=== PATIENT | male | born 1955 | race Caucasian/White ===

== ENCOUNTER 2018-11-01 11:42 | Outpatient (REF) | payer MEDICARE, MEDICAID, SELFPAY ==
[2018-11-01 12:42] LABS: ALT 14 U/L (12-78); AST 15 U/L (15-37); Albumin 2.8 g/dL (3.4-5.0); Alkaline Phosphatase 141 U/L (46-116); Anion Gap 7.4 mmol/L (3-11); BUN 4 mg/dL (7-18); Bilirubin, Total 0.3 mg/dL (0.2-1.0); CO2 29.6 mmol/L (21.0-32.0); CREATININE 1.35 mg/dL (0.70-1.30); Calcium 8.8 mg/dL (8.5-10.1); Chloride 87 mmol/L (98-107); Estimated GFR 53.04 (mL/min/1.73m2); Glucose 110 mg/dL (70-100); Magnesium 1.8 mg/dL (1.8-2.4); Potassium 4.4 mmol/L (3.5-5.1); Total Protein 6.3 g/dL (6.4-8.2)
[2018-11-01 12:54] LABS: Sodium 124 mmol/L (136-145)
== END 2018-11-01 12:02 ==
LOC: NCHCN 11:42
PROVIDERS: PCP Nurse Practitioner; Visit Provider Nurse Practitioner
DX: E87.6 Hypokalemia (principal); I10 Essential (primary) hypertension; E83.42 Hypomagnesemia
CPT/HCPCS: 80053; 83735

== ENCOUNTER 2018-11-03 09:35 | Outpatient (REF) | payer MEDICARE, MEDICAID, SELFPAY ==
[2018-11-03 14:49] LABS: Anion Gap 11.7 mmol/L (3-11); BUN 6 mg/dL (7-18); CO2 25.3 mmol/L (21.0-32.0); CREATININE 1.37 mg/dL (0.70-1.30); Calcium 9.1 mg/dL (8.5-10.1); Chloride 88 mmol/L (98-107); Estimated GFR 52.15 (mL/min/1.73m2); GGT 47 U/L (15-85); Glucose 93 mg/dL (70-100); Potassium 4.5 mmol/L (3.5-5.1); Sodium 125 mmol/L (136-145)
== END 2018-11-03 09:55 ==
LOC: NCHCN 09:35
PROVIDERS: PCP Nurse Practitioner; Visit Provider Nurse Practitioner
DX: E87.1 Hypo-osmolality and hyponatremia (principal); R74.8 Abnormal levels of other serum enzymes
CPT/HCPCS: 80048; 82977

== ENCOUNTER 2019-02-11 15:40 | Inpatient (IN) | payer MEDICARE, MEDICAID, SELFPAY ==
[2019-02-11] VITALS (8 sets, daily range): BP systolic 120–135; BP diastolic 87–92; PULSE 69–86; RESP 16–25; TEMP 36.3–36.4; O2SAT 98–100
--- NOTE | 2019-02-11 15:50 | W.ED.GENAD ---
Discharge Plan Disposition Patient Disposition: [facility] INPATIENT Condition: Stable Discharge Details Chief Complaint: Abd Prob Clinical Impression: Hyponatremia, UTI (urinary tract infection), Constipation, History of alcohol abuse Primary Care Provider: Josephine Velazquez ED Provider: Daisha Cabrales Home Meds and New Rx's Prescriptions: No Action carvedilol [Coreg] 6.25 MG tablet 12.5 mg PO BID Qty: 60 RF: 0 torsemide [Demadex] 20 MG tablet 20 mg PO DAILY Qty: 30 RF: 0 polyethylene glycol 3350 17 GM powder in packet 17 gm PO DAILY PRN PRN (Reason: Constipation) Qty: 30 RF: 0 amlodipine 5 MG tablet 5 mg PO DAILY Qty: 30 RF: 0 cyanocobalamin (vitamin B-12) [Vitamin B-12] 500 MCG tablet 1,000 mcg PO DAILY Qty: 30 RF: 0 ascorbic acid (vitamin C) [Vitamin C] 500 MG tablet 500 mg PO BID Qty: 60 RF: 0 bisacodyl 10 MG suppository 10 mg [place] DAILY PRN PRNQty: 30 RF: 0 benztropine 1 MG tablet 0.5 mg PO DAILY Qty: 30 RF: 0 docusate sodium [Colace] 100 MG capsule 100 mg PO TID PRN PRNQty: 90 RF: 0 omeprazole 20 MG capsule,delayed release(DR/EC) 20 mg PO DAILY@0730 Qty: 30 RF: 0 bisacodyl 5 MG tablet,delayed release (DR/EC) 5 mg PO DAILY PRN PRNQty: 30 RF: 0 risperidone [Risperdal] 1 MG tablet 1 mg PO HS Qty: 30 RF: 0 spironolactone 50 MG tablet 50 mg PO DAILY Qty: 30 RF: 0 multivit, iron, min no.8, FA [Therapeutic-M] 1 TAB tablet 1 tab PO BID Qty: 60 RF: 0 magnesium gluconate 500 MG tablet 500 mg PO BID Qty: 60 RF: 0 thiamine mononitrate (vit B1) [Vitamin B-1 (mononitrate)] 100 MG tablet 100 mg PO DAILY Qty: 30 RF: 0 Medical Decision Making 63-year-old male with history of GERD, COPD, schizophrenia, alcohol abuse, hypertension anxiety who presents with abdominal bloating, dysuria and decreased urine output since last night. Also admits to constipation with last bowel movement 2-3 weeks ago. Patient is a frequent alcoholic drinker, last drink last night. He denies any significant abdominal pain or vomiting. Patient appears disheveled. Vitals within normal limits. Minimal tenderness palpation left lower quadrant, no abdominal distention, rigidity or guarding. Normal exam. Differential diagnosis includes UTI, pyelonephritis, kidney stone, diverticulitis, electrolyte abnormality, small bowel obstruction. Will place an IV, bolus of fluids, labs, urinalysis as well as CT abdomen and pelvis. Patient had complained to nurse upon arrival that he could not breathe. He denied any shortness of breath for me and has no signs of acute respiratory distress. We will also obtain a chest x-ray. 1739 --labs reviewed and note a white blood cell count of 11, sodium 122. Sodium in October was 124 and 125. Creatinine 1.8, GFR 38. Lipase 109. Urinalysis notes UTI. Will change CT to only p.o. contrast. Will continue normal saline infusion for chronic hyponatremia. 1939 --CXR notes pulmonary mass lesion, fusiform aneurysm, no acute findings. CT abd notes minimal stool burden but no acute findings. Pt agreeable with admission. 1949 --d/w hospitalist - accepts pt for admission. Medical Records Medical records reviewed: Yes I reviewed the patient's medical records. Imaging Data Radiologic Study: Radiologist's impression: CT Abdomen and Pelvis Without Contrast EXAM DATE/TIME: 02/11/2019 7:01 PM FINDINGS: Lower thorax: Pulmonary hyperinflation. Small areas of centrilobular emphysema. ABDOMEN: Liver: Benign-appearing hepatic cyst. No hepatic masses. Gallbladder and bile ducts: No calcified stones. No ductal dilation. Pancreas: No ductal dilation. No masses. Spleen: No splenomegaly or focal lesions. Adrenals: Stable appearance of adrenal hypertrophy versus low-density probable adenomas. Kidneys and ureters: No hydronephrosis. Stomach and bowel: Very minimal distal diverticula are seen. Minimal stool burden. Submucosal fat deposition in the right colon. No evidence of colitis or diverticulitis. No focal pathology in the small bowel. Appendix: No evidence of appendicitis. PELVIS: Bladder: Unremarkable as visualized. Reproductive: Mild prominence of the prostate gland. ABDOMEN and PELVIS: Intraperitoneal space: No free air. No significant fluid collection. Bones/joints: Degenerative changes in the spine. No acute fracture or subluxation. Soft tissues: Subcutaneous 15 mm structure midline suprapubic pelvis, similar to prior, probably benign. Vasculature: Similar appearance of multilevel mild dilation of the infrarenal aorta with no evidence of rupture. Mild aortoiliac atherosclerosis. Mild asymmetric dilation of the distal thoracic aorta above the level of the aortic hiatus. Lymph nodes: No significantly enlarged lymph nodes. IMPRESSION: 1. No acute findings. Minimal stool burden. No evidence of colitis. 2. Incidental findings as described. XR Chest, 2 Views EXAM DATE/TIME: 02/11/2019 7:10 PM FINDINGS: Lungs: Hyperinflation similar to the previous study. Significant improvement in aeration of the lungs since the previous study with no definite new pneumonia. Pleural space: No pleural effusion. No pneumothorax. Heart/Mediastinum: No cardiomegaly. Vasculature: A tubular density measuring up to 5 cm in diameter projects over the posterior chest on the lateral view, appears contiguous with the descending aorta. Bones/joints: Degenerative changes in the shoulders. IMPRESSION: 1. Hyperinflation similar to the previous study. 2. Significant improvement in aeration of the lungs since the previous study with no definite new pneumonia. 3. A tubular density measuring up to 5 cm in diameter projects over the posterior chest on the lateral view, appears contiguous with the descending aorta. This could reflect a fusiform aortic aneurysm. A pulmonary mass lesion is considered less likely however difficult to exclude on this study. Morphology would be unusual for pneumonia. Followup is recommended. Lab Data Lab results reviewed: Yes I reviewed the patient's lab results. 02/11/19 17:15 Urine - Reflex from Ua Urine Culture - Pending Laboratory Tests Range/Units 02/11/19 02/11/19 02/11/19 17:05 17:05 17:15 WBC (4.4-10.8) k/cumm 11.62 H RBC (4.50-6.00) m/cumm 4.84 Hgb (13.5-17.5) g/dL 15.4 Hct (40.0-50.0) % 42.4 MCV (80-95) fL 87.6 MCH (27.0-33.0) pg 31.8 MCHC (32.0-36.0) g/dL 36.3 H RDW (11.8-14.1) % 16.2 H Plt Count (130-400) x1000/uL 201 MPV (8.0-11.0) fL 8.9 Immature Gran % 0.5 Neutrophils % 82.6 Lymphocytes % 11.0 Monocytes % 5.4 Eosinophils % 0.3 Basophils % 0.2 Absolute Neutrophils (1.2-6.7) k/cumm 9.60 H Absolute Lymphocytes (1.2-3.4) k/cumm 1.28 Absolute Monocytes (0.11-0.7) k/cumm 0.63 Absolute Eosinophils (0.0-0.7) k/cumm 0.03 Absolute Basophils (0.0-0.2) k/cumm 0.02 Sodium (136-145) mmol/L 122 L* Potassium (3.5-5.1) mmol/L 4.3 Chloride (98-107) mmol/L 85 L Carbon Dioxide (21.0-32.0) mmol/L 26.2 Anion Gap (3-11) mmol/L 10.8 BUN (7-18) mg/dL 17 Creatinine (0.70-1.30) mg/dL 1.80 H Estimated GFR/1.73 m2 (mL/min/1.73m2) 38.06 Glucose (70-100) mg/dL 107 H Calcium (8.5-10.1) mg/dL 8.9 Total Bilirubin (0.2-1.0) mg/dL 0.6 AST (15-37) U/L 21 ALT (12-78) U/L 26 Alkaline Phosphatase (46-116) U/L 143 H Total Protein (6.4-8.2) g/dL 7.3 Albumin (3.4-5.0) g/dL 2.8 L Lipase (73-393) U/L 109 Urine Color (Yellow) Yellow Urine Clarity Clear Urine pH (5-8) 5.5 Ur Specific [place] (1.005-1.025) 1.015 Urine Protein (Negative) mg/dL Trace H Urine Ketones (Negative) mg/dL Negative Urine Blood (Negative) Negative Urine Nitrite (Negative) Negative Urine Bilirubin (Negative) Small H Urine Urobilinogen (Up TO 0.2) EU/dL 1.0 H Ur Leukocyte Esterase (Negative) Trace H Urine RBC (0-2) Negative Urine WBC (0-5) HPF >50 Ur Epithelial Cells (Negative) HPF Few Urine Crystals (Negative) HPF Negative Urine Bacteria (Negative) HPF Many Urine Casts (Negative) LPF Negative Urine Mucus (Negative) Negative Urine Other (Negative) Negative Ur Culture Indicated? Yes Urine Glucose (Negative) mg/dL Negative HPI General Mode of arrival: ambulatory. Date/Time Provider Initiated Documentation: 02/11/19 15:50. Limitations to Documentation: no limitations. Information obtained by: patient. HPI Narrative: Patient is a 63-year-old male with a history of GERD, COPD, schizophrenia, alcohol abuse, hypertension and anxiety who presents with abdominal bloating and dysuria since yesterday. Patient denies any significant abdominal pain. He also admits to constipation and states he his last bowel movement was 2-3 weeks ago. States he normally has bowel movements daily. He states he drinks a sixpack of beer 2-3 times weekly. He states he last drank alcohol last night. He denies any hematuria, nausea, vomiting, diarrhea, chest pain, shortness of breath or abdominal pain. He states he has not urinated since last night. He states he has been eating and drinking normally. Related Data Home Medications Medication Instructions Recorded Confirmed amlodipine 5 mg PO DAILY #30 tab 12/08/17 ascorbic acid (vitamin C) [Vitamin 500 mg PO BID #60 tab 12/08/17 C] benztropine 0.5 mg PO DAILY #30 tab 12/08/17 bisacodyl 5 mg PO DAILY PRN PRN #30 tabec 12/08/17 bisacodyl 10 mg [place] DAILY PRN PRN #30 supp 12/08/17 carvedilol [Coreg] 12.5 mg PO BID #60 tab 12/08/17 cyanocobalamin (vitamin B-12) 1,000 mcg PO DAILY #30 tab 12/08/17 [Vitamin B-12] docusate sodium [Colace] 100 mg PO TID PRN PRN #90 cap 12/08/17 magnesium gluconate 500 mg PO BID #60 tab 12/08/17 multivit, iron, min no.8, FA 1 tab PO BID #60 tab 12/08/17 [Therapeutic-M] omeprazole 20 mg PO DAILY@0730 #30 capcr 12/08/17 polyethylene glycol 3350 17 gm PO DAILY PRN PRN #30 packet 12/08/17 risperidone [Risperdal] 1 mg PO HS #30 tab 12/08/17 spironolactone 50 mg PO DAILY #30 tab 12/08/17 thiamine mononitrate (vit B1) 100 mg PO DAILY #30 tab 12/08/17 [Vitamin B-1 (mononitrate)] torsemide [Demadex] 20 mg PO DAILY #30 tab 12/08/17 Previous Rx's Medication Instructions Recorded amlodipine 5 mg PO DAILY #30 tab 12/08/17 ascorbic acid (vitamin C) [Vitamin 500 mg PO BID #60 tab 12/08/17 C] benztropine 0.5 mg PO DAILY #30 tab 12/08/17 bisacodyl 5 mg PO DAILY PRN PRN #30 tabec 12/08/17 bisacodyl 10 mg [place] DAILY PRN PRN #30 supp 12/08/17 carvedilol [Coreg] 12.5 mg PO BID #60 tab 12/08/17 cyanocobalamin (vitamin B-12) 1,000 mcg PO DAILY #30 tab 12/08/17 [Vitamin B-12] docusate sodium [Colace] 100 mg PO TID PRN PRN #90 cap 12/08/17 magnesium gluconate 500 mg PO BID #60 tab 12/08/17 multivit, iron, min no.8, FA 1 tab PO BID #60 tab 12/08/17 [Therapeutic-M] omeprazole 20 mg PO DAILY@0730 #30 capcr 12/08/17 polyethylene glycol 3350 17 gm PO DAILY PRN PRN #30 packet 12/08/17 risperidone [Risperdal] 1 mg PO HS #30 tab 12/08/17 spironolactone 50 mg PO DAILY #30 tab 12/08/17 thiamine mononitrate (vit B1) 100 mg PO DAILY #30 tab 12/08/17 [Vitamin B-1 (mononitrate)] torsemide [Demadex] 20 mg PO DAILY #30 tab 12/08/17 Allergies Allergy/AdvReac Type Severity Reaction Status Date / Time No Known Allergies Allergy Unverified 02/11/19 15:38 General Stated Complaint: Abd Prob BELLO: 3 Review of Systems Review of Systems All systems reviewed & are unremarkable except as noted in HPI and below Constitutional Reports as per HPI, Denies chills and Denies fever(s) Eyes Denies blurry vision ENT Denies dizziness, Denies sore throat and Denies throat swelling Cardiovascular Denies chest pain and Denies dyspnea Respiratory Denies cough and Denies dyspnea Gastrointestinal Reports abdominal pain, Reports bloating, Denies diarrhea and Denies vomiting Genitourinary Denies hematuria, Reports oliguria and Reports dysuria Musculoskeletal Denies back pain and Denies numbness Integumentary/Breasts Denies lesions and Denies rash Neurologic Denies dizziness, Denies focal weakness and Denies numbness Allergic/Immunologic Denies throat swelling [facility] Medical History Anxiety (Chronic) Alcohol abuse COPD (chronic obstructive pulmonary disease) GERD (gastroesophageal reflux disease) Pneumonitis Schizophrenia Tremor Surgical History History of ankle surgery (Acute) Family History Mother Asthma Father [place] (myocardial infarction) Grandmother Diabetes Colon cancer Maternal Uncle Hyperlipidemia Other Lung cancer Social History Smoking/Tobacco Use Status: Current every day Alcohol Intake: current Alcohol Intake frequency: a few times a week Alcohol type: beer Drug use: Daily Substance use type: does not use Do you feel safe at home: Yes Do you feel safe in your relationship?: Yes Exam Const General: cooperative, no acute distress and No well groomed Nutritional Appearance: thin Orientation: alert and awake [facility] Head: normal to inspection Face and sinus: normal facial exam Mouth: mucous membranes dry Eyes General: appearance normal, both eyes and all related structures EOM: EOM intact bilaterally Neck Neck: normal visual inspection and No submandibular swelling Lymphatic: no lymphadenopathy noted Chest Chest: normal inspection of the chest and no tenderness Resp Effort & Inspection: normal respiratory effort and able to speak in complete sentences Auscultation: clear to auscultation bilaterally Cardio Rate: regular rate Rhythm: regular rhythm GI Inspection: normal to inspection and non-distended Palpation: soft, not firm, not rigid and tender in the LLQ (Minimal) Auscultation: hypoactive bowel sounds Male General Exam: Yes normal external exam Skin General skin exam: no rashes or lesions noted Neuro General: alert, awake and oriented x3 Cognition: normal cognition Speech: speech normal Motor: muscle tone normal throughout Sensory Exam: no sensory deficits noted Extrem General: normal to inspection, full ROM and no edema Psych Appearance: grossly normal Mental Status: mental status grossly normal Speech and Movement: speech and movement normal Affect: normal affect Course Vital Signs Temperature 97.3 F L 02/11/19 15:38 Pulse 83 02/11/19 15:38 Respiratory Rate 16 02/11/19 15:38 Blood Pressure 135/92 H 02/11/19 15:38 Pulse Oximetry 98 02/11/19 15:38 Temperature 97.3 F L 02/11/19 15:38 Temperature Source Temporal Artery Scan 02/11/19 15:38 Pulse 83 02/11/19 15:38 Respiratory Rate 16 02/11/19 15:38 Respiratory Effort 02/11/19 15:38 Blood Pressure 135/92 H 02/11/19 15:38 Pulse Oximetry 98 02/11/19 15:38 Oxygen Delivery Method Room Air 02/11/19 15:38 Oxygen Flow Rate 0 02/11/19 15:38
[2019-02-11] MEDS: Normal Saline 1,000 ML 1000 ML IV (17:00)
--- NOTE | 2019-02-11 17:12 | DI.RAD_ITS ---
SYMPTOM/DIAGNOSIS: SOB PA AND LATERAL CHEST: The heart is not enlarged. Thoracic aorta is tortuous and the possibility of a fusiform aneurysm of the descending thoracic aorta is raised, exact comparison with previous examination of 2018 is difficult but there may have been interval increase since 2016. Chest CT may be considered if clinically indicated. The possibility that this represents a mass is not entirely excluded. Lungs appear clear. No pleural effusion is seen. CONCLUSION: Question descending thoracic aneurysm. Mass not absolutely excluded. Chest CT suggested for further evaluation.
[2019-02-11 17:15] LABS: Abs Immature Grans 0.06 k/cumm (0.0-0.09); Absolute Basophil Count 0.02 k/cumm (0.0-0.2); Absolute Eosinophil Count 0.03 k/cumm (0.0-0.7); Absolute Lymphocyte Count 1.28 k/cumm (1.2-3.4); Absolute Monocyte Count 0.63 k/cumm (0.11-0.7); Basophils % 0.2; Eosinophils % 0.3; HCT 42.4 % (40.0-50.0); HGB 15.4 g/dL (13.5-17.5); Immature Grans % 0.5; Mean Corp. HGB Concentration 36.3 g/dL (32.0-36.0); Mean Corpuscular Hemoglobin 31.8 pg (27.0-33.0); Mean Corpuscular Volume 87.6 fL (80-95); Mean Platelet Volume 8.9 fL (8.0-11.0); Monocytes % 5.4; Neutrophils % 82.6; Platelet Count 201 x1000/uL (130-400); RBC 4.84 m/cumm (4.50-6.00); RBC Distribution Width 16.2 % (11.8-14.1); White Blood Cell Count 11.62 k/cumm (4.4-10.8)
[2019-02-11 17:22] LABS: Bilirubin Small (Negative); Blood Negative (Negative); Clarity Clear; Glucose Negative (Negative); Ketones Negative (Negative); Leukocyte Esterase Trace (Negative); Nitrite Negative (Negative); Specific Gravity 1.015 (1.005-1.025); pH 5.5 (5-8)
[2019-02-11 17:27] LABS: ALT 26 U/L (12-78); AST 21 U/L (15-37); Albumin 2.8 g/dL (3.4-5.0); Alkaline Phosphatase 143 U/L (46-116); Anion Gap 10.8 mmol/L (3-11); BUN 17 mg/dL (7-18); Bilirubin, Total 0.6 mg/dL (0.2-1.0); CO2 26.2 mmol/L (21.0-32.0); Calcium 8.9 mg/dL (8.5-10.1); Chloride 85 mmol/L (98-107); Estimated GFR 38.06 (mL/min/1.73m2); Glucose 107 mg/dL (70-100); Lipase 109 U/L (73-393); Potassium 4.3 mmol/L (3.5-5.1); Total Protein 7.3 g/dL (6.4-8.2)
[2019-02-11 17:29] LABS: Sodium 122 mmol/L (136-145)
[2019-02-11 17:34] LABS: Bacteria Many HPF (Negative); C & S Indicated? Yes; Casts Negative LPF (Negative); Crystals Negative HPF (Negative); Epithelial Cells Few HPF (Negative); Mucus Negative (Negative); Other Cells Negative (Negative); RBC Negative (0-2); WBC >50 HPF (0-5)
--- NOTE | 2019-02-11 17:37 | DI.CT_ITS ---
SYMPTOM/DIAGNOSIS: DIFFUSE ABD PAIN, ? OBSTRUCTION ABDOMEN AND PELVIC CT: CT examination of the abdomen and pelvis was performed with oral contrast only. Images obtained through the lung bases are unremarkable. Tiny low attenuation right hepatic lobe lesion is noted consistent with benign disease but too small to characterize. Spleen is unremarkable in appearance. No biliary dilatation is seen. Pancreas appears normal. Abdominal aorta is ectatic at about 31-32 mm. maximal diameter, grossly unchanged from 12/13/15. No abdominal or pelvic adenopathy. No significant abdominal wall hernia is seen. There is a question of wall edema of the ascending colon, clinical correlation is requested regarding the possibility of colitis. No free fluid or free air is seen. No evidence of a focal diverticulitis. Adrenals and kidneys grossly unremarkable in appearance and unchanged. CONCLUSION: Question of edema of the ascending colon, consider the diagnosis of colitis.
--- NOTE | 2019-02-11 19:29 | DI.VRAD_ITS ---
EXAM: XR Chest, 2 Views EXAM DATE/TIME: 02/11/2019 7:10 PM CLINICAL HISTORY: 63 years old, male; Signs and symptoms; Cough and shortness of breath; Additional info: R/O acute disease TECHNIQUE: Imaging protocol: XR of the chest, 2 views. COMPARISON: CR CHEST 2 VIEWS PA,LAT 12/05/2017 3:48 PM FINDINGS: Lungs: Hyperinflation similar to the previous study. Significant improvement in aeration of the lungs since the previous study with no definite new pneumonia. Pleural space: No pleural effusion. No pneumothorax. Heart/Mediastinum: No cardiomegaly. Vasculature: A tubular density measuring up to 5 cm in diameter projects over the posterior chest on the lateral view, appears contiguous with the descending aorta. Bones/joints: Degenerative changes in the shoulders. IMPRESSION: 1. Hyperinflation similar to the previous study. 2. Significant improvement in aeration of the lungs since the previous study with no definite new pneumonia. 3. A tubular density measuring up to 5 cm in diameter projects over the posterior chest on the lateral view, appears contiguous with the descending aorta. This could reflect a fusiform aortic aneurysm. A pulmonary mass lesion is considered less likely however difficult to exclude on this study. Morphology would be unusual for pneumonia. Followup is recommended. Dictated and Authenticated by: Mila Wheeler MD. Ordering:SHERMAN Ashton MD
--- NOTE | 2019-02-11 19:35 | DI.VRAD_ITS ---
EXAM: CT Abdomen and Pelvis Without Contrast EXAM DATE/TIME: 02/11/2019 7:01 PM CLINICAL HISTORY: 63 years old, male; Signs and symptoms; Constipation TECHNIQUE: Imaging protocol: Axial computed tomography images of the abdomen and pelvis without contrast. Coronal and sagittal reformatted images were created and reviewed. Radiation optimization: All CT scans at this facility use at least one of these dose optimization techniques: automated exposure control; mA and/or kV adjustment per patient size (includes targeted exams where dose is matched to clinical indication); or iterative reconstruction. COMPARISON: CT ABD PELVIS WO CONTRAST 12/13/2015 10:16 AM FINDINGS: Lower thorax: Pulmonary hyperinflation. Small areas of centrilobular emphysema. ABDOMEN: Liver: Benign-appearing hepatic cyst. No hepatic masses. Gallbladder and bile ducts: No calcified stones. No ductal dilation. Pancreas: No ductal dilation. No masses. Spleen: No splenomegaly or focal lesions. Adrenals: Stable appearance of adrenal hypertrophy versus low-density probable adenomas. Kidneys and ureters: No hydronephrosis. Stomach and bowel: Very minimal distal diverticula are seen. Minimal stool burden. Submucosal fat deposition in the right colon. No evidence of colitis or diverticulitis. No focal pathology in the small bowel. Appendix: No evidence of appendicitis. PELVIS: Bladder: Unremarkable as visualized. Reproductive: Mild prominence of the prostate gland. ABDOMEN and PELVIS: Intraperitoneal space: No free air. No significant fluid collection. Bones/joints: Degenerative changes in the spine. No acute fracture or subluxation. Soft tissues: Subcutaneous 15 mm structure midline suprapubic pelvis, similar to prior, probably benign. Vasculature: Similar appearance of multilevel mild dilation of the infrarenal aorta with no evidence of rupture. Mild aortoiliac atherosclerosis. Mild asymmetric dilation of the distal thoracic aorta above the level of the aortic hiatus. Lymph nodes: No significantly enlarged lymph nodes. IMPRESSION: 1. No acute findings. Minimal stool burden. No evidence of colitis. 2. Incidental findings as described. Dictated and Authenticated by: Mila Wheeler MD. Ordering:SHERMAN Ashton MD
[2019-02-11] MEDS: cefTRIAXone 1 GM/50 ML BAG IVPB (20:40)
[2019-02-11 22:28] LABS: ETHANOL BLOOD < 3.0 mg/dL (<3)
--- NOTE | 2019-02-11 22:51 | HPE_ITS ---
Date of service: 02/11/19 Time of Service: 22:51 Assessment and Plan (1) UTI (urinary tract infection): Current visit: Yes Status: Acute continue Ceftriaxone 1 gm IV daily pending cultures results then transit ion to oral antibiotics. check renal US to evaluate for pyelonephritis. Qualifiers: Urinary tract infection type: site unspecified Hematuria presence: without hematuria Qualified Code(s): N39.0 - Urinary tract infection, site not specified (2) Acute prerenal azotemia: Current visit: Yes Status: Acute gentle iv hydration overnight. dc fluids after this liter to avoid putting him into anasarca. However given his poor oral intake and his worsening azotemia, I think that he can tolerate short term iv fluids and putting his diuretics on hold for now (3) Constipation: Current visit: No Status: Chronic resolved w/ drinking the barium for the CT scan of his abdomen (4) Alcohol abuse: Current visit: No Status: Chronic chronic issue. No hx of acute alcohol withdrawal even during his admission in 2018. will monitor on CIWA scale while hospitalized and initiate benzodiazepines if his scores are high (5) Schizoaffective disorder: Current visit: No Status: Chronic continue home meds. Qualifiers: Schizoaffective disorder type: bipolar Qualified Code(s): F25.0 - Schizoaffective disorder, bipolar type (6) Hyponatremia: Current visit: No Status: Chronic chronic issue and related to his liver disease and use of longterm diuretics. No apparent ill effects and no acute changes in his sodium levels. History of Present Illness Chief Complaint: bloated, nausea, short of breath Narrative: 63 yr old male w/ PMH of COPD, schizophrenia, alcoholism, tobaccoism, anxiety disorder, GERD, HTN, ascites, CKD and H.U.S. presents w/ c/o of not having a bm x 2 wks and feeling nauseated and bloated and short of breath. Upon evaluation in the ER he was afebrile, hemodynamically stable, not hypoxemic but because of the c/o of abdominal bloating and lack of BM and decreased urinary output, a CT scan of his abdomen and pelvis was ordered however this was done w/ only oral contrast d/t his HUMBERTO. Labs were remarkable for elevated creatinine of 1.8 (last known creatinine was 1.37 on 11/03/2018) and BUN of 17. He was noted to have sodium of 122 but his baseline is 124 to 125. He has known ascites and takes spironolactone and demedex. CT of his abdomen did not reveal any hydronephrosis. No gall stones or ductal dilatation. No pancreatic masses or ductal dilatation. Minimal stool burden was seen. No evidence for appendicitis nor colitis.Urinary bladder was unremarkable. His vasculature however revealed tortuous atherosclerotic abdominal aorta that showed mild dilatation of the infrarenal aorta, however no diagnosis of aortic aneurysm was made. No dissection was seen. Also noted was asymmetric dilatation of the distal thoracic aorta above the aortic hiatus. CXR revealed hyperinflation and tubular density measuring up to 5 cm in diameter over the posterior chest seen on lateral view that appeared to be contiduous w/ the descending aorta. Follow up study was recommended. Patient in addition to noting low u.o. despite being on spironolactone and demedex, he also complained of dysuria, burning w/ urination. UA was remarkable for pyuria w/ >50 WBC, many bacteria and trace of leukocyte esterace but negative for nitrites. Treatment in the ER included 1 liter of NS iv fluids, blood cultures and urine cultures and initiation of Rocephin 1 gm for UTI. He is admitted overnight for treatment of dehydration, HUMBERTO, and UTI. He will need follow up of his TAA. Review of Systems Constitutional Reports system reviewed and no additional complaints, except as docu [facility] Medical History Anxiety (Chronic) Alcohol abuse COPD (chronic obstructive pulmonary disease) GERD (gastroesophageal reflux disease) Pneumonitis Schizophrenia Tremor Surgical History History of ankle surgery (Acute) Family History Mother Asthma Father [place] (myocardial infarction) Grandmother Diabetes Colon cancer Maternal Uncle Hyperlipidemia Other Lung cancer Social History Smoking/Tobacco Use Status: Current every day Tobacco Type: cigarettes Smoking packs per day: 1 Alcohol Intake: current Alcohol Intake frequency: 3 or more drinks per day Alcohol type: beer Details: drinks a 6 pack of beer per day Drug use: Never Substance use type: does not use Do you feel safe at home: Yes Do you feel safe in your relationship?: Yes Meds Home Medications Medication Instructions Recorded Confirmed Type Therapeutic-M 1 tab PO BID #60 tab 12/08/17 02/11/19 Rx amlodipine 5 mg PO DAILY #30 tab 12/08/17 02/11/19 Rx ascorbic acid (vitamin C) [Vitamin 500 mg PO BID #60 tab 12/08/17 02/11/19 Rx C] benztropine 0.5 mg PO DAILY #30 tab 12/08/17 02/11/19 Rx carvedilol [Coreg] 12.5 mg PO BID #60 tab 12/08/17 02/11/19 Rx cyanocobalamin (vitamin B-12) 1,000 mcg PO DAILY #30 tab 12/08/17 02/11/19 Rx [Vitamin B-12] docusate sodium [Colace] 100 mg PO TID PRN PRN #90 cap 12/08/17 02/11/19 Rx magnesium gluconate 500 mg PO BID #60 tab 12/08/17 02/11/19 Rx omeprazole 20 mg PO DAILY@0730 #30 capcr 12/08/17 02/11/19 Rx risperidone [Risperdal] 1 mg PO HS #30 tab 12/08/17 02/11/19 Rx spironolactone 50 mg PO DAILY #30 tab 12/08/17 02/11/19 Rx torsemide [Demadex] 20 mg PO DAILY #30 tab 12/08/17 02/11/19 Rx mirtazapine [Remeron] 15 mg PO HS 02/11/19 02/11/19 History omega 4-akq-ern-fish oil [[place]-3] 2,000 cap PO DAILY 02/11/19 02/11/19 History thiamine HCl (vitamin B1) [Vitamin 100 mg PO DAILY 02/11/19 02/11/19 History B-1] Allergies Allergy/AdvReac Type Severity Reaction Status Date / Time No Known Allergies Allergy Unverified 02/11/19 15:38 Exam Const General: cooperative, no acute distress and disheveled Nutritional Appearance: overweight Orientation: alert, awake and oriented x3 HENMT Head: normal to inspection, no palpable skull fracture, normocephalic and atraumatic Ears: hearing grossly normal bilaterally General nose exam: external nose normal Face and sinus: normal facial exam Neck Neck: normal visual inspection, full ROM, no lymphadenopathy and trachea midline Thyroid: thyroid normal Carotids: normal carotid upstroke Chest Chest: normal inspection of the chest and normal palpation of entire chest wall Resp Effort & Inspection: normal respiratory effort and able to speak in complete sentences Auscultation: clear to auscultation bilaterally Cardio Jugular venous pressure: no JVD Palpation: normal PMI Rate: regular rate Rhythm: regular rhythm Heart Sounds: S1 normal and S2 normal Bruits: no abdominal aortic bruits Pulses: normal peripheral pulses GI Inspection: obesity Palpation: soft and no hepatosplenomegaly Percussion: normal to percussion Auscultation: normal bowel sounds Back/Spine/Pelvis Back: no CVA tenderness Cervical Spine: normal cervical lordosis Thoracic/Lumbar Spine: thoracic and lumbar spine normal to inspection Skin General skin exam: no rashes or lesions noted, elasticity normal and turgor normal Neuro General: alert, awake, oriented x3, moves all extremities and no focal motor deficits Cognition: normal cognition Speech: speech normal Motor: muscle tone normal throughout and no movement abnormalities noted Extrem General: normal to inspection, full ROM, no joint enlargement and no clubbing, cyanosis or edema Psych Appearance: disheveled Mental Status: mental status grossly normal Speech and Movement: speech and movement normal Mood: congruent mood Affect: normal affect Attitude: cooperative Thought Process: normal Thought Content: normal Insight: fair Judgment: fair Results Imaging Chest x-ray: report reviewed (IMPRESSION: 1. Hyperinflation similar to the previous study. 2. Significant improvement in aeration of the lungs since the previous study with no definite new pneumonia. 3. A tubular density measuring up to 5 cm in diameter projects over the posterior chest on the lateral view, appears contiguo) and image reviewed Abdomen CT scan report/results: report reviewed (FINDINGS: Lower thorax: Pulmonary hyperinflation. Small areas of centrilobular emphysema. ABDOMEN: Liver: Benign-appearing hepatic cyst. No hepatic masses. Gallbladder and bile ducts: No calcified stones. No ductal dilation. Pancreas: No ductal dilation. No masses. Spleen: No splenom) Labs : 02/11/19 17:05 02/11/19 17:05 Laboratory Results - last 24 hr 02/11/19 02/11/19 02/11/19 17:05 17:05 17:15 WBC 11.62 H RBC 4.84 Hgb 15.4 Hct 42.4 MCV 87.6 MCH 31.8 MCHC 36.3 H RDW 16.2 H Plt Count 201 MPV 8.9 Immature Gran % 0.5 Neutrophils % 82.6 Lymphocytes % 11.0 Monocytes % 5.4 Eosinophils % 0.3 Basophils % 0.2 Absolute Neutrophils 9.60 H Absolute Lymphocytes 1.28 Absolute Monocytes 0.63 Absolute Eosinophils 0.03 Absolute Basophils 0.02 Sodium 122 L* Potassium 4.3 Chloride 85 L Carbon Dioxide 26.2 Anion Gap 10.8 BUN 17 Creatinine 1.80 H Estimated GFR/1.73 m2 38.06 Glucose 107 H Calcium 8.9 Total Bilirubin 0.6 AST 21 ALT 26 Alkaline Phosphatase 143 H Total Protein 7.3 Albumin 2.8 L Lipase 109 Urine Color Yellow Urine Clarity Clear Urine pH 5.5 Ur Specific [place] 1.015 Urine Protein Trace H Urine Ketones Negative Urine Blood Negative Urine Nitrite Negative Urine Bilirubin Small H Urine Urobilinogen 1.0 H Ur Leukocyte Esterase Trace H Urine RBC Negative Urine WBC >50 Ur Epithelial Cells Few Urine Crystals Negative Urine Bacteria Many Urine Casts Negative Urine Mucus Negative Urine Other Negative Ur Culture Indicated? Yes Urine Glucose Negative Ethyl Alcohol 02/11/19 21:45 WBC RBC Hgb Hct MCV MCH MCHC RDW Plt Count MPV Immature Gran % Neutrophils % Lymphocytes % Monocytes % Eosinophils % Basophils % Absolute Neutrophils Absolute Lymphocytes Absolute Monocytes Absolute Eosinophils Absolute Basophils Sodium Potassium Chloride Carbon Dioxide Anion Gap BUN Creatinine Estimated GFR/1.73 m2 Glucose Calcium Total Bilirubin AST ALT Alkaline Phosphatase Total Protein Albumin Lipase Urine Color Urine Clarity Urine pH Ur Specific [place] Urine Protein Urine Ketones Urine Blood Urine Nitrite Urine Bilirubin Urine Urobilinogen Ur Leukocyte Esterase Urine RBC Urine WBC Ur Epithelial Cells Urine Crystals Urine Bacteria Urine Casts Urine Mucus Urine Other Ur Culture Indicated? Urine Glucose Ethyl Alcohol < 3.0 Last Vital Signs Temp 36.4 C L 02/11/19 21:37 Pulse 86 02/11/19 21:37 Resp 16 02/11/19 21:37 BP 120/87 02/11/19 21:37 Pulse Ox 100 02/11/19 21:37
[2019-02-12] MEDS: Mirtazapine 15 MG TAB PO ×2 (00:22→21:55)
[2019-02-12] MEDS: risperiDONE 1 MG TAB PO ×2 (00:22→21:55)
[2019-02-12] MEDS: Normal Saline 1,000 ML 75 ML IV (01:28)
[2019-02-12 04:59] VITALS: BP 125/89; PULSE 84; RESP 20; TEMP 36.9; O2SAT 98
[2019-02-12 07:17] LABS: Abs Immature Grans 0.02 k/cumm (0.0-0.09); Absolute Basophil Count 0.01 k/cumm (0.0-0.2); Absolute Eosinophil Count 0.02 k/cumm (0.0-0.7); Absolute Lymphocyte Count 1.32 k/cumm (1.2-3.4); Absolute Monocyte Count 0.49 k/cumm (0.11-0.7); Absolute Neutrophil Count 5.74 k/cumm (1.2-6.7); Basophils % 0.1; Eosinophils % 0.3; HCT 37.3 % (40.0-50.0); HGB 13.6 g/dL (13.5-17.5); Immature Grans % 0.3; Lymphocytes % 17.4; Mean Corp. HGB Concentration 36.5 g/dL (32.0-36.0); Mean Corpuscular Hemoglobin 32.1 pg (27.0-33.0); Mean Platelet Volume 9.4 fL (8.0-11.0); Monocytes % 6.4; Neutrophils % 75.5; Platelet Count 206 x1000/uL (130-400); RBC 4.24 m/cumm (4.50-6.00); RBC Distribution Width 15.8 % (11.8-14.1)
[2019-02-12 07:21] LABS: Anion Gap 9.1 mmol/L (3-11); BUN 14 mg/dL (7-18); CO2 24.9 mmol/L (21.0-32.0); CREATININE 1.37 mg/dL (0.70-1.30); Calcium 8.6 mg/dL (8.5-10.1); Chloride 89 mmol/L (98-107); Estimated GFR 52.15 (mL/min/1.73m2); Glucose 95 mg/dL (70-100); Potassium 3.6 mmol/L (3.5-5.1); TSH (W/Ref FT4) 0.39 uIU/mL (0.358-3.74)
[2019-02-12 07:25] VITALS: BP 141/92; PULSE 96; RESP 18; TEMP 36.4; O2SAT 97
[2019-02-12 07:25] LABS: Sodium 123 mmol/L (136-145)
[2019-02-12] MEDS: Thiamine 100 MG TAB PO (07:43)
[2019-02-12] MEDS: Multivitamin w/Minerals TAB 1 TAB PO ×2 (07:43→20:38)
[2019-02-12] MEDS: Omeprazole 20 MG CAPCR PO (07:43)
[2019-02-12] MEDS: Ascorbic Acid 500 MG TAB PO ×2 (07:43→20:38)
[2019-02-12] MEDS: Magnesium Gluconate 500 MG TAB PO ×2 (07:43→20:38)
[2019-02-12] MEDS: amLODIPine 5 MG TAB PO (07:43)
[2019-02-12] MEDS: Carvedilol 6.25 MG TAB 12.5 MG PO ×2 (07:43→20:38)
[2019-02-12] MEDS: Cyanocobalamin 500 MCG TAB 1000 MCG PO (07:43)
[2019-02-12] MEDS: Heparin 5,000 UNITS/ML VIAL 5000 UNITS SC ×2 (07:44→23:46)
--- NOTE | 2019-02-12 07:55 | PDOC.CMIN ---
- If Service Date Differs Date of service: 02/12/19 Time of Service: 07:55 Care Management Initial Assess REASON FOR HOSPITALIZATION:: UTI PAST MEDICAL HISTORY/PAST SURGICAL HISTORY:: Anxiety (Chronic). Alcohol abuse. COPD (chronic obstructive pulmonary disease). GERD (gastroesophageal reflux disease). Pneumonitis. Schizophrenia. Tremor. History of ankle surgery (Acute) PREVIOUS FUNCTIONAL STATUS/SOCIAL/FAMILY SUPPORTS:: Devin resides alone in a 3rd floor apartment in [facility]. He reports that he has some family locally whom are supportive. Devin states that he does not drive at this time and depends on his ELECTRIFICATION ADVISER caseworker protective services Matthew or MARY for transportation. CURRENT FUNCTIONAL STATUS:: Currently Devin is sitting on the side of his bed. He is receptive to discussion. Devin states multiple times throughout visit that he would like to return home today. ADVANCE DIRECTIVES:: None on file Has patient been provided with information about the portal?: Yes Did the patient sign up for the portal?: No CODE STATUS:: Full Code INSURANCE COVERAGE / FINANCIAL ISSUES:: [facility] CURRENT HOME/COMMUNITY SERVICES/EQUIPMENT:: Currently Devin has ELECTRIFICATION ADVISER case management services through [facility] - Matthew Dickens is his skin care instructor. Devin also receives daily medication drops through [facility] which he reports is helpful. Devin also states that he sees Rosaura at [facility]. PRIMARY CARE PHYSICIAN:: Josephine Velazquez POTENTIAL DISCHARGE NEEDS:: F/U appt with PCP. Resume [facility] ELECTRIFICATION ADVISER supports PATIENT/FAMILY EDUCATION NEEDS:: Review DC instructions, any limitations, and ongoing DC planning discussion. Discuss 'Ask Me three' ANTICIPATED BARRIERS TO DISCHARGE:: None identified at this time. TRANSPORTATION:: Via private vehicle with caseworker protective services Matthew vs. RCT PLAN:: Devin will return home with continued ELECTRIFICATION ADVISER support services through [facility]. He will F/U with PCP and plan of care as prescribed. Matthew, ELECTRIFICATION ADVISER CM, to transport vs. RCT.
--- NOTE | 2019-02-12 07:58 | INITIAL_ITS ---
- If Service Date Differs Date of service: 02/12/19 Time of Service: 07:55 Care Management Initial Assess REASON FOR HOSPITALIZATION:: UTI PAST MEDICAL HISTORY/PAST SURGICAL HISTORY:: Anxiety (Chronic). Alcohol abuse. COPD (chronic obstructive pulmonary disease). GERD (gastroesophageal reflux disease). Pneumonitis. Schizophrenia. Tremor. History of ankle surgery (Acute) PREVIOUS FUNCTIONAL STATUS/SOCIAL/FAMILY SUPPORTS:: Devin resides alone in a 3rd floor apartment in [facility]. He reports that he has some family locally whom are supportive. Devin states that he does not drive at this time and depends on his FLAVOR TANK TENDER showcase maker Matthew or MARY for transportation. CURRENT FUNCTIONAL STATUS:: Currently Devin is sitting on the side of his bed. He is receptive to discussion. Devin states multiple times throughout visit that he would like to return home today. ADVANCE DIRECTIVES:: None on file Has patient been provided with information about the portal?: Yes Did the patient sign up for the portal?: No CODE STATUS:: Full Code INSURANCE COVERAGE / FINANCIAL ISSUES:: [facility] [place] CURRENT HOME/COMMUNITY SERVICES/EQUIPMENT:: Currently Devin has FLAVOR [employer] T[employer] case management services through [facility] - Matthew Dickens is his professional healthcare representative. Devin also receives daily medication drops through [facility] which he reports is helpful. Devin also states that he sees Rosaura at [facility]. PRIMARY CARE PHYSICIAN:: Josephine Velazquez POTENTIAL DISCHARGE NEEDS:: F/U appt with PCP. Resume [facility] FLAVOR TANK TENDER supports PATIENT/FAMILY EDUCATION NEEDS:: Review DC instructions, any limitations, and ongoing DC planning discussion. Discuss 'Ask Me three' ANTICIPATED BARRIERS TO DISCHARGE:: None identified at this time. TRANSPORTATION:: Via private vehicle with showcase maker Matthew vs. RCT PLAN:: Devin will return home with continued FLAVOR TANK TENDER support services through [facility]. He will F/U with PCP and plan of care as prescribed. Matthew, FLAVOR TANK TENDER CM, to transport vs. RCT.
[2019-02-12] MEDS: Benztropine 1 MG TAB 0.5 MG PO (09:27)
[2019-02-12] MEDS: Omega-3 Fatty Acids 1000 MG CAP 2000 MG PO (09:27)
[2019-02-12] MEDS: Potassium Chloride 20 MEQ TABCR 40 MEQ PO (09:29)
[2019-02-12] MEDS: Gabapentin 800 MG TAB PO (10:30)
[2019-02-12] MEDS: Tamsulosin 0.4 MG CAPCR PO (10:30)
--- NOTE | 2019-02-12 15:21 | PGE_ITS ---
Date of Service Date of service: 02/12/19 Time of Service: 15:16 Assessment and Plan (1) UTI (urinary tract infection): Current visit: Yes Status: Acute Continue Ceftriaxone 1 gm IV daily pending cultures results then transition to oral antibiotics. Urine culture with no growth at 24 hours. Renal US ordered to evaluate for pyelonephritis. Qualifiers: Urinary tract infection type: site unspecified Hematuria presence: without hematuria Indwelling urinary catheter type: Encounter type: Qualified Code(s): N39.0 - Urinary tract infection, site not specified (2) Acute prerenal azotemia: Current visit: Yes Status: Acute Received gentle IV hydration overnight with improvement in creatinine. Receiving 1 more liter today. Diuretics on hold in the setting of dehydration with HUMBERTO. Continue to monitor renal function. With history of cirrhosis and ascites, will need to restart diuretics when medically appropriate. (3) Constipation: Current visit: No Status: Chronic Resolved after taking barium for CT scan. CT revealed minimal stool burden. (4) Hyponatremia: Current visit: No Status: Chronic Chronic hyponatremia related to chronic liver disease and long-term diuretic use. Gentle IV hydration with NS. Continue to monitor. (5) Alcohol abuse: Current visit: No Status: Chronic Received one dose of Gabapentin and was profoundly sedated. It does not appear that he has had symptoms of withdrawal in the past while hospitalized. Discontinue scheduled Gabapentin and Serax. Monitor on CIWA protocol and treat symptoms with ativan as needed. (6) Schizoaffective disorder: Current visit: No Status: Chronic Continue home medicaitons. Qualifiers: Schizoaffective disorder type: bipolar Qualified Code(s): F25.0 - Schizoaffective disorder, bipolar type (7) Descending thoracic aortic aneurysm: Current visit: Yes Status: Acute CT scan shows a tubular density measuring up to 5 cm in diameter projects over the posterior chest on the lateral view, appears contiguous with the descending aorta. This was present on a study in 2017, has increased in size, nearing the threshold for repair. Will need outpatient follow up. (8) DVT prophylaxis: Current visit: Yes Status: Acute Subcutaneous heparin. (9) Discharge planning issues: Current visit: Yes Status: Acute He is a FULL code. This case was discussed with Dr. Vasques who is in agreement. Subjective Interval history since last seen: Mr. Rebolledo is quite sedated today. There was concern for possible alcohol withdrawal and he had one dose of Gabapentin and has been sleeping since. Review of his record reveals that he has not had alcohol withdrawal in the past when he has been hospitalized here. Given the profound sedation after taking Gabapentin, will discontinue and monitor on the CIWA protocol. He specifically denies dizziness, shortness of breath, coughing, wheezing, chest pain/pressure, nausea, vomiting. He does endorse dysuria, no hematuria. He denies lower extremity edema. He verbalizes no other concerns. Exam Narrative Exam Narrative: General: Lying in bed on his side, difficult to awaken for assessment. Answers questions appropriately when awake, falls back to sleep easily. Does not appear to be in any acute distress. HEENT: Normocephalic, atraumatic. Skin color has galarza hue. Mucous membranes moist. Neck: Supple, no JVD. Cardiovascular: Heart has regular rate and rhythm, no murmur appreciated. Respiratory: Respirations even and unlabored, lung sounds clear to auscultation throughout. Abdomen: Normoactive bowel sounds, soft, nontender on palpation. Extremities: no clubbing, cyanosis or edema. Moves around freely in bed. Pedal pulses palpable bilaterally. Objective Objective Clinical Data: Abnormal lab results 02/11/19 02/11/19 02/11/19 Range/Units 17:05 17:05 17:15 WBC 11.62 H (4.4-10.8) k/cumm RBC (4.50-6.00) m/cumm Hct (40.0-50.0) % MCHC 36.3 H (32.0-36.0) g/dL RDW 16.2 H (11.8-14.1) % Absolute Neutrophils 9.60 H (1.2-6.7) k/cumm Sodium 122 L* (136-145) mmol/L Chloride 85 L (98-107) mmol/L Creatinine 1.80 H (0.70-1.30) mg/dL Glucose 107 H (70-100) mg/dL Alkaline Phosphatase 143 H (46-116) U/L Albumin 2.8 L (3.4-5.0) g/dL Urine Protein Trace H (Negative) mg/dL Urine Bilirubin Small H (Negative) Urine Urobilinogen 1.0 H (Up TO 0.2) EU/dL Ur Leukocyte Esterase Trace H (Negative) 02/12/19 02/12/19 Range/Units 06:15 06:15 WBC (4.4-10.8) k/cumm RBC 4.24 L (4.50-6.00) m/cumm Hct 37.3 L (40.0-50.0) % MCHC 36.5 H (32.0-36.0) g/dL RDW 15.8 H (11.8-14.1) % Absolute Neutrophils (1.2-6.7) k/cumm Sodium 123 L* (136-145) mmol/L Chloride 89 L (98-107) mmol/L Creatinine 1.37 H (0.70-1.30) mg/dL Glucose (70-100) mg/dL Alkaline Phosphatase (46-116) U/L Albumin (3.4-5.0) g/dL Urine Protein (Negative) mg/dL Urine Bilirubin (Negative) Urine Urobilinogen (Up TO 0.2) EU/dL Ur Leukocyte Esterase (Negative) Vital Signs Temperature 36.4 C L 02/12/19 07:25 Temperature Source Tympanic 02/12/19 07:25 Pulse 96 H 02/12/19 07:25 Pulse Rhythm Regular 02/12/19 07:54 Pulse 74 02/11/19 18:40 Respiratory Rate 18 02/12/19 07:25 Respiratory Effort Non-Labored 02/12/19 07:54 Respiratory Depth Normal 02/12/19 07:54 Respiratory Pattern Normal 02/12/19 07:54 Blood Pressure 141/92 H 02/12/19 07:25 Pulse Oximetry 97 02/12/19 07:25 Oxygen Delivery Method Room Air 02/12/19 07:25 Oxygen Flow Rate 0 02/12/19 07:25 Pain Level 0 02/12/19 07:25 Intake & Output 02/11/19 02/12/19 02/12/19 23:59 11:59 23:59 Intake Total 1000 / 1000 480 / 600 120 / 600 Output Total 750 / 1425 675 / 1425 Balance 999 / 999 -270 / -825 -555 / -825 Weight 68.039 kg 68.89 kg Intake: IV 1000 / 1000 Oral 480 / 600 120 / 600 Output: Urine 750 / 1425 675 / 1425 Other: Urine Color Yellow Yellow Straw Urine Appearance Cloudy Clear Clear Laboratory Results WBC 7.60 k/cumm (4.4-10.8) D 02/12/19 06:15 RBC 4.24 m/cumm (4.50-6.00) L 02/12/19 06:15 Hgb 13.6 g/dL (13.5-17.5) 02/12/19 06:15 Hct 37.3 % (40.0-50.0) L 02/12/19 06:15 MCV 88.0 fL (80-95) 02/12/19 06:15 MCH 32.1 pg (27.0-33.0) 02/12/19 06:15 MCHC 36.5 g/dL (32.0-36.0) H 02/12/19 06:15 RDW 15.8 % (11.8-14.1) H 02/12/19 06:15 Plt Count 206 x1000/uL (130-400) 02/12/19 06:15 MPV 9.4 fL (8.0-11.0) 02/12/19 06:15 Immature Gran % 0.3 02/12/19 06:15 Neutrophils % 75.5 02/12/19 06:15 Lymphocytes % 17.4 02/12/19 06:15 Monocytes % 6.4 02/12/19 06:15 Eosinophils % 0.3 02/12/19 06:15 Basophils % 0.1 02/12/19 06:15 Absolute Neutrophils 5.74 k/cumm (1.2-6.7) 02/12/19 06:15 Absolute Lymphocytes 1.32 k/cumm (1.2-3.4) 02/12/19 06:15 Absolute Monocytes 0.49 k/cumm (0.11-0.7) 02/12/19 06:15 Absolute Eosinophils 0.02 k/cumm (0.0-0.7) 02/12/19 06:15 Absolute Basophils 0.01 k/cumm (0.0-0.2) 02/12/19 06:15 Sodium 123 mmol/L (136-145) L* 02/12/19 06:15 Potassium 3.6 mmol/L (3.5-5.1) 02/12/19 06:15 Chloride 89 mmol/L (98-107) L 02/12/19 06:15 Carbon Dioxide 24.9 mmol/L (21.0-32.0) 02/12/19 06:15 Anion Gap 9.1 mmol/L (3-11) 02/12/19 06:15 BUN 14 mg/dL (7-18) 02/12/19 06:15 Creatinine 1.37 mg/dL (0.70-1.30) H 02/12/19 06:15 Estimated GFR/1.73 m2 52.15 (mL/min/1.73m2) 02/12/19 06:15 Glucose 95 mg/dL (70-100) 02/12/19 06:15 Calcium 8.6 mg/dL (8.5-10.1) 02/12/19 06:15 Magnesium 2.0 mg/dL (1.8-2.4) 02/11/19 21:45 Total Bilirubin 0.6 mg/dL (0.2-1.0) 02/11/19 17:05 AST 21 U/L (15-37) 02/11/19 17:05 ALT 26 U/L (12-78) 02/11/19 17:05 Alkaline Phosphatase 143 U/L (46-116) H 02/11/19 17:05 Total Protein 7.3 g/dL (6.4-8.2) 02/11/19 17:05 Albumin 2.8 g/dL (3.4-5.0) L 02/11/19 17:05 Lipase 109 U/L (73-393) 02/11/19 17:05 TSH 0.39 uIU/mL (0.358-3.74) 02/12/19 06:15 Urine Color Yellow (Yellow) 02/11/19 17:15 Urine Clarity Clear 02/11/19 17:15 Urine pH 5.5 (5-8) 02/11/19 17:15 Ur Specific [place] 1.015 (1.005-1.025) 02/11/19 17:15 Urine Protein Trace mg/dL (Negative) H 02/11/19 17:15 Urine Ketones Negative mg/dL (Negative) 02/11/19 17:15 Urine Blood Negative (Negative) 02/11/19 17:15 Urine Nitrite Negative (Negative) 02/11/19 17:15 Urine Bilirubin Small (Negative) H 02/11/19 17:15 Urine Urobilinogen 1.0 EU/dL (Up TO 0.2) H 02/11/19 17:15 Ur Leukocyte Esterase Trace (Negative) H 02/11/19 17:15 Urine RBC Negative (0-2) 02/11/19 17:15 Urine WBC >50 HPF (0-5) 02/11/19 17:15 Ur Epithelial Cells Few HPF (Negative) 02/11/19 17:15 Urine Crystals Negative HPF (Negative) 02/11/19 17:15 Urine Bacteria Many HPF (Negative) 02/11/19 17:15 Urine Casts Negative LPF (Negative) 02/11/19 17:15 Urine Mucus Negative (Negative) 02/11/19 17:15 Urine Other Negative (Negative) 02/11/19 17:15 Ur Culture Indicated? Yes 02/11/19 17:15 Urine Glucose Negative mg/dL (Negative) 02/11/19 17:15 Ethyl Alcohol < 3.0 mg/dL (<3) 02/11/19 21:45
[2019-02-12 16:15] VITALS: BP 128/85; PULSE 77; RESP 18; TEMP 36.1; O2SAT 99
[2019-02-12 19:30] VITALS: BP 124/86; PULSE 76; RESP 18; TEMP 36.4; O2SAT 100
[2019-02-12] MEDS: Acetaminophen 325 MG TAB PO (19:53)
[2019-02-12] MEDS: Normal Saline Flush 10 ML SYR IVP (19:53)
[2019-02-12] MEDS: cefTRIAXone 1 GM/50 ML BAG IVPB (20:38)
[2019-02-12 23:40] VITALS: BP 110/68; PULSE 89; RESP 18; TEMP 37.2; O2SAT 100
[2019-02-13 07:03] LABS: Abs Immature Grans 0.03 k/cumm (0.0-0.09); Absolute Basophil Count 0.02 k/cumm (0.0-0.2); Absolute Eosinophil Count 0.06 k/cumm (0.0-0.7); Absolute Lymphocyte Count 2.59 k/cumm (1.2-3.4); Absolute Monocyte Count 0.57 k/cumm (0.11-0.7); Absolute Neutrophil Count 4.11 k/cumm (1.2-6.7); Basophils % 0.3; Eosinophils % 0.8; HGB 12.8 g/dL (13.5-17.5); Immature Grans % 0.4; Lymphocytes % 35.1; Mean Corp. HGB Concentration 35.6 g/dL (32.0-36.0); Mean Corpuscular Hemoglobin 32.2 pg (27.0-33.0); Mean Corpuscular Volume 90.7 fL (80-95); Mean Platelet Volume 9.1 fL (8.0-11.0); Monocytes % 7.7; Neutrophils % 55.7; Platelet Count 204 x1000/uL (130-400); RBC 3.97 m/cumm (4.50-6.00); RBC Distribution Width 16.2 % (11.8-14.1); White Blood Cell Count 7.38 k/cumm (4.4-10.8)
[2019-02-13 07:19] VITALS: BP 114/84; PULSE 71; RESP 19; TEMP 36.8; O2SAT 98
[2019-02-13 07:25] LABS: Anion Gap 8.7 mmol/L (3-11); BUN 18 mg/dL (7-18); CO2 23.3 mmol/L (21.0-32.0); CREATININE 1.63 mg/dL (0.70-1.30); Calcium 8.6 mg/dL (8.5-10.1); Chloride 95 mmol/L (98-107); Estimated GFR 42.67 (mL/min/1.73m2); Glucose 97 mg/dL (70-100); Magnesium 2.1 mg/dL (1.8-2.4); Potassium 4.5 mmol/L (3.5-5.1); Sodium 127 mmol/L (136-145)
--- NOTE | 2019-02-13 07:38 | MERGE_ITS ---
*[facility]* *[facility]* [address] [place] [address] Date of study: 02/13/2019 Transthoracic Echocardiography M-mode, complete 2D, complete spectral Doppler, and color Doppler *STUDY CONCLUSIONS* Summary: 1. Left ventricle: The cavity size was normal. Systolic function was normal. The estimated ejection fraction was 60-65%. Diastolic parameters were normal for age. There was no evidence of elevated ventricular filling pressure by Doppler parameters. 2. Mitral valve: There was mild regurgitation. 3. Right ventricle: The cavity size was normal. Wall thickness was normal. Systolic function was normal. 4. Atrial septum: No defect or patent foramen ovale was identified. 5. Pulmonary arteries: Pulmonary systolic pressure was in the range of 25mm Hg to 35mm Hg. 6. Inferior vena cava: The vessel was patent and normal in size. The respirophasic diameter changes were in the normal range (greater than or equal to 50%), consistent with normal central venous pressure. *PATIENT PRESENTATION* Height: 172.7cm ((68in) ) S/D Pressure: 110 / 68 Weight: 68.5kg ((150.7lb) ) BSA: 1.82m^2 Test start time: 07:40 AM. Test stop time: 08:30 AM. PERFORMING Unknown PERFORMING [facility] ORDERING Tonio Groves REFERRING Tonio Groves CONSULTING Josephine Velazquez DOG BEHAVIORIST RT Leonardo (R)(CT), JAMIL *PROCEDURE DATA* Procedure information: The patient was identified by two identifiers. This study was interpreted by [facility]. Pertinent images and digital data are archived for permanent storage and are available for subsequent review. Comparison was made to the study of 12/03/2017. Study status: Routine. Transthoracic echocardiography. M-mode, complete 2D, complete spectral Doppler, and color Doppler. A Transthoracic Echocardiogram was performed. Scanning was performed from the parasternal, apical, subcostal, and suprasternal notch acoustic windows. Images were obtained using an [id number] cardiac ultrasound machine. Image quality was adequate. Study completion: The patient tolerated the procedure well. History: PMH: TAA on CXR. *CARDIAC ANATOMY* Left ventricle: The cavity size was normal. Systolic function was normal. The estimated ejection fraction was 60-65%. The tissue Doppler parameters were abnormal. Diastolic parameters were normal for age. There was no evidence of elevated ventricular filling pressure by Doppler parameters. Aortic valve: Trileaflet; mildly thickened leaflets. Doppler: There was no stenosis. There was no regurgitation. VTI ratio of LVOT to aortic valve: 0.67. Valve area (VTI): 2.1cm^2. Indexed valve area (VTI): 1.2cm^2/m^2. Peak velocity ratio of LVOT to aortic valve: 0.75. Valve area (Vmax): 2.4cm^2. Indexed valve area (Vmax): 1.3cm^2/m^2. Mean velocity ratio of LVOT to aortic valve: 0.75. Valve area (Vmean): 2.4cm^2. Indexed valve area (Vmean): 1.3cm^2/m^2. Mean gradient (S): 3mm Hg. Peak gradient (S): 5.5mm Hg. Aorta: Aortic root: The aortic root was normal in size. Ascending aorta: The ascending aorta was normal in size. Mitral valve: Doppler: There was no evidence for stenosis. There was mild regurgitation. Valve area by pressure half-time: 3cm^2. Indexed valve area by pressure half-time: 1.6cm^2/m^2. Left atrium: The atrium was normal in size. Atrial septum: No defect or patent foramen ovale was identified. Right ventricle: The cavity size was normal. Wall thickness was normal. Systolic function was normal. Pulmonic valve: Doppler: There was no evidence for stenosis. There was no significant regurgitation. Peak gradient (S): 1.9mm Hg. Tricuspid valve: Doppler: There was mild regurgitation. Pulmonary artery: Poorly visualized. Pulmonary systolic pressure was in the range of 25mm Hg to 35mm Hg. Right atrium: The atrium was normal in size. Pericardium: There was no pericardial effusion. Systemic veins: Inferior vena cava: Well visualized. The vessel was patent and normal in size. The respirophasic diameter changes were in the normal range (greater than or equal to 50%), consistent with normal central venous pressure. Baseline ECG: Normal sinus rhythm. Measurements Left ventricle Value 12/03/2017 Reference LV ID, ED, PLAX 4.0 cm 3.5 - 6.0 LV ID, ES, PLAX 2.9 cm 2.1 - 4.0 LV PW thickness, ED, PLAX 1.2 cm LV end-diastolic volume, 40 ml 86 1-p A2C LV ejection fraction, 1-p 55 % 62 A2C LV end-diastolic volume, 57 ml 59 1-p A4C LV ejection fraction, 1-p 58 % 56 A4C LV e', lateral 0.079 m/sec LV E/e', lateral 7 LV e', medial 0.049 m/sec LV E/e', medial 11 LV e', average 0.064 m/sec LV E/e', average 9 Ventricular septum Value 12/03/2017 Reference IVS thickness, ED, PLAX 1.1 cm LVOT Value 12/03/2017 Reference LVOT ID, A-P 2.0 cm 1.9 LVOT area 3.1 cm^2 2.9 LVOT peak velocity, S 0.88 m/sec 1.28 LVOT mean velocity, S 0.61 m/sec LVOT VTI, S 16.0 cm 16.4 LVOT peak gradient, S 3.1 mm Hg 6.6 LVOT mean gradient, S 1.7 mm Hg 3 Stroke volume (SV), LVOT 50 ml DP Stroke index (SV/bsa), 28 ml/m^2 LVOT DP Aortic valve Value 12/03/2017 Reference Aortic valve peak 1.2 m/sec 1.7 velocity, S Aortic valve mean 0.82 m/sec 0.01 velocity, S Aortic valve VTI, S 24.0 cm Aortic mean gradient, S 3 mm Hg 6.8 Aortic peak gradient, S 5.5 mm Hg 12.1 VTI ratio, LVOT/AV 0.67 Aortic valve area, VTI 2.1 cm^2 2 Velocity ratio, peak, 0.75 0.74 LVOT/AV Aortic valve area, peak 2.4 cm^2 2.1 velocity Velocity ratio, mean, 0.75 LVOT/AV Aortic valve area, mean 2.4 cm^2 velocity Aortic valve area/bsa, 1.3 cm^2/m^2 mean velocity Aorta Value 12/03/2017 Reference Aortic root ID, ED 3.2 cm Ascending aorta ID, A-P, S 3.2 cm RVOT Value 12/03/2017 Reference RVOT VTI, S 11.9 cm Left atrium Value 12/03/2017 Reference LA ID, A-P, ES 3.1 cm LA ID/bsa, A-P 1.7 cm/m^2 <=2.2 LA area, ES, A4C 12.7 cm^2 13 8.8 - 23.4 LA area, ES, A2C 15 cm^2 LA volume/bsa, ES, 1-p A4C 25 ml/m^2 LA volume, ES, 2-p 30 ml LA volume/bsa, ES, 2-p 16 ml/m^2 LA/aortic root ratio 0.98 1.28 Mitral valve Value 12/03/2017 Reference Mitral E-wave peak 0.55 m/sec 0.71 velocity Mitral A-wave peak 0.79 m/sec 1.19 velocity Mitral deceleration time (H) 254 ms 93 150 - 230 Mitral pressure half-time 74 ms 27 Mitral E/A ratio, peak 0.69 0.6 Mitral valve area, PHT, DP 3 cm^2 8.1 Pulmonary veins Value 12/03/2017 Reference Pulmonary vein peak 0.82 m/sec velocity, S Pulmonary vein peak 0.52 m/sec velocity, D Pulmonary vein velocity 1.58 ratio, peak, S/D Tricuspid valve Value 12/03/2017 Reference Tricuspid regurg peak 2.6 m/sec 3.3 velocity Tricuspid peak RV-RA 27.1 mm Hg 43.8 gradient Right atrium Value 12/03/2017 Reference RA area, ES, A4C 12.3 cm^2 15 8.3 - 19.5 Pulmonic valve Value 12/03/2017 Reference Pulmonic peak gradient, S 1.9 mm Hg Legend: (L) and (H) marquez values outside specified reference range. I have personally reviewed the images and have reviewed and edited the reported findings. Electronically signed by Tavo Dao MD 02/13/2019 11:07
--- NOTE | 2019-02-13 08:00 | DI.US_ITS ---
SYMPTOM/DIAGNOSIS: UTI, HUMBERTO, ? HYDRONEPHROSIS OR PYELONEPHRITIS RENAL ULTRASOUND: The kidneys are normal in size and shape and there is no evidence of a renal mass, hydronephrosis or nephrolithiasis. Urinary bladder is essentially empty with a catherine catheter in place. CONCLUSION: No evidence of urinary tract obstruction.
[2019-02-13] MEDS: Heparin 5,000 UNITS/ML VIAL 5000 UNITS SC ×2 (10:04→15:53)
[2019-02-13] MEDS: Omeprazole 20 MG CAPCR PO (10:06)
[2019-02-13] MEDS: Magnesium Gluconate 500 MG TAB PO ×2 (10:06→19:58)
[2019-02-13] MEDS: Benztropine 1 MG TAB 0.5 MG PO (10:06)
[2019-02-13] MEDS: amLODIPine 5 MG TAB PO (10:07)
[2019-02-13] MEDS: Omega-3 Fatty Acids 1000 MG CAP 2000 MG PO (10:07)
[2019-02-13] MEDS: Cyanocobalamin 500 MCG TAB 1000 MCG PO (10:07)
[2019-02-13] MEDS: Ascorbic Acid 500 MG TAB PO ×2 (10:07→19:57)
[2019-02-13] MEDS: Tamsulosin 0.4 MG CAPCR PO (10:07)
[2019-02-13] MEDS: Carvedilol 6.25 MG TAB 12.5 MG PO ×2 (10:07→19:58)
[2019-02-13] MEDS: Thiamine 100 MG TAB PO (10:07)
[2019-02-13] MEDS: Multivitamin w/Minerals TAB 1 TAB PO ×2 (10:07→19:57)
--- NOTE | 2019-02-13 10:37 | PDOC.CMPRO ---
- If Service Date Differs Date of service: 02/13/19 Time of Service: 10:37 Care Management Progress Note S/O: Devin is lying in bed this morning, he is receptive to discussion. CM contacted Devin's BUFFING TURNER AND COUNTER CM Matthew this morning per Devin's request to notify that he continues to require hospitalization. Matthew reports that he will visit with Devin today. CM requested that provider change Devin's admission status to inpatient at this time. A: 63 y/o male admitted 02/11/19 for hyponatremia P: Devin will return home with continued BUFFING TURNER AND COUNTER supports through [facility] (Matthew Dickens is his BUFFING TURNER AND COUNTER CM). Matthew will transport Devin home when ready.
--- NOTE | 2019-02-13 10:51 | CMPROGNOTE_ITS ---
- If Service Date Differs Date of service: 02/13/19 Time of Service: 10:37 Care Management Progress Note S/O: Devin is lying in bed this morning, he is receptive to discussion. CM contacted Devin's DATA SUPPORT ANALYST CM Matthew this morning per Devin's request to notify that he continues to require hospitalization. Matthew reports that he will visit with Devin today. CM requested that provider change Devin's admission status to inpatient at this time. A: 63 y/o male admitted 02/11/19 for hyponatremia P: Devin will return home with continued DATA SUPPORT ANALYST supports through [facility] (Matthew Dickens is his DATA SUPPORT ANALYST CM). Matthew will transport Devin home when ready.
--- NOTE | 2019-02-13 10:58 | W.PM.PROGNOT ---
Date of Service Date of service: 02/13/19 Time of Service: 11:15 Assessment and Plan (1) UTI (urinary tract infection): Current visit: Yes Status: Acute Urine culture with no growth after 48 hours. Prostate exam reveals enlarged prostate that is boggy. PSA ordered, repeat u/a, rocephin dcd and started on po levaquin in the setting of possible prostatitis. Afebrile with no white count. Voiding trial tomorrow as renal u/s was negative for abnormalities. Qualifiers: Encounter type: Hematuria presence: without hematuria Indwelling urinary catheter type: Urinary tract infection type: site unspecified Qualified Code(s): N39.0 - Urinary tract infection, site not specified (2) Acute prerenal azotemia: Current visit: Yes Status: Acute Creatinine stable at baseline, fluids dcd, eating and drinking without nausea, appears to be chronic elevated creatinine, restart low dose spirolactone today and monitor hydration, creatinine (3) Constipation: Start date: 02/13/19 Start time: 11:13 Current visit: No Status: Chronic Resolved (4) Prostate asymmetry: Start date: 02/13/19 Start time: 11:13 Current visit: Yes Status: Acute Urine culture negative for growth, prostate exam reveals boggy enlarged prostate, PSA ordered and repeat U/A, switched to levaquin PO for coverage. (5) Hyponatremia: Start date: 02/13/19 Start time: 11:13 Current visit: No Status: Chronic Chronic hyponatremia related to chronic liver disease and long-term diuretic use. continue to monitor. (6) Alcohol abuse: Start date: 02/13/19 Start time: 11:13 Current visit: No Status: Chronic Awake and alert. CIWA 0-1 no medications needed at this time. Continue but unlikely going through withdrawal, more anxiety related. history of schizo (7) Schizoaffective disorder: Start date: 02/13/19 Start time: 11:13 Current visit: No Status: Chronic Continue home medicaitons. Qualifiers: Schizoaffective disorder type: bipolar Qualified Code(s): F25.0 - Schizoaffective disorder, bipolar type (8) Leg pain, left: Start date: 02/13/19 Start time: 11:10 Current visit: Yes Status: Acute c/o calf pain to left lower extremity. No redness or swelling. u/s to r/o dvt, highly unlikely on anticoagulation will adjust dose as needed (9) Descending thoracic aortic aneurysm: Start date: 02/13/19 Start time: 11:13 Current visit: Yes Status: Acute CT scan shows a tubular density measuring up to 5 cm in diameter projects over the posterior chest on the lateral view, appears contiguous with the descending aorta. This was present on a study in 2017, has increased in size, nearing the threshold for repair. Will need outpatient follow up. (10) DVT prophylaxis: Start date: 02/13/19 Start time: 11:13 Current visit: Yes Status: Acute Subcutaneous heparin. (11) Discharge planning issues: Start date: 02/13/19 Start time: 11:13 Current visit: Yes Status: Acute He is a FULL code. Subjective Interval history since last seen: Mr. Rebolledo is awake today and alert, sitting up in bed. His urine culture was negative for growth a repeat u/a ordered. He had a prostate exam based on questionable prostatitis in the setting of a negative urine culture, his prostate was enlarged and boggy, he was switched to Levaquin daily for prostatitis coverage. His renal u/s was negative for abnormalities, he has the catherine in place, we will try a voiding trial tomorrow. His creatinine is elevated but appears to be at baseline. Continue to monitor. Spirlactone low dose will be restarted. He did c/o leg pain today to his left lower calf. U/s ordered to R/O DVT. he is currently on heparin, his leg is not swollen, or erythemic, unlikely DVT, adjust heparin as needed based on results. Exam Narrative Exam Narrative: General:Awake and alert, sitting up in bed. Does not appear to be in any acute distress. HEENT: Normocephalic, atraumatic. Skin color has galarza hue. Mucous membranes moist. Neck: Supple, no JVD. Cardiovascular: Heart has regular rate and rhythm, no murmur appreciated. Respiratory: Respirations even and unlabored, lung sounds clear to auscultation throughout. Abdomen: Normoactive bowel sounds, soft, nontender on palpation. Rectum: prostate enlarged and boggy Extremities: no clubbing, cyanosis or edema. Moves around freely in bed. Pedal pulses palpable bilaterally.C/o pain to left calf with palpation Objective Objective Clinical Data: Abnormal lab results 02/13/19 02/13/19 Range/Units 06:45 06:45 RBC 3.97 L (4.50-6.00) m/cumm Hgb 12.8 L (13.5-17.5) g/dL Hct 36.0 L (40.0-50.0) % RDW 16.2 H (11.8-14.1) % Sodium 127 L (136-145) mmol/L Chloride 95 L (98-107) mmol/L Creatinine 1.63 H (0.70-1.30) mg/dL Vital Signs Temperature 36.8 C 02/13/19 07:19 Temperature Source Tympanic 02/13/19 07:19 Pulse 71 02/13/19 07:19 Pulse Rhythm Regular 02/13/19 07:35 Pulse 74 02/11/19 18:40 Respiratory Rate 19 02/13/19 07:19 Respiratory Effort Non-Labored 02/13/19 07:35 Respiratory Depth Normal 02/13/19 07:35 Respiratory Pattern Normal 02/13/19 07:35 Blood Pressure 114/84 02/13/19 07:19 Pulse Oximetry 98 02/13/19 07:19 Oxygen Delivery Method Room Air 02/13/19 07:19 Oxygen Flow Rate 0 02/13/19 07:19 Pain Level 3 02/12/19 19:30 Comment 02/12/19 19:30 Intake & Output 02/12/19 02/12/19 02/13/19 11:59 23:59 11:59 Intake Total 480 / 1890 1410 / 1890 1180 / 1180 Output Total 750 / 1925 1175 / 1925 250 / 250 Balance -270 / -35 235 / -35 930 / 930 Weight 68.89 kg 67.4 kg Intake: IV 1050 / 1050 Oral 480 / 840 360 / 840 1180 / 1180 Output: Urine 750 / 1925 1175 / 1925 250 / 250 Other: Urine Color Yellow Dark Zakia Dark Zakia Urine Appearance Clear Clear Clear Laboratory Results WBC 7.38 k/cumm (4.4-10.8) 02/13/19 06:45 RBC 3.97 m/cumm (4.50-6.00) L 02/13/19 06:45 Hgb 12.8 g/dL (13.5-17.5) L 02/13/19 06:45 Hct 36.0 % (40.0-50.0) L 02/13/19 06:45 MCV 90.7 fL (80-95) 02/13/19 06:45 MCH 32.2 pg (27.0-33.0) 02/13/19 06:45 MCHC 35.6 g/dL (32.0-36.0) 02/13/19 06:45 RDW 16.2 % (11.8-14.1) H 02/13/19 06:45 Plt Count 204 x1000/uL (130-400) 02/13/19 06:45 MPV 9.1 fL (8.0-11.0) 02/13/19 06:45 Immature Gran % 0.4 02/13/19 06:45 Neutrophils % 55.7 02/13/19 06:45 Lymphocytes % 35.1 02/13/19 06:45 Monocytes % 7.7 02/13/19 06:45 Eosinophils % 0.8 02/13/19 06:45 Basophils % 0.3 02/13/19 06:45 Absolute Neutrophils 4.11 k/cumm (1.2-6.7) 02/13/19 06:45 Absolute Lymphocytes 2.59 k/cumm (1.2-3.4) 02/13/19 06:45 Absolute Monocytes 0.57 k/cumm (0.11-0.7) 02/13/19 06:45 Absolute Eosinophils 0.06 k/cumm (0.0-0.7) 02/13/19 06:45 Absolute Basophils 0.02 k/cumm (0.0-0.2) 02/13/19 06:45 Sodium 127 mmol/L (136-145) L 02/13/19 06:45 Potassium 4.5 mmol/L (3.5-5.1) D 02/13/19 06:45 Chloride 95 mmol/L (98-107) L 02/13/19 06:45 Carbon Dioxide 23.3 mmol/L (21.0-32.0) 02/13/19 06:45 Anion Gap 8.7 mmol/L (3-11) 02/13/19 06:45 BUN 18 mg/dL (7-18) 02/13/19 06:45 Creatinine 1.63 mg/dL (0.70-1.30) H 02/13/19 06:45 Estimated GFR/1.73 m2 42.67 (mL/min/1.73m2) 02/13/19 06:45 Glucose 97 mg/dL (70-100) 02/13/19 06:45 Calcium 8.6 mg/dL (8.5-10.1) 02/13/19 06:45 Magnesium 2.1 mg/dL (1.8-2.4) 02/13/19 06:45 Total Bilirubin 0.6 mg/dL (0.2-1.0) 02/11/19 17:05 AST 21 U/L (15-37) 02/11/19 17:05 ALT 26 U/L (12-78) 02/11/19 17:05 Alkaline Phosphatase 143 U/L (46-116) H 02/11/19 17:05 Total Protein 7.3 g/dL (6.4-8.2) 02/11/19 17:05 Albumin 2.8 g/dL (3.4-5.0) L 02/11/19 17:05 Lipase 109 U/L (73-393) 02/11/19 17:05 TSH 0.39 uIU/mL (0.358-3.74) 02/12/19 06:15 Urine Color Yellow (Yellow) 02/11/19 17:15 Urine Clarity Clear 02/11/19 17:15 Urine pH 5.5 (5-8) 02/11/19 17:15 Ur Specific [place] 1.015 (1.005-1.025) 02/11/19 17:15 Urine Protein Trace mg/dL (Negative) H 02/11/19 17:15 Urine Ketones Negative mg/dL (Negative) 02/11/19 17:15 Urine Blood Negative (Negative) 02/11/19 17:15 Urine Nitrite Negative (Negative) 02/11/19 17:15 Urine Bilirubin Small (Negative) H 02/11/19 17:15 Urine Urobilinogen 1.0 EU/dL (Up TO 0.2) H 02/11/19 17:15 Ur Leukocyte Esterase Trace (Negative) H 02/11/19 17:15 Urine RBC Negative (0-2) 02/11/19 17:15 Urine WBC >50 HPF (0-5) 02/11/19 17:15 Ur Epithelial Cells Few HPF (Negative) 02/11/19 17:15 Urine Crystals Negative HPF (Negative) 02/11/19 17:15 Urine Bacteria Many HPF (Negative) 02/11/19 17:15 Urine Casts Negative LPF (Negative) 02/11/19 17:15 Urine Mucus Negative (Negative) 02/11/19 17:15 Urine Other Negative (Negative) 02/11/19 17:15 Ur Culture Indicated? Yes 02/11/19 17:15 Urine Glucose Negative mg/dL (Negative) 02/11/19 17:15 Ethyl Alcohol < 3.0 mg/dL (<3) 02/11/19 21:45
[2019-02-13] MEDS: Spironolactone 25 MG TAB PO (11:36)
[2019-02-13 13:03] LABS: Bilirubin Small (Negative); Blood Large (Negative); Clarity Cloudy; Glucose Negative (Negative); Ketones 15 mg/dL (Negative); Leukocyte Esterase Negative (Negative); Nitrite Negative (Negative); Specific Gravity >= 1.030 (1.005-1.025); Urobilinogen 0.2 EU/dL (Up TO 0.2); pH 5.5 (5-8)
[2019-02-13 13:18] LABS: Bacteria Moderate HPF (Negative); C & S Indicated? Yes; Crystals Negative HPF (Negative); Epithelial Cells Few HPF (Negative); Mucus Negative (Negative); RBC >50 (0-2)
--- NOTE | 2019-02-13 13:28 | DI.US_ITS ---
SYMPTOMS/DIAGNOSIS: LEFT CALF PAIN WITH WALKING DUPLEX VENOUS ULTRASOUND, LEFT LOWER EXTREMITY: Duplex evaluation of the deep venous system was performed according to the usual protocol. The deep veins are freely compressible throughout to the level of the popliteal veins. There is normal Doppler flow visible throughout and there is excellent flow augmentation with manual calf compression. CONCLUSION: No evidence of deep venous thrombosis. 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 Vascular lab referral suggested.
[2019-02-13 16:51] VITALS: BP 95/69; PULSE 60; RESP 18; TEMP 35.8; O2SAT 97
[2019-02-13] MEDS: Normal Saline 1,000 ML 125 ML IV (20:05)
[2019-02-13] MEDS: Normal Saline Flush 10 ML SYR IVP (20:27)
[2019-02-13] MEDS: Mirtazapine 15 MG TAB PO (21:48)
[2019-02-13] MEDS: risperiDONE 1 MG TAB PO (21:48)
[2019-02-13] MEDS: Normal Saline 500 ML IV (22:40)
[2019-02-13 23:49] VITALS: BP 129/60; PULSE 69; RESP 18; TEMP 36.5; O2SAT 96
[2019-02-14] MEDS: Heparin 5,000 UNITS/ML VIAL 5000 UNITS SC ×3 (00:11→15:57)
[2019-02-14] MEDS: Normal Saline 1,000 ML 125 ML IV ×2 (04:38→11:25)
[2019-02-14] MEDS: levoFLOXacin 500 MG, levoFLOXacin 250 MG 750 MG PO (05:50)
[2019-02-14 07:14] LABS: Abs Immature Grans 0.03 k/cumm (0.0-0.09); Absolute Basophil Count 0.04 k/cumm (0.0-0.2); Absolute Lymphocyte Count 3.13 k/cumm (1.2-3.4); Absolute Monocyte Count 0.42 k/cumm (0.11-0.7); Absolute Neutrophil Count 4.23 k/cumm (1.2-6.7); Basophils % 0.5; Eosinophils % 1.3; HCT 35.3 % (40.0-50.0); HGB 12.3 g/dL (13.5-17.5); Immature Grans % 0.4; Lymphocytes % 39.4; Mean Corp. HGB Concentration 34.8 g/dL (32.0-36.0); Mean Corpuscular Hemoglobin 31.9 pg (27.0-33.0); Mean Corpuscular Volume 91.5 fL (80-95); Mean Platelet Volume 9.3 fL (8.0-11.0); Monocytes % 5.3; Neutrophils % 53.1; Platelet Count 247 x1000/uL (130-400); RBC 3.86 m/cumm (4.50-6.00); RBC Distribution Width 16.4 % (11.8-14.1); White Blood Cell Count 7.95 k/cumm (4.4-10.8)
[2019-02-14 07:33] LABS: BUN 13 mg/dL (7-18); CREATININE 1.23 mg/dL (0.70-1.30); Calcium 7.7 mg/dL (8.5-10.1); Estimated GFR 59.06 (mL/min/1.73m2); Glucose 86 mg/dL (70-100)
[2019-02-14] MEDS: Multivitamin w/Minerals TAB 1 TAB PO ×2 (07:39→19:16)
[2019-02-14] MEDS: Carvedilol 6.25 MG TAB 12.5 MG PO (07:39)
[2019-02-14] MEDS: Omega-3 Fatty Acids 1000 MG CAP 2000 MG PO (07:39)
[2019-02-14] MEDS: Magnesium Gluconate 500 MG TAB PO ×2 (07:40→19:16)
[2019-02-14] MEDS: Tamsulosin 0.4 MG CAPCR PO (07:40)
[2019-02-14] MEDS: amLODIPine 5 MG TAB PO (07:40)
[2019-02-14] MEDS: Benztropine 1 MG TAB 0.5 MG PO (07:40)
[2019-02-14] MEDS: Omeprazole 20 MG CAPCR PO (07:40)
[2019-02-14] MEDS: Ascorbic Acid 500 MG TAB PO ×2 (07:40→19:16)
[2019-02-14] MEDS: Cyanocobalamin 500 MCG TAB 1000 MCG PO (07:40)
[2019-02-14] MEDS: Spironolactone 25 MG TAB PO (07:41)
[2019-02-14] MEDS: Thiamine 100 MG TAB PO (07:41)
[2019-02-14 08:01] LABS: Chloride 98 mmol/L (98-107); Potassium 4.4 mmol/L (3.5-5.1); Sodium 129 mmol/L (136-145)
[2019-02-14 08:56] VITALS: BP 120/87; PULSE 83; RESP 20; TEMP 36.3; O2SAT 98
--- NOTE | 2019-02-14 09:10 | PDOC.CMPRO ---
Care Management Progress Note S/O: Per MD, Devin will require follow up with [facility] and may have new orders for VNA RN; he will have a voiding trial tomorrow to determine discharge care needs including possible catherine catheter. CM notified Kristina: [facility] of possible referral yet to be determined. CM will continue to follow. A: 63 y/o male admitted 02/11/19 for hyponatremia P: Devin will return home with continued UTILITIES OPERATOR supports through [facility] (Matthew Dickens is his UTILITIES OPERATOR CM). Anticipate he will follow up with [facility] and possibly new orders for VNA RN. He will follow up with his PCP and plan of care as prescribed. Pal RAZA at [facility] will transport Devin home via private vehicle.
--- NOTE | 2019-02-14 09:11 | CMPROGNOTE_ITS ---
Care Management Progress Note S/O: Per MD, Devin will require follow up with [facility] and may have new orders for VNA RN; he will have a voiding trial tomorrow to determine discharge care needs including possible catherine catheter. CM notified Kristina: [facility] of possible referral yet to be determined. CM will continue to follow. A: 63 y/o male admitted 02/11/19 for hyponatremia P: Devin will return home with continued FANCY SEWER supports through [facility] (Matthew Dickens is his FANCY SEWER CM). Anticipate he will follow up with [facility] and possibly new orders for VNA RN. He will follow up with his PCP and plan of care as prescribed. Pal RAZA at [facility] will transport Devin home via private vehicle.
[2019-02-14] MEDS: Torsemide 20 MG TAB PO (11:25)
--- NOTE | 2019-02-14 15:04 | PGE_ITS ---
Date of Service Date of service: 02/14/19 Time of Service: 14:53 Assessment and Plan (1) UTI (urinary tract infection): Current visit: Yes Status: Acute Urine culture with no growth after 48 hours. Prostate exam reveals enlarged prostate that is boggy. PSA pending. U/A on 02/13/19 negative for leukocytes and nitrites. Continue with levaquin in the setting of probable prostatitis. Afebrile with no white count. Renal u/s was negative for abnormalities. Catherine was discontinued and voiding trial ordered for today. Qualifiers: Urinary tract infection type: site unspecified Hematuria presence: without hematuria Qualified Code(s): N39.0 - Urinary tract infection, site not specified (2) Acute prerenal azotemia: Current visit: Yes Status: Acute Renal U/S 02/13/19: The kidneys are normal in size and shape and there is no evidence of a renal mass, hydronephrosis or nephrolithiasis. Urinary bladder is essentially empty with a catherine catheter in place. CONCLUSION: No evidence of urinary tract obstruction. Creatinine improved and at baseline, IV fluids discontinued, eating and drinking without nausea, continue with low dose spirolactone today and monitor hydration. (3) Constipation: Current visit: No Status: Chronic Resolved (4) Prostate asymmetry: Current visit: Yes Status: Acute Urine culture negative for growth, prostate exam reveals boggy enlarged prostate, PSA pending, repeat U/A 02/13/19 negative UTI Continue with levaquin PO for prostatitis coverage. (5) Hyponatremia: Current visit: No Status: Chronic Chronic hyponatremia related to chronic liver disease and long-term diuretic use. continue to monitor. (6) Alcohol abuse: Current visit: No Status: Chronic Awake and alert. CIWA 0-1 no medications needed at this time. Continue but unlikely going through withdrawal, more anxiety related. history of schizo (7) Schizoaffective disorder: Current visit: No Status: Chronic Continue home medicatitons. Qualifiers: Schizoaffective disorder type: bipolar Qualified Code(s): F25.0 - Schizoaffective disorder, bipolar type (8) Leg pain, left: Current visit: Yes Status: Acute c/o calf pain to left lower extremity. No redness or swelling. 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 Vascular lab referral suggested. Will need outpatient follow up. (9) Descending thoracic aortic aneurysm: Current visit: Yes Status: Acute CT scan shows a tubular density measuring up to 5 cm in diameter projects over the posterior chest on the lateral view, appears contiguous with the descending aorta. This was present on a study in 2017, has increased in size, nearing the threshold for repair. Will need outpatient follow up. (10) DVT prophylaxis: Current visit: Yes Status: Acute Subcutaneous heparin. (11) Discharge planning issues: Current visit: Yes Status: Acute He is a FULL code. Subjective Interval history since last seen: Patient does not offer any new complaints. Denies chest pain, palpitations. Denies cough, SOB/HERNANDEZ. Denies abdominal pain, nausea, tolerating diet. Denies numbness/tingling. Exam Narrative Exam Narrative: General:Awake and alert, lying in bed. No acute distress HEENT: Normocephalic, atraumatic. Skin color has galarza hue. Mucous membranes moist. Neck: Supple, no JVD. Cardiovascular: Heart has regular rate and rhythm, no murmur/rubs Respiratory: Lungs diminished but clear to auscultation through out. Respiration rate regular no distress Abdomen: Soft, nontender with palpation, active bowel sounds x4 quadrants, no guarding Extremities: no clubbing, cyanosis or edema. Moves around freely in bed. Pedal pulses faintly palpable bilaterally. Objective Objective Clinical Data: Abnormal lab results 02/14/19 02/14/19 Range/Units 06:48 06:48 RBC 3.86 L (4.50-6.00) m/cumm Hgb 12.3 L (13.5-17.5) g/dL Hct 35.3 L (40.0-50.0) % RDW 16.4 H (11.8-14.1) % Sodium 129 L (136-145) mmol/L Calcium 7.7 L (8.5-10.1) mg/dL Vital Signs Temperature 36.3 C L 02/14/19 08:56 Temperature Source Tympanic 02/14/19 08:56 Pulse 83 02/14/19 08:56 Pulse Rhythm Regular 02/14/19 00:05 Pulse 74 02/11/19 18:40 Respiratory Rate 20 02/14/19 08:56 Respiratory Effort 02/14/19 00:05 Respiratory Depth Normal 02/14/19 00:05 Respiratory Pattern Normal 02/14/19 00:05 Blood Pressure 120/87 02/14/19 08:56 Pulse Oximetry 98 02/14/19 08:56 Oxygen Delivery Method Room Air 02/14/19 08:56 Oxygen Flow Rate 0 02/14/19 08:56 Pain Level 3 02/12/19 19:30 Comment 02/12/19 19:30 Intake & Output 02/13/19 02/14/19 02/14/19 23:59 11:59 23:59 Intake Total 750 / 2405 2147.917 / 2627.917 480 / 2627.917 Output Total 650 / 900 1050 / 1050 Balance 100 / 1505 1097.917 / 1577.917 480 / 1577.917 Weight 68.2 kg Intake: IV 500 / 500 1847.917 / 1847.917 Oral 250 / 1905 300 / 780 480 / 780 Output: Urine 650 / 900 1050 / 1050 Other: Urine Color Dark Zakia Yellow Urine Appearance Clear Clear Comment Medium Zakia. Enc PO fluids Laboratory Results WBC 7.95 k/cumm (4.4-10.8) 02/14/19 06:48 RBC 3.86 m/cumm (4.50-6.00) L 02/14/19 06:48 Hgb 12.3 g/dL (13.5-17.5) L 02/14/19 06:48 Hct 35.3 % (40.0-50.0) L 02/14/19 06:48 MCV 91.5 fL (80-95) 02/14/19 06:48 MCH 31.9 pg (27.0-33.0) 02/14/19 06:48 MCHC 34.8 g/dL (32.0-36.0) 02/14/19 06:48 RDW 16.4 % (11.8-14.1) H 02/14/19 06:48 Plt Count 247 x1000/uL (130-400) 02/14/19 06:48 MPV 9.3 fL (8.0-11.0) 02/14/19 06:48 Immature Gran % 0.4 02/14/19 06:48 Neutrophils % 53.1 02/14/19 06:48 Lymphocytes % 39.4 02/14/19 06:48 Monocytes % 5.3 02/14/19 06:48 Eosinophils % 1.3 02/14/19 06:48 Basophils % 0.5 02/14/19 06:48 Absolute Neutrophils 4.23 k/cumm (1.2-6.7) 02/14/19 06:48 Absolute Lymphocytes 3.13 k/cumm (1.2-3.4) 02/14/19 06:48 Absolute Monocytes 0.42 k/cumm (0.11-0.7) 02/14/19 06:48 Absolute Eosinophils 0.10 k/cumm (0.0-0.7) 02/14/19 06:48 Absolute Basophils 0.04 k/cumm (0.0-0.2) 02/14/19 06:48 Sodium 129 mmol/L (136-145) L 02/14/19 06:48 Potassium 4.4 mmol/L (3.5-5.1) 02/14/19 06:48 Chloride 98 mmol/L (98-107) 02/14/19 06:48 Carbon Dioxide 21.0 mmol/L (21.0-32.0) 02/14/19 06:48 Anion Gap 10.0 mmol/L (3-11) 02/14/19 06:48 BUN 13 mg/dL (7-18) 02/14/19 06:48 Creatinine 1.23 mg/dL (0.70-1.30) 02/14/19 06:48 Estimated GFR/1.73 m2 59.06 (mL/min/1.73m2) 02/14/19 06:48 Glucose 86 mg/dL (70-100) 02/14/19 06:48 Calcium 7.7 mg/dL (8.5-10.1) L 02/14/19 06:48 Magnesium 2.0 mg/dL (1.8-2.4) 02/14/19 06:48 Total Bilirubin 0.6 mg/dL (0.2-1.0) 02/11/19 17:05 AST 21 U/L (15-37) 02/11/19 17:05 ALT 26 U/L (12-78) 02/11/19 17:05 Alkaline Phosphatase 143 U/L (46-116) H 02/11/19 17:05 Total Protein 7.3 g/dL (6.4-8.2) 02/11/19 17:05 Albumin 2.8 g/dL (3.4-5.0) L 02/11/19 17:05 Lipase 109 U/L (73-393) 02/11/19 17:05 TSH 0.39 uIU/mL (0.358-3.74) 02/12/19 06:15 Urine Color Yellow (Yellow) 02/13/19 11:48 Urine Clarity Cloudy 02/13/19 11:48 Urine pH 5.5 (5-8) 02/13/19 11:48 Ur Specific [place] >= 1.030 (1.005-1.025) H 02/13/19 11:48 Urine Protein 100 mg/dL (Negative) H 02/13/19 11:48 Urine Ketones 15 mg/dL (Negative) H 02/13/19 11:48 Urine Blood Large (Negative) H 02/13/19 11:48 Urine Nitrite Negative (Negative) 02/13/19 11:48 Urine Bilirubin Small (Negative) H 02/13/19 11:48 Urine Urobilinogen 0.2 EU/dL (Up TO 0.2) 02/13/19 11:48 Ur Leukocyte Esterase Negative (Negative) 02/13/19 11:48 Urine RBC >50 (0-2) H 02/13/19 11:48 Urine WBC 5-10 HPF (0-5) 02/13/19 11:48 Ur Epithelial Cells Few HPF (Negative) 02/13/19 11:48 Urine Crystals Negative HPF (Negative) 02/13/19 11:48 Urine Bacteria Moderate HPF (Negative) 02/13/19 11:48 Urine Casts Negative LPF (Negative) 02/11/19 17:15 Urine Mucus Negative (Negative) 02/13/19 11:48 Urine Other Negative (Negative) 02/11/19 17:15 Ur Culture Indicated? Yes 02/13/19 11:48 Urine Glucose Negative mg/dL (Negative) 02/13/19 11:48 Ethyl Alcohol < 3.0 mg/dL (<3) 02/11/19 21:45
[2019-02-14 15:30] VITALS: BP 120/89; PULSE 80; RESP 16; TEMP 36.7; O2SAT 98
[2019-02-14] MEDS: Normal Saline Flush 10 ML SYR IVP (15:51)
[2019-02-14 19:15] VITALS: BP 112/66; PULSE 97; RESP 20; TEMP 37; O2SAT 99
[2019-02-14] MEDS: CARVEDILOL 12.5 MG TAB PO (19:16)
[2019-02-14] MEDS: Mirtazapine 15 MG TAB PO (21:40)
[2019-02-14] MEDS: risperiDONE 1 MG TAB PO (21:40)
[2019-02-14 23:09] VITALS: BP 108/78; PULSE 99; RESP 19; TEMP 37.8; O2SAT 97
[2019-02-15] MEDS: Heparin 5,000 UNITS/ML VIAL 5000 UNITS SC ×4 (00:25→23:23)
[2019-02-15] MEDS: levoFLOXacin 500 MG, levoFLOXacin 250 MG 750 MG PO (06:25)
[2019-02-15 07:08] LABS: Abs Immature Grans 0.06 k/cumm (0.0-0.09); Absolute Basophil Count 0.09 k/cumm (0.0-0.2); Absolute Lymphocyte Count 3.06 k/cumm (1.2-3.4); Absolute Monocyte Count 0.54 k/cumm (0.11-0.7); Absolute Neutrophil Count 4.83 k/cumm (1.2-6.7); Eosinophils % 1.2; HCT 33.6 % (40.0-50.0); HGB 11.7 g/dL (13.5-17.5); Immature Grans % 0.7; Lymphocytes % 35.3; Mean Corp. HGB Concentration 34.8 g/dL (32.0-36.0); Mean Corpuscular Volume 91.8 fL (80-95); Mean Platelet Volume 8.9 fL (8.0-11.0); Monocytes % 6.2; Neutrophils % 55.6; Platelet Count 267 x1000/uL (130-400); RBC 3.66 m/cumm (4.50-6.00); RBC Distribution Width 16.8 % (11.8-14.1); White Blood Cell Count 8.68 k/cumm (4.4-10.8)
[2019-02-15 07:16] LABS: Anion Gap 8.4 mmol/L (3-11); BUN 13 mg/dL (7-18); CO2 24.6 mmol/L (21.0-32.0); CREATININE 1.66 mg/dL (0.70-1.30); Calcium 8.7 mg/dL (8.5-10.1); Chloride 100 mmol/L (98-107); Estimated GFR 41.78 (mL/min/1.73m2); Glucose 96 mg/dL (70-100); Magnesium 1.8 mg/dL (1.8-2.4); Potassium 4.8 mmol/L (3.5-5.1); Sodium 133 mmol/L (136-145)
[2019-02-15 07:30] VITALS: BP 109/82; PULSE 107; RESP 16; TEMP 36.9; O2SAT 98
[2019-02-15] MEDS: Tamsulosin 0.4 MG CAPCR PO (08:48)
[2019-02-15] MEDS: Omega-3 Fatty Acids 1000 MG CAP 2000 MG PO (08:48)
[2019-02-15] MEDS: Multivitamin w/Minerals TAB 1 TAB PO ×2 (08:48→20:09)
[2019-02-15] MEDS: Cyanocobalamin 500 MCG TAB 1000 MCG PO (08:49)
[2019-02-15] MEDS: Benztropine 1 MG TAB 0.5 MG PO (08:49)
[2019-02-15] MEDS: Ascorbic Acid 500 MG TAB PO ×2 (08:50→20:09)
[2019-02-15] MEDS: CARVEDILOL 12.5 MG TAB PO ×2 (08:50→20:09)
[2019-02-15] MEDS: Omeprazole 20 MG CAPCR PO (08:50)
[2019-02-15] MEDS: Thiamine 100 MG TAB PO (08:50)
[2019-02-15] MEDS: amLODIPine 5 MG TAB PO (08:50)
[2019-02-15] MEDS: Spironolactone 25 MG TAB PO (08:50)
[2019-02-15] MEDS: Magnesium Gluconate 500 MG TAB PO ×2 (08:50→20:09)
--- NOTE | 2019-02-15 14:27 | PHARADMIT ---
Admission Pharmacy Clinical Review Hyponatremia, UTI, hx of alcohol abuse, hx of Ascities, constipation Code Status Full Code Current Weight 68.5 kg Renally Cleared and Narrow Therapeutic Index Meds CrCl~42ml/min (watch diuretics) QTc Value / Action Taken QTC 422 on 12/03/17 BP Control, Fever BP 109/82 Afebrile today (Tmax 37.8) Electrolytes reviewed Na++ 133 (up) K+ 4.8 Mag 1.8 DVT Prophylaxis Heparin SC Opiate Usage / Scheduled Bowel Regimen Ordered Plt/SCr for Heparin / Enoxaparin Plt 267 SCr 1.66 INR for Warfarin H/H stable, WBC/Bands H/H 11.7/33.6 WBC 8.68 Antibiotic appropriateness Levaquin 750mg oral started 02/14/19....watch SCr and clearance, if worsens, may need adjusting Ceftriaxone IV x 2 bags Cultures and Sensitivities Urine no growth.... pt has Prostatitis Surgical ABX d/c within 24 hr DM control / Insulin Dosing Heart Failure (Check EF%) (CHIDI's, B-Block, Diuretics) Amlodipine, Coreg, Spironolactone, (Torsemide was dc'd today) IV to PO Switch Home Meds Reviewed Home Meds Not Ordered ok Comments Being bladder scanned CIWA scale c/o left calf pain when ambulating only-ultrasound ruled out clot, but will need outpt Vascular consult for legs, also has aortic aneurysm MD mentioned adding Statin, Beta al, Aspirin to regimen but no orders yet
--- NOTE | 2019-02-15 15:08 | PDOC.CMPRO ---
- If Service Date Differs Date of service: 02/15/19 Time of Service: 15:08 Care Management Progress Note S/O: Devin is sitting up in his bed when this marketing writer visits this morning, he is receptive to discussion. Kathy, [facility] BIOINFORMATICS COMPUTER SCIENTIST, to check in on Devin this morning in regards to how he is doing during his hospitalization. CM met with RAFAEL Musa, whom states that Devin will require vascular F/U at time of DC. Devin will also potentially require VNA RN supports at time of DC. A: 63 y/o male admitted 02/11/19 for hyponatremia P: Devin will return home with continued BIOINFORMATICS COMPUTER SCIENTIST supports through [facility] (Matthew Dickens is his BIOINFORMATICS COMPUTER SCIENTIST CM). Anticipate he will follow up with [facility] and possibly new orders for VNA RN. He will follow up with his PCP and plan of care as prescribed. Pal RAZA at [facility] will transport Devin home via private vehicle.
--- NOTE | 2019-02-15 15:15 | CMPROGNOTE_ITS ---
- If Service Date Differs Date of service: 02/15/19 Time of Service: 15:08 Care Management Progress Note S/O: Devin is sitting up in his bed when this freelance writer visits this morning, he is receptive to discussion. Kathy, [facility] CURRICULUM AND ASSESSMENT COORDINATOR, to check in on Devin this morning in regards to how he is doing during his hospitalization. CM met with RAFAEL Musa, whom states that Devin will require vascular F/U at time of DC. Devin will also potentially require VNA RN supports at time of DC. A: 63 y/o male admitted 02/11/19 for hyponatremia P: Devin will return home with continued CURRICULUM AND ASSESSMENT COORDINATOR supports through [facility] (Matthew Dickens is his CURRICULUM AND ASSESSMENT COORDINATOR CM). Anticipate he will follow up with [facility] and possibly new orders for VNA RN. He will follow up with his PCP and plan of care as prescribed. Pal RAZA at [facility] will transport Devin home via private vehicle.
[2019-02-15 15:47] VITALS: BP 118/81; PULSE 80; RESP 18; TEMP 36.4; O2SAT 97
--- NOTE | 2019-02-15 15:48 | PGE_ITS ---
Date of Service Date of service: 02/15/19 Time of Service: 15:47 Assessment and Plan (1) Prostatitis: Current visit: Yes Status: Acute Previous provider notes prostate exam revealed enlarged, boggy prostate. Has urinary retention, urine culture with no growth at 48 hours. PSA normal. Antibiotic changed to Levaquin, day #2. Will need urology follow up. (2) UTI (urinary tract infection): Current visit: Yes Status: Acute Urine culture with no growth at 48 hours. Likely prostatitis as above. Qualifiers: Urinary tract infection type: site unspecified Hematuria presence: without hematuria Qualified Code(s): N39.0 - Urinary tract infection, site not specified (3) Urinary retention: Current visit: Yes Status: Acute Had catherine. PVRs continue to show urinary retention. No bowel movement do cumented since admission (had BM on day of admission- currently day 4 no BM). Address constipation. If continues to retain urine, place catherine catheter. (4) Constipation: Current visit: No Status: Chronic Continue bowel regimen. (5) Acute kidney injury: Current visit: Yes Status: Acute Catherine discontinued, torsemide restarted yesterday. Creatinine worsened today. Hold torsemide, bladder scan for PVR, replace catherine as needed. BMP in the morning. (6) Hyponatremia: Current visit: No Status: Chronic Improved. (7) Alcohol abuse: Current visit: No Status: Chronic Does not appear to be in acute withdrawal, low scores on CIWA, not requiring ativan. Continue to monitor. (8) Schizoaffective disorder: Current visit: No Status: Chronic Continue home medications. 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 Will need referral to vascular for outpatient follow up. (10) Descending thoracic aortic aneurysm: Current visit: Yes Status: Acute CT scan shows a tubular density measuring up to 5 cm in diameter projects over the posterior chest on the lateral view, appears contiguous with the descending aorta. This was present on a study in 2017, has increased in size, nearing the threshold for repair. Will need outpatient follow up. (11) DVT prophylaxis: Current visit: Yes Status: Acute Subcutaneous heparin. (12) Discharge planning issues: Current visit: Yes Status: Acute He is a FULL code. This case was discussed with Dr. Vasques who is in agreement. Subjective Interval history since last seen: Mr. Rebolledo offers no new complaints today. He reports feeling shaky but he shakes at baseline, it is not any worse. He denies dizziness, headache, shortness of breath, coughing, wheezing, chest pain/pressure, nausea or vomiting. There is no bowel movement documented. He denies any problems voiding, no dysuria or hematuria. He did not immediately recall that he was having leg pain with ambulation, but with questioning, he stated he may have. Exam Narrative Exam Narrative: General: Lying in bed on his side, awakens easily to voice. Answers questions appropriately, although he is a poor historian. Does not ap pear to be in any acute distress. HEENT: Normocephalic, atraumatic. Skin color has galarza hue. Mucous membranes moist. Neck: Supple, no JVD. Cardiovascular: Heart has regular rate and rhythm, no murmur appreciated. Respiratory: Respirations even and unlabored, lung sounds diminished with scattered wheezes. Abdomen: Normoactive bowel sounds, soft, nontender on palpation. Extremities: no clubbing, cyanosis or edema. Moves around freely in bed. PT pulse faint but palpable to LLE, uncertain if DP palpable on the left. RLE with faint DP. Feet are pink and cool, not cold. Objective Objective Clinical Data: Abnormal lab results 02/15/19 02/15/19 Range/Units 06:08 06:08 RBC 3.66 L (4.50-6.00) m/cumm Hgb 11.7 L (13.5-17.5) g/dL Hct 33.6 L (40.0-50.0) % RDW 16.8 H (11.8-14.1) % Sodium 133 L (136-145) mmol/L Creatinine 1.66 H (0.70-1.30) mg/dL Vital Signs Temperature 36.9 C 02/15/19 07:30 Temperature Source Tympanic 02/15/19 07:30 Pulse 107 H 02/15/19 07:30 Pulse Rhythm Regular 02/15/19 14:43 Pulse 74 02/11/19 18:40 Respiratory Rate 16 04/03/19 07:30 Respiratory Effort 02/15/19 14:43 Respiratory Depth Normal 02/15/19 14:43 Respiratory Pattern Normal 02/15/19 14:43 Blood Pressure 109/82 02/15/19 07:30 Pulse Oximetry 98 02/15/19 07:30 Oxygen Delivery Method Room Air 02/15/19 07:30 Oxygen Flow Rate 0 02/15/19 07:30 Pain Level 3 02/15/19 07:30 Comment 02/12/19 19:30 Intake & Output 02/14/19 02/15/19 02/15/19 23:59 11:59 23:59 Intake Total 1762.5 / 3910.417 610 / 850 240 / 850 Output Total 2100 / 3775 700 / 1183 483 / 1183 Balance -337.5 / 135.417 -90 / -333 -243 / -333 Weight 68.5 kg Intake: IV 562.5 / 2410.417 Oral 1200 / 1500 610 / 850 240 / 850 Output: Urine 2100 / 3775 700 / 1183 483 / 1183 Other: Urine Color Yellow Light Zakia Light Zakia Urine Appearance Clear Clear Clear Urine Odor Normal None Comment Bladder scanned for 140-229cc found at 0715 when went to check on pt and bladder scan at 0715. pt stated it was from about 5hrs ago which would be about 0215 will have patient attempt to void at 1530 Voiding Methods Toilet Urinal Laboratory Results WBC 8.68 k/cumm (4.4-10.8) 02/15/19 06:08 RBC 3.66 m/cumm (4.50-6.00) L 02/15/19 06:08 Hgb 11.7 g/dL (13.5-17.5) L 02/15/19 06:08 Hct 33.6 % (40.0-50.0) L 02/15/19 06:08 MCV 91.8 fL (80-95) 02/15/19 06:08 MCH 32.0 pg (27.0-33.0) 02/15/19 06:08 MCHC 34.8 g/dL (32.0-36.0) 02/15/19 06:08 RDW 16.8 % (11.8-14.1) H 02/15/19 06:08 Plt Count 267 x1000/uL (130-400) 02/15/19 06:08 MPV 8.9 fL (8.0-11.0) 02/15/19 06:08 Immature Gran % 0.7 02/15/19 06:08 Neutrophils % 55.6 02/15/19 06:08 Lymphocytes % 35.3 02/15/19 06:08 Monocytes % 6.2 02/15/19 06:08 Eosinophils % 1.2 02/15/19 06:08 Basophils % 1.0 02/15/19 06:08 Absolute Neutrophils 4.83 k/cumm (1.2-6.7) 02/15/19 06:08 Absolute Lymphocytes 3.06 k/cumm (1.2-3.4) 02/15/19 06:08 Absolute Monocytes 0.54 k/cumm (0.11-0.7) 02/15/19 06:08 Absolute Eosinophils 0.10 k/cumm (0.0-0.7) 02/15/19 06:08 Absolute Basophils 0.09 k/cumm (0.0-0.2) 02/15/19 06:08 Sodium 133 mmol/L (136-145) L 02/15/19 06:08 Potassium 4.8 mmol/L (3.5-5.1) 02/15/19 06:08 Chloride 100 mmol/L (98-107) 02/15/19 06:08 Carbon Dioxide 24.6 mmol/L (21.0-32.0) 02/15/19 06:08 Anion Gap 8.4 mmol/L (3-11) 02/15/19 06:08 BUN 13 mg/dL (7-18) 02/15/19 06:08 Creatinine 1.66 mg/dL (0.70-1.30) H 02/15/19 06:08 Estimated GFR/1.73 m2 41.78 (mL/min/1.73m2) 02/15/19 06:08 Glucose 96 mg/dL (70-100) 02/15/19 06:08 Calcium 8.7 mg/dL (8.5-10.1) 02/15/19 06:08 Magnesium 1.8 mg/dL (1.8-2.4) 02/15/19 06:08 Total Bilirubin 0.6 mg/dL (0.2-1.0) 02/11/19 17:05 AST 21 U/L (15-37) 02/11/19 17:05 ALT 26 U/L (12-78) 02/11/19 17:05 Alkaline Phosphatase 143 U/L (46-116) H 02/11/19 17:05 Total Protein 7.3 g/dL (6.4-8.2) 02/11/19 17:05 Albumin 2.8 g/dL (3.4-5.0) L 02/11/19 17:05 Lipase 109 U/L (73-393) 02/11/19 17:05 Free PSA 0.3 ng/mL 02/13/19 06:45 Total PSA 2.8 ng/mL (<=4.5) 02/13/19 06:45 PSA Free/Total Ratio See comment ratio 02/13/19 06:45 TSH 0.39 uIU/mL (0.358-3.74) 02/12/19 06:15 Urine Color Yellow (Yellow) 02/13/19 11:48 Urine Clarity Cloudy 02/13/19 11:48 Urine pH 5.5 (5-8) 02/13/19 11:48 Ur Specific [place] >= 1.030 (1.005-1.025) H 02/13/19 11:48 Urine Protein 100 mg/dL (Negative) H 02/13/19 11:48 Urine Ketones 15 mg/dL (Negative) H 02/13/19 11:48 Urine Blood Large (Negative) H 02/13/19 11:48 Urine Nitrite Negative (Negative) 02/13/19 11:48 Urine Bilirubin Small (Negative) H 02/13/19 11:48 Urine Urobilinogen 0.2 EU/dL (Up TO 0.2) 02/13/19 11:48 Ur Leukocyte Esterase Negative (Negative) 02/13/19 11:48 Urine RBC >50 (0-2) H 02/13/19 11:48 Urine WBC 5-10 HPF (0-5) 02/13/19 11:48 Ur Epithelial Cells Few HPF (Negative) 02/13/19 11:48 Urine Crystals Negative HPF (Negative) 02/13/19 11:48 Urine Bacteria Moderate HPF (Negative) 02/13/19 11:48 Urine Casts Negative LPF (Negative) 02/11/19 17:15 Urine Mucus Negative (Negative) 02/13/19 11:48 Urine Other Negative (Negative) 02/11/19 17:15 Ur Culture Indicated? Yes 02/13/19 11:48 Urine Glucose Negative mg/dL (Negative) 02/13/19 11:48 Ethyl Alcohol < 3.0 mg/dL (<3) 02/11/19 21:45
--- NOTE | 2019-02-15 17:14 | NUR.NOTE ---
Nursing Note: patient has been cooperative today ciwas score of 3 and 2, patient is not oriented to date, question if this is baseline for the patient, patient has voided at 1530 with a 263 pvr, patient is reminded constantly to ring if he needs to go, so we can measure and perform and accurate pvr. [email or web address] noted new orders for bowel meds, patient cannot remember when he last had a BM
[2019-02-15] MEDS: Bisacodyl 5 MG TABEC PO (18:39)
[2019-02-15] MEDS: Polyethylene Glycol 3350 17 GM PACKET PO (20:08)
[2019-02-15] MEDS: Docusate Sodium 100 MG CAP PO (20:09)
[2019-02-15 20:30] VITALS: BP 108/73; PULSE 84; RESP 18; TEMP 36.7; O2SAT 97
[2019-02-15] MEDS: risperiDONE 1 MG TAB PO (21:45)
[2019-02-15] MEDS: Mirtazapine 15 MG TAB PO (21:45)
[2019-02-16 00:40] VITALS: BP 118/85; PULSE 97; RESP 18; TEMP 36.7; O2SAT 97
[2019-02-16 04:00] VITALS: BP 113/79; PULSE 91; RESP 16; TEMP 36.6; O2SAT 97
[2019-02-16] MEDS: levoFLOXacin 500 MG, levoFLOXacin 250 MG 750 MG PO (05:27)
[2019-02-16 07:02] LABS: Abs Immature Grans 0.05 k/cumm (0.0-0.09); Absolute Basophil Count 0.07 k/cumm (0.0-0.2); Absolute Eosinophil Count 0.11 k/cumm (0.0-0.7); Absolute Lymphocyte Count 2.69 k/cumm (1.2-3.4); Absolute Monocyte Count 0.63 k/cumm (0.11-0.7); Basophils % 0.8; Eosinophils % 1.3; HCT 32.5 % (40.0-50.0); HGB 11.1 g/dL (13.5-17.5); Immature Grans % 0.6; Lymphocytes % 31.5; Mean Corp. HGB Concentration 34.2 g/dL (32.0-36.0); Mean Corpuscular Hemoglobin 31.4 pg (27.0-33.0); Mean Corpuscular Volume 92.1 fL (80-95); Mean Platelet Volume 8.8 fL (8.0-11.0); Monocytes % 7.4; Neutrophils % 58.4; Platelet Count 275 x1000/uL (130-400); RBC 3.53 m/cumm (4.50-6.00); White Blood Cell Count 8.55 k/cumm (4.4-10.8)
[2019-02-16 07:17] LABS: Anion Gap 8.9 mmol/L (3-11); BUN 11 mg/dL (7-18); CO2 24.1 mmol/L (21.0-32.0); CREATININE 1.38 mg/dL (0.70-1.30); Calcium 8.8 mg/dL (8.5-10.1); Chloride 98 mmol/L (98-107); Estimated GFR 51.71 (mL/min/1.73m2); Glucose 92 mg/dL (70-100); Magnesium 1.9 mg/dL (1.8-2.4); Potassium 4.3 mmol/L (3.5-5.1); Sodium 131 mmol/L (136-145)
[2019-02-16 07:35] VITALS: BP 109/65; PULSE 78; RESP 18; TEMP 36.4; O2SAT 96
[2019-02-16] MEDS: Tamsulosin 0.4 MG CAPCR PO (08:50)
[2019-02-16] MEDS: Omeprazole 20 MG CAPCR PO (08:50)
[2019-02-16] MEDS: Thiamine 100 MG TAB PO (08:50)
[2019-02-16] MEDS: Spironolactone 25 MG TAB PO (08:50)
[2019-02-16] MEDS: Polyethylene Glycol 3350 17 GM PACKET PO (08:50)
[2019-02-16] MEDS: Multivitamin w/Minerals TAB 1 TAB PO (08:50)
[2019-02-16] MEDS: Docusate Sodium 100 MG CAP PO (08:50)
[2019-02-16] MEDS: Heparin 5,000 UNITS/ML VIAL 5000 UNITS SC (08:50)
[2019-02-16] MEDS: Cyanocobalamin 500 MCG TAB 1000 MCG PO (08:50)
[2019-02-16] MEDS: Benztropine 1 MG TAB 0.5 MG PO (08:51)
[2019-02-16] MEDS: Magnesium Gluconate 500 MG TAB PO (08:51)
[2019-02-16] MEDS: Omega-3 Fatty Acids 1000 MG CAP 2000 MG PO (08:51)
[2019-02-16] MEDS: Ascorbic Acid 500 MG TAB PO (08:51)
[2019-02-16] MEDS: Aspirin 81 MG CHEW PO (09:03)
--- NOTE | 2019-02-16 11:10 | DSE_ITS ---
Documented by User: Dimple Mejia NP 02/16/19 12:15 Date of service: 02/16/19 Time of Service: 11:09 DS: Diagnosis Discharge Diagnosis (1) Prostatitis: Status: Acute (2) UTI (urinary tract infection): Status: Acute (3) Urinary retention: Status: Acute (4) Constipation: Status: Chronic (5) Acute kidney injury: Status: Acute (6) Hyponatremia: Status: Chronic (7) Alcohol abuse: Status: Chronic (8) Schizoaffective disorder: Status: Chronic (9) Leg pain, left: Status: Acute (10) Descending thoracic aortic aneurysm: Status: Acute Exam Narrative Exam Narrative: General: Lying in bed on his left side, awakens easily to voice. Answers questions appropriately, although he is a poor historian. Does not appear to be in any acute distress. HEENT: Normocephalic, atraumatic. Skin color has galarza hue. Mucous membranes moist. Neck: Supple, no JVD. Cardiovascular: Heart has regular rate and rhythm, no murmur appreciated. Respiratory: Respirations even and unlabored, lung sounds diminished throughout, no wheezing or rales. Abdomen: Normoactive bowel sounds, soft, nontender on palpation. Extremities: no clubbing, cyanosis or edema. Moves around freely in bed. PT pulse faint but palpable to LLE, uncertain if DP palpable on the left. RLE with faint DP. Feet are pink and cool, not cold. No LLE pain at rest. DS: Data Vitals/I&O Vitals and I&O: Vital Signs Temperature 36.4 C L 02/16/19 07:35 Temperature Source Tympanic 02/16/19 07:35 Pulse 78 02/16/19 07:35 Pulse Rhythm Regular 02/16/19 07:34 Pulse 74 02/11/19 18:40 Respiratory Rate 18 02/16/19 07:35 Respiratory Effort Non-Labored 02/16/19 07:34 Respiratory Depth Normal 02/16/19 07:34 Respiratory Pattern Normal 02/16/19 07:34 Blood Pressure 109/65 02/16/19 07:35 Pulse Oximetry 96 02/16/19 07:35 Oxygen Delivery Method Room Air 02/16/19 07:35 Oxygen Flow Rate 0 02/16/19 07:35 Pain Level 0 02/16/19 07:35 Comment 02/12/19 19:30 Intake & Output 02/15/19 02/15/19 02/16/19 11:59 23:59 11:59 Intake Total 610 / 850 240 / 850 1270 / 1270 Output Total 700 / 1783 1083 / 1783 700 / 700 Balance -90 / -933 -843 / -933 570 / 570 Weight 68.5 kg 68.3 kg Intake: Oral 610 / 850 240 / 850 1270 / 1270 Output: Urine 700 / 1783 1083 / 1783 700 / 700 Other: Urine Color Light Zakia Light Zakia Yellow Urine Appearance Clear Clear Clear Urine Odor Normal None Comment found at 0715 when went to check on pt and bladder scan at 0715. pt stated it was from about 5hrs ago which would be about 0215 will have patient attempt to void at 1530 Patient scanned for 246cc but couldn't void at this time. No post void residual. Stool Size Moderate Stool Characteristics Soft Formed Voiding Methods Toilet Toilet Bedside Commode Completed studies during hospitalization [Text1]: 02/11/19: PA AND LATERAL CHEST: The heart is not enlarged. Thoracic aorta is tortuous and the possibility of a fusiform aneurysm of the descending thoracic aorta is raised, exact comparison with previous examination of 2018 is difficult but there may have been interval increase since 2016. Chest CT may be considered if clinically indicated. The possibility that this represents a mass is not entirely excluded. Lungs appear clear. No pleural effusion is seen. CONCLUSION: Question descending thoracic aneurysm. Mass not absolutely excluded. Chest CT suggested for further evaluation. ABDOMEN AND PELVIC CT: CT examination of the abdomen and pelvis was performed with oral contrast only. Images obtained through the lung bases are unremarkable. Tiny low attenuation right hepatic lobe lesion is noted consistent with benign disease but too small to characterize. Spleen is unremarkable in appearance. No biliary dilatation is seen. Pancreas appears normal. Abdominal aorta is ectatic at about 31-32 mm. maximal diameter, grossly unchanged from 12/13/15. No abdominal or pelvic adenopathy. No significant abdominal wall hernia is seen. There is a question of wall edema of the ascending colon, clinical correlation is requested regarding the possibility of colitis. No free fluid or free air is seen. No evidence of a focal diverticulitis. Adrenals and kidneys grossly unremarkable in appearance and unchanged. CONCLUSION: Question of edema of the ascending colon, consider the diagnosis of colitis. VRAD: EXAM: CT Abdomen and Pelvis Without Contrast EXAM DATE/TIME: 02/11/2019 7:01 PM CLINICAL HISTORY: 63 years old, male; Signs and symptoms; Constipation TECHNIQUE: Imaging protocol: Axial computed tomography images of the abdomen and pelvis without contrast. Coronal and sagittal reformatted images were created and reviewed. Radiation optimization: All CT scans at this facility use at least one of these dose optimization techniques: automated exposure control; mA and/or kV adjustment per patient size (includes targeted exams where dose is matched to clinical indication); or iterative reconstruction. COMPARISON: CT ABD PELVIS WO CONTRAST 12/13/2015 10:16 AM FINDINGS: Lower thorax: Pulmonary hyperinflation. Small areas of centrilobular emphysema. ABDOMEN: Liver: Benign-appearing hepatic cyst. No hepatic masses. Gallbladder and bile ducts: No calcified stones. No ductal dilation. Pancreas: No ductal dilation. No masses. Spleen: No splenomegaly or focal lesions. Adrenals: Stable appearance of adrenal hypertrophy versus low-density probable adenomas. Kidneys and ureters: No hydronephrosis. Stomach and bowel: Very minimal distal diverticula are seen. Minimal stool burden. Submucosal fat deposition in the right colon. No evidence of colitis or diverticulitis. No focal pathology in the small bowel. Appendix: No evidence of appendicitis. PELVIS: Bladder: Unremarkable as visualized. Reproductive: Mild prominence of the prostate gland. ABDOMEN and PELVIS: Intraperitoneal space: No free air. No significant fluid collection. Bones/joints: Degenerative changes in the spine. No acute fracture or subluxation. Soft tissues: Subcutaneous 15 mm structure midline suprapubic pelvis, similar to prior, probably benign. Vasculature: Similar appearance of multilevel mild dilation of the infrarenal aorta with no evidence of rupture. Mild aortoiliac atherosclerosis. Mild asymmetric dilation of the distal thoracic aorta above the level of the aortic hiatus. Lymph nodes: No significantly enlarged lymph nodes. IMPRESSION: 1. No acute findings. Minimal stool burden. No evidence of colitis. 2. Incidental findings as described. EXAM: XR Chest, 2 Views EXAM DATE/TIME: 02/11/2019 7:10 PM CLINICAL HISTORY: 63 years old, male; Signs and symptoms; Cough and shortness of breath; Additional info: R/O acute disease TECHNIQUE: Imaging protocol: XR of the chest, 2 views. COMPARISON: CR CHEST 2 VIEWS PA,LAT 12/05/2017 3:48 PM FINDINGS: Lungs: Hyperinflation similar to the previous study. Significant improvement in aeration of the lungs since the previous study with no definite new pneumonia. Pleural space: No pleural effusion. No pneumothorax. Heart/Mediastinum: No cardiomegaly. Vasculature: A tubular density measuring up to 5 cm in diameter projects over the posterior chest on the lateral view, appears contiguous with the descending aorta. Bones/joints: Degenerative changes in the shoulders. IMPRESSION: 1. Hyperinflation similar to the previous study. 2. Significant improvement in aeration of the lungs since the previous study with no definite new pneumonia. 3. A tubular density measuring up to 5 cm in diameter projects over the posterior chest on the lateral view, appears contiguous with the descending aorta. This could reflect a fusiform aortic aneurysm. A pulmonary mass lesion is considered less likely however difficult to exclude on this study. Morphology would be unusual for pneumonia. Followup is recommended. Date of study: 02/13/2019 Transthoracic Echocardiography M-mode, complete 2D, complete spectral Doppler, and color Doppler *STUDY CONCLUSIONS* Summary: 1. Left ventricle: The cavity size was normal. Systolic function was normal. The estimated ejection fraction was 60-65%. Diastolic parameters were normal for age. There was no evidence of elevated ventricular filling pressure by Doppler parameters. 2. Mitral valve: There was mild regurgitation. 3. Right ventricle: The cavity size was normal. Wall thickness was normal. Systolic function was normal. 4. Atrial septum: No defect or patent foramen ovale was identified. 5. Pulmonary arteries: Pulmonary systolic pressure was in the range of 25mm Hg to 35mm Hg. 6. Inferior vena cava: The vessel was patent and normal in size. The respirophasic diameter changes were in the normal range (greater than or equal to 50%), consistent with normal central venous pressure. 02/13/19: RENAL ULTRASOUND: The kidneys are normal in size and shape and there is no evidence of a renal mass, hydronephrosis or nephrolithiasis. Urinary bladder is essentially empty with a catherine catheter in place. CONCLUSION: No evidence of urinary tract obstruction. DUPLEX VENOUS ULTRASOUND, LEFT LOWER EXTREMITY: Duplex evaluation of the deep venous system was performed according to the usual protocol. The deep veins are freely compressible throughout to the level of the popliteal veins. There is normal Doppler flow visible throughout and there is excellent flow augmentation with manual calf compression. CONCLUSION: No evidence of deep venous thrombosis. 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 Vascular lab referral suggested. Labs on day of discharge: Labs from last 24 hours 02/16/19 02/16/19 06:12 06:12 WBC 8.55 RBC 3.53 L Hgb 11.1 L Hct 32.5 L MCV 92.1 MCH 31.4 MCHC 34.2 RDW 17.0 H Plt Count 275 MPV 8.8 Immature Gran % 0.6 Neutrophils % 58.4 Lymphocytes % 31.5 Monocytes % 7.4 Eosinophils % 1.3 Basophils % 0.8 Absolute Neutrophils 5.00 Absolute Lymphocytes 2.69 Absolute Monocytes 0.63 Absolute Eosinophils 0.11 Absolute Basophils 0.07 Sodium 131 L Potassium 4.3 Chloride 98 Carbon Dioxide 24.1 Anion Gap 8.9 BUN 11 Creatinine 1.38 H Estimated GFR/1.73 m2 51.71 Glucose 92 Calcium 8.8 Magnesium 1.9 PFSH Medical History Anxiety (Chronic) Hemolytic uremic syndrome (Resolved) Alcohol abuse COPD (chronic obstructive pulmonary disease) GERD (gastroesophageal reflux disease) Pneumonitis Schizophrenia Tremor Surgical History History of ankle surgery (Acute) Family History Mother Asthma Father NE (myocardial infarction) Grandmother Diabetes Colon cancer Maternal Uncle Hyperlipidemia Other Lung cancer Social History Smoking/Tobacco Use Status: Current every day Tobacco Type: cigarettes Alcohol Intake: current Alcohol Intake frequency: 3 or more drinks per day Alcohol type: beer Details: drinks a 6 pack of beer per day Drug use: Never Substance use type: does not use Do you feel safe at home: Yes Do you feel safe in your relationship?: Yes Documented by User: Henrry Vasques MD 02/27/19 11:25 [facility] Medical History Anxiety (Chronic) Hemolytic uremic syndrome (Resolved) Alcohol abuse COPD (chronic obstructive pulmonary disease) GERD (gastroesophageal reflux disease) Pneumonitis Schizophrenia Tremor Surgical History History of ankle surgery (Acute) Family History Mother Asthma Father [place] (myocardial infarction) Grandmother Diabetes Colon cancer Maternal Uncle Hyperlipidemia Other Lung cancer Social History Smoking/Tobacco Use Status: Current every day Tobacco Type: cigarettes Alcohol Intake: current Alcohol Intake frequency: 3 or more drinks per day Alcohol type: beer Details: drinks a 6 pack of beer per day Drug use: Never Substance use type: does not use Do you feel safe at home: Yes Do you feel safe in your relationship?: Yes
--- NOTE | 2019-02-16 11:30 | PDOC.CMDIS ---
- If Service Date Differs Date of service: 02/16/19 Time of Service: 11:31 LACE Index Scoring Tool - Questions: Length of Stay (in days): 3 Acuity (Admit via E.D.?): Yes Comorbidities: Chronic Pulmonary Disease E.D. Visits: 1 - Answers: Total Score: 9 Risk of Readmission: Low Risk Care Management Discharge Reason for Hospitalization: UTI Discharge Plan: Devin will return home today with continued [facility] supports. He will have new home health RN services (CM has left a message with [facility]). Devin will also require vascular F/U with the M/S clinical unit coordinator is facilitating at this time. He will F/U with Dr. Curtis on 02/20 @ 3169 and will follow plan of care as prescribed. Patient/Family Education Needs: Review DC instructions, any limitations, and discuss 'Ask Me Three' Services Needed at Discharge: Home Health Care Services (RN)
--- NOTE | 2019-02-16 11:33 | CMDISCH_ITS ---
- If Service Date Differs Date of service: 02/16/19 Time of Service: 11:31 LACE Index Scoring Tool - Questions: Length of Stay (in days): 3 Acuity (Admit via E.D.?): Yes Comorbidities: Chronic Pulmonary Disease E.D. Visits: 1 - Answers: Total Score: 9 Risk of Readmission: Low Risk Care Management Discharge Reason for Hospitalization: UTI Discharge Plan: Devin will return home today with continued [facility] [employer] supports. He will have new home health RN services (CM has left a message with [facility]). Devin will also require vascular F/U with the M/S community development aide is facilitating at this time. He will F/U with Dr. Curtis on 02/20 @ [id number] and will follow plan of care as prescribed. Patient/Family Education Needs: Review DC instructions, any limitations, and discuss 'Ask Me Three' Services Needed at Discharge: Home Health Care Services (RN)
--- NOTE | 2019-02-16 13:37 | HHF2F_ITS ---
1. Encounter Date and Reason I certify that ERIN CONDE was seen by Dimple Mejia on 02/16/19 and that I had a [id number] encounter with this patient that meets the physician face to face encounter requirements. 2. Clinical Findings Supporting Skilled Need and Homebound Status I certify that home health services are medically necessary, include either intermittent halfway and/or physical/speech therapy, and that this patient is homebound in that absences from the home require considerable and taxing effort and are infrequent or of short duration, or are attributable to the need to receive medical care. [X] (a) Attached documentation from encounter provides clinical findings supporting skilled need and homebound status (including what assistance patient requires to leave the home). The encounter with the patient was in whole, or in part, for the following medical condition, which is the primary reason for home health care: HYPONATREMIA, urinary retention, prostatitis, H/O ALCOHOL ABUSE,CONSTIPATION Long Term: Needed for monitoring of medical conditions, monitor for increasing edema, shortness of breath- off diuretics, medication management- remain off torsemide and aldactone until directed to resume by PCP. Please draw CMP on 02/20/18 with results to PCP. Physical Therapy: Speech Therapy: Homebound: Unable to leave home without assistance. 3. Certification and Authentication I certify that I composed the above information based on my clinical judgement relating to this patient's medical condition and, if applicable, clinical findings communicated to me by the NPP or inpatient physician who performed the Home Health Referral. All further orders will be obtained through_PCP: Josephine Velazquez NP (in same office as Dr. Curtis)__(Community Based Physician - PCP)
[2019-02-16 15:50] VITALS: BP 107/72; PULSE 83; RESP 19; TEMP 36.7; O2SAT 96
== END 2019-02-16 16:20 | disposition home health service (06) | DRG 727 ==
LOC: ER 21:27 → MS 21:36
PROVIDERS: Nurse Practitioner Family; Admitting Provider Internal Medicine; Emergency Provider Physician Assistant; PCP Nurse Practitioner; Visit Provider Internal Medicine
DX: N41.0 Acute prostatitis (principal); D59.3 Hemolytic-uremic syndrome; N17.9 Acute kidney failure, unspecified; N39.0 Urinary tract infection, site not specified; E87.1 Hypo-osmolality and hyponatremia; R33.9 Retention of urine, unspecified; K59.00 Constipation, unspecified; J44.9 Chronic obstructive pulmonary disease, unspecified; K21.9 Gastro-esophageal reflux disease without esophagitis; M79.605 Pain in left leg; I71.2 Thoracic aortic aneurysm, without rupture; F17.210 Nicotine dependence, cigarettes, uncomplicated; F10.10 Alcohol abuse, uncomplicated; F25.9 Schizoaffective disorder, unspecified; Z23 Encounter for immunization
CPT/HCPCS: 36415; 76770; 80048; 80053; 83690; 93306; 96361; 96365; 99220; 99231; 99232; 99233; 99239; 99285; 71046; 74176; 80320; 81003; 81015; 83735; 84154; 84443; 85025; 87086; 93971; 99284; G0378; J0696; J1644

== ENCOUNTER 2019-02-25 09:17 | Inpatient (IN) | payer MEDICARE, MEDICAID, SELFPAY ==
[2019-02-25] VITALS (63 sets, daily range): BP systolic 83–135; BP diastolic 64–96; PULSE 85–100; RESP 13–24; TEMP 36.2–36.8; O2SAT 94–100
--- NOTE | 2019-02-25 10:07 | W.ED.GENAD ---
Discharge Plan Disposition Patient Disposition: [facility] INPATIENT Condition: Stable Discharge Details Chief Complaint: Orthopedic Clinical Impression: Closed fracture of right hip Primary Care Provider: Josephine Velazquez ED Provider: Maxx Spear Home Meds and New Rx's Prescriptions: No Action carvedilol [Coreg] 6.25 MG tablet 12.5 mg PO BID Qty: 60 RF: 0 torsemide [Demadex] 20 MG tablet 20 mg PO DAILY Qty: 30 RF: 0 amlodipine 5 MG tablet 5 mg PO DAILY Qty: 30 RF: 0 cyanocobalamin (vitamin B-12) [Vitamin B-12] 500 MCG tablet 1,000 mcg PO DAILY Qty: 30 RF: 0 ascorbic acid (vitamin C) [Vitamin C] 500 MG tablet 500 mg PO BID Qty: 60 RF: 0 benztropine 1 MG tablet 0.5 mg PO DAILY Qty: 30 RF: 0 docusate sodium [Colace] 100 MG capsule 100 mg PO TID PRN PRNQty: 90 RF: 0 omeprazole 20 MG capsule,delayed release(DR/EC) 20 mg PO DAILY@0730 Qty: 30 RF: 0 risperidone [Risperdal] 1 MG tablet 1 mg PO HS Qty: 30 RF: 0 spironolactone 50 MG tablet 50 mg PO DAILY Qty: 30 RF: 0 Therapeutic-M 1 TAB tablet 1 tab PO BID Qty: 60 RF: 0 magnesium gluconate 500 MG tablet 500 mg PO BID Qty: 60 RF: 0 thiamine HCl (vitamin B1) [Vitamin B-1] 100 mg Tablet 100 mg PO DAILY RF: 0 mirtazapine [Remeron] 15 mg Tablet 15 mg PO HS RF: 0 [place]-3 350 mg-235 mg- 90 mg-597 mg Capsule,Delayed Release(Dr/Ec) 2,000 cap PO DAILY RF: 0 atorvastatin [Lipitor] 20 mg Tablet 20 mg PO QPM Qty: 30 RF: 0 polyethylene glycol 3350 17 gram Powder In Packet 17 g PO DAILY Qty: 30 RF: 0 tamsulosin 0.4 mg Capsule 0.4 mg PO DAILY Qty: 30 RF: 0 docusate sodium [Colace] 100 mg Capsule 100 mg PO BID Qty: 60 RF: 0 aspirin 81 mg Tablet,Chewable 81 mg PO DAILY Qty: 30 RF: 0 levofloxacin [Levaquin] 750 mg Tablet 750 mg PO DAILY@0600 Qty: 28 RF: 0 Medical Decision Making This is a 63-year-old male with a past medical history of schizophrenia, GERD, COPD, alcohol abuse, hypertension, anxiety, known aortic aneurysm, and left popliteal aneurysm and vascular occlusion, who sees vascular surgery at the [facility], who presents today for evaluation of fall, unknown downtime, he is at baseline per his care provider and EMS staff. He was unsure of how long he had been down. There is a questionable amount of alcohol bottles around him per EMS. Patient complains of right-sided hip pain. No signs of trauma on exam. Reproducible pain on the right hip and pelvis. Capillary refill is intact, and equal bilaterally, pulses are diminished bilaterally and equivalent, however bedside limited ultrasound demonstrates notable collaterals throughout, with good continuous flow. Both feet are warm bilaterally and equal in temperature. No signs of acute severe vascular compromise. Concern for potential pelvic or hip fracture, secondary to the patient's difficult baseline with his schizophrenia and chronic mental baseline level, I will be getting a CT scan rather than just plain radiographic imaging. We will evaluate for acute fracture process including occult fracture. We will also get a CT of the head to rule out any acute bleed which I feel is notably unlikely as demonstrated by the otherwise benign traumatic exam. 11:28 AM Patient's imaging report has returned, CT head is negative for acute fracture or bleed. CT of the abdomen and pelvis demonstrates chronic unchanging aortic components, however there is an acute right sided comminuted hip fracture, there is some abnormalities noted at the pubic rami however upon review with the virtual radiologist there is no evidence of other acute fracture process. Laboratory workup does demonstrate evidence of hyponatremia, which the patient did have on his prior visit. We will continue normal saline at 120 an hour. He has no white count, bandemia, fever or chills, no signs of systemic infection. Still pending urinalysis at this time. Renal function is stable, creatinine kinase is only 393, suggestive of no severe downtime, alcohol is negative. I did contact Dr. Kapadia, discussed the case with him. He recommends pinning that he will do tomorrow morning. He recommends admission to the hospital secondary to the hyponatremia and the patient's other notable medical problems. N.p.o. after midnight. Secondary to the patient's chronic mental baseline, do not think he would be a good candidate for notably high opiates with his chronic confusion schizophrenia, anesthesia is very graciously placed a right fascial iliac block for pain control. We will contact the hospitalist for admission. 12:19 PM I did contact the hospitalist Dr. Vasques, he agrees with the assessment and plan. The patient will be admitted for further medical management and orthopedic management. I have extensively reviewed the treatment plan with the patient. I have addressed all patient concerns at this time. I have also discussed the plan with the admitting physician and they agree with the current assessment and plan and have agreed to assume responsibility for the patient. All parties demonstrate verbal understanding and agreement with our assessment and plan at this time. COMPARISON: CT HEAD WITHOUT CONTRAST 11/15/2017 10:20 AM FINDINGS: Brain: No intracranial hemorrhage. Periventricular and subcortical white matter hypoattenuation, nonspecific but consistent with chronic microvascular ischemic disease. No collections. No mass or midline shift. Normal galarza-white differentiation.The orbits are unremarkable as visualized. Ventricles: The ventricles are normal in position and mildly enlarged. There is commensurate cortical sulcal prominence. The findings are consistent with age appropriate cerebral atrophy. No hydrocephalus. Bones/joints: Severe bilateral degenerative change of the temporomandibular joints. No acute fracture. Sinuses: Mild mucoperiosteal thickening in the bilateral ethmoid, RIGHT maxillary, and LEFT frontal sinuses. No air-fluid levels are visualized. Mastoid air cells: The tympanomastoid air cells are normally aerated as visualized. Soft tissues: The soft tissues are unremarkable. Vasculature: Ossification or carotid arteries. IMPRESSION: No acute intracranial findings. New mild paranasal sinus inflammatory change. Additional incidental/nonemergent findings as discussed above. Thank you for allowing us to participate in the care of your patient. Dictated and Authenticated by: Penelope Glasgow MD COMPARISON: CT ABDOMEN PELVIS WO 02/11/2019 6:59 PM FINDINGS: Limitations: Motion artifact. Patient's LEFT arm is at his side resulting in artifact. The absence of intravenous and oral contrast material limits evaluation of the abdominal and pelvic viscera, vasculature and bowel. Lower thorax: Mild scarring in the lingula and RIGHT middle lobe. 1.2 cm RIGHT lower lobe bulla. ABDOMEN: Liver: The liver is normal in size and density. The hepatic contour is normal. There are no focal hepatic masses. Gallbladder and bile ducts: Sludge in the gallbladder. No calcified gallstones. No pericholecystic collection. No ductal dilatation. Pancreas: The pancreas is normal in size and density. There are no pancreatic calcifications or ductal dilatation. Spleen: The spleen is normal in size. No focal splenic lesions are noted. Adrenals: Cortical thickening bilaterally likely due to hyperplasia. Possible 2 cm low-attenuation LEFT adrenal adenoma. Kidneys and ureters: There are no gross focal renal masses. No radioopaque renal calculi are noted. There is no hydronephosis. Mild perinephric stranding. Stomach and bowel: Normal. No obstruction. No mucosal thickening. Appendix: The appendix is visualized and is normal in caliber. There is no periappendiceal fat stranding. PELVIS: Bladder: The bladder is normally distended. There is no bladder wall thickening. There are no radioopaque bladder calculi. Reproductive: Unremarkable as visualized. ABDOMEN and PELVIS: Intraperitoneal space: No free air. No significant fluid collection. Bones/joints: Acute comminuted intertrochanteric fracture of the RIGHT femur extending to the proximal femoral shaft. There is mild displacement of the greater trochanter. Soft tissues: Centimeter soft tissue nodule in the anterior abdominal wall to the RIGHT midline at the level of the pubic cyst. Soft tissues otherwise unremarkable. Vasculature: Incompletely visualized aneurysmal dilatation of the descending aorta measuring up to 5.3 cm in AP dimension. Mild calcification thoracic aorta. Calcification of the abdominal aorta. Multilevel mild dilatation infrarenal abdominal aorta measuring up to 3.5 cm in maximal dimension. Lymph nodes: Normal. No enlarged lymph nodes. IMPRESSION: 1. Acute comminuted intertrochanteric fracture of the RIGHT femur extending to the proximal femoral shaft. 2. Aneurysmal dilatation of the descending and infrarenal abdominal aorta. These findings are stable since the previous exam. 3. Additional incidental/nonemergent findings as discussed above. Thank you for allowing us to participate in the care of your patient. Dictated and Authenticated by: Penelope Glasgow MD [facility] General Date/Time Provider Initiated Documentation: 02/25/19 09:36. [facility] Narrative: Patient is a 63-year-old male with a history of GERD, COPD, schizophrenia, alcohol abuse, hypertension, aortic aneurysm,, chronic left popliteal aneurysm with occlusion being followed closely at the [facility] with vascular surgery, and anxiety who lives at home alone but does have a regular care provider come to his home. He is a very poor historian at his baseline. He presents today by EMS after his care provider came to his home and found him on the floor, there were alcohol bottles around him allegedly. He had been on the floor and was unable to get up. He is complaining of right hip pain. He is unsure of how long he had been on the ground. Per EMS, the care worker, and nursing staff was familiar with the patient patient is at his mental baseline. He was brought in for further evaluation. Currently the patient complains of right-sided hip pain. Worse with movement, improved by nothing. He denies any head, chest, abdominal, or leg pain. He denies hitting his head. However he does not know how long he had been on the ground for. He does suppose that it was since last night. He has not on any blood thinners but does take aspirin, statin. Other complaints or additional modifying factors at this time. Of note the patient was also recently here and admitted in the hospital and discharged over a week ago for urinary tract infection, leg pain on the left, as well as mild acute kidney injury. He was discharged on Levaquin, but his finished his prescription. Related Data Home Medications Medication Instructions Recorded Confirmed Therapeutic-M 1 tab PO BID #60 tab 12/08/17 02/25/19 amlodipine 5 mg PO DAILY #30 tab 12/08/17 02/25/19 ascorbic acid (vitamin C) [Vitamin 500 mg PO BID #60 tab 12/08/17 02/25/19 C] benztropine 0.5 mg PO DAILY #30 tab 12/08/17 02/25/19 carvedilol [Coreg] 12.5 mg PO BID #60 tab 12/08/17 02/25/19 cyanocobalamin (vitamin B-12) 1,000 mcg PO DAILY #30 tab 12/08/17 02/25/19 [Vitamin B-12] docusate sodium [Colace] 100 mg PO TID PRN PRN #90 cap 12/08/17 02/25/19 magnesium gluconate 500 mg PO BID #60 tab 12/08/17 02/25/19 omeprazole 20 mg PO DAILY@0730 #30 capcr 12/08/17 02/25/19 risperidone [Risperdal] 1 mg PO HS #30 tab 12/08/17 02/25/19 spironolactone 50 mg PO DAILY #30 tab 12/08/17 02/25/19 torsemide [Demadex] 20 mg PO DAILY #30 tab 12/08/17 02/25/19 [place]-3 2,000 cap PO DAILY 02/11/19 02/25/19 mirtazapine [Remeron] 15 mg PO HS 02/11/19 02/25/19 thiamine HCl (vitamin B1) [Vitamin 100 mg PO DAILY 02/11/19 02/25/19 B-1] aspirin 81 mg PO DAILY #30 tab 02/16/19 02/25/19 atorvastatin [Lipitor] 20 mg PO QPM #30 tab 02/16/19 02/25/19 docusate sodium [Colace] 100 mg PO BID #60 cap 02/16/19 02/25/19 levofloxacin [Levaquin] 750 mg PO DAILY@0600 #28 tab 02/16/19 02/25/19 polyethylene glycol 3350 17 g PO DAILY #30 each 02/16/19 02/25/19 tamsulosin 0.4 mg PO DAILY #30 cap 02/16/19 02/25/19 Previous Rx's Medication Instructions Recorded Therapeutic-M 1 tab PO BID #60 tab 12/08/17 amlodipine 5 mg PO DAILY #30 tab 12/08/17 ascorbic acid (vitamin C) [Vitamin 500 mg PO BID #60 tab 12/08/17 C] benztropine 0.5 mg PO DAILY #30 tab 12/08/17 carvedilol [Coreg] 12.5 mg PO BID #60 tab 12/08/17 cyanocobalamin (vitamin B-12) 1,000 mcg PO DAILY #30 tab 12/08/17 [Vitamin B-12] docusate sodium [Colace] 100 mg PO TID PRN PRN #90 cap 12/08/17 magnesium gluconate 500 mg PO BID #60 tab 12/08/17 omeprazole 20 mg PO DAILY@0730 #30 capcr 12/08/17 risperidone [Risperdal] 1 mg PO HS #30 tab 12/08/17 spironolactone 50 mg PO DAILY #30 tab 12/08/17 torsemide [Demadex] 20 mg PO DAILY #30 tab 12/08/17 aspirin 81 mg PO DAILY #30 tab 02/16/19 atorvastatin [Lipitor] 20 mg PO QPM #30 tab 02/16/19 docusate sodium [Colace] 100 mg PO BID #60 cap 02/16/19 levofloxacin [Levaquin] 750 mg PO DAILY@0600 #28 tab 02/16/19 polyethylene glycol 3350 17 g PO DAILY #30 each 02/16/19 tamsulosin 0.4 mg PO DAILY #30 cap 02/16/19 Allergies Allergy/AdvReac Type Severity Reaction Status Date / Time No Known Allergies Allergy Unverified 02/25/19 09:24 General Stated Complaint: Orthopedic BELLO: 3 Review of Systems Review of Systems All systems reviewed & are unremarkable except as noted in HPI and below PFSH Social History Smoking/Tobacco Use Status: Current every day Tobacco Type: cigarettes Alcohol Intake: current Alcohol Intake frequency: 3 or more drinks per day Alcohol type: beer Details: drinks a 6 pack of beer per day Drug use: Never Substance use type: does not use Do you feel safe at home: Yes Do you feel safe in your relationship?: Yes Exam Narrative Exam Narrative: 1.Const: Well-nourished, Well-developed, appearing stated age 2.Eyes: PERRL, no conjunctival injection, and symmetrical lids. 3.ENT: Atraumatic external nose and ears. Moist MM. Neck: Symmetric, trachea midline, No thyromegaly. There is no evidence of raccoon eyes, navas sign, CSF rhinorrhea, mastoid tenderness, cranial crepitus, hemotympanum, exophthalmos, or hyphema. Patient demonstrates intact dentition with no signs of tooth avulsion or fracture, no signs of jaw deformity, no evidence of a LeFort's fracture, with an intact palate, nose and orbital region. There is no evidence of a nasal septal hematoma. No proptosis. Jaw closes symmetrically. Airway is clear. 4.CVS: +S1/S2, No murmurs or gallops. Peripheral pulses 2+ and equal in all extremities. Brisk capillary refill in all extremities. 5.RESP: Unlabored respiratory effort. Clear to auscultation bilaterally. No wheezes rales or rhonchi 6.GI: Soft, Nontender/Nondistended, No hepatosplenomegaly. No guarding or rebound. 7.MSK: Normocephalic, Extremities w/o deformity. No appreciable shortening of the right or left lower extremity. Subjective pain in the right hip on palpation, made worse with movement and logroll of the right hip and lower extremity. Questionable pain in the left hip, this appears to be inconsistent on exam findings. Tenderness on palpation of the right pelvis. No evidence of deformity, or laxity. No laxity with medial compression or posterior compression. The patient is able to flex and extend both knees, no pain or tenderness over the knees, mid or distal femurs, or shins or feet bilaterally. Notably unkept nails. Bilateral extremities demonstrate capillary refill that is 2.5 seconds. Pulses are notably reduced bilaterally, however bedside ultrasound demonstrates consistently intact peripheral feeder vessels that demonstrate pulsatile action as well as consistent blood flow. Vascular exam is symmetric bilaterally. No evidence of cervical thoracic or lumbar midline tenderness. 8.Skin: Warm, Dry. No rashes or lesions. Very dirty, notably unkempt nails. 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 Sensation grossly intact, no focal neurologic deficits. All 6 cardinal planes of vision are fully intact. No evidence of rotatory or vertical nystagmus. The patient demonstrated a normal [id number], good dexterity. There was no evidence of dysdiadochokinesia. Patient was unable to ambulate secondary to pain in his right hip. Sensation was intact bilaterally for all extremities. Patient was able to verbalize butter cup with no slurring, or miss pronunciation. 10.Psych: (AAO) x3. Appropriate mood and affect Course Vital Signs Temperature 36.8 C 02/25/19 09:19 Pulse 97 H 02/25/19 09:19 Respiratory Rate 20 02/25/19 09:19 Blood Pressure 123/79 02/25/19 09:19 Pulse Oximetry 100 02/25/19 09:19 Temperature 36.8 C 02/25/19 09:19 Temperature Source Temporal Artery Scan 02/25/19 09:19 Pulse 97 H 02/25/19 09:19 Respiratory Rate 20 02/25/19 09:19 Respiratory Effort Non-Labored 02/25/19 09:19 Blood Pressure 123/79 02/25/19 09:19 Blood Pressure Position Sitting 02/25/19 09:19 Pulse Oximetry 100 02/25/19 09:19 Oxygen Delivery Method Room Air 02/25/19 09:19 Oxygen Flow Rate 0 02/25/19 09:19 Pain Level 5 02/25/19 09:19
--- NOTE | 2019-02-25 10:18 | DI.CT_ITS ---
SYMPTOM/DIAGNOSIS: FELL,SCHIZOPHRENIA, BILAT HIP PAIN NONCONTRAST CRANIAL CT: A noncontrast cranial CT was performed. There is marked generalized cerebral atrophy. There is no evidence of acute intracranial hemorrhage, mass effect or midline shift. There are periventricular areas of decreased attenuation consistent with microvascular ischemic changes. No evidence of acute calvarial fracture. Mastoid air cells appear intact as visualized as do the paranasal sinuses. The orbital contents appear intact. CONCLUSION: No evidence of acute intracranial injury. ABDOMEN AND PELVIC CT: CT examination of the abdomen and pelvis was performed without contrast administration. The lung bases are clear. Incompletely visualized aneurysm of descending aorta measuring about 5.3 cm. in diameter. Infrarenal abdominal aortic aneurysm measuring about 3.5 cm. in diameter. Liver and spleen appear intact. Pancreas is atrophic. Adrenals and kidneys are unremarkable in appearance. Appendix not specifically visualized but there is no evidence of appendicitis or diverticulitis. No abdominal or pelvic adenopathy is seen. There is an intertrochanteric comminuted fracture of the right femur as noted on plain films. No additional pelvic or spinal fracture identified. CONCLUSION: Intertrochanteric fracture of the femur. Note is made of 3.5 cm. in diameter infrarenal abdominal aortic aneurysm and 5.3 cm. in diameter incompletely imaged descending thoracic aorta aneurysm.
[2019-02-25 10:22] LABS: Abs Immature Grans 0.04 k/cumm (0.0-0.09); Absolute Basophil Count 0.01 k/cumm (0.0-0.2); Absolute Eosinophil Count 0.01 k/cumm (0.0-0.7); Absolute Lymphocyte Count 1.67 k/cumm (1.2-3.4); Absolute Monocyte Count 0.68 k/cumm (0.11-0.7); Absolute Neutrophil Count 6.96 k/cumm (1.2-6.7); Basophils % 0.1; Eosinophils % 0.1; HCT 32.2 % (40.0-50.0); HGB 11.2 g/dL (13.5-17.5); Immature Grans % 0.4; Lymphocytes % 17.8; Mean Corp. HGB Concentration 34.8 g/dL (32.0-36.0); Mean Corpuscular Hemoglobin 31.9 pg (27.0-33.0); Mean Corpuscular Volume 91.7 fL (80-95); Mean Platelet Volume 8.5 fL (8.0-11.0); Monocytes % 7.3; Neutrophils % 74.3; Platelet Count 388 x1000/uL (130-400); RBC 3.51 m/cumm (4.50-6.00); RBC Distribution Width 15.9 % (11.8-14.1); White Blood Cell Count 9.37 k/cumm (4.4-10.8)
[2019-02-25 10:36] LABS: ALT 26 U/L (12-78); AST 29 U/L (15-37); Albumin 2.3 g/dL (3.4-5.0); Alkaline Phosphatase 105 U/L (46-116); Anion Gap 8.6 mmol/L (3-11); BUN 11 mg/dL (7-18); Bilirubin, Total 0.5 mg/dL (0.2-1.0); CO2 26.4 mmol/L (21.0-32.0); CREATININE 1.24 mg/dL (0.70-1.30); Calcium 8.7 mg/dL (8.5-10.1); Chloride 91 mmol/L (98-107); Creatine Kinase 393 U/L (39-308); Estimated GFR 58.51 (mL/min/1.73m2); Glucose 118 mg/dL (70-100); Sodium 126 mmol/L (136-145); Total Protein 6.3 g/dL (6.4-8.2)
[2019-02-25 10:55] LABS: Diff Comment Agrees w/ Instrument
[2019-02-25 10:56] LABS: RBC Morphology Normal
[2019-02-25 10:58] LABS: ETHANOL BLOOD < 3.0 mg/dL (<3)
[2019-02-25] MEDS: Acetaminophen 500 MG TAB 1000 MG PO (11:00)
--- NOTE | 2019-02-25 11:05 | DI.VRAD_ITS ---
EXAM: CT Head Without Contrast EXAM DATE/TIME: 02/25/2019 10:07 AM CLINICAL HISTORY: 63 years old, male; Pain; Other: Fall, unknown area of pain. ; Patient HX: Patient poor historian, unable to give HX. Fell unknown time. TECHNIQUE: Imaging protocol: Axial computed tomography images of the head/brain without contrast. Coronal and sagittal reformatted images were created and reviewed. Radiation optimization: All CT scans at this facility use at least one of these dose optimization techniques: automated exposure control; mA and/or kV adjustment per patient size (includes targeted exams where dose is matched to clinical indication); or iterative reconstruction. COMPARISON: CT HEAD WITHOUT CONTRAST 11/15/2017 10:20 AM FINDINGS: Brain: No intracranial hemorrhage. Periventricular and subcortical white matter hypoattenuation, nonspecific but consistent with chronic microvascular ischemic disease. No collections. No mass or midline shift. Normal galarza-white differentiation.The orbits are unremarkable as visualized. Ventricles: The ventricles are normal in position and mildly enlarged. There is commensurate cortical sulcal prominence. The findings are consistent with age appropriate cerebral atrophy. No hydrocephalus. Bones/joints: Severe bilateral degenerative change of the temporomandibular joints. No acute fracture. Sinuses: Mild mucoperiosteal thickening in the bilateral ethmoid, RIGHT maxillary, and LEFT frontal sinuses. No air-fluid levels are visualized. Mastoid air cells: The tympanomastoid air cells are normally aerated as visualized. Soft tissues: The soft tissues are unremarkable. Vasculature: Ossification or carotid arteries. IMPRESSION: No acute intracranial findings. New mild paranasal sinus inflammatory change. Additional incidental/nonemergent findings as discussed above. Dictated and Authenticated by: Peenlope Glasgow MD. Ordering:VIVIAN Lilly MD
[2019-02-25] MEDS: Normal Saline 1,000 ML 1000 ML IV (11:06)
[2019-02-25] MEDS: Bupivacaine 0.25% Pres-Free 30 ML VIAL (11:32)
[2019-02-25] MEDS: Bupivacaine LIPOSOME/PF 133 MG/10 ML VIAL IJ (11:32)
--- NOTE | 2019-02-25 11:37 | DI.VRAD_ITS ---
EXAM: CT Abdomen and Pelvis Without Contrast EXAM DATE/TIME: 02/25/2019 10:07 AM CLINICAL HISTORY: 63 years old, male; Pain; Other: Fall, unknown pain. ; Patient HX: Patient unable to give HX. Fall unknown time. Patient unable to hold breath, or move arms. Best images obtained. Patient sts left hip pain, scanned femur per er doctor. TECHNIQUE: Imaging protocol: Axial computed tomography images of the abdomen and pelvis without contrast. Coronal and sagittal reformatted images were created and reviewed. Radiation optimization: All CT scans at this facility use at least one of these dose optimization techniques: automated exposure control; mA and/or kV adjustment per patient size (includes targeted exams where dose is matched to clinical indication); or iterative reconstruction. COMPARISON: CT ABDOMEN PELVIS WO 02/11/2019 6:59 PM FINDINGS: Limitations: Motion artifact. Patient's LEFT arm is at his side resulting in artifact. The absence of intravenous and oral contrast material limits evaluation of the abdominal and pelvic viscera, vasculature and bowel. Lower thorax: Mild scarring in the lingula and RIGHT middle lobe. 1.2 cm RIGHT lower lobe bulla. ABDOMEN: Liver: The liver is normal in size and density. The hepatic contour is normal. There are no focal hepatic masses. Gallbladder and bile ducts: Sludge in the gallbladder. No calcified gallstones. No pericholecystic collection. No ductal dilatation. Pancreas: The pancreas is normal in size and density. There are no pancreatic calcifications or ductal dilatation. Spleen: The spleen is normal in size. No focal splenic lesions are noted. Adrenals: Cortical thickening bilaterally likely due to hyperplasia. Possible 2 cm low-attenuation LEFT adrenal adenoma. Kidneys and ureters: There are no gross focal renal masses. No radioopaque renal calculi are noted. There is no hydronephosis. Mild perinephric stranding. Stomach and bowel: Normal. No obstruction. No mucosal thickening. Appendix: The appendix is visualized and is normal in caliber. There is no periappendiceal fat stranding. PELVIS: Bladder: The bladder is normally distended. There is no bladder wall thickening. There are no radioopaque bladder calculi. Reproductive: Unremarkable as visualized. ABDOMEN and PELVIS: Intraperitoneal space: No free air. No significant fluid collection. Bones/joints: Acute comminuted intertrochanteric fracture of the RIGHT femur extending to the proximal femoral shaft. There is mild displacement of the greater trochanter. Soft tissues: Centimeter soft tissue nodule in the anterior abdominal wall to the RIGHT midline at the level of the pubic cyst. Soft tissues otherwise unremarkable. Vasculature: Incompletely visualized aneurysmal dilatation of the descending aorta measuring up to 5.3 cm in AP dimension. Mild calcification thoracic aorta. Calcification of the abdominal aorta. Multilevel mild dilatation infrarenal abdominal aorta measuring up to 3.5 cm in maximal dimension. Lymph nodes: Normal. No enlarged lymph nodes. IMPRESSION: 1. Acute comminuted intertrochanteric fracture of the RIGHT femur extending to the proximal femoral shaft. 2. Aneurysmal dilatation of the descending and infrarenal abdominal aorta. These findings are stable since the previous exam. 3. Additional incidental/nonemergent findings as discussed above. Dictated and Authenticated by: Penelope Glasgow MD. Ordering:VIVIAN Lilly MD
[2019-02-25] MEDS: Tranexamic Acid 650 MG TAB 1300 MG PO (11:58)
[2019-02-25 12:09] LABS: Troponin I < 0.02 ng/mL (0.00-0.06)
--- NOTE | 2019-02-25 14:50 | DI.RAD_ITS ---
SYMPTOM/DIAGNOSIS: FELL, EVALUATE ENTIRE FEMUR FOR IMN, KNOWN RT IT FX RIGHT FEMUR: Four views were obtained. There is a comminuted, intertrochanteric fracture of the femur with marked varus angulation of the main fracture fragments. No additional fracture is seen.
[2019-02-25] MEDS: Normal Saline 1,000 ML 125 ML IV ×2 (15:02→22:43)
--- NOTE | 2019-02-25 15:10 | DI.VRAD_ITS ---
EXAM: XR Right Femur, 2 Views EXAM DATE/TIME: 02/25/2019 11:28 AM CLINICAL HISTORY: 63 years old, male; Injury or trauma; Fall; Initial encounter; Blunt trauma; Hip; Right; Injury date: Unknown; Injury details: Patient fell. ; Additional info: Best images obtained due to patient condition, unable to move leg. TECHNIQUE: Imaging protocol: XR Right femur, 2 views COMPARISON: SOFT TISSUE EXT US LIMITED ([id number]) 12/06/2015 1:38 PM FINDINGS: Bones/joints: Comminuted acute RIGHT intertrochanteric fracture extension into the proximal femoral shaft. There is varus angulation and mild displacement of the greater trochanter of approximately 12 mm. Femoral head is normally located. Soft tissues: Soft tissues are unremarkable. IMPRESSION: Comminuted acute RIGHT intertrochanteric fracture with extension into proximal femoral shaft. Dictated and Authenticated by: Penelope Glasgow MD. Ordering:MAIK Goyal MD
[2019-02-25] MEDS: Acetaminophen 325 MG TAB PO (16:53)
--- NOTE | 2019-02-25 19:39 | HPE_ITS ---
Date of service: 02/25/19 Time of Service: 19:27 Assessment and Plan (1) Hip fracture: Current visit: Yes Status: Acute Evidence of a comminuted right sided femoral fracture, scheduled for repair [facility]. Mr. Rebolledo has no known history of DM or CKD. He also has no evidence of CHF clinically, by history, or by recent ECHO. He also has no known history of CAD, but with potential for underlying coronary disease based on his evidence of aortic aneurysm and PAD, along with his significant tobacco history. Patient is scheduled for an intermediate risk surgery, and he is likely not a low risk candidate. However he is currently on beta-al therapy, and high potency statin therapy, with aspirin on hold. Troponin was checked the time of admission and negative. Will check an EKG to ensure that this is reassuring as well. Would not recommend any further cardiac testing or change in his regimen prior to planned procedure. (2) PAD (peripheral artery disease): Current visit: Yes Status: Chronic Continue statin and beta-al, with aspirin on hold as above. (3) Prostatitis: Current visit: Yes Status: Acute Continue antibiotic therapy with levofloxacin. Repeat urinalysis ordered as well. (4) History of alcoholism: Current visit: Yes Status: Chronic Strong history of EtOH, with unclear current use. Will initiate patient on CIWA protocol, with standing oxazepam, and monitor symptoms carefully. (5) Hypertension: Current visit: Yes Status: Chronic Continue beta-al and calcium channel al therapy with strict hold parameters. (6) Gastroesophageal reflux disease: Current visit: Yes Status: Chronic Continue PPI therapy. (7) DVT prophylaxis: Current visit: No Status: Acute SCDs and TEDs. History of Present Illness Chief Complaint: Hip Fracture Narrative: 63-year-old man with past medical history significant for schizophrenia and alcohol abuse, being admitted from [facility] Emergency Department on 02/25 with a diagnosis of right hip fracture. Amaury has a prior history of schizophrenia, with concurrent tobacco and EtOH abuse. He also has a history of GERD, COPD, HTN, known descending infrarenal abdominal aortic aneurysm, and somewhat of a chronic hyponatremia. 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 The patient was recently hospitalized at [facility] and treated for a likely diagnosis of prostatitis with concurrent urinary retention. He was discharged in vastly improved condition and back to his baseline. The patient presented to the ED via EMS after a fall with an unknown downtime. The entirety of today's history was obtained by discussion with the ED attending as well as review of records, as the patient himself cannot accurately describe the events leading to his presentation to the ED, and his caregiver is not present at time of admission. He was found by his caregiver on the ground, with a question amount of alcohol bottles around him per EMS, with complaints of right-sided hip pain. It is uncertain as to how long he was actually down. Workup in the ED included a CT of the head that was negative for any acute findings, CT the abdomen pelvis again without any acute changes, but imaging findings of a right sided comminuted hip fracture. He was also found to be mildly hyponatremic. He was referred for admission for further evaluation and treatment. Review of Systems Review of Systems All systems reviewed & are unremarkable except as noted in HPI and below PFSH Medical History PAD (peripheral artery disease) (Chronic) Prostatitis (Acute) Descending thoracic aortic aneurysm (Chronic) Hyponatremia (Chronic) Gastroesophageal reflux disease (Chronic) Tobacco dependence syndrome (Chronic) Constipation (Chronic) Hyponatremia (Chronic) Alcohol abuse (Chronic) Schizoaffective disorder (Chronic) Anemia (Chronic) Hypertension (Chronic) Hypomagnesemia (Chronic) B12 deficiency (Chronic) Folate deficiency (Chronic) History of alcoholism (Chronic) Anxiety (Chronic) Hemolytic uremic syndrome (Resolved) Alcohol abuse COPD (chronic obstructive pulmonary disease) GERD (gastroesophageal reflux disease) Pneumonitis Schizophrenia Tremor Surgical History History of ankle surgery (Acute) Family History Mother Asthma Father [place] (myocardial infarction) Grandmother Diabetes Colon cancer Maternal Uncle Hyperlipidemia Other Lung cancer Social History Smoking/Tobacco Use Status: Current every day Tobacco Type: cigarettes Alcohol Intake: current Alcohol Intake frequency: 3 or more drinks per day Alcohol type: beer Details: drinks a 6 pack of beer per day Drug use: Never Substance use type: does not use Do you feel safe at home: Yes Do you feel safe in your relationship?: Yes Meds Home Medications Medication Instructions Recorded Confirmed Type Therapeutic-M 1 tab PO BID #60 tab 12/08/17 02/25/19 Rx amlodipine 5 mg PO DAILY #30 tab 12/08/17 02/25/19 Rx ascorbic acid (vitamin C) [Vitamin 500 mg PO BID #60 tab 12/08/17 02/25/19 Rx C] benztropine 0.5 mg PO DAILY #30 tab 12/08/17 02/25/19 Rx carvedilol [Coreg] 12.5 mg PO BID #60 tab 12/08/17 02/25/19 Rx cyanocobalamin (vitamin B-12) 1,000 mcg PO DAILY #30 tab 12/08/17 02/25/19 Rx [Vitamin B-12] docusate sodium [Colace] 100 mg PO TID PRN PRN #90 cap 12/08/17 02/25/19 Rx magnesium gluconate 500 mg PO BID #60 tab 12/08/17 02/25/19 Rx omeprazole 20 mg PO DAILY@0730 #30 capcr 12/08/17 02/25/19 Rx risperidone [Risperdal] 1 mg PO HS #30 tab 12/08/17 02/25/19 Rx spironolactone 50 mg PO DAILY #30 tab 12/08/17 02/25/19 Rx torsemide [Demadex] 20 mg PO DAILY #30 tab 12/08/17 02/25/19 Rx Standish-3 2,000 cap PO DAILY 02/11/19 02/25/19 History mirtazapine [Remeron] 15 mg PO HS 02/11/19 02/25/19 History thiamine HCl (vitamin B1) [Vitamin 100 mg PO DAILY 02/11/19 02/25/19 History B-1] aspirin 81 mg PO DAILY #30 tab 02/16/19 02/25/19 Rx atorvastatin [Lipitor] 20 mg PO QPM #30 tab 02/16/19 02/25/19 Rx docusate sodium [Colace] 100 mg PO BID #60 cap 02/16/19 02/25/19 Rx levofloxacin [Levaquin] 750 mg PO DAILY@0600 #28 tab 02/16/19 02/25/19 Rx polyethylene glycol 3350 17 g PO DAILY #30 each 02/16/19 02/25/19 Rx tamsulosin 0.4 mg PO DAILY #30 cap 02/16/19 02/25/19 Rx Allergies Allergy/AdvReac Type Severity Reaction Status Date / Time No Known Allergies Allergy Unverified 02/25/19 09:24 Results Imaging Additional studies: EXAM: CT Head Without Contrast EXAM DATE/TIME: 02/25/2019 10:07 AM CLINICAL HISTORY: 63 years old, male; Pain; Other: Fall, unknown area of pain. ; Patient HX: Patient poor historian, unable to give HX. Fell unknown time. COMPARISON: CT HEAD WITHOUT CONTRAST 11/15/2017 10:20 AM FINDINGS: Brain: No intracranial hemorrhage. Periventricular and subcortical white matter hypoattenuation, nonspecific but consistent with chronic microvascular ischemic disease. No collections. No mass or midline shift. Normal galarza-white differentiation.The orbits are unremarkable as visualized. Ventricles: The ventricles are normal in position and mildly enlarged. There is commensurate cortical sulcal prominence. The findings are consistent with age appropriate cerebral atrophy. No hydrocephalus. Bones/joints: Severe bilateral degenerative change of the temporomandibular joints. No acute fracture. Sinuses: Mild mucoperiosteal thickening in the bilateral ethmoid, RIGHT maxillary, and LEFT frontal sinuses. No air-fluid levels are visualized. Mastoid air cells: The tympanomastoid air cells are normally aerated as visualized. Soft tissues: The soft tissues are unremarkable. Vasculature: Ossification or carotid arteries. IMPRESSION: No acute intracranial findings. New mild paranasal sinus inflammatory change. Additional incidental/nonemergent findings as discussed above. EXAM: CT Abdomen and Pelvis Without Contrast EXAM DATE/TIME: 02/25/2019 10:07 AM CLINICAL HISTORY: 63 years old, male; Pain; Other: Fall, unknown pain. ; Patient HX: Patient unable to give HX. Fall unknown time. Patient unable to hold breath, or move arms. Best images obtained. Patient sts left hip pain, scanned femur per er doctor. COMPARISON: CT ABDOMEN PELVIS WO 02/11/2019 6:59 PM FINDINGS: Limitations: Motion artifact. Patient's LEFT arm is at his side resulting in artifact. The absence of intravenous and oral contrast material limits evaluation of the abdominal and pelvic viscera, vasculature and bowel. Lower thorax: Mild scarring in the lingula and RIGHT middle lobe. 1.2 cm RIGHT lower lobe bulla. ABDOMEN: Liver: The liver is normal in size and density. The hepatic contour is normal. There are no focal hepatic masses. Gallbladder and bile ducts: Sludge in the gallbladder. No calcified gallstones. No pericholecystic collection. No ductal dilatation. Pancreas: The pancreas is normal in size and density. There are no pancreatic calcifications or ductal dilatation. Spleen: The spleen is normal in size. No focal splenic lesions are noted. Adrenals: Cortical thickening bilaterally likely due to hyperplasia. Possible 2 cm low-attenuation LEFT adrenal adenoma. Kidneys and ureters: There are no gross focal renal masses. No radioopaque renal calculi are noted. There is no hydronephosis. Mild perinephric stranding. Stomach and bowel: Normal. No obstruction. No mucosal thickening. Appendix: The appendix is visualized and is normal in caliber. There is no periappendiceal fat stranding. PELVIS: Bladder: The bladder is normally distended. There is no bladder wall thickening. There are no radioopaque bladder calculi. Reproductive: Unremarkable as visualized. ABDOMEN and PELVIS: Intraperitoneal space: No free air. No significant fluid collection. Bones/joints: Acute comminuted intertrochanteric fracture of the RIGHT femur extending to the proximal femoral shaft. There is mild displacement of the greater trochanter. Soft tissues: Centimeter soft tissue nodule in the anterior abdominal wall to the RIGHT midline at the level of the pubic cyst. Soft tissues otherwise unremarkable. Vasculature: Incompletely visualized aneurysmal dilatation of the descending aorta measuring up to 5.3 cm in AP dimension. Mild calcification thoracic aorta. Calcification of the abdominal aorta. Multilevel mild dilatation infrarenal abdominal aorta measuring up to 3.5 cm in maximal dimension. Lymph nodes: Normal. No enlarged lymph nodes. IMPRESSION: 1. Acute comminuted intertrochanteric fracture of the RIGHT femur extending to the proximal femoral shaft. 2. Aneurysmal dilatation of the descending and infrarenal abdominal aorta. These findings are stable since the previous exam. 3. Additional incidental/nonemergent findings as discussed above. EXAM: XR Right Femur, 2 Views EXAM DATE/TIME: 02/25/2019 11:28 AM CLINICAL HISTORY: 63 years old, male; Injury or trauma; Fall; Initial encounter; Blunt trauma; Hip; Right; Injury date: Unknown; Injury details: Patient fell. ; Additional info: Best images obtained due to patient condition, unable to move leg. TECHNIQUE: Imaging protocol: XR Right femur, 2 views COMPARISON: SOFT TISSUE EXT US LIMITED ([id number]) 12/06/2015 1:38 PM FINDINGS: Bones/joints: Comminuted acute RIGHT intertrochanteric fracture extension into the proximal femoral shaft. There is varus angulation and mild displacement of the greater trochanter of approximately 12 mm. Femoral head is normally located. Soft tissues: Soft tissues are unremarkable. IMPRESSION: Comminuted acute RIGHT intertrochanteric fracture with extension into proximal femoral shaft. Labs : 02/25/19 09:32 02/25/19 09:32 Laboratory Results - last 24 hr 02/25/19 02/25/19 02/25/19 09:32 09:32 09:32 WBC 9.37 RBC 3.51 L Hgb 11.2 L Hct 32.2 L MCV 91.7 MCH 31.9 MCHC 34.8 RDW 15.9 H Plt Count 388 D MPV 8.5 Immature Gran % 0.4 Neutrophils % 74.3 Lymphocytes % 17.8 Monocytes % 7.3 Eosinophils % 0.1 Basophils % 0.1 Absolute Neutrophils 6.96 H Absolute Lymphocytes 1.67 Absolute Monocytes 0.68 Absolute Eosinophils 0.01 Absolute Basophils 0.01 Differential Comment Agrees w/ instrument RBC Morphology Normal Sodium 126 L Potassium 4.0 Chloride 91 L Carbon Dioxide 26.4 Anion Gap 8.6 BUN 11 Creatinine 1.24 Estimated GFR/1.73 m2 58.51 Glucose 118 H Calcium 8.7 Total Bilirubin 0.5 AST 29 ALT 26 Alkaline Phosphatase 105 Creatine Kinase 393 H Troponin I Total Protein 6.3 L Albumin 2.3 L Ethyl Alcohol < 3.0 Patient ABO/Rh Antibody Screen 02/25/19 02/25/19 09:32 09:32 WBC RBC Hgb Hct MCV MCH MCHC RDW Plt Count MPV Immature Gran % Neutrophils % Lymphocytes % Monocytes % Eosinophils % Basophils % Absolute Neutrophils Absolute Lymphocytes Absolute Monocytes Absolute Eosinophils Absolute Basophils Differential Comment RBC Morphology Sodium Potassium Chloride Carbon Dioxide Anion Gap BUN Creatinine Estimated GFR/1.73 m2 Glucose Calcium Total Bilirubin AST ALT Alkaline Phosphatase Creatine Kinase Troponin I < 0.02 Total Protein Albumin Ethyl Alcohol Patient ABO/Rh A Positive Antibody Screen Negative Last Vital Signs Temp 36.2 C L 02/25/19 14:57 Pulse 94 H 02/25/19 14:57 Resp 16 02/25/19 14:57 BP 111/80 02/25/19 14:57 Pulse Ox 98 02/25/19 14:57
[2019-02-25] MEDS: Docusate Sodium 100 MG CAP PO (19:57)
[2019-02-25] MEDS: Ascorbic Acid 500 MG TAB PO (19:57)
[2019-02-25] MEDS: Atorvastatin 20 MG TAB PO (19:57)
[2019-02-25] MEDS: Carvedilol 6.25 MG TAB 12.5 MG PO (19:57)
[2019-02-25] MEDS: Magnesium Gluconate 500 MG TAB PO (19:58)
[2019-02-25] MEDS: Lidocaine 2% Jelly 11 ML SYR UR (20:00)
[2019-02-25] MEDS: Mirtazapine 15 MG TAB PO (21:46)
[2019-02-25] MEDS: risperiDONE 1 MG TAB PO (21:47)
[2019-02-26] VITALS (13 sets, daily range): BP systolic 84–129; BP diastolic 49–86; PULSE 67–91; RESP 15–20; TEMP 36.1–36.9; O2SAT 92–97
[2019-02-26 02:29] LABS: Bilirubin Negative (Negative); Blood Negative (Negative); Clarity Clear; Glucose Negative (Negative); Ketones Negative (Negative); Leukocyte Esterase Negative (Negative); Nitrite Negative (Negative); Urobilinogen 0.2 EU/dL (Up TO 0.2); pH 6.5 (5-8)
[2019-02-26] MEDS: Normal Saline Flush 10 ML SYR IVP (03:33)
[2019-02-26] MEDS: Normal Saline 1,000 ML 125 ML IV ×3 (06:13→21:42)
--- NOTE | 2019-02-26 06:21 | W.ORTHOCONSU ---
Date of service: 02/26/19 Time of Service: 06:05 History of Present Illness Chief Complaint: Right leg pain Narrative: Devin is a 63-year-old who was found down by his Application Administrator. It is unclear on the details of why he was down. However, he is unable to get up on his own. He is a known alcoholic and there were multiple bottles around him. He was also recently hospitalized for prostatitis. He was brought into the emergency department where his pain complaints are quite diffuse concentrate on the right hip but also involving the lower pelvis, lower back, abdomen, and left side. A CT scan was performed which did not show any significant abnormality except for the right hip fracture. He currently complains of right hip pain with any motion. He did have a block performed in the emergency department by anesthesia which has provided some pain relief. He was able to sleep most of the night he reports. He denies any new numbness or tingling. He does have a significant history of vascular disease with known vascular claudication. Consults Consult date: 02/25/19 Requesting physician: Henrry Vasques Consult Reason Right hip fracture Assessment and Plan (1) Closed intertrochanteric fracture of right hip: Start date: 02/25/19 Current visit: Yes Status: Acute Devin is a 63-year-old with multiple medical issues including tobacco abuse, schizophrenia, peripheral arterial disease, popliteal aneurysm, hypertension, GERD, and alcoholism. He was found down and has suffered a comminuted intertrochanteric hip fracture of the right hip. Given the comminution, displacement, and extension past the lesser trochanter, I recommend intramedullary nail fixation. I discussed the case with Devin. In order to allow him to move and weight-bear I would recommend fixation. I reviewed the technical details. I discussed the risk of the procedure to include bleeding, infection, pain, stiffness, damage to nerves and arteries, damage to muscles, blood clot. He also has a tenuous peripheral arterial status which makes checking for sufficient blood flow difficult. In the emergency department his distal arteries were able to be dopplered, but he does not have an easy peripheral vascular exam. There is some possible risk of worsening this with the surgery itself, although unlikely. After reviewing this he agrees to proceed. He is n.p.o. We will proceed with fixation later this morning. Qualifiers: Encounter type: initial encounter Fracture alignment: displaced Qualified Code(s): S72.141A - Displaced intertrochanteric fracture of right femur, initial encounter for closed fracture Review of Systems Review of Systems All systems reviewed & are unremarkable except as noted in HPI and below PFSH Medical History PAD (peripheral artery disease) (Chronic) Prostatitis (Acute) Descending thoracic aortic aneurysm (Chronic) Hyponatremia (Chronic) Gastroesophageal reflux disease (Chronic) Tobacco dependence syndrome (Chronic) Constipation (Chronic) Hyponatremia (Chronic) Alcohol abuse (Chronic) Schizoaffective disorder (Chronic) Anemia (Chronic) Hypertension (Chronic) Hypomagnesemia (Chronic) B12 deficiency (Chronic) Folate deficiency (Chronic) History of alcoholism (Chronic) Anxiety (Chronic) Hemolytic uremic syndrome (Resolved) Alcohol abuse COPD (chronic obstructive pulmonary disease) GERD (gastroesophageal reflux disease) Pneumonitis Schizophrenia Tremor Surgical History History of ankle surgery (Acute) Family History Mother Asthma Father [place] (myocardial infarction) Grandmother Diabetes Colon cancer Maternal Uncle Hyperlipidemia Other Lung cancer Social History Smoking/Tobacco Use Status: Current every day Tobacco Type: cigarettes Alcohol Intake: current Alcohol Intake frequency: 3 or more drinks per day Alcohol type: beer Details: drinks a 6 pack of beer per day Drug use: Never Substance use type: does not use Do you feel safe at home: Yes Do you feel safe in your relationship?: Yes Exam Narrative Exam Narrative: Laying supine in the hospital bed. He is in no acute distress. He is quite drowsy but awakens appropriately for the interview. He is alert and oriented x2. His head is normocephalic and atraumatic. Evaluation of the right hip shows some mild swelling to the area. No breaks in skin. No skin changes or pathologies. No abrasions or lacerations. There is no ecchymosis. The right leg appears slightly shorter and externally rotated on the left side. No pain to palpation around the knee or on the leg itself. He is able to extend and flex the great toe as well as extend and plantarflex the right ankle. He globally has some decreased sensation in the right foot which is similar exam to the left side without focal deficit. The foot is warm and well perfused but I do not palpate any DP or PT pulse. Gentle palpation of the right knee was without pain. Motion was deferred given pain with any motion of the hip. Results Last Vital Signs Temp 36.7 C 02/26/19 03:25 Pulse 80 02/26/19 03:25 Resp 18 02/26/19 03:25 BP 129/81 02/26/19 03:25 Pulse Ox 94 L 02/26/19 03:25 Labs : 02/25/19 09:32 02/25/19 09:32 Laboratory Results - last 24 hr 02/25/19 02/25/19 02/25/19 09:32 09:32 09:32 WBC 9.37 RBC 3.51 L Hgb 11.2 L Hct 32.2 L MCV 91.7 MCH 31.9 MCHC 34.8 RDW 15.9 H Plt Count 388 D MPV 8.5 Immature Gran % 0.4 Neutrophils % 74.3 Lymphocytes % 17.8 Monocytes % 7.3 Eosinophils % 0.1 Basophils % 0.1 Absolute Neutrophils 6.96 H Absolute Lymphocytes 1.67 Absolute Monocytes 0.68 Absolute Eosinophils 0.01 Absolute Basophils 0.01 Differential Comment Agrees w/ instrument RBC Morphology Normal Sodium 126 L Potassium 4.0 Chloride 91 L Carbon Dioxide 26.4 Anion Gap 8.6 BUN 11 Creatinine 1.24 Estimated GFR/1.73 m2 58.51 Glucose 118 H Calcium 8.7 Total Bilirubin 0.5 AST 29 ALT 26 Alkaline Phosphatase 105 Creatine Kinase 393 H Troponin I Total Protein 6.3 L Albumin 2.3 L Urine Color Urine Clarity Urine pH Ur Specific [place] Urine Protein Urine Ketones Urine Blood Urine Nitrite Urine Bilirubin Urine Urobilinogen Ur Leukocyte Esterase Urine Glucose Ethyl Alcohol < 3.0 Patient ABO/Rh Antibody Screen 02/25/19 02/25/19 02/26/19 09:32 09:32 02:20 WBC RBC Hgb Hct MCV MCH MCHC RDW Plt Count MPV Immature Gran % Neutrophils % Lymphocytes % Monocytes % Eosinophils % Basophils % Absolute Neutrophils Absolute Lymphocytes Absolute Monocytes Absolute Eosinophils Absolute Basophils Differential Comment RBC Morphology Sodium Potassium Chloride Carbon Dioxide Anion Gap BUN Creatinine Estimated GFR/1.73 m2 Glucose Calcium Total Bilirubin AST ALT Alkaline Phosphatase Creatine Kinase Troponin I < 0.02 Total Protein Albumin Urine Color Yellow Urine Clarity Clear Urine pH 6.5 Ur Specific [place] 1.010 Urine Protein Negative Urine Ketones Negative Urine Blood Negative Urine Nitrite Negative Urine Bilirubin Negative Urine Urobilinogen 0.2 Ur Leukocyte Esterase Negative Urine Glucose Negative Ethyl Alcohol Patient ABO/Rh A Positive Antibody Screen Negative
--- NOTE | 2019-02-26 06:54 | DI.RAD_ITS ---
SYMPTOM/DIAGNOSIS: INTERTROCHANTERIC FRACTURE RIGHT HIP C-ARM FLUOROSCOPY: Fluoroscopy Time: 146 sec C-arm fluoroscopy was utilized by Dr. Kapadia during open reduction, internal fixation of proximal femoral fracture. Hard copy shows Gamma nail in position
[2019-02-26 07:52] LABS: Abs Immature Grans 0.01 k/cumm (0.0-0.09); Absolute Basophil Count 0.01 k/cumm (0.0-0.2); Absolute Eosinophil Count 0.02 k/cumm (0.0-0.7); Absolute Lymphocyte Count 1.69 k/cumm (1.2-3.4); Absolute Monocyte Count 0.55 k/cumm (0.11-0.7); Absolute Neutrophil Count 6.06 k/cumm (1.2-6.7); Basophils % 0.1; Eosinophils % 0.2; HCT 28.5 % (40.0-50.0); HGB 9.6 g/dL (13.5-17.5); Immature Grans % 0.1; Lymphocytes % 20.3; Mean Corp. HGB Concentration 33.7 g/dL (32.0-36.0); Mean Corpuscular Hemoglobin 31.6 pg (27.0-33.0); Mean Corpuscular Volume 93.8 fL (80-95); Mean Platelet Volume 8.6 fL (8.0-11.0); Monocytes % 6.6; Neutrophils % 72.7; Platelet Count 360 x1000/uL (130-400); RBC 3.04 m/cumm (4.50-6.00); RBC Distribution Width 16.2 % (11.8-14.1); White Blood Cell Count 8.34 k/cumm (4.4-10.8)
[2019-02-26] MEDS: ceFAZolin 2,000 MG in Normal Saline 100 ML 200 MG IVPB (08:04)
[2019-02-26 08:10] LABS: Anion Gap 9.1 mmol/L (3-11); BUN 10 mg/dL (7-18); CO2 19.9 mmol/L (21.0-32.0); CREATININE 0.79 mg/dL (0.70-1.30); Calcium 7.8 mg/dL (8.5-10.1); Chloride 102 mmol/L (98-107); Creatine Kinase 266 U/L (39-308); Glucose 99 mg/dL (70-100); Magnesium 1.7 mg/dL (1.8-2.4); Potassium 3.9 mmol/L (3.5-5.1); Sodium 131 mmol/L (136-145)
--- NOTE | 2019-02-26 10:24 | DI.VRAD_ITS ---
EXAM: XR Right Hip with Pelvis when Performed, 1 View EXAM DATE/TIME: 02/26/2019 9:11 AM CLINICAL HISTORY: 63 years old, male; Signs and symptoms; Other: FX; Additional info: Intertrochanteric FX RT hip TECHNIQUE: Imaging protocol: XR Right hip with pelvis when performed, 1 view COMPARISON: CT ABDOMEN PELVIS WO 02/25/2019 10:20 AM FINDINGS: Fluoroscopic spot films were utilized during placement of the screw in the right hip an intramedullary levy in the femoral shaft. Total fluoroscopic time 146.6 seconds. IMPRESSION: Fluoroscopic spot films were utilized during placement of the screw in the right hip an intramedullary levy in the femoral shaft. Total fluoroscopic time 146.6 seconds. Dictated and Authenticated by: Eric Castellanos MD. Ordering:MAIK Goyal MD
[2019-02-26] MEDS: Benztropine 1 MG TAB 0.5 MG PO (10:39)
[2019-02-26] MEDS: Carvedilol 6.25 MG TAB 12.5 MG PO ×2 (10:39→19:17)
[2019-02-26] MEDS: Multivitamin w/Minerals TAB 1 TAB PO ×2 (10:39→19:17)
[2019-02-26] MEDS: Magnesium Oxide 400 MG TAB PO (10:39)
[2019-02-26] MEDS: POTASSIUM CHLORIDE 20 MEQ, POTASSIUM CHLORIDE 10 MEQ 30 MEQ PO (10:41)
[2019-02-26] MEDS: Omega-3 Fatty Acids 1000 MG CAP 2000 MG PO (10:41)
[2019-02-26] MEDS: Cyanocobalamin 500 MCG TAB 1000 MCG PO (10:41)
[2019-02-26] MEDS: Docusate Sodium 100 MG CAP PO ×2 (10:41→19:18)
[2019-02-26] MEDS: Magnesium Gluconate 500 MG TAB PO ×2 (10:41→19:17)
[2019-02-26] MEDS: Thiamine 100 MG TAB PO (10:41)
[2019-02-26] MEDS: amLODIPine 5 MG TAB PO (10:41)
[2019-02-26] MEDS: Omeprazole 20 MG CAPCR PO (10:42)
[2019-02-26] MEDS: Tamsulosin 0.4 MG CAPCR PO (10:42)
[2019-02-26] MEDS: Ascorbic Acid 500 MG TAB PO ×2 (10:42→19:18)
[2019-02-26] MEDS: Polyethylene Glycol 3350 17 GM PACKET PO (10:42)
--- NOTE | 2019-02-26 10:51 | NUR.NOTE ---
Nursing Note: Pt back from PACU. VSS. Drowsy. Right hip Fx repaired, 3 mepilex c/d/i. slight swelling noted. Will con't to monitor.
--- NOTE | 2019-02-26 12:15 | PT.INIE ---
Date of service: 02/26/19 Time of Service: 11:50 PT Notes Inpatient Physical Therapy Evaluation Date: 02/26/19 Referring Doctor: Dr. Kapadia PT Orders: PT CONSULT: s/p IM nailing of right IT hip fracture. WBAT with assistive device Precautions: fall, standard Patient Profile/Admitting Diagnosis: Patient admitted 02/25/2019 due to fall resulting in an intertrochanteric right hip fracture. He underwent IM nailing performed by Dr. Kapadia this morning. PMHX: PAD (peripheral artery disease) (Chronic) Prostatitis (Acute) Descending thoracic aortic aneurysm (Chronic) Hyponatremia (Chronic) Gastroesophageal reflux disease (Chronic) Tobacco dependence syndrome (Chronic) Constipation (Chronic) Hyponatremia (Chronic) Alcohol abuse (Chronic) Schizoaffective disorder (Chronic) Anemia (Chronic) Hypertension (Chronic) Hypomagnesemia (Chronic) B12 deficiency (Chronic) Folate deficiency (Chronic) History of alcoholism (Chronic) Anxiety (Chronic) Hemolytic uremic syndrome (Resolved) Alcohol abuse COPD (chronic obstructive pulmonary disease) GERD (gastroesophageal reflux disease) Pneumonitis Schizophrenia Tremor Social History/Home Situation: Patient lives independently in an apartment with 13 steps to enter. Reports that he was independently ambulating prior to his fracture. Patient does not currently work. Equipment Owned/DME: None Subjective: Patient is agreeable to physical therapy consult. Reports 0 out of 10 pain at rest. Objective: General Observation: Resting in bed with IV in RUE, Schulte catheter in place. Mental Status: A and O x3. Patient provides brief responses to all questions. Pain: 0/10 at rest, although significant increase in pain with any movements of the lower extremities. Patient cries out in pain with placement of left sock (non-operative side), and with initiation of ankle pumps on either side. ROM: Right Upper Extremity: WFL Left Upper Extremity: WFL Right Lower Extremity: Not assessed due to acute postoperative status Left Lower Extremity: WFL Strength: Right Upper Extremity: Shoulder flexion 4+/5. Biceps 5/5. Triceps 4+/5. Motor Carrier Inspector strong and equal Left Upper Extremity: Shoulder flexion 4+/5. Biceps 5/5. Triceps 4+/5. Motor Carrier Inspector strong and equal Right Lower Extremity: Quads 3/5. Ankle dorsiflexion 3/5 or greater Left Lower Extremity: Functionally, patient is able to perform an SLR without extension lag. Ankle dorsiflexion 3/5 or greater. Sensation: Intact distally Bed Mobility/Transfers: Supine?sit: Mod assist x2 with head of bed at 40 degrees Sit to stand: Mod assist x2 Stand to sit: Mod assist x2, with max cues for technique Bed to chair: Mod assist x2 with FW W Gait: Patient ambulates 4 feet with FW W, WBAT RLE, mod assist x2. He requires increased time to perform, and max cueing throughout Balance: Static Sitting: Good Dynamic Sitting: Fair Static Standing: Fair Dynamic Standing: Fair Special Tests: Mobility Limitations Standardized Measure [facility] 6 clicks Basic Mobility Inpatient Short Form: Raw Score: 12 CMS Score: 69% deficit Informed Consent/Education: Patient instructed in purpose of PT consult and plan of care. Assessment: Patient is a 63 year old male referred to physical therapy services with the diagnosis of right intertrochanteric hip fracture, status post IM nailing performed earlier this morning. Patient presents with clinical signs and symptoms consistent with acute postoperative status, as demonstrated by the following impairment level findings: 1. Decreased functional strength right lower extremity 2. Postoperative pain 3. Decreased activity tolerance Impairments are contributing to the following functional limitations: 1. Unable to independently perform bed mobility 2. Unable to independently transfer 3. Unable to independently ambulate 4. Unable to manage stairs Patient is assessed as a Moderate 68853 complexity based on the following: History: 63-year-old male presenting status post IM nailing of right intertrochanteric hip fracture performed earlier today. He has multiple medical comorbidities, including alcoholism, PAD, COPD, all of which have potential to negatively impact prognosis. He also demonstrates pain behaviors during evaluation today, with significant pain response to minimal movements of his nonoperative limb. Examination: Functional limitations as noted above Presentation: Evolving Decision Making: Moderate complexity Goals: Goals X1 week 1. Supine-Sit: Supervision 2. Sit-Supine: Supervision 3. Sit-Stand: Supervision 4. Stand-Sit : Supervision 5. Bed-Chair : Supervision with FW W 6. Chair-Bed : Supervision with FW W 7. Gait: Supervision with FW W x 50 feet 8. Stairs patient able to a send and descend therapeutic stairs x13 with unilateral upper extremity support to rail Plan of Care/Treatment Plan: 1-2x/day, 7 days/week x 1 week. Plan of care has been reviewed with the DRILL OPERATOR PNEUMATIC providing the service under Physical Therapy direction. Initiate Physical Therapy intervention for strengthening, bed mobility, transfers, gait, stairs, balance training, use of assistive device. DISCHARGE RECOMMENDATIONS: Patient will require FW W at time of discharge TREATMENT CODE/TIME: 20 minutes (85525)
--- NOTE | 2019-02-26 12:28 | IN_ITS ---
Date of service: 02/26/19 Time of Service: 11:50 PT Notes Inpatient Physical Therapy Evaluation Date: 02/26/19 Referring Doctor: Dr. Kapadia PT Orders: PT CONSULT: s/p IM nailing of right IT hip fracture. WBAT with assistive device Precautions: fall, standard Patient Profile/Admitting Diagnosis: Patient admitted 02/25/2019 due to fall resulting in an intertrochanteric right hip fracture. He underwent IM nailing performed by Dr. Kapadia this morning. PMHX: PAD (peripheral artery disease) (Chronic) Prostatitis (Acute) Descending thoracic aortic aneurysm (Chronic) Hyponatremia (Chronic) Gastroesophageal reflux disease (Chronic) Tobacco dependence syndrome (Chronic) Constipation (Chronic) Hyponatremia (Chronic) Alcohol abuse (Chronic) Schizoaffective disorder (Chronic) Anemia (Chronic) Hypertension (Chronic) Hypomagnesemia (Chronic) B12 deficiency (Chronic) Folate deficiency (Chronic) History of alcoholism (Chronic) Anxiety (Chronic) Hemolytic uremic syndrome (Resolved) Alcohol abuse COPD (chronic obstructive pulmonary disease) GERD (gastroesophageal reflux disease) Pneumonitis Schizophrenia Tremor Social History/Home Situation: Patient lives independently in an apartment with 13 steps to enter. Reports that he was independently ambulating prior to his fracture. Patient does not currently work. Equipment Owned/DME: None Subjective: Patient is agreeable to physical therapy consult. Reports 0 out of 10 pain at rest. Objective: General Observation: Resting in bed with IV in RUE, Schulte catheter in place. Mental Status: A and O x3. Patient provides brief responses to all questions. Pain: 0/10 at rest, although significant increase in pain with any movements of the lower extremities. Patient cries out in pain with placement of left sock (non-operative side), and with initiation of ankle pumps on either side. ROM: Right Upper Extremity: WFL Left Upper Extremity: WFL Right Lower Extremity: Not assessed due to acute postoperative status Left Lower Extremity: WFL Strength: Right Upper Extremity: Shoulder flexion 4+/5. Biceps 5/5. Triceps 4+/5. Visual Stylist strong and equal Left Upper Extremity: Shoulder flexion 4+/5. Biceps 5/5. Triceps 4+/5. Visual Stylist strong and equal Right Lower Extremity: Quads 3/5. Ankle dorsiflexion 3/5 or greater Left Lower Extremity: Functionally, patient is able to perform an SLR without extension lag. Ankle dorsiflexion 3/5 or greater. Sensation: Intact distally Bed Mobility/Transfers: Supine?sit: Mod assist x2 with head of bed at 40 degrees Sit to stand: Mod assist x2 Stand to sit: Mod assist x2, with max cues for technique Bed to chair: Mod assist x2 with FW W Gait: Patient ambulates 4 feet with FW W, WBAT RLE, mod assist x2. He requires increased time to perform, and max cueing throughout Balance: Static Sitting: Good Dynamic Sitting: Fair Static Standing: Fair Dynamic Standing: Fair Special Tests: Mobility Limitations Standardized Measure [facility] 6 clicks Basic Mobility Inpatient Short Form: Raw Score: 12 CMS Score: 69% deficit Informed Consent/Education: Patient instructed in purpose of PT consult and plan of care. Assessment: Patient is a 63 year old male referred to physical therapy services with the diagnosis of right intertrochanteric hip fracture, status post IM nailing performed earlier this morning. Patient presents with clinical signs and symptoms consistent with acute postoperative status, as demonstrated by the following impairment level findings: 1. Decreased functional strength right lower extremity 2. Postoperative pain 3. Decreased activity tolerance Impairments are contributing to the following functional limitations: 1. Unable to independently perform bed mobility 2. Unable to independently transfer 3. Unable to independently ambulate 4. Unable to manage stairs Patient is assessed as a Moderate 55219 complexity based on the following: History: 63-year-old male presenting status post IM nailing of right intertrochanteric hip fracture performed earlier today. He has multiple medical comorbidities, including alcoholism, PAD, COPD, all of which have potential to negatively impact prognosis. He also demonstrates pain behaviors during evaluation today, with significant pain response to minimal movements of his nonoperative limb. Examination: Functional limitations as noted above Presentation: Evolving Decision Making: Moderate complexity Goals: Goals X1 week 1. Supine-Sit: Supervision 2. Sit-Supine: Supervision 3. Sit-Stand: Supervision 4. Stand-Sit : Supervision 5. Bed-Chair : Supervision with FW W 6. Chair-Bed : Supervision with FW W 7. Gait: Supervision with FW W x 50 feet 8. Stairs patient able to a send and descend therapeutic stairs x13 with unilateral upper extremity support to rail Plan of Care/Treatment Plan: 1-2x/day, 7 days/week x 1 week. Plan of care has been reviewed with the E COMMERCE SOLUTION ARCHITECT providing the service under Physical Therapy direction. Initiate Physical Therapy intervention for strengthening, bed mobility, transfers, gait, stairs, balance training, use of assistive device. DISCHARGE RECOMMENDATIONS: Patient will require FW W at time of discharge TREATMENT CODE/TIME: 20 minutes (88921)
[2019-02-26] MEDS: Acetaminophen 325 MG TAB PO ×2 (13:39→19:16)
--- NOTE | 2019-02-26 15:26 | PGE_ITS ---
Date of Service Date of service: 02/26/19 Time of Service: 15:24 Assessment and Plan (1) Hip fracture: Current visit: Yes Status: Deleted Evidence of a comminuted right sided femoral fracture, s/p repair Via Ortho earlier this morning. Will ensure PT/OT. Continue pain control. (2) PAD (peripheral artery disease): Current visit: Yes Status: Chronic Continue statin and beta-al, with aspirin on hold. Ensure patient has follow-up with vascular at time of discharge. (3) Prostatitis: Current visit: Yes Status: Acute Continue antibiotic therapy with levofloxacin. Repeat urinalysis negative. (4) History of alcoholism: Current visit: Yes Status: Chronic Strong history of EtOH, with unclear current use. Will continue patient on CIWA protocol, with standing oxazepam, and monitor symptoms carefully. (5) Hypertension: Current visit: Yes Status: Chronic Continue beta-al and calcium channel al therapy with strict hold parameters. (6) Gastroesophageal reflux disease: Current visit: Yes Status: Chronic Continue PPI therapy. (7) DVT prophylaxis: Current visit: No Status: Acute SCDs and TEDs. Chemical prophylaxis as per Ortho. Subjective Interval history since last seen: 63-year-old man with past medical history significant for schizophrenia and alcohol abuse, being admitted from [facility] Emergency Department on 02/25 with a diagnosis of right hip fracture. Amaury has a prior history of schizophrenia, with concurrent tobacco and EtOH abuse. He also has a history of GERD, COPD, HTN, known descending infrarenal abdominal aortic aneurysm, and somewhat of a chronic hyponatremia. 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 The patient was recently hospitalized at [facility] and treated for a likely diagnosis of prostatitis with concurrent urinary retention. He was discharged in vastly improved condition and back to his baseline. The patient presented to the ED via EMS after a fall with an unknown downtime. The entirety of today's history was obtained by discussion with the ED attending as well as review of records, as the patient himself cannot accurately describe the events leading to his presentation to the ED, and his caregiver is not present at time of admission. He was found by his caregiver on the ground, with a question amount of alcohol bottles around him per EMS, with complaints of right-sided hip pain. It is uncertain as to how long he was actually down. Workup in the ED included a CT of the head that was negative for any acute findings, CT the abdomen pelvis again without any acute changes, but imaging findings of a right sided comminuted hip fracture. He was also found to be mildly hyponatremic. He was referred for admission for further evaluation and treatment. The patient underwent a successful surgical repair of his hip earlier this morning. No overnight events reported. Remains afebrile. Exam Narrative Exam Narrative: General: Patient is asleep but arousable. NAD Neck: Supple CV: Regular, nontachycardic, S1S2, No rubs, murmurs, or gallops. Pulmonary: Clear to auscultation bilaterally, no crackles, wheezing, or rhonchi on limited anterior and lateral exam. Abdomen: + Bowel Sounds, soft, nontender, nondistended Vascular: No lower extremity edema Objective Objective Clinical Data: Abnormal lab results 02/26/19 02/26/19 Range/Units 07:07 07:07 RBC 3.04 L (4.50-6.00) m/cumm Hgb 9.6 L (13.5-17.5) g/dL Hct 28.5 L (40.0-50.0) % RDW 16.2 H (11.8-14.1) % Sodium 131 L (136-145) mmol/L Carbon Dioxide 19.9 L (21.0-32.0) mmol/L Calcium 7.8 L (8.5-10.1) mg/dL Magnesium 1.7 L (1.8-2.4) mg/dL Vital Signs Temperature 36.8 C 02/26/19 15:18 Temperature Source Tympanic 02/26/19 15:18 Pulse 67 02/26/19 15:18 Pulse Rhythm Regular 02/26/19 07:20 Pulse 87 02/25/19 14:11 Respiratory Rate 18 02/26/19 15:18 Respiratory Effort Non-Labored 02/26/19 07:20 Respiratory Depth Normal 02/26/19 07:20 Respiratory Pattern Normal 02/26/19 07:20 Blood Pressure 107/49 L 02/26/19 15:18 Blood Pressure Mean 84 02/25/19 14:10 Blood Pressure Position Sitting 02/25/19 09:19 Pulse Oximetry 94 L 02/26/19 15:18 Respiratory End-tidal CO2 22 02/26/19 09:33 Oxygen Delivery Method Room Air 02/26/19 15:18 Oxygen Flow Rate 0 02/26/19 15:18 Pain Level 0 02/26/19 09:33 Comment 02/26/19 03:25 Intake & Output 02/25/19 02/26/19 02/26/19 23:59 11:59 23:59 Intake Total 2080.417 / 2080.417 2077.5 / 2717.5 640 / 2717.5 Output Total 500 / 500 650 / 750 100 / 750 Balance 1580.417 / 5086.233 6873.5 / 1967.5 540 / 1967.5 Weight 70.125 kg Intake: IV 1960.417 / 1634.630 6888.5 / 2117.5 400 / 2117.5 Oral 120 / 120 360 / 600 240 / 600 Output: Urine 500 / 500 600 / 700 100 / 700 Estimated Blood Loss 50 / 50 Other: Urine Color Yellow Straw Yellow Urine Appearance Clear Clear Voiding Methods Urinal Laboratory Results WBC 8.34 k/cumm (4.4-10.8) 02/26/19 07:07 RBC 3.04 m/cumm (4.50-6.00) L 02/26/19 07:07 Hgb 9.6 g/dL (13.5-17.5) L 02/26/19 07:07 Hct 28.5 % (40.0-50.0) L 02/26/19 07:07 MCV 93.8 fL (80-95) 02/26/19 07:07 MCH 31.6 pg (27.0-33.0) 02/26/19 07:07 MCHC 33.7 g/dL (32.0-36.0) 02/26/19 07:07 RDW 16.2 % (11.8-14.1) H 02/26/19 07:07 Plt Count 360 x1000/uL (130-400) 02/26/19 07:07 MPV 8.6 fL (8.0-11.0) 02/26/19 07:07 Immature Gran % 0.1 02/26/19 07:07 Neutrophils % 72.7 02/26/19 07:07 Lymphocytes % 20.3 02/26/19 07:07 Monocytes % 6.6 02/26/19 07:07 Eosinophils % 0.2 02/26/19 07:07 Basophils % 0.1 02/26/19 07:07 Absolute Neutrophils 6.06 k/cumm (1.2-6.7) 02/26/19 07:07 Absolute Lymphocytes 1.69 k/cumm (1.2-3.4) 02/26/19 07:07 Absolute Monocytes 0.55 k/cumm (0.11-0.7) 02/26/19 07:07 Absolute Eosinophils 0.02 k/cumm (0.0-0.7) 02/26/19 07:07 Absolute Basophils 0.01 k/cumm (0.0-0.2) 02/26/19 07:07 Differential Comment Agrees w/ instrument 02/25/19 09:32 RBC Morphology Normal 02/25/19 09:32 Sodium 131 mmol/L (136-145) L 02/26/19 07:07 Potassium 3.9 mmol/L (3.5-5.1) 02/26/19 07:07 Chloride 102 mmol/L (98-107) 02/26/19 07:07 Carbon Dioxide 19.9 mmol/L (21.0-32.0) L 02/26/19 07:07 Anion Gap 9.1 mmol/L (3-11) 02/26/19 07:07 BUN 10 mg/dL (7-18) 02/26/19 07:07 Creatinine 0.79 mg/dL (0.70-1.30) 02/26/19 07:07 Estimated GFR/1.73 m2 >= 60.00 (mL/min/1.73m2) 02/26/19 07:07 Glucose 99 mg/dL (70-100) 02/26/19 07:07 Calcium 7.8 mg/dL (8.5-10.1) L 02/26/19 07:07 Magnesium 1.7 mg/dL (1.8-2.4) L 02/26/19 07:07 Total Bilirubin 0.5 mg/dL (0.2-1.0) 02/25/19 09:32 AST 29 U/L (15-37) 02/25/19 09:32 ALT 26 U/L (12-78) 02/25/19 09:32 Alkaline Phosphatase 105 U/L (46-116) 02/25/19 09:32 Creatine Kinase 266 U/L (39-308) 02/26/19 07:07 Troponin I < 0.02 ng/mL (0.00-0.06) 02/25/19 09:32 Total Protein 6.3 g/dL (6.4-8.2) L 02/25/19 09:32 Albumin 2.3 g/dL (3.4-5.0) L 02/25/19 09:32 Urine Color Yellow (Yellow) 02/26/19 02:20 Urine Clarity Clear 02/26/19 02:20 Urine pH 6.5 (5-8) 02/26/19 02:20 Ur Specific [place] 1.010 (1.005-1.025) 02/26/19 02:20 Urine Protein Negative mg/dL (Negative) 02/26/19 02:20 Urine Ketones Negative mg/dL (Negative) 02/26/19 02:20 Urine Blood Negative (Negative) 02/26/19 02:20 Urine Nitrite Negative (Negative) 02/26/19 02:20 Urine Bilirubin Negative (Negative) 02/26/19 02:20 Urine Urobilinogen 0.2 EU/dL (Up TO 0.2) 02/26/19 02:20 Ur Leukocyte Esterase Negative (Negative) 02/26/19 02:20 Urine Glucose Negative mg/dL (Negative) 02/26/19 02:20 Ethyl Alcohol < 3.0 mg/dL (<3) 02/25/19 09:32 Patient ABO/Rh A Positive 02/25/19 09:32 Antibody Screen Negative 02/25/19 09:32
[2019-02-26] MEDS: Ketorolac 15 MG/ML VIAL IVP (16:15)
--- NOTE | 2019-02-26 17:29 | PDOC.CMIN ---
Care Management Initial Assess REASON FOR HOSPITALIZATION:: Hip Fracture PAST MEDICAL HISTORY/PAST SURGICAL HISTORY:: Anxiety (Chronic). Alcohol abuse. COPD (chronic obstructive pulmonary disease). GERD (gastroesophageal reflux disease). Pneumonitis. Schizophrenia. Tremor. History of ankle surgery (Acute) PREVIOUS FUNCTIONAL STATUS/SOCIAL/FAMILY SUPPORTS:: Devin resides alone in a 3rd floor apartment in [facility]. He reports that he has some family locally whom are supportive. Devin states that he does not drive at this time and depends on his RETREAD MOLD OPERATOR case consultant Matthew or [facility] for transportation. CURRENT FUNCTIONAL STATUS:: Currently Devin is lying in bed with his eyes closed. Appears comfortable and resting. I did not wake him. ADVANCE DIRECTIVES:: None on file Has patient been provided with information about the portal?: No Did the patient sign up for the portal?: No CODE STATUS:: Full Code INSURANCE COVERAGE / FINANCIAL ISSUES:: YOLETTE, WHIT CURRENT HOME/COMMUNITY SERVICES/EQUIPMENT:: Currently Devin has RETREAD MOLD OPERATOR case management services through [facility] - Matthew Dickens is his hospice home care coordinator. Devin also receives daily medication drops through [facility] which he reports is helpful. Devin also sees Rosaura at [facility]. PRIMARY CARE PHYSICIAN:: Josephine Velazquez NP POTENTIAL DISCHARGE NEEDS:: New home care services in addition to RETREAD MOLD OPERATOR PATIENT/FAMILY EDUCATION NEEDS:: Discharge instructions ANTICIPATED BARRIERS TO DISCHARGE:: May not be able to manage independently at home until the fracture has healed. TRANSPORTATION:: RCT or private car with RETREAD MOLD OPERATOR Riding DoubleMatthew PLAN:: Devin hopefully will return home with continued RETREAD MOLD OPERATOR support services through [facility] and possibly bew services through [facility]. He will F/U with PCP and plan of care as prescribed.
--- NOTE | 2019-02-26 18:06 | INITIAL_ITS ---
Care Management Initial Assess REASON FOR HOSPITALIZATION:: Hip Fracture PAST MEDICAL HISTORY/PAST SURGICAL HISTORY:: Anxiety (Chronic). Alcohol abuse. COPD (chronic obstructive pulmonary disease). GERD (gastroesophageal reflux disease). Pneumonitis. Schizophrenia. Tremor. History of ankle surgery (Acute) PREVIOUS FUNCTIONAL STATUS/SOCIAL/FAMILY SUPPORTS:: Devin resides alone in a 3rd floor apartment in [facility]. He reports that he has some family locally whom are supportive. Devin states that he does not drive at this time and depends on his HIGH SPEED PRINTER OPERATOR lead case manager Matthew or [facility] for transportation. CURRENT FUNCTIONAL STATUS:: Currently Devin is lying in bed with his eyes closed. Appears comfortable and resting. I did not wake him. ADVANCE DIRECTIVES:: None on file Has patient been provided with information about the portal?: No Did the patient sign up for the portal?: No CODE STATUS:: Full Code INSURANCE COVERAGE / FINANCIAL ISSUES:: YOLETTE, WHIT CURRENT HOME/COMMUNITY SERVICES/EQUIPMENT:: Currently Devin has HIGH SPEED PRINTER OPERATOR case management services through [facility] - Matthew Dickens is his animal care supervisor. Devin also receives daily medication drops through [facility] which he reports is helpful. Devin also sees Rosaura at [facility]. PRIMARY CARE PHYSICIAN:: Josephine Velazquez NP POTENTIAL DISCHARGE NEEDS:: New home care services in addition to HIGH SPEED PRINTER OPERATOR PATIENT/FAMILY EDUCATION NEEDS:: Discharge instructions ANTICIPATED BARRIERS TO DISCHARGE:: May not be able to manage independently at home until the fracture has healed. TRANSPORTATION:: RCT or private car with HIGH SPEED PRINTER OPERATOR Sales Training ManagerMatthew PLAN:: Devin hopefully will return home with continued HIGH SPEED PRINTER OPERATOR support services through [facility] and possibly bew services through [facility]. He will F/U with PCP and plan of care as prescribed.
[2019-02-26] MEDS: Atorvastatin 20 MG TAB PO (19:17)
[2019-02-26] MEDS: Normal Saline 250 ML IV (22:15)
[2019-02-27] MEDS: Normal Saline Flush 10 ML SYR IVP ×3 (01:47→08:29)
[2019-02-27] MEDS: Normal Saline 1,000 ML 125 ML IV ×2 (03:54→13:38)
[2019-02-27 07:48] VITALS: BP 108/72; PULSE 87; RESP 21; TEMP 36.4; O2SAT 95
[2019-02-27 07:51] LABS: Abs Immature Grans 0.03 k/cumm (0.0-0.09); Absolute Basophil Count 0.01 k/cumm (0.0-0.2); Absolute Eosinophil Count 0.03 k/cumm (0.0-0.7); Absolute Lymphocyte Count 1.98 k/cumm (1.2-3.4); Absolute Monocyte Count 0.79 k/cumm (0.11-0.7); Absolute Neutrophil Count 6.56 k/cumm (1.2-6.7); Basophils % 0.1; Eosinophils % 0.3; HCT 26.2 % (40.0-50.0); HGB 8.6 g/dL (13.5-17.5); Immature Grans % 0.3; Lymphocytes % 21.1; Mean Corp. HGB Concentration 32.8 g/dL (32.0-36.0); Mean Corpuscular Hemoglobin 31.3 pg (27.0-33.0); Mean Corpuscular Volume 95.3 fL (80-95); Mean Platelet Volume 8.3 fL (8.0-11.0); Monocytes % 8.4; Neutrophils % 69.8; Platelet Count 364 x1000/uL (130-400); RBC 2.75 m/cumm (4.50-6.00); RBC Distribution Width 16.4 % (11.8-14.1)
[2019-02-27 08:06] LABS: BUN 12 mg/dL (7-18); CREATININE 0.93 mg/dL (0.70-1.30); Calcium 7.7 mg/dL (8.5-10.1); Chloride 107 mmol/L (98-107); Glucose 95 mg/dL (70-100); Magnesium 1.6 mg/dL (1.8-2.4); Potassium 4.6 mmol/L (3.5-5.1); Sodium 137 mmol/L (136-145)
[2019-02-27] MEDS: Magnesium Gluconate 500 MG TAB PO (08:27)
[2019-02-27] MEDS: amLODIPine 5 MG TAB PO (08:27)
[2019-02-27] MEDS: Cyanocobalamin 500 MCG TAB 1000 MCG PO (08:27)
[2019-02-27] MEDS: Docusate Sodium 100 MG CAP PO (08:27)
[2019-02-27] MEDS: Omeprazole 20 MG CAPCR PO (08:27)
[2019-02-27] MEDS: Multivitamin w/Minerals TAB 1 TAB PO (08:27)
[2019-02-27] MEDS: Benztropine 1 MG TAB 0.5 MG PO (08:28)
[2019-02-27] MEDS: Thiamine 100 MG TAB PO (08:28)
[2019-02-27] MEDS: Carvedilol 6.25 MG TAB 12.5 MG PO (08:28)
[2019-02-27] MEDS: Omega-3 Fatty Acids 1000 MG CAP 2000 MG PO (08:28)
[2019-02-27] MEDS: Tamsulosin 0.4 MG CAPCR PO (08:28)
[2019-02-27] MEDS: Ascorbic Acid 500 MG TAB PO (08:28)
[2019-02-27] MEDS: Polyethylene Glycol 3350 17 GM PACKET PO (08:29)
[2019-02-27] MEDS: Enoxaparin 40 MG/0.4 ML SYR SC (08:30)
--- NOTE | 2019-02-27 10:04 | ROE_ITS ---
DATE OF SURGERY: February 26, 2019 PREOPERATIVE DIAGNOSIS: Comminuted right intertrochanteric hip fracture. POSTOPERATIVE DIAGNOSIS: Same. SURGERY: Intramedullary nail fixation of right hip fracture. SURGEON: Jay Jay Kapadia M.D. COMPLAINTS COORDINATOR: Nick Alexander PA-C ANESTHESIA: General. ESTIMATED BLOOD LOSS: 50 cc's COMPLICATIONS: None. DISPOSITION: The patient was awakened from anesthesia and taken to the PACU in a stable condition. INDICATION FOR PROCEDURE: Devin is a 63-year-old who was found down at his home yesterday. It was unclear of the etiology of his fall. However when he arrived to the Emergency Department he was diagnosed with a right intertrochanteric hip fracture. Given his multiple medical comorbidities he was admitted to the hospitalist service. He was then cleared for surgery. I discussed treatment options with Devin and given the nature of the fracture and the prolonged course of immobilization with non-operative treatment, I recommended operative fixation. Given the comminution of the medial aspect of the femur with extension through the lesser trochanter, I recommended intramedullary nail fixation. I reviewed the risks of the procedure to include bleeding, infection, pain, stiffness, damage to nerves and vessels, malunion, nonunion, need for repeat procedures, hardware prominence, hardware failure, blood clot. Despite these risks, he elected to proceed. PROCEDURE DESCRIPTION: Devin was greeted in the preoperative holding area. His identity was confirmed and the correct side was identified and marked. The consent was reviewed with the patient and signed. The history and physical was performed earlier. He was taken back to the Operating Room. A general anesthetic was administered. He was then transitioned over to the fracture table. Once on this table, all bony prominences were well-padded. The right arm was placed across his chest and well-padded with pillows. He was slid down into a perineal post, which was also well-padded. The operative limb was padded into a fracture boot. The non-operative leg was scissored and secured to the traction boom with a pillow and tape, making sure to have no pressure on the limb or over the popliteal space. A closed reduction was performed with some traction and internal rotation. Preoperative imaging was used to confirm appropriate reduction of the intertrochanteric hip fracture. The right leg was then prepped with ChloraPrep and draped in a standard fashion. Prophylactic antibiotics in the form of Cefazolin were administered. One gram of tranexamic acid was given. A time-out was performed for safe surgery. The planned surgical sites were anesthetized with 0.5% Bupivacaine. A 3 cm starting incision was made proximal to the greater trochanter. A Guidewire was placed onto the tip of the greater trochanter. It was placed right medial to the tip of the greater trochanter and centered in the A to P direction. Once this was confirmed on x-ray it was advanced into the proximal femur. Again, confirmed with x-ray that it was in a good position, the proximal femur was opened with an opening reamer. The ball-tipped Guidewire was placed down to the femur without difficulty to the level of the distal femur. It showed to be in good position both on the AP and the lateral. The length of the nail was then measured, a size 380 mm nail. The 11 mm x 380 mm right-sided nail was then selected and opened on the back table, where it was secured to the targeting device. The femoral canal was opened with reaming. This was done with an 11 to 13 mm reamer. There was very little resistance during the reaming process. The intramedullary nail was then inserted into position. It did take some mallet blows to seat it deep enough within the femur for appropriate positioning of the helical blade. Once it seemed to be in the appropriate position the triple sleeve inserted and the area of the skin was marked. This was then incised with a knife. The triple sleeve was advanced down to bone. A Guidewire was placed through the triple sleeve and into the femoral head. It was noted to be slightly on the inferior side of the central portion of the femoral head. X-ray was also used to confirm the nail was appropriately positioned distally and there was no anterior perforation and it was not too long. Once this was confirmed to be in an appropriate place, a lateral was done of the hip, which again demonstrated the Guidewire to be slightly anterior. It was readjusted and centered within the femoral head. This was then measured a size 105 mm helical blade. The lateral cortex of the femur was then opened and the helical blade was inserted with light mallet blows. It was confirmed to be in an appropriate position on the x-ray. The set screw was then advanced such that the screw could slide. Some compression was performed to medialize the shaft, as there was some lateralization during the insertion process. This was then removed and final x-rays at the level of the hip were obtained. They showed appropriate positioning of the hip implants. Perfect circles were obtained on the distal aspect of the femur. A single screw was placed into the oblong, dynamic's, hole. The skin was incised and a screw path was drilled across the femur through the nail. A 46 mm screw was then placed. This was shown to be through the nail on the lateral view and appropriate length on the AP view. The wound was then thoroughly irrigated. All three wounds were irrigated thoroughly. The remainder of 0.5% Bupivacaine was injected along the surgical sites. The superior two wounds had the deep fascia closed with #0 Vicryl. The deep tissue was closed with #2-0 Vicryl. The skin was closed with michele. The distal was closed with michele. Mepilex dressing was applied to all three. The foot was removed from the fraction boot and he was brought back to the hospital bed without difficulty. There was no notable complication. He was transferred to the PACU in a stable condition.
--- NOTE | 2019-02-27 10:06 | PDOC.CMDIS ---
LACE Index Scoring Tool - Questions: Length of Stay (in days): 3 Acuity (Admit via E.D.?): Yes Comorbidities: Cerebrovascular Disease E.D. Visits: 2 - Answers: Total Score: 9 Risk of Readmission: Low Risk Care Management Discharge Reason for Hospitalization: Hip Fracture Discharge Plan: he is being transferred to [facility] with ischemic leg for further RX. Transferring by ambulance. Patient/Family Education Needs: RN to review d/c instructions with receiving facility RN. Patient aware of need for transfer, able to verbalize his problem.
--- NOTE | 2019-02-27 10:10 | PDOC.CMPRO ---
Care Management Progress Note S/O-Met with Devin to discuss plans. He is lying in bed, able to enter into discussion re plans. Advised him that this CM contacted [facility] and they were aware of this hospitalization. Advised that his [employer] welfare case worker would be assisting this CM with d/c plans. Shortly after this, learned that he will be transferred to a tertiary center imminently for further care. Asked if he had family we needed to contact. He has a brother in [facility] but does not know his cell number. Apparently [employer] knows brother and may be able to contact him. CM was able to obtain brother's phone number: Dylan Rebolledo [phone], and notified him that patient being transferred to [facility]. A-63 yo man admitted with fx hip, now repaired surgically. P-Transfer to [facility] today as per MD via ambulance.
--- NOTE | 2019-02-27 10:35 | PT.INTREAT ---
Date of service: 02/27/19 Time of Service: 10:35 PT Notes Inpatient Physical Therapy Treatment Note [facility] Date: 02/27/19 PRECAUTIONS: Fall, WBAT on R SUBJECTIVE: Devin reports pain in his R LE, including his quads and R ankle area, although is agreeable to participating in PT. OBJECTIVE: PAIN: Patient c/o R LE pain with transfers and weight bearing BED MOBILITY/TRANSFERS Supine-sit: SBA with HOB flat Sit-stand: Mod A x2 Stand-sit: CGA with cueing for safety GAIT Assistive Device: FWW Weight bearing: WBAT on R Assist: CGA x2 Distance: 10' Deviation: Significant c/o R LE pain THEREX: Patient completed a LE strengthening program, as per flow sheet. Patient required assist with hip flexion exercise, due to confusion. ASSESSMENT: Patient tolerated session with c/o pain in LE with transfers and weight bearing. He was able to tolerate a progression in gait distance with FWW support. He would benefit from continued gait and transfer training, as well as continued strengthening for improved mobility and activity tolerance. PLAN: Continue with PT's POC TREATMENT CODE/TIME: Session 1: 30 minutes; [id number], [id number]
[2019-02-27] MEDS: MAGNESIUM SULFATE 2 GM/50 ML BAG IVPB ×2 (10:41→13:42)
--- NOTE | 2019-02-27 11:06 | PHARADMIT ---
Admission Pharmacy Clinical Review hip fracture Code Status Full Code Current Weight 70.125 kg Renally Cleared and Narrow Therapeutic Index Meds Crcl ~76.00 mL/min current meds okay QTc Value / Action Taken QTc 448 BP Control, Fever BP 108/72 afebrile Electrolytes reviewed mag 1.6 DVT Prophylaxis enoxaparin- was changed to heparin drip Opiate Usage / Scheduled Bowel Regimen Ordered PRN/ scheduled and prn Plt/SCr for Heparin / Enoxaparin plt 364 SCr 0.93 INR for Warfarin n/a H/H stable, WBC/Bands h/h 8.6/26.2 wbc 9.40 Antibiotic appropriateness PO levofloxacin Cultures and Sensitivities none Surgical ABX d/c within 24 hr levofloxacin continues for prostatitis per progress note DM control / Insulin Dosing BG 95 Heart Failure (Check EF%) (CHIDI's, B-Block, Diuretics) amlodipine, carvedilol IV to PO Switch n/a Home Meds Reviewed separate admin of magnesium and multivitamin from levofloxacin Home Meds Not Ordered aspirin, spironolactone, torsemide Comments
--- NOTE | 2019-02-27 13:20 | W.PM.DS.N ---
Date of service: 02/27/19 Time of Service: 13:20 DS: Diagnosis Discharge Diagnosis (1) Hip fracture: Status: Deleted (2) PAD (peripheral artery disease): Status: Chronic (3) Prostatitis: Status: Acute (4) History of alcoholism: Status: Chronic (5) Hypertension: Status: Chronic (6) Gastroesophageal reflux disease: Status: Chronic (7) Critical lower limb ischemia: Status: Acute Discharge Plan Disposition Patient Disposition: [facility] ([facility]) Condition: Stable Discharge Details Reason For Visit: HIP FRACTURE Admit Date/Time: 02/25/19 12:23 Admit Provider: Henrry Vasques Attending Provider: Henrry Vasques Primary Care Provider: Josephine Velazquez Hospital Course Hospital Course: CC: Found down, Right Hip Fracture HPI: 63-year-old man with past medical history significant for schizophrenia, tobacco and alcohol abuse, AAA, and recently diagnosed left popliteal aneurysm, admitted from [facility] Emergency Department on 02/25 with a diagnosis of a right hip fracture. Mr. Rebolledo has a prior history of schizophrenia, with concurrent tobacco and EtOH abuse. He also has a history of GERD, COPD, HTN, known descending infrarenal abdominal aortic aneurysm, and somewhat of a chronic hyponatremia. He was hospitalized at [facility] between 02/11 and 02/15/2019, and treated for prostatitis with concurrent urinary retention. His symptoms vastly improved following initiation of treatment, and underwent a successful void trial prior to discharge. During his hospitalization he was also diagnosed with a left popliteal aneurysm with concurrent vascular occlusion - diagnosis was made based on symptoms of claudication with a subsequent ultrasound that showed a left popliteal artery occlusion associated with a 16mm aneurysm. The patient did not have palpable or doppler present pulses of his left foot, but had no resting symptoms. Based on discussion with Vascular surgery at [facility] an outpatient appointment was expedited for patient prior to his discharge. Mr. Rebolledo presented back to [facility] ED via EMS on 02/25 after a fall with an unknown downtime. The entirety of his history was obtained by discussion with the ED attending as well as review of records, as the patient himself cannot accurately describe the events leading to his presentation to the ED. He was found by his caregiver on the ground, with a number of alcohol bottles around him per EMS reports, with complaints of right-sided hip pain. It is uncertain as to how long he was actually down. Workup in the ED included a CT of the head that was negative for any acute findings, CT the abdomen pelvis again without any acute changes, but imaging findings of a right sided comminuted hip fracture. He underwent successful surgical repair on the morning of 02/26 via Ortho. However, the patient began experiencing resting foot pain earlier this morning. Evaluation revealed significant and new discoloration of the left foot, now cold (previously cool to the touch and pale), without palpable pulses. Dopplers failed to register a DP or PT pulse as well. He was initiated on a Heparin drip, and following discussion was accepted by [facility] Hospitalist service, for vascular evaluation and potential intervention. Of note, his Hgb has dropped this morning to the 8's (baseline in the 12's) following expected post-op blood loss. Please also note that there was a mention of 'cirrhosis' by prior records. Mr. Rebolledo was maintained on Combination of Torsemide and Spironolactone in the past - there was no evidence of Cirrhosis by CT of the abdomen. He also appeared significantly dehydrated and hypotensive on that regimen, and both were held prior to his discharge. He has remained off these medications during his current hospitalization as well. Hospital Course: (1) Hip fracture: Evidence of a comminuted right sided femoral fracture, s/p repair Via Ortho 02/26. Was initiated on SC Enoxaparin for DVT prophylaxis, now discontinued following initiation of Heparin gtt. Need to monitor H/H while being actively anticoagulated. Discussed with ortho - anticoagulation at this time is acceptable. (2) PAD (peripheral artery disease): Continue statin and beta-al, with aspirin held prior to surgery. Evidence of Critical Limb Ischemia as above - for transfer to tertiary center. (3) Prostatitis: Continue antibiotic therapy with levofloxacin. Repeat urinalysis negative. End date tentatively for tomorrow 02/28 for a total 14 day course of antibiotic therapy (No prior known history of Prostatitis). (4) History of alcoholism: Strong history of EtOH, with unclear current use. Will continue patient on CIWA protocol, with standing oxazepam, and monitor symptoms carefully. (5) Hypertension: Continue BB and CCB therapy with strict hold parameters. (6) Gastroesophageal reflux disease: Continue PPI therapy. (7) DVT prophylaxis: SCDs and TEDs initially, now on heparin gtt. Current Inpatient Medications: 1. Tylenol 2. Duoneb 3. Amlodipine 5mg daily 4. Vitamin C 500mg BID 5. Lipitor 20mg QPM 6. Cogentin 0.5mg daily 7. Coreg 12.5mg Q12 8. Heparin gtt 9. Colace 100mg BID 10. Levofloxacin 750mg PO daily 11. Lorazepam (as per [facility] protocol) 12. Magnesium Gluconate 500mg BID 13. Mirtazapine 15mg QHS 14. Morphine 2-3 mg IV Q3 prn 15. MVI 1 tablet daily 16. Normal Saline at 125/hr 17. Prilosec 20mg daily 18. Serax 15mg PO TID 19. miralax 17g daily 20. Phenergan 12.5mg IV Q4 prn 21. Risperidone 1mg QHS 22. Flomax 0.4mg daily 23. Thiamine 100mg daily Home Meds and New Rx's Prescriptions: Continued carvedilol [Coreg] 6.25 MG tablet 12.5 mg PO BID Qty: 60 RF: 0 amlodipine 5 MG tablet 5 mg PO DAILY Qty: 30 RF: 0 cyanocobalamin (vitamin B-12) [Vitamin B-12] 500 MCG tablet 1,000 mcg PO DAILY Qty: 30 RF: 0 ascorbic acid (vitamin C) [Vitamin C] 500 MG tablet 500 mg PO BID Qty: 60 RF: 0 benztropine 1 MG tablet 0.5 mg PO DAILY Qty: 30 RF: 0 docusate sodium [Colace] 100 MG capsule 100 mg PO TID PRN PRNQty: 90 RF: 0 omeprazole 20 MG capsule,delayed release(DR/EC) 20 mg PO DAILY@0730 Qty: 30 RF: 0 risperidone [Risperdal] 1 MG tablet 1 mg PO HS Qty: 30 RF: 0 Therapeutic-M 1 TAB tablet 1 tab PO BID Qty: 60 RF: 0 magnesium gluconate 500 MG tablet 500 mg PO BID Qty: 60 RF: 0 thiamine HCl (vitamin B1) [Vitamin B-1] 100 mg Tablet 100 mg PO DAILY RF: 0 mirtazapine [Remeron] 15 mg Tablet 15 mg PO HS RF: 0 [place]-3 350 mg-235 mg- 90 mg-597 mg Capsule,Delayed Release(Dr/Ec) 2,000 cap PO DAILY RF: 0 atorvastatin [Lipitor] 20 mg Tablet 20 mg PO QPM Qty: 30 RF: 0 polyethylene glycol 3350 17 gram Powder In Packet 17 g PO DAILY Qty: 30 RF: 0 tamsulosin 0.4 mg Capsule 0.4 mg PO DAILY Qty: 30 RF: 0 docusate sodium [Colace] 100 mg Capsule 100 mg PO BID Qty: 60 RF: 0 aspirin 81 mg Tablet,Chewable 81 mg PO DAILY Qty: 30 RF: 0 levofloxacin [Levaquin] 750 mg Tablet 750 mg PO DAILY@0600 Qty: 28 RF: 0 Discontinued torsemide [Demadex] 20 MG tablet 20 mg PO DAILY Qty: 30 RF: 0 spironolactone 50 MG tablet 50 mg PO DAILY Qty: 30 RF: 0 Discharge Orders Discharge Orders: Discharge Order (Routine); Ordered 02/27/19 Ordered By: Henrry Vasques DS: Data Vitals/I&O Vitals and I&O: Vital Signs Temperature 36.4 C L 02/27/19 07:48 Temperature Source Tympanic 02/27/19 07:48 Pulse 87 02/27/19 07:48 Pulse Rhythm Regular 02/27/19 07:50 Pulse 87 02/25/19 14:11 Respiratory Rate 21 02/27/19 07:48 Respiratory Effort Non-Labored 02/27/19 07:50 Respiratory Depth Normal 02/27/19 07:50 Respiratory Pattern Normal 02/27/19 07:50 Blood Pressure 108/72 02/27/19 07:48 Blood Pressure Mean 84 02/25/19 14:10 Blood Pressure Position Sitting 02/25/19 09:19 Pulse Oximetry 95 02/27/19 07:48 Respiratory End-tidal CO2 22 02/26/19 09:33 Oxygen Delivery Method Room Air 02/27/19 07:48 Oxygen Flow Rate 0 02/27/19 07:48 Pain Level 10 02/27/19 08:29 Comment 02/26/19 03:25 Intake & Output 02/26/19 02/27/19 02/27/19 23:59 11:59 23:59 Intake Total 2130 / 4207.5 2054 / 5 60 / 5 Output Total 275 / 925 260 / 260 Balance 1855 / 3282.5 1795 / 185 60 / 1855 Weight 70.125 kg Intake: IV 1650 / 3367.5 775 / 775 Oral 480 / 840 1280 / 1340 60 / 1340 Output: Urine 275 / 875 260 / 260 Other: Urine Color Yellow Yellow Urine Appearance Clear Clear Completed studies during hospitalization [Text1]: Exam(s) 02/[address]:CT abdomen & pelvis wo a CT:CT head wo SYMPTOM/DIAGNOSIS: FELL,SCHIZOPHRENIA, BILAT HIP PAIN NONCONTRAST CRANIAL CT: A noncontrast cranial CT was performed. There is marked generalized cerebral atrophy. There is no evidence of acute intracranial hemorrhage, mass effect or midline shift. There are periventricular areas of decreased attenuation consistent with microvascular ischemic changes. No evidence of acute calvarial fracture. Mastoid air cells appear intact as visualized as do the paranasal sinuses. The orbital contents appear intact. CONCLUSION: No evidence of acute intracranial injury. ABDOMEN AND PELVIC CT: CT examination of the abdomen and pelvis was performed without contrast administration. The lung bases are clear. Incompletely visualized aneurysm of descending aorta measuring about 5.3 cm. in diameter. Infrarenal abdominal aortic aneurysm measuring about 3.5 cm. in diameter. Liver and spleen appear intact. Pancreas is atrophic. Adrenals and kidneys are unremarkable in appearance. Appendix not specifically visualized but there is no evidence of appendicitis or diverticulitis. No abdominal or pelvic adenopathy is seen. There is an intertrochanteric comminuted fracture of the right femur as noted on plain films. No additional pelvic or spinal fracture identified. CONCLUSION: Intertrochanteric fracture of the femur. Note is made of 3.5 cm. in diameter infrarenal abdominal aortic aneurysm and 5.3 cm. in diameter incompletely imaged descending thoracic aorta aneurysm. -------- Exam(s) a RAD:XR femur RT SYMPTOM/DIAGNOSIS: FELL, EVALUATE ENTIRE FEMUR FOR IMN, KNOWN RT IT FX RIGHT FEMUR: Four views were obtained. There is a comminuted, intertrochanteric fracture of the femur with marked varus angulation of the main fracture fragments. No additional fracture is seen. -------- Labs on day of discharge: Labs from last 24 hours 02/27/19 02/27/19 07:30 07:30 WBC 9.40 RBC 2.75 L Hgb 8.6 L Hct 26.2 L MCV 95.3 H MCH 31.3 MCHC 32.8 RDW 16.4 H Plt Count 364 MPV 8.3 Immature Gran % 0.3 Neutrophils % 69.8 Lymphocytes % 21.1 Monocytes % 8.4 Eosinophils % 0.3 Basophils % 0.1 Absolute Neutrophils 6.56 Absolute Lymphocytes 1.98 Absolute Monocytes 0.79 H Absolute Eosinophils 0.03 Absolute Basophils 0.01 Sodium 137 Potassium 4.6 Chloride 107 Carbon Dioxide 23.0 Anion Gap 7.0 BUN 12 Creatinine 0.93 Estimated GFR/1.73 m2 >= 60.00 Glucose 95 Calcium 7.7 L Magnesium 1.6 L PFSH Medical History PAD (peripheral artery disease) (Chronic) Prostatitis (Acute) Descending thoracic aortic aneurysm (Chronic) Hyponatremia (Chronic) Gastroesophageal reflux disease (Chronic) Tobacco dependence syndrome (Chronic) Constipation (Chronic) Hyponatremia (Chronic) Alcohol abuse (Chronic) Schizoaffective disorder (Chronic) Anemia (Chronic) Hypertension (Chronic) Hypomagnesemia (Chronic) B12 deficiency (Chronic) Folate deficiency (Chronic) History of alcoholism (Chronic) Anxiety (Chronic) Hemolytic uremic syndrome (Resolved) Alcohol abuse COPD (chronic obstructive pulmonary disease) GERD (gastroesophageal reflux disease) Pneumonitis Schizophrenia Tremor Surgical History History of ankle surgery (Acute) Family History Mother Asthma Father ME (myocardial infarction) Grandmother Diabetes Colon cancer Maternal Uncle Hyperlipidemia Other Lung cancer Social History Smoking/Tobacco Use Status: Current every day Tobacco Type: cigarettes Alcohol Intake: current Alcohol Intake frequency: 3 or more drinks per day Alcohol type: beer Details: drinks a 6 pack of beer per day Drug use: Never Substance use type: does not use Do you feel safe at home: Yes Do you feel safe in your relationship?: Yes
--- NOTE | 2019-02-27 13:24 | DSE_ITS ---
Date of service: 02/27/19 Time of Service: 13:20 DS: Diagnosis Discharge Diagnosis (1) Hip fracture: Status: Deleted (2) PAD (peripheral artery disease): Status: Chronic (3) Prostatitis: Status: Acute (4) History of alcoholism: Status: Chronic (5) Hypertension: Status: Chronic (6) Gastroesophageal reflux disease: Status: Chronic (7) Critical lower limb ischemia: Status: Acute Discharge Plan Disposition Patient Disposition: [facility] ([facility]) Condition: Stable Discharge Details Reason For Visit: HIP FRACTURE Admit Date/Time: 02/25/19 12:23 Admit Provider: Henrry Vasques Attending Provider: Henrry Vasques Primary Care Provider: Josephine Velazquez Hospital Course Hospital Course: CC: Found down, Right Hip Fracture HPI: 63-year-old man with past medical history significant for schizophrenia, tobacco and alcohol abuse, AAA, and recently diagnosed left popliteal aneurysm, admitted from [facility] Emergency Department on 02/25 with a diagnosis of a right hip fracture. Mr. Rebolledo has a prior history of schizophrenia, with concurrent tobacco and EtOH abuse. He also has a history of GERD, COPD, HTN, known descending infrarenal abdominal aortic aneurysm, and somewhat of a chronic hyponatremia. He was hospitalized at [facility] between 02/11 and 02/15/2019, and treated for prostatitis with concurrent urinary retention. His symptoms vastly improved following initiation of treatment, and underwent a successful void trial prior to discharge. During his hospitalization he was also diagnosed with a left popliteal aneurysm with concurrent vascular occlusion - diagnosis was made based on symptoms of claudication with a subsequent ultrasound that showed a left popliteal artery occlusion associated with a 16mm aneurysm. The patient did not have palpable or doppler present pulses of his left foot, but had no resting symptoms. Based on discussion with Vascular surgery at [facility] an outpatient appointment was expedited for patient prior to his discharge. Mr. Rebolledo presented back to [facility] ED via EMS on 02/25 after a fall with an unknown downtime. The entirety of his history was obtained by discussion with the ED attending as well as review of records, as the patient himself cannot accurately describe the events leading to his presentation to the ED. He was found by his caregiver on the ground, with a number of alcohol bottles around him per EMS reports, with complaints of right-sided hip pain. It is uncertain as to how long he was actually down. Workup in the ED included a CT of the head that was negative for any acute findings, CT the abdomen pelvis again without any acute changes, but imaging findings of a right sided comminuted hip fracture. He underwent successful surgical repair on the morning of 02/26 via Ortho. However, the patient began experiencing resting foot pain earlier this morning. Evaluation revealed significant and new discoloration of the left foot, now cold (previously cool to the touch and pale), without palpable pulses. Dopplers failed to register a DP or PT pulse as well. He was initiated on a Heparin drip, and following discussion was accepted by [facility] Hospitalist service, for vascular evaluation and potential intervention. Of note, his Hgb has dropped this morning to the 8's (baseline in the 12's) following expected post-op blood loss. Please also note that there was a mention of 'cirrhosis' by prior records. Mr. Rebolledo was maintained on Combination of Torsemide and Spironolactone in the past - there was no evidence of Cirrhosis by CT of the abdomen. He also appeared significantly dehydrated and hypotensive on that regimen, and both were held prior to his discharge. He has remained off these medications during his current hospitalization as well. Hospital Course: (1) Hip fracture: Evidence of a comminuted right sided femoral fracture, s/p repair Via Ortho 02/26. Was initiated on SC Enoxaparin for DVT prophylaxis, now discontinued following initiation of Heparin gtt. Need to monitor H/H while being actively anticoagulated. Discussed with ortho - anticoagulation at this time is acceptable. (2) PAD (peripheral artery disease): Continue statin and beta-al, with aspirin held prior to surgery. Evidence of Critical Limb Ischemia as above - for transfer to tertiary center. (3) Prostatitis: Continue antibiotic therapy with levofloxacin. Repeat urinalysis negative. End date tentatively for tomorrow 02/28 for a total 14 day course of antibiotic therapy (No prior known history of Prostatitis). (4) History of alcoholism: Strong history of EtOH, with unclear current use. Will continue patient on CIWA protocol, with standing oxazepam, and monitor symptoms carefully. (5) Hypertension: Continue BB and CCB therapy with strict hold parameters. (6) Gastroesophageal reflux disease: Continue PPI therapy. (7) DVT prophylaxis: SCDs and TEDs initially, now on heparin gtt. Current Inpatient Medications: 1. Tylenol 2. Duoneb 3. Amlodipine 5mg daily 4. Vitamin C 500mg BID 5. Lipitor 20mg QPM 6. Cogentin 0.5mg daily 7. Coreg 12.5mg Q12 8. Heparin gtt 9. Colace 100mg BID 10. Levofloxacin 750mg PO daily 11. Lorazepam (as per [facility] protocol) 12. Magnesium Gluconate 500mg BID 13. Mirtazapine 15mg QHS 14. Morphine 2-3 mg IV Q3 prn 15. MVI 1 tablet daily 16. Normal Saline at 125/hr 17. Prilosec 20mg daily 18. Serax 15mg PO TID 19. miralax 17g daily 20. Phenergan 12.5mg IV Q4 prn 21. Risperidone 1mg QHS 22. Flomax 0.4mg daily 23. Thiamine 100mg daily Home Meds and New Rx's Prescriptions: Continued carvedilol [Coreg] 6.25 MG tablet 12.5 mg PO BID Qty: 60 RF: 0 amlodipine 5 MG tablet 5 mg PO DAILY Qty: 30 RF: 0 cyanocobalamin (vitamin B-12) [Vitamin B-12] 500 MCG tablet 1,000 mcg PO DAILY Qty: 30 RF: 0 ascorbic acid (vitamin C) [Vitamin C] 500 MG tablet 500 mg PO BID Qty: 60 RF: 0 benztropine 1 MG tablet 0.5 mg PO DAILY Qty: 30 RF: 0 docusate sodium [Colace] 100 MG capsule 100 mg PO TID PRN PRNQty: 90 RF: 0 omeprazole 20 MG capsule,delayed release(DR/EC) 20 mg PO DAILY@0730 Qty: 30 RF: 0 risperidone [Risperdal] 1 MG tablet 1 mg PO HS Qty: 30 RF: 0 Therapeutic-M 1 TAB tablet 1 tab PO BID Qty: 60 RF: 0 magnesium gluconate 500 MG tablet 500 mg PO BID Qty: 60 RF: 0 thiamine HCl (vitamin B1) [Vitamin B-1] 100 mg Tablet 100 mg PO DAILY RF: 0 mirtazapine [Remeron] 15 mg Tablet 15 mg PO HS RF: 0 Lima-3 350 mg-235 mg- 90 mg-597 mg Capsule,Delayed Release(Dr/Ec) 2,000 cap PO DAILY RF: 0 atorvastatin [Lipitor] 20 mg Tablet 20 mg PO QPM Qty: 30 RF: 0 polyethylene glycol 3350 17 gram Powder In Packet 17 g PO DAILY Qty: 30 RF: 0 tamsulosin 0.4 mg Capsule 0.4 mg PO DAILY Qty: 30 RF: 0 docusate sodium [Colace] 100 mg Capsule 100 mg PO BID Qty: 60 RF: 0 aspirin 81 mg Tablet,Chewable 81 mg PO DAILY Qty: 30 RF: 0 levofloxacin [Levaquin] 750 mg Tablet 750 mg PO DAILY@0600 Qty: 28 RF: 0 Discontinued torsemide [Demadex] 20 MG tablet 20 mg PO DAILY Qty: 30 RF: 0 spironolactone 50 MG tablet 50 mg PO DAILY Qty: 30 RF: 0 Discharge Orders Discharge Orders: Discharge Order (Routine); Ordered 02/27/19 Ordered By: Henrry Vasques DS: Data Vitals/I&O Vitals and I&O: Vital Signs Temperature 36.4 C L 02/27/19 07:48 Temperature Source Tympanic 02/27/19 07:48 Pulse 87 02/27/19 07:48 Pulse Rhythm Regular 02/27/19 07:50 Pulse 87 02/25/19 14:11 Respiratory Rate 21 02/27/19 07:48 Respiratory Effort Non-Labored 02/27/19 07:50 Respiratory Depth Normal 02/27/19 07:50 Respiratory Pattern Normal 02/27/19 07:50 Blood Pressure 108/72 02/27/19 07:48 Blood Pressure Mean 84 02/25/19 14:10 Blood Pressure Position Sitting 02/25/19 09:19 Pulse Oximetry 95 02/27/19 07:48 Respiratory End-tidal CO2 22 02/26/19 09:33 Oxygen Delivery Method Room Air 02/27/19 07:48 Oxygen Flow Rate 0 02/27/19 07:48 Pain Level 10 02/27/19 08:29 Comment 02/26/19 03:25 Intake & Output 02/26/19 02/27/19 02/27/19 23:59 11:59 23:59 Intake Total 2130 / 4207.5 2054 / 5 60 / 5 Output Total 275 / 925 260 / 260 Balance 1855 / 3282.5 1795 / 185 60 / 1855 Weight 70.125 kg Intake: IV 1650 / 3367.5 775 / 775 Oral 480 / 840 1280 / 1340 60 / 1340 Output: Urine 275 / 875 260 / 260 Other: Urine Color Yellow Yellow Urine Appearance Clear Clear Completed studies during hospitalization [Text1]: Exam(s) 02/[address]:CT abdomen & pelvis wo a CT:CT head wo SYMPTOM/DIAGNOSIS: FELL,SCHIZOPHRENIA, BILAT HIP PAIN NONCONTRAST CRANIAL CT: A noncontrast cranial CT was performed. There is marked generalized cerebral a trophy. There is no evidence of acute intracranial hemorrhage, mass effect or midline shift. There are periventricular areas of decreased attenuation consistent with microvascular ischemic changes. No evidence of acute calvarial fracture. Mastoid air cells appear intact as visualized as do the paranasal sinuses. The orbital contents appear intact. CONCLUSION: No evidence of acute intracranial injury. ABDOMEN AND PELVIC CT: CT examination of the abdomen and pelvis was performed without contrast administration. The lung bases are clear. Incompletely visualized aneurysm of descending aorta measuring about 5.3 cm. in diameter. Infrarenal abdominal aortic aneurysm measuring about 3.5 cm. in diameter. Liver and spleen appear intact. Pancreas is atrophic. Adrenals and kidneys are unremarkable in appearance. Appendix not specifically visualized but there is no evidence of appendicitis or diverticulitis. No abdominal or pelvic adenopathy is seen. There is an intertrochanteric comminuted fracture of the right femur as noted on plain films. No additional pelvic or spinal fracture identified. CONCLUSION: Intertrochanteric fracture of the femur. Note is made of 3.5 cm. in diameter infrarenal abdominal aortic aneurysm and 5.3 cm. in diameter incompletely imaged descending thoracic aorta aneurysm. -------- Exam(s) a RAD:XR femur RT SYMPTOM/DIAGNOSIS: FELL, EVALUATE ENTIRE FEMUR FOR IMN, KNOWN RT IT FX RIGHT FEMUR: Four views were obtained. There is a comminuted, intertrochanteric fracture of the femur with marked varus angulation of the main fracture fragments. No additional fracture is seen. -------- Labs on day of discharge: Labs from last 24 hours 02/27/19 02/27/19 07:30 07:30 WBC 9.40 RBC 2.75 L Hgb 8.6 L Hct 26.2 L MCV 95.3 H MCH 31.3 MCHC 32.8 RDW 16.4 H Plt Count 364 MPV 8.3 Immature Gran % 0.3 Neutrophils % 69.8 Lymphocytes % 21.1 Monocytes % 8.4 Eosinophils % 0.3 Basophils % 0.1 Absolute Neutrophils 6.56 Absolute Lymphocytes 1.98 Absolute Monocytes 0.79 H Absolute Eosinophils 0.03 Absolute Basophils 0.01 Sodium 137 Potassium 4.6 Chloride 107 Carbon Dioxide 23.0 Anion Gap 7.0 BUN 12 Creatinine 0.93 Estimated GFR/1.73 m2 >= 60.00 Glucose 95 Calcium 7.7 L Magnesium 1.6 L [facility] Medical History PAD (peripheral artery disease) (Chronic) Prostatitis (Acute) Descending thoracic aortic aneurysm (Chronic) Hyponatremia (Chronic) Gastroesophageal reflux disease (Chronic) Tobacco dependence syndrome (Chronic) Constipation (Chronic) Hyponatremia (Chronic) Alcohol abuse (Chronic) Schizoaffective disorder (Chronic) Anemia (Chronic) Hypertension (Chronic) Hypomagnesemia (Chronic) B12 deficiency (Chronic) Folate deficiency (Chronic) History of alcoholism (Chronic) Anxiety (Chronic) Hemolytic uremic syndrome (Resolved) Alcohol abuse COPD (chronic obstructive pulmonary disease) GERD (gastroesophageal reflux disease) Pneumonitis Schizophrenia Tremor Surgical History History of ankle surgery (Acute) Family History Mother Asthma Father [place] (myocardial infarction) Grandmother Diabetes Colon cancer Maternal Uncle Hyperlipidemia Other Lung cancer Social History Smoking/Tobacco Use Status: Current every day Tobacco Type: cigarettes Alcohol Intake: current Alcohol Intake frequency: 3 or more drinks per day Alcohol type: beer Details: drinks a 6 pack of beer per day Drug use: Never Substance use type: does not use Do you feel safe at home: Yes Do you feel safe in your relationship?: Yes
--- NOTE | 2019-02-27 14:20 | PT.INNT ---
Date of service: 02/27/19 Time of Service: 14:20 PT Notes 02/27/19 Hold afternoon PT session, per nsg. Potential transfer to [facility] this afternoon. Will attempt to resume PT services tomorrow morning, if appropriate.
--- NOTE | 2019-02-27 14:21 | NT_ITS ---
Date of service: 02/27/19 Time of Service: 14:20 PT Notes 02/27/19 Hold afternoon PT session, per nsg. Potential transfer to [facility] this afternoon. Will attempt to resume PT services tomorrow morning, if appropriate.
--- NOTE | 2019-02-27 14:41 | CMPROGNOTE_ITS ---
Care Management Progress Note S/O-Met with Devin to discuss plans. He is lying in bed, able to enter into discussion re plans. Advised him that this CM contacted [facility] and they were aware of this hospitalization. Advised that his HEALTH POLICY ANALYST embedded case manager would be assisting this CM with d/c plans. Shortly after this, learned that he will be transferred to a tertiary center imminently for further care. Asked if he had family we needed to contact. He has a brother in [facility] but does not know his cell number. Apparently HEALTH POLICY ANALYST knows brother and may be able to contact him. CM was able to obtain brother's phone number: Dylan Rebolledo [phone], and notified him that patient being transferred to [facility]. A-63 yo man admitted with fx hip, now repaired surgically. P-Transfer to [facility] today as per MD via ambulance.
--- NOTE | 2019-02-27 14:45 | CMDISCH_ITS ---
LACE Index Scoring Tool - Questions: Length of Stay (in days): 3 Acuity (Admit via E.D.?): Yes Comorbidities: Cerebrovascular Disease E.D. Visits: 2 - Answers: Total Score: 9 Risk of Readmission: Low Risk Care Management Discharge Reason for Hospitalization: Hip Fracture Discharge Plan: he is being transferred to [facility] with ischemic leg for further RX. Transferring by ambulance. Patient/Family Education Needs: RN to review d/c instructions with receiving facility RN. Patient aware of need for transfer, able to verbalize his problem.
[2019-02-27 15:51] LABS: PTT Activated 34.3 sec (21.0-31.4)
== END 2019-02-27 15:35 | disposition short-term general hospital (02) | DRG 481 ==
LOC: ER 12:54 → MS 14:45
PROVIDERS: Student in an Organized Health Care Education/Training Program; Admitting Provider Internal Medicine; Emergency Provider Student in an Organized Health Care Education/Training Program; PCP Nurse Practitioner; Visit Provider Internal Medicine
PROC: 0QS606Z Reposition Right Upper Femur with Intramedullary Internal Fixation Device, Open Approach (ICD-10-PCS; CPT 27245; principal; 2019-02-26 08:00)
DX: S72.141A Displaced intertrochanteric fracture of right femur, initial encounter for closed fracture (principal); E87.1 Hypo-osmolality and hyponatremia; X58.XXXA Exposure to other specified factors, initial encounter; Y92.009 Unspecified place in unspecified non-institutional (private) residence as the place of occurrence of the external cause; I72.4 Aneurysm of artery of lower extremity; I73.89 Other specified peripheral vascular diseases; F20.9 Schizophrenia, unspecified; F10.20 Alcohol dependence, uncomplicated; F17.210 Nicotine dependence, cigarettes, uncomplicated; K21.9 Gastro-esophageal reflux disease without esophagitis; J44.9 Chronic obstructive pulmonary disease, unspecified; I10 Essential (primary) hypertension; I71.4 Abdominal aortic aneurysm, without rupture; N41.9 Inflammatory disease of prostate, unspecified
CPT/HCPCS: 64450; 27245; 36415; 73552; 80048; 80053; 82550; 86850; 86900; 86901; 96360; 96361; 97110; 97162; 97530; 99222; 99232; 99239; 99253; 99285; J1650; 70450; 73501; 74176; 80320; 81003; 83735; 84484; 85025; 85730; 99284; J1100; J1885; J2405

== ENCOUNTER → 2019-02-26 08:00 | Outpatient (BNVA) | payer MEDICARE, MEDICAID, SELFPAY ==
--- NOTE | 2019-03-01 08:14 | PT.INDS ---
Date of service: 02/27/19 PT Notes Inpatient Physical Therapy Discharge Summary Dates: 02/27/19 Dates of Service: 02/26/2019-02/27/2019 Referring Doctor: Dr. Kapadia PT Orders: PT CONSULT: s/p IM nailing of right IT hip fracture. WBAT with assistive device Precautions: fall, standard Patient Profile/Admitting Diagnosis: Patient admitted 02/25/2019 due to fall resulting in an intertrochanteric right hip fracture. He underwent IM nailing performed by Dr. Kapadia this morning. PMHX: PAD (peripheral artery disease) (Chronic) Prostatitis (Acute) Descending thoracic aortic aneurysm (Chronic) Hyponatremia (Chronic) Gastroesophageal reflux disease (Chronic) Tobacco dependence syndrome (Chronic) Constipation (Chronic) Hyponatremia (Chronic) Alcohol abuse (Chronic) Schizoaffective disorder (Chronic) Anemia (Chronic) Hypertension (Chronic) Hypomagnesemia (Chronic) B12 deficiency (Chronic) Folate deficiency (Chronic) History of alcoholism (Chronic) Anxiety (Chronic) Hemolytic uremic syndrome (Resolved) Alcohol abuse COPD (chronic obstructive pulmonary disease) GERD (gastroesophageal reflux disease) Pneumonitis Schizophrenia Tremor Social History/Home Situation: Patient lives independently in an apartment with 13 steps to enter. Reports that he was independently ambulating prior to his fracture. Patient does not currently work. Equipment Owned/DME: None This is a clinical summary of skilled PT services provided on the duration of dates listed above. No charge was made in the completion of this documentation. Subjective: NT Objective: General Observation: NT Mental Status: A and O x3. Patient provides brief responses to all questions. Pain: NT ROM: Right Upper Extremity: WFL Left Upper Extremity: WFL Right Lower Extremity: Not assessed due to acute postoperative status Left Lower Extremity: WFL Strength: Right Upper Extremity: Shoulder flexion 4+/5. Biceps 5/5. Triceps 4+/5. Metallurgical Inspector strong and equal Left Upper Extremity: Shoulder flexion 4+/5. Biceps 5/5. Triceps 4+/5. Metallurgical Inspector strong and equal Right Lower Extremity: Quads 3/5. Ankle dorsiflexion 3/5 or greater Left Lower Extremity: Functionally, patient is able to perform an SLR without extension lag. Ankle dorsiflexion 3/5 or greater. Bed Mobility/Transfers: Supine?sit: Mod assist x2 with head of bed at 40 degrees Sit to stand: Mod assist x2 Stand to sit: Mod assist x2, with max cues for technique Bed to chair: Mod assist x2 with FW W Gait: Patient ambulates 4 feet with FW W, WBAT RLE, mod assist x2. He requires increased time to perform, and max cueing throughout Balance: Static Sitting: Good Dynamic Sitting: Fair Static Standing: Fair Dynamic Standing: Fair Special Tests: Mobility Limitations Standardized Measure [facility] AM-PAC 6 clicks Basic Mobility Inpatient Short Form: Raw Score: 12 CMS Score: 69% deficit Assessment: Patient has a diagnosis of left popliteal aneurysm and is sent to [facility] immediate medical intervention. Patient is a 63-year-old male referred to physical therapy services with the diagnosis of right intertrochanteric hip fracture, status post IM nailing performed earlier this morning. Patient presents with clinical signs and symptoms consistent with acute postoperative status, as demonstrated by the following impairment level findings: 1. Decreased functional strength right lower extremity 2. Postoperative pain 3. Decreased activity tolerance Impairments are contributing to the following functional limitations: 1. Unable to independently perform bed mobility 2. Unable to independently transfer 3. Unable to independently ambulate 4. Unable to manage stairs Goals: Goals X1 week 1. Supine-Sit: Supervision NOT MET 2. Sit-Supine: Supervision NOT MET 3. Sit-Stand: Supervision NOT MET 4. Stand-Sit : Supervision NOT MET 5. Bed-Chair : Supervision with FWW NOT MET 6. Chair-Bed : Supervision with FWW NOT MET 7. Gait: Supervision with FW W x 50 feet NOT MET 8. Stairs patient able to a send and descend therapeutic stairs x13 with unilateral upper extremity support to rail NOT MET DISCHARGE RECOMMENDATIONS: Patient will require FWW at time of discharge TREATMENT CODE/TIME: N/A. Thank you for this referral. Sofía Enriquez, PT, DPT, CLT [facility]
== END ==
PROVIDERS: PCP Nurse Practitioner; Referring Provider Nurse Practitioner; Visit Provider Student in an Organized Health Care Education/Training Program
DX: R69 Illness, unspecified (principal)

== ENCOUNTER 2019-03-12 17:52 | Inpatient (IN) | payer MEDICARE, MEDICAID, SELFPAY ==
[2019-03-12] VITALS (9 sets, daily range): BP systolic 102–148; BP diastolic 59–84; PULSE 68–116; RESP 12–19; TEMP 36.3–37.4; O2SAT 93–98
--- NOTE | 2019-03-12 18:10 | W.ED.GENAD ---
Discharge Plan Disposition Patient Disposition: [facility] INPATIENT Condition: Improving Discharge Details Chief Complaint: Orthopedic Clinical Impression: Closed right femoral fracture Admit Date/Time: 03/12/19 19:39 Admit Provider: Tavo Reid Attending Provider: Tavo Reid Primary Care Provider: Josephine Velazquez ED Provider: Zenon Myers Discharge Data Discharge Date/Time-TO BE ENTERED AT DEPARTURE: 03/12/19 20:16 Medical Decision Making 63-year-old male referred from the [facility] after he got out of bed slipped on the floor with his Unna boots and landed on his right side striking his right hip with immediate pain. No LOC/neck/back/abd pain. Unable to get up on his own, EMS called and patient transported to ED. He underwent operative repair of the right hip fracture on February 26 with intramedullary nail, on February 27 he was noted to have a pale and pulseless left foot for which he was transferred to the [facility]. At [facility], the patient underwent left femoral to anterior tibial artery bypass for left popliteal artery aneurysm and occlusion. He was discharged to the [facility] on postop day #6. He arrives with stable vital signs, palpable R distal femur bony click on exam. Patient IV access established, screening laboratories obtained, referred for x-ray. The patient has a midshaft femur fracture, with intramedullary nail in place. I discussed the case with Dr. Stern, who states that given the length of the intramedullary nail, no operative intervention indicated in the patient to be placed in a straight leg brace and subsequent use of walker. As he lives at The [facility], I do not feel he is able to discharge back to that facility tonight, but will merit physical therapy consultation, and perhaps may require placement to rehabilitation facility. Please note, I obtained and reviewed discharge summary from the [facility], which details pre-standing ischemic changes to the left third toe at discharge, again demonstrated on the patient's exam today. HPI General Mode of arrival: EMS. Date/Time Provider Initiated Documentation: 03/12/19 18:15. Limitations to Documentation: no limitations. Information obtained by: patient and EMS. History of Present Illness 63 year old M presents to the emergency department with the chief complaint of Fall at home and right femur pain, described as moderate, Quality is described as aching, dull and constant, and is localized to the right and lower extremity. Patient reports no radiation. Patient started experiencing this minute(s) and it has been constant. Rest improves symptom(s), Movement worsens symptoms . Patient notes no other symptoms.; denies chest pain and headaches. Patient did receive the following treatments prior to arrival, none Related Data Home Medications Medication Instructions Recorded Confirmed Therapeutic-M 1 tab PO BID #60 tab 12/08/17 02/25/19 amlodipine 5 mg PO DAILY #30 tab 12/08/17 02/25/19 ascorbic acid (vitamin C) [Vitamin 500 mg PO BID #60 tab 12/08/17 02/25/19 C] benztropine 0.5 mg PO DAILY #30 tab 12/08/17 02/25/19 cyanocobalamin (vitamin B-12) 1,000 mcg PO DAILY #30 tab 12/08/17 02/25/19 [Vitamin B-12] docusate sodium [Colace] 100 mg PO TID PRN PRN #90 cap 12/08/17 03/12/19 magnesium gluconate 500 mg PO BID #60 tab 12/08/17 02/25/19 omeprazole 20 mg PO DAILY@0730 #30 capcr 12/08/17 03/12/19 risperidone [Risperdal] 1 mg PO HS #30 tab 12/08/17 03/12/19 [place]-3 2,000 cap PO DAILY 02/11/19 02/25/19 mirtazapine [Remeron] 15 mg PO HS 02/11/19 03/12/19 thiamine HCl (vitamin B1) [Vitamin 100 mg PO DAILY 02/11/19 03/12/19 B-1] levofloxacin [Levaquin] 750 mg PO DAILY@0600 #28 tab 02/16/19 02/25/19 polyethylene glycol 3350 17 g PO DAILY #30 each 02/16/19 03/12/19 acetaminophen [Acetaminophen Extra 1,000 mg PO QID PRN 03/12/19 03/12/19 Strength] aspirin 81 mg PO QAM 03/12/19 03/12/19 atorvastatin [Lipitor] 40 mg PO HS 03/12/19 03/12/19 carvedilol [Coreg] 12.5 mg PO BID 03/12/19 furosemide 40 mg PO QAM 03/12/19 03/12/19 gabapentin 100 mg PO TID 03/12/19 03/12/19 hydromorphone 2 mg PO Q4H PRN 03/12/19 03/12/19 tamsulosin 0.4 mg PO HS 03/12/19 03/12/19 Previous Rx's Medication Instructions Recorded Therapeutic-M 1 tab PO BID #60 tab 12/08/17 amlodipine 5 mg PO DAILY #30 tab 12/08/17 ascorbic acid (vitamin C) [Vitamin 500 mg PO BID #60 tab 12/08/17 C] benztropine 0.5 mg PO DAILY #30 tab 12/08/17 cyanocobalamin (vitamin B-12) 1,000 mcg PO DAILY #30 tab 12/08/17 [Vitamin B-12] docusate sodium [Colace] 100 mg PO TID PRN PRN #90 cap 12/08/17 magnesium gluconate 500 mg PO BID #60 tab 12/08/17 omeprazole 20 mg PO DAILY@0730 #30 capcr 12/08/17 risperidone [Risperdal] 1 mg PO HS #30 tab 12/08/17 levofloxacin [Levaquin] 750 mg PO DAILY@0600 #28 tab 02/16/19 polyethylene glycol 3350 17 g PO DAILY #30 each 02/16/19 Allergies Allergy/AdvReac Type Severity Reaction Status Date / Time No Known Allergies Allergy Unverified 03/12/19 18:13 General Stated Complaint: Orthopedic BELLO: 3 Review of Systems Review of Systems States he slipped and fell. No antecedent symptoms. Denies striking his head. 6 systems reviewed and otherwise negative [facility] Medical History PAD (peripheral artery disease) (Chronic) Prostatitis (Acute) Descending thoracic aortic aneurysm (Chronic) Hyponatremia (Chronic) Gastroesophageal reflux disease (Chronic) Tobacco dependence syndrome (Chronic) Constipation (Chronic) Hyponatremia (Chronic) Alcohol abuse (Chronic) Schizoaffective disorder (Chronic) Anemia (Chronic) Hypertension (Chronic) Hypomagnesemia (Chronic) B12 deficiency (Chronic) Folate deficiency (Chronic) History of alcoholism (Chronic) S/P right hip fracture (Acute) Anxiety (Chronic) Hemolytic uremic syndrome (Resolved) Alcohol abuse COPD (chronic obstructive pulmonary disease) GERD (gastroesophageal reflux disease) Pneumonitis Schizophrenia Tremor Surgical History S/P femoral-popliteal bypass surgery (Acute) History of ankle surgery (Acute) Family History Mother Asthma Father [place] (myocardial infarction) Grandmother Diabetes Colon cancer Maternal Uncle Hyperlipidemia Other Lung cancer Social History Smoking/Tobacco Use Status: Current, status unknown Tobacco Type: cigarettes Alcohol Intake: current Alcohol Intake frequency: 3 or more drinks per day Alcohol type: beer Details: drinks a 6 pack of beer per day Drug use: Never Substance use type: does not use Details: Patient comes from the [facility] for rehab, unsure of drinking/ tobacco use status. Patient unable to answer questions. Do you feel safe at home: Yes Do you feel safe in your relationship?: Yes Exam Narrative Exam Narrative: GEN: awake, alert, oriented 3. Pleasant, interactive. HEAD: Normocephalic, atraumatic ENT: Mucous membranes moist, oropharynx unremarkable, External ear exam unremarkable EYES: PERRL, EOMI NECK: Full ROM, no MARILU, no menigismus CHEST/RESP: Nontender, clear to auscultation bilateral, no wheeze/rhonchi/rales CARDIOVASCULAR: Distant, RRR, no murmur, rub eugene. 2+ Rad pulse bilateral ABDOMEN: Soft, nontender, no mass. +Bowel sounds EXT: Right lateral hip with surgical dressing is clean dry and intact. Left medial leg with surgical dressing clean dry and intact. Unna boots present bilaterally. Palpable click with palpation of right mid femur. Tender to palpation right mid femur. The feet are warm with capillary refill 2 seconds. DP is not palpable. Left third toe with distal dry gangrene, no ulceration Neuro: Grossly normal neurologic exam, conversant, interactive. Psych: Speech fluent, thoughts congruent, affect normal Course Vital Signs Temperature 36.3 C L 03/12/19 17:55 Pulse 75 03/12/19 17:55 Respiratory Rate 12 03/12/19 17:55 Blood Pressure 109/77 03/12/19 17:55 Pulse Oximetry 96 03/12/19 17:55 Temperature 36.3 C L 03/12/19 17:55 Temperature Source Skin 03/12/19 17:55 Pulse 75 03/12/19 17:55 Respiratory Rate 12 03/12/19 17:55 Respiratory Effort Non-Labored 03/12/19 18:01 Blood Pressure 109/77 03/12/19 17:55 Blood Pressure Position Supine 03/12/19 17:55 Pulse Oximetry 96 03/12/19 17:55 Oxygen Delivery Method Room Air 03/12/19 17:55 Oxygen Flow Rate 0 03/12/19 17:55 Pain Level 0 03/12/19 17:55 Comment 03/12/19 17:55
--- NOTE | 2019-03-12 18:15 | ED.GENADUL_ITS ---
Discharge Plan Disposition Patient Disposition: [facility] INPATIENT Condition: Improving Discharge Details Chief Complaint: Orthopedic Clinical Impression: Closed right femoral fracture Admit Date/Time: 03/12/19 19:39 Admit Provider: Tavo Reid Attending Provider: Tavo Reid Primary Care Provider: Josephine Velazquez ED Provider: Zenon Myers Discharge Data Discharge Date/Time-TO BE ENTERED AT DEPARTURE: 03/12/19 20:16 Medical Decision Making 63-year-old male referred from the [facility] after he got out of bed slipped on the floor with his Unna boots and landed on his right side striking his right hip with immediate pain. No LOC/neck/back/abd pain. Unable to get up on his own, EMS called and patient transported to ED. He underwent operative repair of the right hip fracture on February 26 with intramedullary nail, on February 27 he was noted to have a pale and pulseless left foot for which he was transferred to the [facility]. At [facility], the patient underwent left femoral to anterior tibial artery bypass for left popliteal artery aneurysm and occlusion. He was discharged to the [facility] on postop day #6. He arrives with stable vital signs, palpable R distal femur bony click on exam. Patient IV access established, screening laboratories obtained, referred for x- ray. The patient has a midshaft femur fracture, with intramedullary nail in place. I discussed the case with Dr. Stern, who states that given the length of the intramedullary nail, no operative intervention indicated in the patient to be placed in a straight leg brace and subsequent use of walker. As he lives at The [facility], I do not feel he is able to discharge back to that facility tonight, but will merit physical therapy consultation, and perhaps may require placement to rehabilitation facility. Please note, I obtained and reviewed discharge summary from the [facility], which details pre-standing ischemic changes to the left third toe at discharge, again demonstrated on the patient's exam today. HPI General Mode of arrival: EMS . Date/Time Provider Initiated Documentation: 03/12/19 18:15 . Limitations to Documentation: no limitations . Information obtained by: patient and EMS . History of Present Illness 63 year old M presents to the emergency department with the chief complaint of Fall at home and right femur pain, described as moderate, Quality is described as aching, dull and constant, and is localized to the right and lower extremity. Patient reports no radiation. Patient started experiencing this minute(s) and it has been constant. Rest improves symptom(s), Movement worsens symptoms . Patient notes no other symptoms.; denies chest pain and headaches. Patient did receive the following treatments prior to arrival, none Related Data Home Medications Medication Instructions Recorded Confirmed Therapeutic-M 1 tab PO BID #60 tab 12/08/17 02/25/19 amlodipine 5 mg PO DAILY #30 tab 12/08/17 02/25/19 ascorbic acid (vitamin C) [Vitamin 500 mg PO BID #60 tab 12/08/17 02/25/19 C] benztropine 0.5 mg PO DAILY #30 tab 12/08/17 02/25/19 cyanocobalamin (vitamin B-12) 1,000 mcg PO DAILY #30 tab 12/08/17 02/25/19 [Vitamin B-12] docusate sodium [Colace] 100 mg PO TID PRN PRN #90 cap 12/08/17 03/12/19 magnesium gluconate 500 mg PO BID #60 tab 12/08/17 02/25/19 omeprazole 20 mg PO DAILY@0730 #30 capcr 12/08/17 03/12/19 risperidone [Risperdal] 1 mg PO HS #30 tab 12/08/17 03/12/19 [place]-3 2,000 cap PO DAILY 02/11/19 02/25/19 mirtazapine [Remeron] 15 mg PO HS 02/11/19 03/12/19 thiamine HCl (vitamin B1) [Vitamin 100 mg PO DAILY 02/11/19 03/12/19 B-1] levofloxacin [Levaquin] 750 mg PO DAILY@0600 #28 tab 02/16/19 02/25/19 polyethylene glycol 3350 17 g PO DAILY #30 each 02/16/19 03/12/19 acetaminophen [Acetaminophen Extra 1,000 mg PO QID PRN 03/12/19 03/12/19 Strength] aspirin 81 mg PO QAM 03/12/19 03/12/19 atorvastatin [Lipitor] 40 mg PO HS 03/12/19 03/12/19 carvedilol [Coreg] 12.5 mg PO BID 03/12/19 furosemide 40 mg PO QAM 03/12/19 03/12/19 gabapentin 100 mg PO TID 03/12/19 03/12/19 hydromorphone 2 mg PO Q4H PRN 03/12/19 03/12/19 tamsulosin 0.4 mg PO HS 03/12/19 03/12/19 Previous Rx's Medication Instructions Recorded Therapeutic-M 1 tab PO BID #60 tab 12/08/17 amlodipine 5 mg PO DAILY #30 tab 12/08/17 ascorbic acid (vitamin C) [Vitamin 500 mg PO BID #60 tab 12/08/17 C] benztropine 0.5 mg PO DAILY #30 tab 12/08/17 cyanocobalamin (vitamin B-12) 1,000 mcg PO DAILY #30 tab 12/08/17 [Vitamin B-12] docusate sodium [Colace] 100 mg PO TID PRN PRN #90 cap 12/08/17 magnesium gluconate 500 mg PO BID #60 tab 12/08/17 omeprazole 20 mg PO DAILY@0730 #30 capcr 12/08/17 risperidone [Risperdal] 1 mg PO HS #30 tab 12/08/17 levofloxacin [Levaquin] 750 mg PO DAILY@0600 #28 tab 02/16/19 polyethylene glycol 3350 17 g PO DAILY #30 each 02/16/19 Allergies Allergy/AdvReac Type Severity Reaction Status Date / Time No Known Allergies Allergy Unverified 03/12/19 18:13 General Stated Complaint: Orthopedic BELLO: 3 Review of Systems Review of Systems States he slipped and fell. No antecedent symptoms. Denies striking his head. 6 systems reviewed and otherwise negative [facility] Medical History PAD (peripheral artery disease) (Chronic) Prostatitis (Acute) Descending thoracic aortic aneurysm (Chronic) Hyponatremia (Chronic) Gastroesophageal reflux disease (Chronic) Tobacco dependence syndrome (Chronic) Constipation (Chronic) Hyponatremia (Chronic) Alcohol abuse (Chronic) Schizoaffective disorder (Chronic) Anemia (Chronic) Hypertension (Chronic) Hypomagnesemia (Chronic) B12 deficiency (Chronic) Folate deficiency (Chronic) History of alcoholism (Chronic) S/P right hip fracture (Acute) Anxiety (Chronic) Hemolytic uremic syndrome (Resolved) Alcohol abuse COPD (chronic obstructive pulmonary disease) GERD (gastroesophageal reflux disease) Pneumonitis Schizophrenia Tremor Surgical History S/P femoral-popliteal bypass surgery (Acute) History of ankle surgery (Acute) Family History Mother Asthma Father [place] (myocardial infarction) Grandmother Diabetes Colon cancer Maternal Uncle Hyperlipidemia Other Lung cancer Social History Smoking/Tobacco Use Status: Current, status unknown Tobacco Type: cigarettes Alcohol Intake: current Alcohol Intake frequency: 3 or more drinks per day Alcohol type: beer Details: drinks a 6 pack of beer per day Drug use: Never Substance use type: does not use Details: Patient comes from the [facility] for rehab, unsure of drinking/ tobacco use status. Patient unable to answer questions. Do you feel safe at home: Yes Do you feel safe in your relationship?: Yes Exam Narrative Exam Narrative: GEN: awake, alert, oriented 3. Pleasant, interactive. HEAD: Normocephalic, atraumatic ENT: Mucous membranes moist, oropharynx unremarkable, External ear exam unremarkable EYES: PERRL, EOMI NECK: Full ROM, no MARILU, no menigismus CHEST/RESP: Nontender, clear to auscultation bilateral, no wheeze/rhonchi/rales CARDIOVASCULAR: Distant, RRR, no murmur, rub eugene. 2+ Rad pulse bilateral ABDOMEN: Soft, nontender, no mass. +Bowel sounds EXT: Right lateral hip with surgical dressing is clean dry and intact. Left medial leg with surgical dressing clean dry and intact. Unna boots present bilaterally. Palpable click with palpation of right mid femur. Tender to palpation right mid femur. The feet are warm with capillary refill 2 seconds. DP is not palpable. Left third toe with distal dry gangrene, no ulceration Neuro: Grossly normal neurologic exam, conversant, interactive. Psych: Speech fluent, thoughts congruent, affect normal Course Vital Signs Temperature 36.3 C L 03/12/19 17:55 Pulse 75 03/12/19 17:55 Respiratory Rate 12 03/12/19 17:55 Blood Pressure 109/77 03/12/19 17:55 Pulse Oximetry 96 03/12/19 17:55 Temperature 36.3 C L 03/12/19 17:55 Temperature Source Skin 03/12/19 17:55 Pulse 75 03/12/19 17:55 Respiratory Rate 12 03/12/19 17:55 Respiratory Effort Non-Labored 03/12/19 18:01 Blood Pressure 109/77 03/12/19 17:55 Blood Pressure Position Supine 03/12/19 17:55 Pulse Oximetry 96 03/12/19 17:55 Oxygen Delivery Method Room Air 03/12/19 17:55 Oxygen Flow Rate 0 03/12/19 17:55 Pain Level 0 03/12/19 17:55 Comment 03/12/19 17:55
--- NOTE | 2019-03-12 18:15 | DI.RAD_ITS ---
SYMPTOMS/DIAGNOSIS: RIGHT FEMUR PAIN AFTER FALL, RECENT OPEN REDUCTION AND INTERNAL FIXATION; BLUNT TRAUMA RIGHT FEMUR: Four views. Comparison is 02/26/19. The patient has an intramedullary elvy and screw transfixing a comminuted intertrochanteric fracture of the proximal right femur. The orthopedic hardware and intertrochanteric fracture are unchanged compared to the postoperative films from 02/26/19. There has developed a new oblique fracture at the mid shaft of the right femur around the prosthesis. There is displacement of one-half shaft's width posteriorly. No radiopaque foreign bodies are seen in the soft tissues. IMPRESSION: 1. Acute oblique displaced periprosthetic fracture involving the mid shaft of the right femur. This is new since the postoperative films from 02/26/19. 2. Intramedullary levy and screw transfixing the patient's known intertrochanteric fracture. CHEST X-RAY, PORTABLE AP VIEW: Comparison is 02/11/19. The cardiac silhouette is unchanged. There is tortuosity and ectasia of the thoracic aorta, which appears stable. The lungs show no focal infiltrates, effusions or pneumothoraces. IMPRESSION: No acute pulmonary process.
[2019-03-12 18:28] LABS: Abs Immature Grans 0.05 k/cumm (0.0-0.09); Absolute Basophil Count 0.03 k/cumm (0.0-0.2); Absolute Eosinophil Count 0.16 k/cumm (0.0-0.7); Absolute Lymphocyte Count 1.67 k/cumm (1.2-3.4); Absolute Monocyte Count 0.52 k/cumm (0.11-0.7); Basophils % 0.3; Eosinophils % 1.8; HCT 33.5 % (40.0-50.0); HGB 10.9 g/dL (13.5-17.5); Immature Grans % 0.5; Lymphocytes % 18.3; Mean Corp. HGB Concentration 32.5 g/dL (32.0-36.0); Mean Corpuscular Hemoglobin 30.7 pg (27.0-33.0); Mean Corpuscular Volume 94.4 fL (80-95); Monocytes % 5.7; Neutrophils % 73.4; Platelet Count 507 x1000/uL (130-400); RBC 3.55 m/cumm (4.50-6.00); RBC Distribution Width 16.9 % (11.8-14.1); White Blood Cell Count 9.13 k/cumm (4.4-10.8)
[2019-03-12] MEDS: HYDROmorphone 2 MG/ML VIAL 1 MG IVP ×3 (18:29→20:43)
[2019-03-12] MEDS: Normal Saline Flush 10 ML SYR IVP (18:30)
[2019-03-12] MEDS: Normal Saline 1,000 ML 100 ML IV (18:33)
[2019-03-12 18:41] LABS: PTT Activated 21.3 sec (21.0-31.4); Prothrombin Time 9.8 sec (9.3-11.0)
[2019-03-12 18:42] LABS: ALT 23 U/L (12-78); AST 25 U/L (15-37); Albumin 1.7 g/dL (3.4-5.0); Alkaline Phosphatase 198 U/L (46-116); Anion Gap 7.7 mmol/L (3-11); BUN 20 mg/dL (7-18); Bilirubin, Total 0.4 mg/dL (0.2-1.0); CO2 27.3 mmol/L (21.0-32.0); CREATININE 1.15 mg/dL (0.70-1.30); Calcium 8.1 mg/dL (8.5-10.1); Chloride 106 mmol/L (98-107); Glucose 114 mg/dL (70-100); Magnesium 1.7 mg/dL (1.8-2.4); Potassium 3.8 mmol/L (3.5-5.1); Sodium 141 mmol/L (136-145); Total Protein 5.6 g/dL (6.4-8.2); Troponin I 0.06 ng/mL (0.00-0.06)
--- NOTE | 2019-03-12 19:24 | DI.VRAD_ITS ---
EXAM: XR Right Femur, 2 Views EXAM DATE/TIME: 03/12/2019 6:17 PM CLINICAL HISTORY: 63 years old, male; Injury or trauma; Initial encounter; Blunt trauma; Thigh or upper leg; Right; Injury date: 03/12/19; Injury details: Fall, unknown details; Prior surgery; Surgery date: 3-7 days post-operative; Surgery type: L hip surgery/unknown details TECHNIQUE: Imaging protocol: XR Right femur, 2 views COMPARISON: CR XR femur RT 02/25/2019 2:32 PM FINDINGS: Bones/joints: Fixated right intertrochanteric fracture. Acute fracture in the distal shaft around the fixation prosthesis. The prosthesis itself appears intact. Soft tissues: Normal. IMPRESSION: Acute fracture Dictated and Authenticated by: Elvis Armendariz MD. Ordering:NICHOLE Yarbrough MD
--- NOTE | 2019-03-12 19:25 | DI.VRAD_ITS ---
EXAM: XR Chest, 1 View EXAM DATE/TIME: 03/12/2019 6:18 PM CLINICAL HISTORY: 63 years old, male; Injury or trauma; Initial encounter; Blunt trauma (contusions or hematomas); Injury date: 03/12/19; Injury details: Fall, unknown details TECHNIQUE: Imaging protocol: XR of the chest, 1 view. COMPARISON: SC XR CHEST 2V PA LATERAL 02/11/2019 7:07 PM FINDINGS: Lungs: Unremarkable. No consolidation. Pleural space: Unremarkable. No pleural effusion. No pneumothorax. Heart/Mediastinum: Unremarkable. No cardiomegaly. Bones/joints: Degenerative changes in the spine. IMPRESSION: No acute finding. Dictated and Authenticated by: Elvis Armendariz MD. Ordering:NICHOLE Yarbrough MD
[2019-03-12 20:20] LABS: Bilirubin Negative (Negative); Blood Negative (Negative); Clarity Clear; Glucose Negative (Negative); Ketones Negative (Negative); Leukocyte Esterase Negative (Negative); Nitrite Negative (Negative); Specific Gravity 1.015 (1.005-1.025); Urobilinogen 0.2 EU/dL (Up TO 0.2); pH 5.5 (5-8)
--- NOTE | 2019-03-12 20:55 | HPE_ITS ---
Date of service: 03/12/19 Time of Service: 20:53 Assessment and Plan (1) Femur fracture, right: Current visit: Yes Status: Acute Midshaft femur fracture. On recommendation from Dr. Stern placed in a right leg immobilizer. Will ask physical therapy to evaluate and will ask Dr. Kapadia to consult in the a.m. Admit to observation status in anticipation of transfer back to the [facility] tomorrow if stable. (2) Critical lower limb ischemia: Current visit: No Status: Acute Status post femoral to anterior tibial bypass at [facility] last week. The bypass graft appears to be patent as his foot is warm and is not having pain. The necrotic area on the second toe would appear to be stable. Continue dressing changes and present measures. Follow-up with [facility] vascular surgery as scheduled. (3) Closed intertrochanteric fracture of right hip: Current visit: No Status: Acute Status post right hip fracture 02/25/2019. He has had this fixated with a nail and long levy. Fortunately the levy extends through the nail new femoral fracture. Radiology states the repair is stable. Qualifiers: Encounter type: initial encounter Fracture alignment: displaced Qualified Code(s): S72.141A - Displaced intertrochanteric fracture of right femur, initial encounter for closed fracture (4) Urinary retention: Current visit: No Status: Resolved History of urinary retention. He was incontinent in the ER. Schulte catheter was placed because of his relative immobility at this time. Urinalysis was negative on admission. (5) History of alcoholism: Current visit: No Status: Chronic He has been abstinent from alcohol since his hip fracture. He is well beyond the point of withdrawal symptoms. (6) Tobacco dependence syndrome: Current visit: No Status: Chronic Ongoing tobacco dependence. Will give nicotine replacement. (7) Schizoaffective disorder: Current visit: No Status: Chronic Continue present meds. He is not actively hallucinating or having behavioral issues. Qualifiers: Schizoaffective disorder type: bipolar Qualified Code(s): F25.0 - Schizoaffective disorder, bipolar type (8) Discharge planning issues: Current visit: No Status: Resolved Admitted to observation status with plans to return back to the [facility] tomorrow. History of Present Illness Chief Complaint: Right femur fracture Narrative: This is a 63-year-old man with underlying schizophrenia, alcohol abuse, and tobacco abuse disorder who fell 02/25/2019 and fractured his right hip. He underwent a pinning with Dr. Kapadia on 02/26/2019. During that hospitalization his left foot became ischemic. He had a known popliteal aneurysm and was followed by [facility] vascular surgery. He was transported emergently to [facility] and underwent a femme pop bypass. He had evidence of ischemia of the second toe which was monitored, no amputation. From there he was transferred to the [facility] for continued rehab. He had been getting regular dressing changes to the left leg and was ambulating using a walker. Today while walking at the [facility] he lost his balance and fell landing on his right leg. Evaluation in the emergency room revealed a mid femur fracture. Dr. Stern was consulted from orthopedics. On evaluation of the films he felt that with a long femoral levy and a fracture through the mid femur there was no further fixation needed. He recommended an immobilizer and gradual mobilization with physical therapy. The [facility] were not comfortable taking him back this evening so he is admitted to observation status with plans for a physical therapy evaluation and further consultation with Dr. Kapadia. Review of Systems Review of Systems He is generally comfortable at rest. Denies any chest pain or shortness of breath. No current GI or dysfunction. He was incontinent of urine in the emergency room. He now has a Schulte catheter. He has been ambulating with a walker up until today. [facility] Medical History PAD (peripheral artery disease) (Chronic) Prostatitis (Acute) Descending thoracic aortic aneurysm (Chronic) Hyponatremia (Chronic) Gastroesophageal reflux disease (Chronic) Tobacco dependence syndrome (Chronic) Constipation (Chronic) Hyponatremia (Chronic) Alcohol abuse (Chronic) Schizoaffective disorder (Chronic) Anemia (Chronic) Hypertension (Chronic) Hypomagnesemia (Chronic) B12 deficiency (Chronic) Folate deficiency (Chronic) History of alcoholism (Chronic) S/P right hip fracture (Acute) Anxiety (Chronic) Hemolytic uremic syndrome (Resolved) Alcohol abuse COPD (chronic obstructive pulmonary disease) GERD (gastroesophageal reflux disease) Pneumonitis Schizophrenia Tremor Surgical History S/P femoral-popliteal bypass surgery (Acute) History of ankle surgery (Acute) Family History Mother Asthma Father [place] (myocardial infarction) Grandmother Diabetes Colon cancer Maternal Uncle Hyperlipidemia Other Lung cancer Social History Smoking/Tobacco Use Status: Current, status unknown Tobacco Type: cigarettes Alcohol Intake: current Alcohol Intake frequency: 3 or more drinks per day Alcohol type: beer Details: drinks a 6 pack of beer per day Drug use: Never Substance use type: does not use Details: Patient comes from the [facility] for rehab, unsure of drinking/ tobacco use status. Patient unable to answer questions. Do you feel safe at home: Yes Do you feel safe in your relationship?: Yes Meds Home Medications Medication Instructions Recorded Confirmed Type Therapeutic-M 1 tab PO BID #60 tab 12/08/17 02/25/19 Rx amlodipine 5 mg PO DAILY #30 tab 12/08/17 02/25/19 Rx ascorbic acid (vitamin C) [Vitamin 500 mg PO BID #60 tab 12/08/17 02/25/19 Rx C] benztropine 0.5 mg PO DAILY #30 tab 12/08/17 02/25/19 Rx cyanocobalamin (vitamin B-12) 1,000 mcg PO DAILY #30 tab 12/08/17 02/25/19 Rx [Vitamin B-12] docusate sodium [Colace] 100 mg PO TID PRN PRN #90 cap 12/08/17 03/12/19 Rx magnesium gluconate 500 mg PO BID #60 tab 12/08/17 02/25/19 Rx omeprazole 20 mg PO DAILY@0730 #30 capcr 12/08/17 03/12/19 Rx risperidone [Risperdal] 1 mg PO HS #30 tab 12/08/17 03/12/19 Rx [place]-3 2,000 cap PO DAILY 02/11/19 02/25/19 History mirtazapine [Remeron] 15 mg PO HS 02/11/19 03/12/19 History thiamine HCl (vitamin B1) [Vitamin 100 mg PO DAILY 02/11/19 03/12/19 History B-1] levofloxacin [Levaquin] 750 mg PO DAILY@0600 #28 tab 02/16/19 02/25/19 Rx polyethylene glycol 3350 17 g PO DAILY #30 each 02/16/19 03/12/19 Rx acetaminophen [Acetaminophen Extra 1,000 mg PO QID PRN 03/12/19 03/12/19 History Strength] aspirin 81 mg PO QAM 03/12/19 03/12/19 History atorvastatin [Lipitor] 40 mg PO HS 03/12/19 03/12/19 History carvedilol [Coreg] 12.5 mg PO BID 03/12/19 History furosemide 40 mg PO QAM 03/12/19 03/12/19 History gabapentin 100 mg PO TID 03/12/19 03/12/19 History hydromorphone 2 mg PO Q4H PRN 03/12/19 03/12/19 History tamsulosin 0.4 mg PO HS 03/12/19 03/12/19 History Allergies Allergy/AdvReac Type Severity Reaction Status Date / Time No Known Allergies Allergy Unverified 03/12/19 18:13 Exam Narrative Exam Narrative: He is lying comfortably flat in bed. He makes good eye contact. His overall affect is that of somewhat paranoia and anxiety. He will answer direct questions with very short answers. Const General: cooperative, no acute distress and disheveled Nutritional Appearance: average body habitus Orientation: alert and awake HENSC Head: normal to inspection Ears: hearing grossly normal bilaterally Teeth and gingiva: edentulous Throat: posterior oropharynx normal Eyes General: appearance normal, both eyes and all related structures (He keeps his eyes very widely open) Pupils: PERRL Neck Neck: normal visual inspection Chest Chest: normal inspection of the chest Resp Effort & Inspection: normal respiratory effort Auscultation: clear to auscultation bilaterally Cardio Rate: regular rate Rhythm: regular rhythm Heart Sounds: S1 normal and S2 normal GI Inspection: normal to inspection Palpation: soft and nontender Male General Exam: Yes normal external exam Skin Other: He has postsurgical changes along the left leg with long bandages on the medial upper leg and several other bandages along the lower leg all of which are clean and dry were changed today. He has some blackened eschar at the very tip of the second toe but otherwise the left foot is warm and comparable to the right and he does appear to have normal sensation and motor function The right leg is in a knee immobilizer and shows good distal perfusion. Neuro General: alert and awake Cognition: abnormal cognition Motor: muscle tone normal throughout Sensory Exam: no sensory deficits noted Psych Appearance: disheveled Speech and Movement: delayed speech Mood: anxious mood and paranoid Affect: indifferent Attitude: guarded Thought Process: impoverished Thought Content: no hallucinations Results Imaging Imaging Studies: Right femur film shows a nondisplaced mid femur fracture with levy that goes through the fracture. Labs : 03/12/19 18:20 03/12/19 18:20 Laboratory Results - last 24 hr 03/12/19 03/12/19 03/12/19 18:20 18:20 18:20 WBC 9.13 RBC 3.55 L Hgb 10.9 L Hct 33.5 L MCV 94.4 MCH 30.7 MCHC 32.5 RDW 16.9 H Plt Count 507 H MPV 9.0 Immature Gran % 0.5 Neutrophils % 73.4 Lymphocytes % 18.3 Monocytes % 5.7 Eosinophils % 1.8 Basophils % 0.3 Absolute Neutrophils 6.70 Absolute Lymphocytes 1.67 Absolute Monocytes 0.52 Absolute Eosinophils 0.16 Absolute Basophils 0.03 PT 9.8 INR 1.0 APTT 21.3 Sodium 141 Potassium 3.8 Chloride 106 Carbon Dioxide 27.3 Anion Gap 7.7 BUN 20 H Creatinine 1.15 Estimated GFR/1.73 m2 >= 60.00 Glucose 114 H Calcium 8.1 L Magnesium 1.7 L Total Bilirubin 0.4 AST 25 ALT 23 Alkaline Phosphatase 198 H Troponin I 0.06 Total Protein 5.6 L Albumin 1.7 L Urine Color Urine Clarity Urine pH Ur Specific [place] Urine Protein Urine Ketones Urine Blood Urine Nitrite Urine Bilirubin Urine Urobilinogen Ur Leukocyte Esterase Urine Glucose 03/12/19 20:15 WBC RBC Hgb Hct MCV MCH MCHC RDW Plt Count MPV Immature Gran % Neutrophils % Lymphocytes % Monocytes % Eosinophils % Basophils % Absolute Neutrophils Absolute Lymphocytes Absolute Monocytes Absolute Eosinophils Absolute Basophils PT INR APTT Sodium Potassium Chloride Carbon Dioxide Anion Gap BUN Creatinine Estimated GFR/1.73 m2 Glucose Calcium Magnesium Total Bilirubin AST ALT Alkaline Phosphatase Troponin I Total Protein Albumin Urine Color Yellow Urine Clarity Clear Urine pH 5.5 Ur Specific [place] 1.015 Urine Protein Negative Urine Ketones Negative Urine Blood Negative Urine Nitrite Negative Urine Bilirubin Negative Urine Urobilinogen 0.2 Ur Leukocyte Esterase Negative Urine Glucose Negative Last Vital Signs Temp 37.0 C 03/12/19 20:29 Pulse 72 04/28/19 20:29 Resp 19 03/12/19 20:29 BP 124/84 03/12/19 20:29 Pulse Ox 98 03/12/19 20:29
[2019-03-12] MEDS: risperiDONE 1 MG TAB PO (22:01)
[2019-03-12] MEDS: Mirtazapine 15 MG TAB PO (22:01)
[2019-03-12] MEDS: Tamsulosin 0.4 MG CAPCR PO (22:01)
[2019-03-12] MEDS: Atorvastatin 20 MG TAB 40 MG PO (22:01)
[2019-03-13] VITALS (13 sets, daily range): BP systolic 116–135; BP diastolic 64–90; PULSE 84–102; RESP 15–22; TEMP 36.4–37.3; O2SAT 93–98
[2019-03-13] MEDS: Normal Saline 1,000 ML 100 ML IV (03:47)
[2019-03-13] MEDS: HYDROmorphone 2 MG TAB PO (03:47)
[2019-03-13 08:06] LABS: HCT 30.9 % (40.0-50.0); Mean Corp. HGB Concentration 32.4 g/dL (32.0-36.0); Mean Corpuscular Hemoglobin 30.7 pg (27.0-33.0); Mean Corpuscular Volume 94.8 fL (80-95); Mean Platelet Volume 8.7 fL (8.0-11.0); Platelet Count 488 x1000/uL (130-400); RBC 3.26 m/cumm (4.50-6.00); RBC Distribution Width 16.9 % (11.8-14.1); White Blood Cell Count 8.01 k/cumm (4.4-10.8)
[2019-03-13 08:12] LABS: Anion Gap 6.8 mmol/L (3-11); BUN 19 mg/dL (7-18); CO2 27.2 mmol/L (21.0-32.0); CREATININE 1.01 mg/dL (0.70-1.30); Chloride 108 mmol/L (98-107); Glucose 104 mg/dL (70-100); Potassium 3.7 mmol/L (3.5-5.1); Sodium 142 mmol/L (136-145)
[2019-03-13 08:18] LABS: Calcium 7.9 mg/dL (8.5-10.1)
[2019-03-13] MEDS: Magnesium Gluconate 500 MG TAB PO ×2 (08:37→20:56)
[2019-03-13] MEDS: Aspirin 81 MG CHEW PO (08:38)
[2019-03-13] MEDS: Furosemide 40 MG TAB PO (08:38)
[2019-03-13] MEDS: Omeprazole 20 MG CAPCR PO (08:38)
[2019-03-13] MEDS: Thiamine 100 MG TAB PO (08:38)
[2019-03-13] MEDS: Gabapentin 100 MG CAP PO ×2 (08:38→20:57)
--- NOTE | 2019-03-13 09:39 | NUR.NOTE ---
Nursing Note: [id number] message left on patient's primary contact's phone - his brother - regarding the hospitalization and imminent surgery - Dr. Krueger aware - Care Management assisting with contacting brother as well.
--- NOTE | 2019-03-13 10:08 | PT.INNT ---
Date of service: 03/13/19 Time of Service: 10:08 PT Notes Referral for physical therapy services was ordered on 03/12/2019 at 20:46 PM, received by this PT early this morning. Patient is status post ORIF with IMN on 02/25/[address] Kapadia and was sent to [facility] on 02/27/2019 for management of critical limb ischemia on the left LE status post femoral-tibial artery bypass on the left side. Patient went back to the [facility] on 03/05/2019. He slid off the bed on 03/12/2019 with Unna boot on sustaining right distal femur fracture with radiologic imaging showing acute fracture of distal femoral shaft around fixation prosthesis on the right. Patient is being considered for surgical intervention for said fracture at this time. Will evaluate skilled physical therapy services once postoperative referral is received. Thank you.
--- NOTE | 2019-03-13 13:54 | DI.RAD_ITS ---
SYMPTOM/DIAGNOSIS: MIDSHAFT FEMUR FX, RT RIGHT FEMUR IN THE OR: Fluoroscopy Time: 85.8sec, 5.41mGy Fluoroscopy was utilized by Dr. Krueger during the reduction and internal fixation of the distal right femoral fracture. Please refer to the procedure report for complete details.
[2019-03-13] MEDS: Lactated Ringers 1,000 ML 100 ML IV (14:15)
--- NOTE | 2019-03-13 14:26 | PGE_ITS ---
Date of Service Date of service: 03/13/19 Time of Service: 14:37 Assessment and Plan (1) Femur fracture, right: Start date: 03/13/19 Start time: 14:16 Current visit: Yes Status: Acute Midshaft femur fracture. displaced fracture by imaging, with nail out of place from previous procedure, Dr. Krueger will take to surgery today to repair. Patient has significant underlying peripheral vascular disease, tobacco dependence and alcohol dependence, likelihood of underlying coronary disease is high however at this time he needs to have a displaced fracture repaired and benefits of the procedure outweigh the risks. There is no evidence of active cardiac conditions, moreover, the patient has recently undergone both a vascular procedure with his bypass as well as a femoral fracture repair without incident that is highly reassuring and no special accomadations recommended via vascular surgery. May proceed with planned procedure with no change in management or medications. He will however need to be monitored closely postoperatively Edema to RLE, previous hip fracture with levy placement and LLE recent femme pop bypass with 71 michele, pulses with doppler, second toe to left extremity is stable but there is a wound to toe with eschar. Heel on left foot is boggy, place on pillow off bed to, legs need to be elevated above heart when in bed per vascular recommendation. Wound consult for heel. (2) Critical lower limb ischemia: Start date: 03/13/19 Start time: 14:33 Current visit: No Status: Acute Status post femoral to anterior tibial bypass at [facility] last week. The bypass graft appears to be patent as his foot is warm and is not having pain. The necrotic area on the second toe would appear to be stable. Continue dressing changes and present measures. Follow-up with [facility] vascular surgery as scheduled. see above. (3) Closed intertrochanteric fracture of right hip: Start date: 03/13/19 Start time: 14:33 Current visit: No Status: Acute Status post right hip fracture 02/25/2019. he will need repair of the levy and nail with repair of the femur fracture. He is going to the OR today. Qualifiers: Encounter type: initial encounter Fracture alignment: displaced Qualified Code(s): S72.141A - Displaced intertrochanteric fracture of right femur, initial encounter for closed fracture (4) Urinary retention: Start date: 03/13/19 Start time: 14:34 Current visit: No Status: Resolved History of urinary retention. He was incontinent in the ER. Schulte catheter was placed because of his relative immobility at this time. Urinalysis was negative on admission. (5) History of alcoholism: Start date: 03/13/19 Start time: 14:34 Current visit: No Status: Chronic He has been abstinent from alcohol since his hip fracture. He is on CIWA at this time, unlikely withdrawal given the length of time that he has not had a drink. (6) Tobacco dependence syndrome: Start date: 03/13/19 Start time: 14:35 Current visit: No Status: Chronic Ongoing tobacco dependence. Will give nicotine replacement. (7) Schizoaffective disorder: Start date: 03/13/19 Start time: 14:35 Current visit: No Status: Chronic Continue present meds. He is not actively hallucinating or having behavioral issues. He is not quite acting himself at this point could be from post anesthesia, continue to monitor and make sure his medications are effective for underlying schizo Qualifiers: Schizoaffective disorder type: bipolar Qualified Code(s): F25.0 - Schizoaffective disorder, bipolar type (8) Discharge planning issues: Start date: 03/13/19 Start time: 14:36 Current visit: No Status: Resolved Changed to inpatient status. nutrition consult as patient has not had much of an appetite. Subjective Patient reports: other Interval history since last seen: Displaced femur fracture going to the OR today with Dr. Krueger. Patient has significant underlying peripheral vascular disease, tobacco dependence and alcohol dependence, likelihood of underlying coronary disease is high however at this time he needs to have a displaced fracture repaired and benefits of the procedure outweigh the risks. There is no evidence of active cardiac conditions, moreover, the patient has recently undergone both a vascular procedure with his bypass as well as a femoral fracture repair without incident that is highly reassuring and no special accommodations recommended via vascular surgery. May proceed with planned procedure with no change in management or medications. He will however need to be monitored closely postoperatively. His LLE has approx. 71 michele from fempop bypass surgery pulses with doppler, second toe with wound staple, heel boggy, wound consult placed. Elevate lower extremities when in bed above heart per [facility] recommendations. Right LE with small incision to hip from previous surgery. Continue to monitor patient postoperatively. Exam Const General: cooperative, disheveled and frail appearing Nutritional Appearance: malnourished Orientation: alert, awake, oriented to person and oriented to time Neck Lymphatic: no lymphadenopathy noted Chest Chest: normal inspection of the chest Resp Effort & Inspection: normal respiratory effort Auscultation: clear to auscultation bilaterally Cardio Jugular venous pressure: no JVD Palpation: normal PMI Rate: regular rate Heart Sounds: S1 normal and S2 normal Bruits: no carotid bruits GI Inspection: normal to inspection Auscultation: hypoactive bowel sounds Back/Spine/Pelvis Back: no CVA tenderness Skin Other: multiple incision to LLE with staple, Left foot second toe withe eschar, left heel boggy and pink, right LE with edema 2+ non pitting. Neuro General: alert and awake Speech: speech normal Extrem Other: multiple surgical incisions to LLE Psych Appearance: disheveled Affect: labile affect Thought Content: normal Objective Objective Clinical Data: Abnormal lab results 03/12/19 03/12/19 03/13/19 Range/Units 18:20 18:20 07:55 RBC 3.55 L (4.50-6.00) m/cumm Hgb 10.9 L (13.5-17.5) g/dL Hct 33.5 L (40.0-50.0) % RDW 16.9 H (11.8-14.1) % Plt Count 507 H (130-400) x1000/uL Chloride 108 H (98-107) mmol/L BUN 20 H 19 H (7-18) mg/dL Glucose 114 H 104 H (70-100) mg/dL Calcium 8.1 L 7.9 L (8.5-10.1) mg/dL Magnesium 1.7 L (1.8-2.4) mg/dL Alkaline Phosphatase 198 H (46-116) U/L Total Protein 5.6 L (6.4-8.2) g/dL Albumin 1.7 L (3.4-5.0) g/dL 03/13/19 Range/Units 07:55 RBC 3.26 L (4.50-6.00) m/cumm Hgb 10.0 L (13.5-17.5) g/dL Hct 30.9 L (40.0-50.0) % RDW 16.9 H (11.8-14.1) % Plt Count 488 H (130-400) x1000/uL Chloride (98-107) mmol/L BUN (7-18) mg/dL Glucose (70-100) mg/dL Calcium (8.5-10.1) mg/dL Magnesium (1.8-2.4) mg/dL Alkaline Phosphatase (46-116) U/L Total Protein (6.4-8.2) g/dL Albumin (3.4-5.0) g/dL Vital Signs Temperature 36.7 C 03/13/19 11:30 Temperature Source Tympanic 03/13/19 11:30 Pulse 84 03/13/19 11:30 Pulse Rhythm Regular 03/13/19 08:30 Respiratory Rate 16 03/13/19 11:30 Respiratory Effort Non-Labored 03/13/19 08:30 Respiratory Depth Normal 03/13/19 08:30 Respiratory Pattern Normal 03/13/19 08:30 Blood Pressure 118/64 03/13/19 11:30 Blood Pressure Position Supine 03/12/19 17:55 Pulse Oximetry 98 03/13/19 11:30 Oxygen Delivery Method Room Air 03/13/19 11:30 Oxygen Flow Rate 0 03/13/19 11:30 Pain Level 10 03/13/19 03:47 Comment 03/12/19 17:55 Intake & Output 03/12/19 03/13/19 03/13/19 23:59 11:59 23:59 Intake Total 1683.333 / 1733.333 50 / 1733.333 Output Total 450 / 450 300 / 1050 750 / 1050 Balance -450 / -450 1383.333 / 683.333 -700 / 683.333 Weight 75.6 kg Intake: IV 923.333 / 923.333 Oral 760 / 810 50 / 810 Output: Urine 450 / 450 300 / 1050 750 / 1050 Other: Urine Color Light Zakia Dark Zakia Yellow Urine Appearance Clear Clear Clear Laboratory Results WBC 8.01 k/cumm (4.4-10.8) 03/13/19 07:55 RBC 3.26 m/cumm (4.50-6.00) L 03/13/19 07:55 Hgb 10.0 g/dL (13.5-17.5) L 03/13/19 07:55 Hct 30.9 % (40.0-50.0) L 03/13/19 07:55 MCV 94.8 fL (80-95) 03/13/19 07:55 MCH 30.7 pg (27.0-33.0) 03/13/19 07:55 MCHC 32.4 g/dL (32.0-36.0) 03/13/19 07:55 RDW 16.9 % (11.8-14.1) H 03/13/19 07:55 Plt Count 488 x1000/uL (130-400) H 03/13/19 07:55 MPV 8.7 fL (8.0-11.0) 03/13/19 07:55 Immature Gran % 0.5 03/12/19 18:20 Neutrophils % 73.4 03/12/19 18:20 Lymphocytes % 18.3 03/12/19 18:20 Monocytes % 5.7 03/12/19 18:20 Eosinophils % 1.8 03/12/19 18:20 Basophils % 0.3 03/12/19 18:20 Absolute Neutrophils 6.70 k/cumm (1.2-6.7) 03/12/19 18:20 Absolute Lymphocytes 1.67 k/cumm (1.2-3.4) 03/12/19 18:20 Absolute Monocytes 0.52 k/cumm (0.11-0.7) 03/12/19 18:20 Absolute Eosinophils 0.16 k/cumm (0.0-0.7) 03/12/19 18:20 Absolute Basophils 0.03 k/cumm (0.0-0.2) 03/12/19 18:20 PT 9.8 sec (9.3-11.0) 03/12/19 18:20 INR 1.0 (0.9-1.1) 03/12/19 18:20 APTT 21.3 sec (21.0-31.4) 03/12/19 18:20 Sodium 142 mmol/L (136-145) 03/13/19 07:55 Potassium 3.7 mmol/L (3.5-5.1) 03/13/19 07:55 Chloride 108 mmol/L (98-107) H 03/13/19 07:55 Carbon Dioxide 27.2 mmol/L (21.0-32.0) 03/13/19 07:55 Anion Gap 6.8 mmol/L (3-11) 03/13/19 07:55 BUN 19 mg/dL (7-18) H 03/13/19 07:55 Creatinine 1.01 mg/dL (0.70-1.30) 03/13/19 07:55 Estimated GFR/1.73 m2 >= 60.00 (mL/min/1.73m2) 03/13/19 07:55 Glucose 104 mg/dL (70-100) H 03/13/19 07:55 Calcium 7.9 mg/dL (8.5-10.1) L 03/13/19 07:55 Magnesium 1.7 mg/dL (1.8-2.4) L 03/12/19 18:20 Total Bilirubin 0.4 mg/dL (0.2-1.0) 03/12/19 18:20 AST 25 U/L (15-37) 03/12/19 18:20 ALT 23 U/L (12-78) 03/12/19 18:20 Alkaline Phosphatase 198 U/L (46-116) H 03/12/19 18:20 Troponin I 0.06 ng/mL (0.00-0.06) 03/12/19 18:20 Total Protein 5.6 g/dL (6.4-8.2) L 03/12/19 18:20 Albumin 1.7 g/dL (3.4-5.0) L 03/12/19 18:20 Urine Color Yellow (Yellow) 03/12/19 20:15 Urine Clarity Clear 03/12/19 20:15 Urine pH 5.5 (5-8) 03/12/19 20:15 Ur Specific [place] 1.015 (1.005-1.025) 03/12/19 20:15 Urine Protein Negative mg/dL (Negative) 03/12/19 20:15 Urine Ketones Negative mg/dL (Negative) 03/12/19 20:15 Urine Blood Negative (Negative) 03/12/19 20:15 Urine Nitrite Negative (Negative) 03/12/19 20:15 Urine Bilirubin Negative (Negative) 03/12/19 20:15 Urine Urobilinogen 0.2 EU/dL (Up TO 0.2) 03/12/19 20:15 Ur Leukocyte Esterase Negative (Negative) 03/12/19 20:15 Urine Glucose Negative mg/dL (Negative) 03/12/19 20:15
--- NOTE | 2019-03-13 16:55 | PDOC.CMIN ---
- If Service Date Differs Date of service: 03/13/19 Time of Service: 16:55 Care Management Initial Assess REASON FOR HOSPITALIZATION:: Fractured femur right PAST MEDICAL HISTORY/PAST SURGICAL HISTORY:: Anxiety (Chronic). Alcohol abuse. COPD (chronic obstructive pulmonary disease). GERD (gastroesophageal reflux disease). Pneumonitis. Schizophrenia. Tremor. History of ankle surgery (Acute) PREVIOUS FUNCTIONAL STATUS/SOCIAL/FAMILY SUPPORTS:: Devin resides alone in a 3rd floor apartment in [facility] at baseline. He is currently residing at the [facility] for short term rehab, status post right hip fracture repair and status femoral- popliteal bypass on the left. He has a brother Dylan who lives locally and can provide some support. He is case managed by LIFE MANAGEMENT TEACHER jung Castro is his director of casework services at [facility]. CURRENT FUNCTIONAL STATUS:: Devin is lying in his bed he is alert he answers yes and no questions he is not overly engaged at this time. He agrees that he will return to the [facility] post surgery when medically ready. CM did contact his brother Dylan and he is present during CM assessment. Dylan states that he recently became more involved in Devin's care and had been in contact with the [facility] to assist with executive secretary social welfare care decisions and planning. ADVANCE DIRECTIVES:: None on file, CM offered to assist the patient with completion post surgical. Has patient been provided with information about the portal?: Yes Did the patient sign up for the portal?: No CODE STATUS:: Full Code INSURANCE COVERAGE / FINANCIAL ISSUES:: YOLETTE SHERMAN CURRENT HOME/COMMUNITY SERVICES/EQUIPMENT:: Currently resident at the [facility] for SNF, LIFE MANAGEMENT TEACHER - Matthew Dickens. PRIMARY CARE PHYSICIAN:: Josephine Velazquez NP POTENTIAL DISCHARGE NEEDS:: Return to the [facility] and follow up with provider and orthopedics as directed. PATIENT/FAMILY EDUCATION NEEDS:: Discharge education, limitation and follow up plan of care. ANTICIPATED BARRIERS TO DISCHARGE:: None identified. TRANSPORTATION:: Via wheelchair van RCT to be coordinated by CM at time of discharge. PLAN:: Devin is going to the OR today for repair of right femur fracture. IV pain management post op. He will have PT and OT post surgical. Anticipate he will be acute for the next 72 hours and discharge back to the [facility] when medically ready. CM contact brother Dylan and [facility] to provide an update. Dylan is available at [phone].
--- NOTE | 2019-03-13 17:07 | DI.RAD_ITS ---
SYMPTOM/DIAGNOSIS: CHECK REDUCTION FOLLOWING ORIF RT FEMUR FX RIGHT FEMUR: Multiple views. Comparison is made with intraoperative films from the same day. There is again seen an intramedullary levy and screw transfixing the old stable intertrochanteric fracture of the right femur. The acute fracture involving the shaft of the right femur has been reduced with alignment which appears anatomic. The fracture has been fixed by wires and screws. Skin michele are present. Post surgical changes are seen in the soft tissues. IMPRESSION: Status post reduction and internal fixation of the distal right femoral fracture.
--- NOTE | 2019-03-13 17:25 | INITIAL_ITS ---
- If Service Date Differs Date of service: 03/13/19 Time of Service: 16:55 Care Management Initial Assess REASON FOR HOSPITALIZATION:: Fractured femur right PAST MEDICAL HISTORY/PAST SURGICAL HISTORY:: Anxiety (Chronic). Alcohol abuse. COPD (chronic obstructive pulmonary disease). GERD (gastroesophageal reflux disease). Pneumonitis. Schizophrenia. Tremor. History of ankle surgery (Acute) PREVIOUS FUNCTIONAL STATUS/SOCIAL/FAMILY SUPPORTS:: Devin resides alone in a 3rd floor apartment in [facility] at baseline. He is currently residing at the [facility] for short term rehab, status post right hip fracture repair and status femoral- popliteal bypass on the left. He has a brother Dylan who lives locally and can provide some support. He is case managed by SALON PROFESSIONAL jung Castro is his immigration case worker at [facility]. CURRENT FUNCTIONAL STATUS:: Devin is lying in his bed he is alert he answers yes and no questions he is not overly engaged at this time. He agrees that he will return to the [facility] post surgery when medically ready. CM did contact his brother Dylan and he is present during CM assessment. Dylan states that he recently became more involved in Devin's care and had been in contact with the [facility] to assist with termite control representative care decisions and planning. ADVANCE DIRECTIVES:: None on file, CM offered to assist the patient with completion post surgical. Has patient been provided with information about the portal?: Yes Did the patient sign up for the portal?: No CODE STATUS:: Full Code INSURANCE COVERAGE / FINANCIAL ISSUES:: WHIT, YOLETTE CURRENT HOME/COMMUNITY SERVICES/EQUIPMENT:: Currently resident at the [facility] for SNF, SALON PROFESSIONAL - Matthew Dickens. PRIMARY CARE PHYSICIAN:: Josephine Velazquez NP POTENTIAL DISCHARGE NEEDS:: Return to the [facility] and follow up with provider and orthopedics as directed. PATIENT/FAMILY EDUCATION NEEDS:: Discharge education, limitation and follow up plan of care. ANTICIPATED BARRIERS TO DISCHARGE:: None identified. TRANSPORTATION:: Via wheelchair van RCT to be coordinated by CM at time of discharge. PLAN:: Devin is going to the OR today for repair of right femur fracture. IV pain management post op. He will have PT and OT post surgical. Anticipate he will be acute for the next 72 hours and discharge back to the [facility] when medically ready. CM contact brother Dylan and Edda to provide an update. Dylan is available at [phone].
[2019-03-13] MEDS: Ketorolac 30 MG/ML VIAL IVP ×2 (18:21→23:37)
[2019-03-13] MEDS: DEXTROSE 5%-0.9% SALINE 1,000 ML 125 ML IV (18:23)
[2019-03-13] MEDS: oxyCODONE-CR 10 MG TABCR PO (18:24)
--- NOTE | 2019-03-13 18:54 | NUR.NOTE ---
1745 Arrived from PACU S/P ORIF right femur see shift assesment for arrival assesment.Nursing Note:
[2019-03-13] MEDS: Atorvastatin 20 MG TAB 40 MG PO (20:57)
[2019-03-13] MEDS: Mirtazapine 15 MG TAB PO (20:57)
[2019-03-13] MEDS: risperiDONE 1 MG TAB PO (20:57)
[2019-03-13] MEDS: Senna TAB 2 TAB PO (20:57)
[2019-03-13] MEDS: Docusate Sodium 100 MG CAP PO (20:57)
[2019-03-13] MEDS: Tamsulosin 0.4 MG CAPCR PO (20:57)
[2019-03-14] VITALS (12 sets, daily range): BP systolic 86–115; BP diastolic 57–77; PULSE 55–107; RESP 17–20; TEMP 36.6–37.4; O2SAT 94–98
[2019-03-14] MEDS: DEXTROSE 5%-0.9% SALINE 1,000 ML 125 ML IV ×2 (01:34→09:07)
[2019-03-14] MEDS: oxyCODONE-CR 10 MG TABCR PO ×2 (06:16→17:56)
[2019-03-14] MEDS: Ketorolac 30 MG/ML VIAL IVP ×4 (06:16→23:55)
[2019-03-14 07:31] LABS: Abs Immature Grans 0.02 k/cumm (0.0-0.09); Absolute Basophil Count 0.01 k/cumm (0.0-0.2); Absolute Lymphocyte Count 1.25 k/cumm (1.2-3.4); Absolute Neutrophil Count 9.41 k/cumm (1.2-6.7); Basophils % 0.1; HGB 9.2 g/dL (13.5-17.5); Immature Grans % 0.2; Lymphocytes % 10.8; Mean Corp. HGB Concentration 31.7 g/dL (32.0-36.0); Mean Corpuscular Hemoglobin 30.3 pg (27.0-33.0); Mean Corpuscular Volume 95.4 fL (80-95); Mean Platelet Volume 9.3 fL (8.0-11.0); Monocytes % 7.4; Neutrophils % 81.5; Platelet Count 477 x1000/uL (130-400); RBC 3.04 m/cumm (4.50-6.00); RBC Distribution Width 16.8 % (11.8-14.1); White Blood Cell Count 11.55 k/cumm (4.4-10.8)
[2019-03-14 07:42] LABS: Absolute Monocyte Count 0.85 k/cumm (0.11-0.7)
[2019-03-14 07:43] LABS: Anion Gap 9.4 mmol/L (3-11); BUN 19 mg/dL (7-18); CO2 22.6 mmol/L (21.0-32.0); CREATININE 0.88 mg/dL (0.70-1.30); Calcium 7.9 mg/dL (8.5-10.1); Chloride 107 mmol/L (98-107); Glucose 128 mg/dL (70-100); Magnesium 1.8 mg/dL (1.8-2.4); Potassium 3.5 mmol/L (3.5-5.1); Sodium 139 mmol/L (136-145)
[2019-03-14] MEDS: Gabapentin 100 MG CAP PO ×3 (08:11→19:36)
[2019-03-14] MEDS: Polyethylene Glycol 3350 17 GM PACKET PO (08:11)
[2019-03-14] MEDS: Thiamine 100 MG TAB PO (08:11)
[2019-03-14] MEDS: Omeprazole 20 MG CAPCR PO (08:11)
[2019-03-14] MEDS: Furosemide 40 MG TAB PO (08:11)
[2019-03-14] MEDS: Docusate Sodium 100 MG CAP PO ×3 (08:11→19:36)
[2019-03-14] MEDS: Aspirin 81 MG CHEW PO (08:11)
[2019-03-14] MEDS: Magnesium Gluconate 500 MG TAB PO ×2 (08:11→19:36)
[2019-03-14 08:35] LABS: Anisocytosis 2+; Diff Comment RBC Morph Reviewed; Hypochromasia 2+; Poikilocytes 1+; Polychromasia Present
--- NOTE | 2019-03-14 09:24 | PDOC.CMPRO ---
Care Management Progress Note S/O-Met with Devin today. He was lying in bed, stated he thinks he had PT today (he did). Explained overall plan for him to return to the [facility] when stable following this hospitalization. He agreed with this plan. Spoke with Jeanna from the [facility] who stated that he has follow-up appt at [facility] on 03/16 at noon for vascular appt. Explained that DR Vasques had spoken with [facility] and this appt will be postponed until a later date. Jeanna will cancel the appt. A-63 yo man admitted with R femur fx. P-Transfer back to the [facility] as per MD, via w/c gal HERNANDEZ.
[2019-03-14] MEDS: Magnesium Oxide 400 MG TAB PO (09:51)
[2019-03-14] MEDS: Potassium Chloride 20 MEQ TABCR 40 MEQ PO (09:51)
[2019-03-14] MEDS: HYDROcodone 5/Acetaminophen 325 TAB PO ×2 (10:05→16:11)
--- NOTE | 2019-03-14 11:56 | ROE_ITS ---
DATE OF PROCEDURE: March 13, 2019 PREOPERATIVE DIAGNOSIS: Fracture right femur shaft. POSTOPERATIVE DIAGNOSIS: Same. PROCEDURE: Open reduction and internal fixation fracture right femoral shaft. ANESTHESIA: General, Sol Mcgill CRNA and Devin Key CRNA SURGEON: Zenon Krueger M.D. ENTRY LEVEL ACCOUNT MANAGER: Carlos Palacios INDICATIONS: This is a 63-year-old white male who, on 02/27/19, had sustained an intertrochanteric fr acture of the right femur. This was treated by Dr. Kapadia on 02/27/19 with a trochanteric femoral n ail with a long nail being used to protect an osteoporotic femur from fracture in the future. The pa tient subsequently had a complication with ischemia in his left lower extremity that required a femor al popliteal bypass at the [facility] seven days ago. [facility] for further recovery, when he fell at [facility] yesterday, 03/12/19, sustaining a fra cture of his right femoral shaft around his trochanteric femoral nail. The patient was admitted last night and I was consulted for further evaluation. His x-rays showed considerable shortening and mal rotation of the femoral fracture that was not acceptable. The distal locking screw and the trochante mai femoral nail had pulled out and were no longer providing any support. I recommended an open redu ction and internal fixation to alleviate his pain and restore stability to the femur so he could walk . I thought that I could fix this with multiple cerclage wires, along with three interlocking screws through the nail distally, after removing the loose interlocking screw. I discussed this with the patient and his brother and they agree with my treatment plan. PROCEDURE: The patient was taken to the Operating Room on 03/13/19. He was placed supine on the oper ating table and a general anesthetic was administered. He was placed on the fracture table in single -leg traction on the right. The right femur was then prepped and draped free in the usual sterile fa shion. A lateral incision beginning just distal to the previous stab wound for insertion of the interlocking screw, and it was extended proximally for a distance of about six or seven inches. The incision was carried down to the subcu through the iliotibial band. I carried the incision down directly to the distal interlocking screw, which was obviously loose, and it was removed. Using a periosteal elevato r I stripped the lateralis just from the lateral femoral cortex. The fracture was clearly visible in the operative field. It was a long, spiral fracture extending down to the supracondylar region and did extend into the knee joint. He had a hemarthrosis that I aspirated. It appeared to be fairly we ll-contained within the knee joint and I didn't make any incisions in the knee joint capsule. Using a fracture table I applied longitudinal traction and rotation to reduce the fracture. I then further secured the reduction with two large alligator clamps. Reduction was confirmed with the C-arm image intensifier on the AP and lateral planes. I then proceeded to secure the reduction with four evenly -spaced cerclage cables. Then using the freehand technique I inserted three interlocking screws thro ugh the three distal holes in the femoral nail. I was able to insert a screw through the sliding hol e where the previous screw was simply by angling it further distally. A final check with the C-arm i mage intensifier showed anatomic reduction on AP and lateral views. The wound was copiously irrigated with Betadine and saline solution. Hemostasis was obtained with el ectrocautery. The wound margins were infiltrated with 0.5% Marcaine with an epinephrine solution. A couple of #2-0 Vicryl sutures were used to suture the soft tissue on the distal lateralis. I then c losed the iliotibial band with a running interlocked #1 Vicryl suture material. The subcu was approx imated with interrupted #2-0 Vicryl sutures and the skin edges were approximated with skin michele. The wounds were dressed with Xeroform gauze, sterile gauze 4x4's, ABD pads and then wrapped with a 6- inch Robles bandage for a light compressive dressing. A knee immobilizer splint was then placed over th e dressings to further support the fracture. Estimated blood loss was 250 cc's. The patient tolerated the procedure well. His anesthesia was reversed without complications and he w as discharged to the recovery room in good condition.
[2019-03-14] MEDS: Normal Saline Flush 10 ML SYR IVP ×4 (12:00→23:56)
--- NOTE | 2019-03-14 12:34 | PHARADMIT ---
Addendum entered by Vikash Payan III 03/16/19 14:56: Pharmacy Note Subjective Post-op Day#3 Femoral Fx, Hypotension had resolved,now low again. H&H-OK Objective VS-OK BP- 97/59 CIWA-0 pain:6/10 Mag-1.9 H&H-9.1/29.5 No BM today Assessment Coreg restarted, Norvasc & Lasix still on hold. IVF stopped, Still has catherine. Plan Plans is to return to [facility]. Needs to be encouraged to drink fluids Addendum entered by Vikash Payan III 03/15/19 15:59: Pharmacy Note Subjective Experiencing post-op bleeding & hypotension, received transfusion overnight, H&H- 9.4.4 Podiatry consult for heel wound. Objective HR-100 BP-112/73 CIWA-2 VS-OK Mag-1.6 K+3.8 WBC-11.29 Had BM Assessment No ABX at this time.. On narcotics and has bowel regimen Plan Watch heel wound, (gangrene) for possible ABX. To continue PT Original Note: Admission Pharmacy Clinical Review RIGHT FEMUR FRACTURE (repaired 03/13/19, ) Code Status Full Code Current Weight 75.6 kg Renally Cleared and Narrow Therapeutic Index Meds CrCl~80ml/min QTc Value / Action Taken QTC 448 (from 02/25/19) BP Control, Fever BP 105/70 Afebrile Pain 7/10 Electrolytes reviewed K+ 3.5, Mag 1.8 Mag Gluconate ordered DVT Prophylaxis Lovenox 40mg Opiate Usage / Scheduled Bowel Regimen Ordered [place]/Dilaudid/Oxycontin/OxyIR/Toradol...yes bowel meds scheduled Only using scheduled Oxycontin and scheduled Toradol-no BM reported Plt/SCr for Heparin / Enoxaparin Plt 477 SCr 0.88 INR for Warfarin H/H stable, WBC/Bands H/H 9.2 (post-op, down a little) WBC 11.55 Antibiotic appropriateness n/a Cultures and Sensitivities n/a Surgical ABX d/c within 24 hr DM control / Insulin Dosing BG 128 Heart Failure (Check EF%) (CHIDI's, B-Block, Diuretics) Lasix oral and 1x dose of IV Lasix, no weight x 2 days IV to PO Switch Home Meds Reviewed Home Meds Not Ordered Amlodipine, Vit C, Benztropine, Coreg, Vit B12, MVI, [place]-3, CIWA 3-lorazepam ordered (not using) Was at [facility] for short term rehab s/p right HIP fracture and femoral tibial bypass @ [facility] last week. Will return to the [facility] for rehab of this fracture
--- NOTE | 2019-03-14 12:36 | IN_ITS ---
Date of service: 03/14/19 Time of Service: 10:37 PT Notes Inpatient Physical Therapy Evaluation Date: 02/25/2019 Referring Doctor: Zenon Krueger MD PT Orders: PT CONSULT: Mobilize after ORIF of fracture right femoral shaft. WBAT to right. Use knee immobilizer to walk. Remove knee immobilizer for R OM right knee. Precautions: Fall. Contact precautions. WBAT to right LE. Patient Profile/Admitting Diagnosis: Orders received for this 63-year-old male with schizoaffective disorder who returned to the ED from the [facility] on 03/12/2019 after sustaining a right femoral fracture due to a fall while attempting to stand up from bed with Unna boot on the left LE. Patient was diagnosed with acute oblique, displaced periprosthetic fracture of the midshaft of right femur and is status post ORIF on 03/13/2019. Patient is also status post ORIF with intramedullary levy and screw transfixing patient's intertrochanteric fracture on the right on 02/25/[address] Kapadia. He is also status post femoral?popliteal artery bypass on left LE on 02/27/2019 and was discharged to the [facility] on 03/05/2019 from [facility]. PMHX: Medical History PAD (peripheral artery disease) (Chronic) Prostatitis (Acute) Descending thoracic aortic aneurysm (Chronic) Hyponatremia (Chronic) Gastroesophageal reflux disease (Chronic) Tobacco dependence syndrome (Chronic) Constipation (Chronic) Hyponatremia (Chronic) Alcohol abuse (Chronic) Schizoaffective disorder (Chronic) Anemia (Chronic) Hypertension (Chronic) Hypomagnesemia (Chronic) B12 deficiency (Chronic) Folate deficiency (Chronic) History of alcoholism (Chronic) S/P right hip fracture (Acute) Anxiety (Chronic) Hemolytic uremic syndrome (Resolved) Alcohol abuse COPD (chronic obstructive pulmonary disease) GERD (gastroesophageal reflux disease) Pneumonitis Schizophrenia Tremor Surgical History S/P femoral-popliteal bypass surgery (Acute) History of ankle surgery (Acute) Social History/Home Situation: Patient is a poor historian and is unable to provide responses accurately. Per case management notes, Devin resides alone in a 3rd floor apartment in [facility] at baseline. He is currently residing at the [facility] for short term rehab, status post right hip fracture repair and status femoral- popliteal bypass on the left. He has a brother Dylan who lives locally and can provide some support. His case is managed by [employer] MANAGEMENT OFFICER services. Matthew is his returned case inspector at [facility]. Patient lives independently in an apartment with 13 steps to enter. Reports that he was independently ambulating prior to his fracture. Patient does not currently work. Current Functional Limitations: Inability to perform bed mobility, transfers, and ambulation without extensive assist/cueing and without use of assistive ambulatory devices Equipment Owned/DME: None Subjective: Patient agreeable to physical therapy consult and treatment. He reports moderate pain with movement of BLEs. He denies dizziness, headache, and nausea. Objective: General Observation: Patient seen resting in bed. IV in the left UV. Schulte catheter on. Knee immobilizer on right. Heel off-loading boot on the left. [place] seen on left inguinal area. Robles wraps on right LE covering surgical incision. Mental Status: Patient is alert and oriented as to person and place Pain: Patient reports moderate pain and tends to anticipate pain Vital Signs: 107/70 2 mmHg. 20 cpm. 95% on room air. 36.9 ?C ROM: Right Upper Extremity: Shoulder Flexion WFL. Shoulder abduction WFL. Elbow flexion WFL. Wrist flexion WFL. Functional opening and closing of hand WFL. Left Upper Extremity: Shoulder Flexion WFL. Shoulder abduction WFL. Elbow flexion WFL. Wrist flexion WFL. Functional opening and closing of hand WFL. Right Lower Extremity: Hip flexion passively is 0 to 5 degrees. Hip abduction passively 0 to 5 degrees. Knee flexion 0 to 5 degrees passively. Ankle dorsiflexion WFL. Ankle plantarflexion WFL. Left Lower Extremity: Hip flexion 0 to 30 degrees in supine. Hip abduction 0 to 10 degrees in supine. Knee flexion 0 to 40 degrees in supine. Ankle dorsiflexion WFL. Ankle plantarflexion WFL. Strength: Right Upper Extremity: Shoulder flexors 4/5. Shoulder abductors 3-/5. Elbow flexors 3+/5. Elbow extensors 3+/5. Interpreter strong. Left Upper Extremity: Shoulder flexors 4/5. Shoulder abductors 3-/5. Elbow flexors 3+/5. Elbow extensors 3+/5. Interpreter strong. Right Lower Extremity: Hip flexors 1/5. Hip abductors 2-/5. Knee flexors 1/5. Knee extensors 1/5. Ankle dorsiflexors 4-/5. Ankle plantarflexors 4/5. Left Lower Extremity:Hip flexors 3-/5. Hip abductors 3-/5. Knee flexors 3-/5. Knee extensors 3-/5. Ankle dorsiflexors 4-/5. Ankle plantarflexors 4/5. Bed Mobility/Transfers: Rolling mod assist of 2 Supine to sit mod assist of 2 with head of bed elevated 45 degrees Sit to supine mod assist of 2 with head of bed elevated 45 degrees Sit to stand mod assist of 2 Stand to sit mod assist of 2 Bed to chair NT Chair to bed NT Gait: NT. Will reassess ability level during the afternoon session with plan to premedicate patient for pain. Nurse consulted and updated of plan. Balance: Static Sitting: Fair Dynamic Sitting: Fair Static Standing: Poor Dynamic Standing: Poor Special Tests: Mobility Limitations Standardized Measure [facility] AM-PAC 6 clicks Basic Mobility Inpatient Short Form: Raw Score: 11 CMS Score: 73% deficit Informed Consent/Education: Patient instructed in purpose of PT consult and plan of care. Patient was oriented with safe techniques and performing bed mobility skills in terms of hand placement and movement of BLE to minimize pain. Patient was also oriented with safe techniques would sit to stand movement as well as sidestepping while standing beside bed. Assessment: Patient is a 63 year old male referred to physical therapy services with the diagnosis right femoral shaft fracture status post ORIF on 03/13/2019. He is also status post ORIF with intramedullary rods and screw fixation for right intertrochanteric fracture on 02/25/2019 and is status post femoral?popliteal artery bypass on the left side on 02/27/2019 due to left critical limb ischemia. Patient presents with clinical signs and symptoms consistent with current/admitting diagnoses and postoperative status that have resulted to mobility limitations, gait instability, generalized weakness, and impairment of motor control as demonstrated by the following impairment level findings: 1. Decreased strength to B LE major muscle groups 2. Impaired sitting/standing balance 3. Impaired activity tolerance 4. Limitation of joint range of motion in right hip and knee Impairments are contributing to the following functional limitations: 1. Dependent bed mobility skills 2. Increased dependence with transfers 3. Inability to safely ambulate without assistive device and physical assistance 4. Increase completion time for mobility ADL performance 5. Increased fall risk 6. Inability to negotiate steps alone safely Patient is assessed as a High 31041 complexity based on the following: History: 63-year-old male with schizoaffective disorder who previously lived independently but has a returned case inspector in the community now with 2 successive orthopedic surgeries due to repeated falls; patient also has recent femoral?popliteal artery bypass on the left side due to critical limb ischemia Examination: Underlying impairments and functional limitations as noted above Presentation: Unstable Decision Makin high complexity Goals: Goals X1 week 1. Supine-Sit independent 2. Sit-Supine independent 3. Sit-Stand independent 4. Stand-Sit independent 5. Bed-Chair independent 6. Chair-Bed independent 7. Independent gait on level surface with use of least restrictive device for at least 300 feet without report of pain nor dyspnea 8. Independent stair negotiation while holding onto bilateral rails for at least 10 steps without report of pain nor dyspnea 9. Independent with home exercise program 10. Good static and dynamic standing balance/tolerance Plan of Care/Treatment Plan: 1-2x/day, 7 days/week x 1 week. Plan of care has been reviewed with the PUMP ERECTOR HELPER providing the service under Physical Therapy direction. Initiate Physical Therapy intervention for strengthening, bed mobility, transfers, gait, stairs, balance training, use of assistive device. DISCHARGE RECOMMENDATIONS: Patient will continue will highly benefit from SNF placement in order to maximize functional mobility level, progress assistive ambulatory device use, and facilitate return to the community. TREATMENT CODE/TIME: 17135 for 40 minutes, 27161 for 29 minutes, beginning at 10:37 AM. Thank you for this referral. Sofía Enriquez, PT, DPT, CLT [facility]
[2019-03-14] MEDS: Furosemide 20 MG/2 ML VIAL IVP (12:59)
[2019-03-14] MEDS: oxyCODONE 5 MG TAB PO (13:04)
--- NOTE | 2019-03-14 14:42 | W.NUTCONSULT ---
Date of service: 03/14/19 Time of Service: 14:42 Nutritional Consult ASSESSMENT: Mr. Rebolledo was sleeping when I went to go visit him. He is 66 and 75.6 kg. His BMI is 25.3 kg/m2 which is WNL. His estimated energy needs at this time are 2000 kcal/day based on REE x 1.1 (AF) x 1.2 (SF). His estimated protein needs are 98 g/day to 113g/day (1.3-1.5g/kg/day). He is on a regular diet. So far this admission, his PO intake has been poor to fair. NUTRITIONAL DIAGNOSIS: Increased need for nutrients related to wound healing/fractures. INTERVENTION: Will revisit Mr. Rebolledo, however CDM has visited with him for meals. We will offer him Ensure Plus to boost his calorie and protein intake to help meet his increased nutritional needs. He did take Ensure plus on his last admission here. Will also offer Bhavin supplements to aid in the healing process. MONITORING AND EVALUATION: 1. Will monitor tolerance to supplements and PO intake and weight. 2. Will evaluate nutrition care plan ongoing and adjust as needed. Thank you for the consult. Time Spent in Nutritional Counseling and Treatment: WILLIAN
--- NOTE | 2019-03-14 14:45 | CMPROGNOTE_ITS ---
Care Management Progress Note S/O-Met with Devin today. He was lying in bed, stated he thinks he had PT today (he did). Explained overall plan for him to return to the [facility] when stable following this hospitalization. He agreed with this plan. Spoke with Jeanna from the [facility] who stated that he has follow-up appt at [facility] on 03/16 at noon for vascular appt. Explained that DR Vasques had spoken with [facility] and this appt will be postponed until a later date. Jeanna will cancel the appt. A-63 yo man admitted with R femur fx. P-Transfer back to the [facility] as per MD, via w/c gal HERNANDEZ.
--- NOTE | 2019-03-14 14:49 | NS.NUTBLAN_ITS ---
Date of service: 03/14/19 Time of Service: 14:42 Nutritional Consult ASSESSMENT: Mr. Rebolledo was sleeping when I went to go visit him. He is 66 and 75.6 kg. His BMI is 25.3 kg/m2 which is WNL. His estimated energy needs at this time are 2000 kcal/day based on REE x 1.1 (AF) x 1.2 (SF). His estimated protein needs are 98 g/day to 113g/day (1.3-1.5g/kg/day). He is on a regular diet. So far this admission, his PO intake has been poor to fair. NUTRITIONAL DIAGNOSIS: Increased need for nutrients related to wound healing/fractures. INTERVENTION: Will revisit Mr. Rebolledo, however CDM has visited with him for meals. We will offer him Ensure Plus to boost his calorie and protein intake to help meet his increased nutritional needs. He did take Ensure plus on his last admission here . Will also offer Bhavin supplements to aid in the healing process. MONITORING AND EVALUATION: 1. Will monitor tolerance to supplements and PO intake and weight. 2. Will evaluate nutrition care plan ongoing and adjust as needed. Thank you for the consult. Time Spent in Nutritional Counseling and Treatment: WILLIAN
--- NOTE | 2019-03-14 14:56 | W.PM.PROGNOT ---
Date of Service Date of service: 03/14/19 Time of Service: 14:56 Assessment and Plan (1) Femur fracture, right: Current visit: Yes Status: Acute He is postoperative day #1 ORIF right femoral shaft fracture by Dr. Krueger. He is doing well postoperatively, he has been up with PT. This is in the setting of recent right hip fracture with repair 02/25/19 and recent vascular surgery with Femoral to anterior tibial bypass at [facility] one week ago. Continue PT and pain control. He will return to the [facility] when ready. (2) Critical lower limb ischemia: Current visit: No Status: Acute Status post femoral to anterior tibial bypass at [facility] last week. Tip of left second toe appears necrotic to DPJ, stable. Podiatry consulted. He has been evaluated by Wound nurse who plan to follow vascular recommendations for wounds on LLE. Continue aspirin and wound care. (3) Closed intertrochanteric fracture of right hip: Current visit: No Status: Acute Status post right hip fracture 02/25/2019. Continue PT and pain control. Qualifiers: Encounter type: initial encounter Fracture alignment: displaced Qualified Code(s): S72.141A - Displaced intertrochanteric fracture of right femur, initial encounter for closed fracture (4) Urinary retention: Current visit: No Status: Resolved History of urinary retention. Urinalysis was negative on admission. Catherine catheter in place. Discontinue catherine when he is mobilizing. (5) History of alcoholism: Current visit: No Status: Chronic Has has been abstinent from alcohol for over 2 weeks. On CIWA, not likely to show symptoms of withdrawal. (6) Tobacco dependence syndrome: Current visit: No Status: Chronic Continue nicotine replacement and encourage smoking cessation. (7) Schizoaffective disorder: Current visit: No Status: Chronic Continue home regimen. Qualifiers: Schizoaffective disorder type: bipolar Qualified Code(s): F25.0 - Schizoaffective disorder, bipolar type (8) Edema: Current visit: Yes Status: Acute To bilateral upper and lower extremities, with decreased urinary output. Give lasix IV 20 mg x1. Continue to monitor renal function. (9) Discharge planning issues: Current visit: No Status: Resolved He is a full code. He will return to the [facility] when he is ready for discharge. This case was discussed with Dr. Vasques who is in agreement. (10) DVT prophylaxis: Current visit: No Status: Acute Defer to ortho for DVT prophylaxis. Subjective Interval history since last seen: Mr. Rebolledo is Post-operative day #1 ORIF right femoral shaft fracture by Dr. Krueger. He reports that his pain is well controlled at rest, he has increased pain with activity. He denies dizziness, shortness of breath, coughing, wheezing, chest pain/pressure or palpitations. His urinary output has been low, he continues to have a catherine catheter in place. He denies any other concerns. Nursing reports edema to bilateral upper and lower extremities. Exam Narrative Exam Narrative: General: Resting in bed, awake and alert, answers questions appropriately. HEENT: normocephalic, atraumatic, face flushed, pupils equal and round, EOMI, mucous membranes moist. Neck: supple, no JVD. Respiratory: respirations even and unlabored, lung sound clear bilaterally. Cardiovascular: heart has regular rate and rhythm, no murmur appreciated. GI: normoactive bowel sounds throughout, abdomen soft, nondistended, nontender on palpation. Extremities: LLE with multiple dressings over surgical incisions, brace to LLE, 1-2+ pitting edema. Left second toe appears necrotic to DPJ, left heel with discoloration and boggy. Unable to palpate pedal pulse on left due to brace, toes pink and warm (except 2nd toe as above). RLE with incision to right lateral thigh- well approximated, healing well. RLE in knee immobilizer, right pedal pulse palpable, 2+ pitting edema. Bilateral upper extremities with edema L>R. Objective Objective Clinical Data: Abnormal lab results 03/14/19 03/14/19 Range/Units 06:15 06:15 WBC 11.55 H D (4.4-10.8) k/cumm RBC 3.04 L (4.50-6.00) m/cumm Hgb 9.2 L (13.5-17.5) g/dL Hct 29.0 L (40.0-50.0) % MCV 95.4 H (80-95) fL MCHC 31.7 L (32.0-36.0) g/dL RDW 16.8 H (11.8-14.1) % Plt Count 477 H (130-400) x1000/uL Absolute Neutrophils 9.41 H (1.2-6.7) k/cumm Absolute Monocytes 0.85 H (0.11-0.7) k/cumm BUN 19 H (7-18) mg/dL Glucose 128 H (70-100) mg/dL Calcium 7.9 L (8.5-10.1) mg/dL Vital Signs Temperature 37.0 C 03/14/19 12:00 Temperature Source Tympanic 03/14/19 12:00 Pulse 107 H 03/14/19 12:00 Pulse Rhythm Regular 03/14/19 07:18 Respiratory Rate 20 03/14/19 12:00 Respiratory Effort Non-Labored 03/14/19 07:18 Respiratory Depth Normal 03/14/19 07:18 Respiratory Pattern Normal 03/14/19 07:18 Blood Pressure 105/70 03/14/19 12:00 Blood Pressure Position Supine 03/12/19 17:55 Pulse Oximetry 96 03/14/19 12:00 Respiratory End-tidal CO2 26 03/13/19 17:30 Oxygen Delivery Method Room Air 03/14/19 12:00 Oxygen Flow Rate 0 03/14/19 12:00 Pain Level 5 03/14/19 13:04 Comment 03/12/19 17:55 Intake & Output 03/13/19 03/14/19 03/14/19 23:59 11:59 23:59 Intake Total 2166.667 / 3850.000 2421.667 / 2701.667 280 / 2701.667 Output Total 1300 / 1600 250 / 250 Balance 866.667 / 2250.000 2171.667 / 2451.667 280 / 2451.667 Intake: IV 1996.667 / 2920.000 1841.667 / 1881.667 40 / 1881.667 Oral 170 / 930 580 / 820 240 / 820 Output: Urine 1050 / 1350 250 / 250 Estimated Blood Loss 250 / 250 Other: Urine Color Yellow Dark Zakia Urine Appearance Clear Cloudy Emesis Description None Laboratory Results WBC 11.55 k/cumm (4.4-10.8) H D 03/14/19 06:15 RBC 3.04 m/cumm (4.50-6.00) L 03/14/19 06:15 Hgb 9.2 g/dL (13.5-17.5) L 03/14/19 06:15 Hct 29.0 % (40.0-50.0) L 03/14/19 06:15 MCV 95.4 fL (80-95) H 03/14/19 06:15 MCH 30.3 pg (27.0-33.0) 03/14/19 06:15 MCHC 31.7 g/dL (32.0-36.0) L 03/14/19 06:15 RDW 16.8 % (11.8-14.1) H 03/14/19 06:15 Plt Count 477 x1000/uL (130-400) H 03/14/19 06:15 MPV 9.3 fL (8.0-11.0) 03/14/19 06:15 Immature Gran % 0.2 03/14/19 06:15 Neutrophils % 81.5 03/14/19 06:15 Lymphocytes % 10.8 03/14/19 06:15 Monocytes % 7.4 03/14/19 06:15 Eosinophils % 0.0 03/14/19 06:15 Basophils % 0.1 03/14/19 06:15 Absolute Neutrophils 9.41 k/cumm (1.2-6.7) H 03/14/19 06:15 Absolute Lymphocytes 1.25 k/cumm (1.2-3.4) 03/14/19 06:15 Absolute Monocytes 0.85 k/cumm (0.11-0.7) H 03/14/19 06:15 Absolute Eosinophils 0.00 k/cumm (0.0-0.7) 03/14/19 06:15 Absolute Basophils 0.01 k/cumm (0.0-0.2) 03/14/19 06:15 Differential Comment Rbc morph reviewed 03/14/19 06:15 RBC Morphology See below 03/14/19 06:15 Polychromasia Present 03/14/19 06:15 Hypochromasia 2+ 03/14/19 06:15 Poikilocytosis 1+ 03/14/19 06:15 Anisocytosis 2+ 03/14/19 06:15 PT 9.8 sec (9.3-11.0) 03/12/19 18:20 INR 1.0 (0.9-1.1) 03/12/19 18:20 APTT 21.3 sec (21.0-31.4) 03/12/19 18:20 Sodium 139 mmol/L (136-145) 03/14/19 06:15 Potassium 3.5 mmol/L (3.5-5.1) 03/14/19 06:15 Chloride 107 mmol/L (98-107) 03/14/19 06:15 Carbon Dioxide 22.6 mmol/L (21.0-32.0) 03/14/19 06:15 Anion Gap 9.4 mmol/L (3-11) 03/14/19 06:15 BUN 19 mg/dL (7-18) H 03/14/19 06:15 Creatinine 0.88 mg/dL (0.70-1.30) 03/14/19 06:15 Estimated GFR/1.73 m2 >= 60.00 (mL/min/1.73m2) 03/14/19 06:15 Glucose 128 mg/dL (70-100) H 03/14/19 06:15 Calcium 7.9 mg/dL (8.5-10.1) L 03/14/19 06:15 Magnesium 1.8 mg/dL (1.8-2.4) 03/14/19 06:15 Total Bilirubin 0.4 mg/dL (0.2-1.0) 03/12/19 18:20 AST 25 U/L (15-37) 03/12/19 18:20 ALT 23 U/L (12-78) 03/12/19 18:20 Alkaline Phosphatase 198 U/L (46-116) H 03/12/19 18:20 Troponin I 0.06 ng/mL (0.00-0.06) 03/12/19 18:20 Total Protein 5.6 g/dL (6.4-8.2) L 03/12/19 18:20 Albumin 1.7 g/dL (3.4-5.0) L 03/12/19 18:20 Urine Color Yellow (Yellow) 03/12/19 20:15 Urine Clarity Clear 03/12/19 20:15 Urine pH 5.5 (5-8) 03/12/19 20:15 Ur Specific Decker 1.015 (1.005-1.025) 03/12/19 20:15 Urine Protein Negative mg/dL (Negative) 03/12/19 20:15 Urine Ketones Negative mg/dL (Negative) 03/12/19 20:15 Urine Blood Negative (Negative) 03/12/19 20:15 Urine Nitrite Negative (Negative) 03/12/19 20:15 Urine Bilirubin Negative (Negative) 03/12/19 20:15 Urine Urobilinogen 0.2 EU/dL (Up TO 0.2) 03/12/19 20:15 Ur Leukocyte Esterase Negative (Negative) 03/12/19 20:15 Urine Glucose Negative mg/dL (Negative) 03/12/19 20:15 Patient ABO/Rh A Positive 03/13/19 19:50 Antibody Screen Negative 03/13/19 19:50
--- NOTE | 2019-03-14 15:52 | W.PM.PROGNOT ---
Date of Service Date of service: 03/14/19 Time of Service: 15:52 Assessment and Plan (1) Femur fracture, right: Current visit: Yes Status: Acute Assessment: Stable postop day #1 ORIF of fracture right femoral shaft. Plan: Mobilize with physical therapy. Would use a knee immobilizer to walk for additional support. Will remove the immobilizer for range of motion exercises of the right knee. Recheck hemoglobin tomorrow. Subjective Interval history since last seen: He says he feels dramatically better today than yesterday. He is feeling minimal pain today. He slept well and ate a good breakfast. Exam Narrative Exam Narrative: Hemoglobin 9.2 g today. He has good active motion of his right toes and ankle. Swelling in his right foot is decreased compared to yesterday. He has good light touch sensation to both feet. He has been up ambulating in the room with PT. He is much more alert and oriented today. Objective Objective Clinical Data: Abnormal lab results 03/14/19 03/14/19 Range/Units 06:15 06:15 WBC 11.55 H D (4.4-10.8) k/cumm RBC 3.04 L (4.50-6.00) m/cumm Hgb 9.2 L (13.5-17.5) g/dL Hct 29.0 L (40.0-50.0) % MCV 95.4 H (80-95) fL MCHC 31.7 L (32.0-36.0) g/dL RDW 16.8 H (11.8-14.1) % Plt Count 477 H (130-400) x1000/uL Absolute Neutrophils 9.41 H (1.2-6.7) k/cumm Absolute Monocytes 0.85 H (0.11-0.7) k/cumm BUN 19 H (7-18) mg/dL Glucose 128 H (70-100) mg/dL Calcium 7.9 L (8.5-10.1) mg/dL Vital Signs Temperature 37.0 C 03/14/19 12:00 Temperature Source Tympanic 03/14/19 12:00 Pulse 107 H 03/14/19 12:00 Pulse Rhythm Regular 03/14/19 07:18 Respiratory Rate 20 03/14/19 12:00 Respiratory Effort Non-Labored 03/14/19 07:18 Respiratory Depth Normal 03/14/19 07:18 Respiratory Pattern Normal 03/14/19 07:18 Blood Pressure 105/70 03/14/19 12:00 Blood Pressure Position Supine 03/12/19 17:55 Pulse Oximetry 96 03/14/19 12:00 Respiratory End-tidal CO2 26 03/13/19 17:30 Oxygen Delivery Method Room Air 03/14/19 12:00 Oxygen Flow Rate 0 03/14/19 12:00 Pain Level 5 03/14/19 13:04 Comment 03/12/19 17:55 Intake & Output 03/13/19 03/14/19 03/14/19 23:59 11:59 23:59 Intake Total 2166.667 / 3850.000 2421.667 / 2701.667 280 / 2701.667 Output Total 1300 / 1600 250 / 250 Balance 866.667 / 2250.000 2171.667 / 2451.667 280 / 2451.667 Intake: IV 1996.667 / 2920.000 1841.667 / 1881.667 40 / 1881.667 Oral 170 / 930 580 / 820 240 / 820 Output: Urine 1050 / 1350 250 / 250 Estimated Blood Loss 250 / 250 Other: Urine Color Yellow Dark Zakia Urine Appearance Clear Cloudy Emesis Description None Laboratory Results WBC 11.55 k/cumm (4.4-10.8) H D 03/14/19 06:15 RBC 3.04 m/cumm (4.50-6.00) L 03/14/19 06:15 Hgb 9.2 g/dL (13.5-17.5) L 03/14/19 06:15 Hct 29.0 % (40.0-50.0) L 03/14/19 06:15 MCV 95.4 fL (80-95) H 03/14/19 06:15 MCH 30.3 pg (27.0-33.0) 03/14/19 06:15 MCHC 31.7 g/dL (32.0-36.0) L 03/14/19 06:15 RDW 16.8 % (11.8-14.1) H 03/14/19 06:15 Plt Count 477 x1000/uL (130-400) H 03/14/19 06:15 MPV 9.3 fL (8.0-11.0) 03/14/19 06:15 Immature Gran % 0.2 03/14/19 06:15 Neutrophils % 81.5 03/14/19 06:15 Lymphocytes % 10.8 03/14/19 06:15 Monocytes % 7.4 03/14/19 06:15 Eosinophils % 0.0 03/14/19 06:15 Basophils % 0.1 03/14/19 06:15 Absolute Neutrophils 9.41 k/cumm (1.2-6.7) H 03/14/19 06:15 Absolute Lymphocytes 1.25 k/cumm (1.2-3.4) 03/14/19 06:15 Absolute Monocytes 0.85 k/cumm (0.11-0.7) H 03/14/19 06:15 Absolute Eosinophils 0.00 k/cumm (0.0-0.7) 03/14/19 06:15 Absolute Basophils 0.01 k/cumm (0.0-0.2) 03/14/19 06:15 Differential Comment Rbc morph reviewed 03/14/19 06:15 RBC Morphology See below 03/14/19 06:15 Polychromasia Present 03/14/19 06:15 Hypochromasia 2+ 03/14/19 06:15 Poikilocytosis 1+ 03/14/19 06:15 Anisocytosis 2+ 03/14/19 06:15 PT 9.8 sec (9.3-11.0) 03/12/19 18:20 INR 1.0 (0.9-1.1) 03/12/19 18:20 APTT 21.3 sec (21.0-31.4) 03/12/19 18:20 Sodium 139 mmol/L (136-145) 03/14/19 06:15 Potassium 3.5 mmol/L (3.5-5.1) 03/14/19 06:15 Chloride 107 mmol/L (98-107) 03/14/19 06:15 Carbon Dioxide 22.6 mmol/L (21.0-32.0) 03/14/19 06:15 Anion Gap 9.4 mmol/L (3-11) 03/14/19 06:15 BUN 19 mg/dL (7-18) H 03/14/19 06:15 Creatinine 0.88 mg/dL (0.70-1.30) 03/14/19 06:15 Estimated GFR/1.73 m2 >= 60.00 (mL/min/1.73m2) 03/14/19 06:15 Glucose 128 mg/dL (70-100) H 03/14/19 06:15 Calcium 7.9 mg/dL (8.5-10.1) L 03/14/19 06:15 Magnesium 1.8 mg/dL (1.8-2.4) 03/14/19 06:15 Total Bilirubin 0.4 mg/dL (0.2-1.0) 03/12/19 18:20 AST 25 U/L (15-37) 03/12/19 18:20 ALT 23 U/L (12-78) 03/12/19 18:20 Alkaline Phosphatase 198 U/L (46-116) H 03/12/19 18:20 Troponin I 0.06 ng/mL (0.00-0.06) 03/12/19 18:20 Total Protein 5.6 g/dL (6.4-8.2) L 03/12/19 18:20 Albumin 1.7 g/dL (3.4-5.0) L 03/12/19 18:20 Urine Color Yellow (Yellow) 03/12/19 20:15 Urine Clarity Clear 03/12/19 20:15 Urine pH 5.5 (5-8) 03/12/19 20:15 Ur Specific Crowder 1.015 (1.005-1.025) 03/12/19 20:15 Urine Protein Negative mg/dL (Negative) 03/12/19 20:15 Urine Ketones Negative mg/dL (Negative) 03/12/19 20:15 Urine Blood Negative (Negative) 03/12/19 20:15 Urine Nitrite Negative (Negative) 03/12/19 20:15 Urine Bilirubin Negative (Negative) 03/12/19 20:15 Urine Urobilinogen 0.2 EU/dL (Up TO 0.2) 03/12/19 20:15 Ur Leukocyte Esterase Negative (Negative) 03/12/19 20:15 Urine Glucose Negative mg/dL (Negative) 03/12/19 20:15 Patient ABO/Rh A Positive 03/13/19 19:50 Antibody Screen Negative 03/13/19 19:50
[2019-03-14] MEDS: Normal Saline 1,000 ML 100 ML IV ×2 (16:05→23:56)
--- NOTE | 2019-03-14 17:32 | WOUNDCARE ---
Wound Care Report: This nurse was consulted on the care of wounds to patient's left foot. Patient was admitted for right hip fracture which was repaired yesterday. He was treated at [facility] vascular surgery a couple of weeks ago and underwent a tibial-femoral artery bypass to his left lower extremity. Chart review was completed. This nurse noted a suspected deep tissue injury to patient's left heel measuring 3.5 x 7.5 cm. This area is dark purple in color and warm to the touch. Patient denies any tenderness to this area. Both heels are somewhat soft to palpation. This nurse recommends applying skin prep to bilateral heels BID and performing offloading to bilateral heels. Patient's 2nd toe to his left foot is blackened and necrotic. This nurse recommends consulting podiatry for this toe.
--- NOTE | 2019-03-14 17:37 | PTTR_ITS ---
Date of service: 03/14/19 Time of Service: 13:41 PT Notes Inpatient Physical Therapy Treatment Note [facility] Date: 02/25/2019 PRECAUTIONS: Fall. On contact precautions. SUBJECTIVE: Patient denies nausea and dizziness. He reports no chest pain nor headache throughout PT session. OBJECTIVE: Patient seen resting in bed. IV in the left UV. Schulte catheter on. Knee immobilizer on right. Heel off-loading boot splint on the left. Fletcher seen on left inguinal area. CHIDI wraps on right LE covering surgical incision. PAIN: 1/10 left lateral chest BED MOBILITY/TRANSFERS Rolling mod assist of 2 Supine to sit mod assist of 2 with head of bed elevated 45 degrees Sit to supine mod assist of 2 with head of bed elevated 45 degrees Sit to stand mod assist of 2 Stand to sit mod assist of 2 Bed to chair NT Chair to bed NT GAIT Assistive Device: FWW Weight bearing: WBAT on BLE Assist: Moderate is moderate assist of PT and standby assist of A CLASS LINEMAN for chair follow and IV pole management Distance: 18 feet Deviation: Antalgia observed with increased stance time noted on affected LE and decreased swing time on non-affected side. Verbal cues given to facilitate neutral trunk alignment. Patient has a tendency to anticipate pain. THEREX: Patient completed seated level exercises: Persistent hip and knee extension x 10 while reclined on chair along with resisted ankle dorsiflexion and plantarflexion x10 as indicated in exercise flow sheet without undue fatigue, significant increase in pain, increase in dyspnea. ASSESSMENT: Patient demonstrates good tolerance to physical therapy session with observed improvement in terms of pain level, activity tolerance, self-efficacy/confidence, and participation level. Continue to coordinate with nurse for premedication for pain for optimal functional performance. PLAN: Patient to progress with mobility level, functional performance, and knowledge of HEP to achieve previously established goals. TREATMENT CODE/TIME: 92677 for 17 minutes, 32536 for 10 minutes, beginning at 13:41 PM.
[2019-03-14] MEDS: Enoxaparin 40 MG/0.4 ML SYR SC (17:56)
--- NOTE | 2019-03-14 19:24 | W.PODCONSULT ---
Date of service: 03/14/19 Time of Service: 19:25 History of Present Illness Chief Complaint: necrotic left 2nt toe, heel wound Narrative: Devin is a 63-year-old white male who underwent a femoral anterior tibial bypass procedure at [facility] sometime last week for limb salvage, critical limb ischemia. I have been asked to evaluate his left second toe and heel wound. He has also undergone right femoral repair x2 for fracture. He is seen at bedside resting comfortably. Comorbidities include schizoaffective disorder, alcohol abuse, hypertension, hypomagnesemia, B12 deficiency, folate deficiency, tobacco dependency, GERD, UTI, descending thoracic aortic aneurysm, prostatitis, peripheral arterial disease, urinary retention, right hip fracture He has no known drug allergies. Current medications noted. Physical examination: Multi-Podus boot is applied to the left foot and ankle. The boot is removed without difficulty. Surgical dressings are noted over the incision medial thigh and leg these are not removed. The left foot is pink, warm to the touch, without edema. Utilizing the Doppler the dorsalis pedis and anterior tibial arterial structures appear open with good pulsation. The posterior tibial artery is also audible although weak. The digits are pink with the exception of the tip of the left second toe which has a dark dry gangrenous area starting at the distal interphalangeal joint dorsally and extending over the tip of the toe to just proximal of the DIPJ. There is no erythema, cellulitis, drainage or active signs of infection at this time. The posterior left heel region has a flaccid blood-filled blister and is generally boggy. The skin remains intact, there is no active sign of infection. Right foot appears clinically stable at this time. Impression: Dry gangrene distal aspect of the left second toe as above Heel decubital ulcer, left, evolving Plan: No intervention is necessary for the left second toe at this time. As long as the necrosis remains dry, there is no risk to the patient. Bypass procedure is patent and vascularization is reforming within the foot and with any luck a portion of the left second toe may actually recover. Patience is prudent and will help to define if an amputation will be necessary and at what level. The left heel ulcer will be a bigger project. At this time, pressure abatement measures are being performed and are appropriate. The Multi-Podus boot offloads the posterior heel. Once the skin?tissue begins to change, whether it ulcerates or becomes an eschar active wound care modalities can be utilized. I will be happy to continue to follow him while he remains in this area. Thank you for the consultation. [facility] Medical History PAD (peripheral artery disease) (Chronic) Prostatitis (Acute) Descending thoracic aortic aneurysm (Chronic) Hyponatremia (Chronic) Gastroesophageal reflux disease (Chronic) Tobacco dependence syndrome (Chronic) Constipation (Chronic) Hyponatremia (Chronic) Alcohol abuse (Chronic) Schizoaffective disorder (Chronic) Anemia (Chronic) Hypertension (Chronic) Hypomagnesemia (Chronic) B12 deficiency (Chronic) Folate deficiency (Chronic) History of alcoholism (Chronic) S/P right hip fracture (Acute) Anxiety (Chronic) Hemolytic uremic syndrome (Resolved) Alcohol abuse COPD (chronic obstructive pulmonary disease) GERD (gastroesophageal reflux disease) Pneumonitis Schizophrenia Tremor Surgical History S/P femoral-popliteal bypass surgery (Acute) History of ankle surgery (Acute) Family History Mother Asthma Father RI (myocardial infarction) Grandmother Diabetes Colon cancer Maternal Uncle Hyperlipidemia Other Lung cancer Social History Smoking/Tobacco Use Status: Current, status unknown Tobacco Type: cigarettes Alcohol Intake: current Alcohol Intake frequency: 3 or more drinks per day Alcohol type: beer Details: drinks a 6 pack of beer per day Drug use: Never Substance use type: does not use Details: Patient comes from the [facility] for rehab, unsure of drinking/ tobacco use status. Patient unable to answer questions. Do you feel safe at home: Yes Do you feel safe in your relationship?: Yes Results Last Vital Signs Temp 37.2 C 03/14/19 16:02 Pulse 88 03/14/19 16:02 Resp 18 03/14/19 16:02 BP 115/76 03/14/19 16:02 Pulse Ox 98 03/14/19 16:02 Labs : 03/14/19 06:15 03/14/19 06:15 Laboratory Results - last 24 hr 04/03/14/19 03/14/19 19:50 06:15 06:15 WBC 11.55 H D RBC 3.04 L Hgb 9.2 L Hct 29.0 L MCV 95.4 H MCH 30.3 MCHC 31.7 L RDW 16.8 H Plt Count 477 H MPV 9.3 Immature Gran % 0.2 Neutrophils % 81.5 Lymphocytes % 10.8 Monocytes % 7.4 Eosinophils % 0.0 Basophils % 0.1 Absolute Neutrophils 9.41 H Absolute Lymphocytes 1.25 Absolute Monocytes 0.85 H Absolute Eosinophils 0.00 Absolute Basophils 0.01 Differential Comment Rbc morph reviewed RBC Morphology See below Polychromasia Present Hypochromasia 2+ Poikilocytosis 1+ Anisocytosis 2+ Sodium 139 Potassium 3.5 Chloride 107 Carbon Dioxide 22.6 Anion Gap 9.4 BUN 19 H Creatinine 0.88 Estimated GFR/1.73 m2 >= 60.00 Glucose 128 H Calcium 7.9 L Magnesium 1.8 Patient ABO/Rh A Positive Antibody Screen Negative
--- NOTE | 2019-03-14 19:40 | POCOE_ITS ---
Date of service: 03/14/19 Time of Service: 19:25 History of Present Illness Chief Complaint: necrotic left 2nt toe, heel wound Narrative: Devin is a 63-year-old white male who underwent a femoral anterior tibial bypass procedure at [facility] sometime last week for limb salvage, critical limb ischemia. I have been asked to evaluate his left second toe and heel wound . He has also undergone right femoral repair x2 for fracture. He is seen at bedside resting comfortably. Comorbidities include schizoaffective disorder, alcohol abuse, hypertension, hypomagnesemia, B12 deficiency, folate deficiency, tobacco dependency, GERD, UTI, descending thoracic aortic aneurysm, prostatitis, peripheral arterial disease, urinary retention, right hip fracture He has no known drug allergies. Current medications noted. Physical examination: Multi-Podus boot is applied to the left foot and ankle. The boot is removed without difficulty. Surgical dressings are noted over the incision medial thigh and leg these are not removed. The left foot is pink, warm to the touch, without edema. Utilizing the Doppler the dorsalis pedis and anterior tibial arterial structures appear open with good pulsation. The posterior tibial artery is also audible although weak. The digits are pink with the exception of the tip of the left second toe which has a dark dry gangrenous area starting at the distal interphalangeal joint dorsally and extending over the tip of the toe to just proximal of the DIPJ. There is no erythema, cellulitis, drainage or active signs of infection at this time. The posterior left heel region has a flaccid blood-filled blister and is generally boggy. The skin remains intact, there is no active sign of infection. Right foot appears clinically stable at this time. Impression: Dry gangrene distal aspect of the left second toe as above Heel decubital ulcer, left, evolving Plan: No intervention is necessary for the left second toe at this time. As long as the necrosis remains dry, there is no risk to the patient. Bypass procedure is patent and vascularization is reforming within the foot and with any luck a portion of the left second toe may actually recover. Patience is prudent and will help to define if an amputation will be necessary and at what level. The left heel ulcer will be a bigger project. At this time, pressure abatement measures are being performed and are appropriate. The Multi-Podus boot offloads the posterior heel. Once the skin?tissue begins to change, whether it ulcerates or becomes an eschar active wound care modalities can be utilized. I will be happy to continue to follow him while he remains in this area. Thank you for the consultation. [facility] Medical History PAD (peripheral artery disease) (Chronic) Prostatitis (Acute) Descending thoracic aortic aneurysm (Chronic) Hyponatremia (Chronic) Gastroesophageal reflux disease (Chronic) Tobacco dependence syndrome (Chronic) Constipation (Chronic) Hyponatremia (Chronic) Alcohol abuse (Chronic) Schizoaffective disorder (Chronic) Anemia (Chronic) Hypertension (Chronic) Hypomagnesemia (Chronic) B12 deficiency (Chronic) Folate deficiency (Chronic) History of alcoholism (Chronic) S/P right hip fracture (Acute) Anxiety (Chronic) Hemolytic uremic syndrome (Resolved) Alcohol abuse COPD (chronic obstructive pulmonary disease) GERD (gastroesophageal reflux disease) Pneumonitis Schizophrenia Tremor Surgical History S/P femoral-popliteal bypass surgery (Acute) History of ankle surgery (Acute) Family History Mother Asthma Father HI (myocardial infarction) Grandmother Diabetes Colon cancer Maternal Uncle Hyperlipidemia Other Lung cancer Social History Smoking/Tobacco Use Status: Current, status unknown Tobacco Type: cigarettes Alcohol Intake: current Alcohol Intake frequency: 3 or more drinks per day Alcohol type: beer Details: drinks a 6 pack of beer per day Drug use: Never Substance use type: does not use Details: Patient comes from the [facility] for rehab, unsure of drinking/ tobacco use status. Patient unable to answer questions. Do you feel safe at home: Yes Do you feel safe in your relationship?: Yes Results Last Vital Signs Temp 37.2 C 03/14/19 16:02 Pulse 88 03/14/19 16:02 Resp 18 03/14/19 16:02 BP 115/76 03/14/19 16:02 Pulse Ox 98 03/14/19 16:02 Labs : 03/14/19 06:15 03/14/19 06:15 Laboratory Results - last 24 hr 04/03/14/19 03/14/19 19:50 06:15 06:15 WBC 11.55 H D RBC 3.04 L Hgb 9.2 L Hct 29.0 L MCV 95.4 H MCH 30.3 MCHC 31.7 L RDW 16.8 H Plt Count 477 H MPV 9.3 Immature Gran % 0.2 Neutrophils % 81.5 Lymphocytes % 10.8 Monocytes % 7.4 Eosinophils % 0.0 Basophils % 0.1 Absolute Neutrophils 9.41 H Absolute Lymphocytes 1.25 Absolute Monocytes 0.85 H Absolute Eosinophils 0.00 Absolute Basophils 0.01 Differential Comment Rbc morph reviewed RBC Morphology See below Polychromasia Present Hypochromasia 2+ Poikilocytosis 1+ Anisocytosis 2+ Sodium 139 Potassium 3.5 Chloride 107 Carbon Dioxide 22.6 Anion Gap 9.4 BUN 19 H Creatinine 0.88 Estimated GFR/1.73 m2 >= 60.00 Glucose 128 H Calcium 7.9 L Magnesium 1.8 Patient ABO/Rh A Positive Antibody Screen Negative
[2019-03-14] MEDS: Normal Saline 500 ML IV (19:47)
[2019-03-14 20:07] LABS: HCT 25.9 % (40.0-50.0)
[2019-03-14] MEDS: Senna TAB 2 TAB PO (21:34)
[2019-03-14] MEDS: Tamsulosin 0.4 MG CAPCR PO (21:34)
[2019-03-14] MEDS: Atorvastatin 20 MG TAB 40 MG PO (21:35)
[2019-03-14] MEDS: risperiDONE 1 MG TAB PO (21:35)
[2019-03-14] MEDS: Mirtazapine 15 MG TAB PO (21:35)
[2019-03-15] VITALS (9 sets, daily range): BP systolic 94–145; BP diastolic 57–95; PULSE 91–119; RESP 18–22; TEMP 36.5–37.7; O2SAT 93–97
[2019-03-15] MEDS: oxyCODONE-CR 10 MG TABCR PO ×2 (05:47→17:53)
[2019-03-15] MEDS: Ketorolac 30 MG/ML VIAL IVP ×2 (05:47→12:02)
[2019-03-15] MEDS: Omeprazole 20 MG CAPCR PO (05:47)
[2019-03-15] MEDS: Polyethylene Glycol 3350 17 GM PACKET PO ×2 (05:48→08:59)
[2019-03-15 07:33] LABS: Abs Immature Grans 0.03 k/cumm (0.0-0.09); Absolute Eosinophil Count 0.18 k/cumm (0.0-0.7); Absolute Lymphocyte Count 1.75 k/cumm (1.2-3.4); Absolute Monocyte Count 0.88 k/cumm (0.11-0.7); Basophils % 0.4; Eosinophils % 1.6; HCT 29.2 % (40.0-50.0); HGB 9.2 g/dL (13.5-17.5); Immature Grans % 0.3; Lymphocytes % 15.5; Mean Corp. HGB Concentration 31.5 g/dL (32.0-36.0); Mean Corpuscular Hemoglobin 30.5 pg (27.0-33.0); Mean Corpuscular Volume 96.7 fL (80-95); Mean Platelet Volume 9.4 fL (8.0-11.0); Monocytes % 7.8; Neutrophils % 74.4; Platelet Count 469 x1000/uL (130-400); RBC 3.02 m/cumm (4.50-6.00); RBC Distribution Width 16.4 % (11.8-14.1); White Blood Cell Count 11.29 k/cumm (4.4-10.8)
[2019-03-15 07:34] LABS: Absolute Basophil Count 0.05 k/cumm (0.0-0.2)
[2019-03-15 07:56] LABS: BUN 19 mg/dL (7-18); CREATININE 1.13 mg/dL (0.70-1.30); Calcium 7.5 mg/dL (8.5-10.1); Chloride 110 mmol/L (98-107); Glucose 95 mg/dL (70-100); Magnesium 1.6 mg/dL (1.8-2.4); Potassium 3.8 mmol/L (3.5-5.1); Sodium 140 mmol/L (136-145)
[2019-03-15] MEDS: Acetaminophen 500 MG TAB 1000 MG PO (08:59)
[2019-03-15] MEDS: Gabapentin 100 MG CAP PO ×3 (08:59→19:32)
[2019-03-15] MEDS: Magnesium Gluconate 500 MG TAB PO ×2 (08:59→19:32)
[2019-03-15] MEDS: Aspirin 81 MG CHEW PO (09:00)
[2019-03-15] MEDS: Docusate Sodium 100 MG CAP PO ×3 (09:00→19:32)
[2019-03-15] MEDS: Thiamine 100 MG TAB PO (09:00)
[2019-03-15] MEDS: MAGNESIUM SULFATE 2 GM/50 ML BAG IVPB (09:50)
[2019-03-15] MEDS: Potassium Chloride 20 MEQ TABCR PO (09:51)
[2019-03-15] MEDS: Normal Saline 1,000 ML 100 ML IV (10:18)
--- NOTE | 2019-03-15 12:17 | PDOC.CMPRO ---
- If Service Date Differs Date of service: 03/15/19 Time of Service: 12:17 Care Management Progress Note S/O:Met with Devin today. at the bedside he is lying in bed ready to fall asleep. He appears drowsy during the visit he states his pain medication makes him feel sleepy. He is willing to complete an advance directive while inpatient. CM did update the [facility] with clinical information. Devin is not ready to be discharged today he received a unit of PRC yesterday and his hct and hgb continue to be monitored. A:63 yo man admitted with R femur fx. P:Devin will be discharged back to the [facility] when medically ready. He continues to receive PT services. He will transport to the [facility] via w/c van with RCT.
--- NOTE | 2019-03-15 12:22 | CMPROGNOTE_ITS ---
- If Service Date Differs Date of service: 03/15/19 Time of Service: 12:17 Care Management Progress Note S/O:Met with Devin today. at the bedside he is lying in bed ready to fall asleep. He appears drowsy during the visit he states his pain medication makes him feel sleepy. He is willing to complete an advance directive while inpatient. CM did update the [facility] with clinical information. Devin is not ready to be discharged today he received a unit of PRC yesterday and his hct and hgb continu e to be monitored. A:63 yo man admitted with R femur fx. P:Devin will be discharged back to the [facility] when medically ready. He continues to receive PT services. He will transport to the [facility] via w/c van with RCT.
--- NOTE | 2019-03-15 12:31 | PT.INTREAT ---
Date of service: 03/15/19 Time of Service: 12:31 PT Notes Inpatient Physical Therapy Treatment Note [facility] Date: 03/15/19 PRECAUTIONS: Fall, WBAT on R SUBJECTIVE: Devin is agreeable to participating in PT, and indicates that he would like to use the commode while he is up, in a.m. In the afternoon patient reports that he is feeling a little better after he got a little rest. OBJECTIVE: PAIN: Patient c/o pain in R LE with movement and weight bearing BED MOBILITY/TRANSFERS Supine-sit: Min A of R LE Sit-supine: Max A Sit-stand: Mod A in a.m.; Min A x2 in p.m. Stand-sit: Mod A in a.m.; Min A in p.m. GAIT Assistive Device: FWW Weight bearing: WBAT on R Assist: Mod A x2 in a.m.; CGA + SBA in p.m. Distance: 5' + 3' in a.m.; 20' in p.m. Deviation: Max cueing for gait sequence and movement initiation, tactile cueing to advance R and L foot in a.m.; minimal cueing for movement initiation in p.m. THEREX: Patient completed a lower extremity strengthening and stabilization program, bilaterally, as per flow sheet. Knee immobilizer was removed in order to mobilize R LE. Patient complained of minimal discomfort with heel slide and SLR exercises. TOILETING: Patient toileted with total assist. While toileting, patient c/o dizziness and lightheadedness. ASSESSMENT: Patient tolerated session with complaints of R LE pain. He was able to tolerate a slight progression in gait distance with FWW support and CGA + SBA. Patient was also able to tolerate a progression in ther ex program, modifications made to repetitions are noted on flow sheet. Patient would benefit from continued gait and transfer training, as well as strengthening for improved activity tolerance and mobility. PLAN: Continue with PT's POC TREATMENT CODE/TIME: Session 1: 30 minutes; [id number] x2 Session 2: 40 minutes; [id number], [id number] x2
--- NOTE | 2019-03-15 12:36 | PGE_ITS ---
Date of Service Date of service: 03/15/19 Time of Service: 12:26 Assessment and Plan (1) Femur fracture, right: Current visit: Yes Status: Acute He is postoperative day #2 ORIF right femoral shaft fracture by Dr. Krueger. He had hypotension overnight and received one unit of PRBCs. His hgb is stable, not up this morning. He is working with PT. He had recent right hip fracture with repair 02/25/19 and recent vascular surgery with Femoral to anterior tibial bypass at [facility] one week ago. Continue PT and pain control. He will return to the [facility] when ready. (2) Anemia: Current visit: No Status: Chronic Had hypotension overnight, received 1 unit of packed red blood cells. Hemoglobin stable this morning, not increased after 1 unit of blood. Reassess hemoglobin and hematocrit at 1400. Heme test stools. (3) Critical lower limb ischemia: Current visit: No Status: Acute Status post femoral to anterior tibial bypass at [facility] last week. 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 Podiatry is following him. Dr. Grimaldo recommends holding off on interventions for the toe for the present time. Continue to offload pressure from L heel. Podiatry will continue to follow. He has been evaluated by Wound nurse who plan to follow vascular recommendations for wounds on LLE. Continue aspirin and wound care. (4) Closed intertrochanteric fracture of right hip: Current visit: No Status: Acute Status post right hip fracture 02/25/2019. Continue PT and pain control. Qualifiers: Encounter type: initial encounter Fracture alignment: displaced Qualified Code(s): S72.141A - Displaced intertrochanteric fracture of right femur, initial encounter for closed fracture (5) Urinary retention: Current visit: No Status: Resolved History of urinary retention. Urinalysis was negative on admission. Catherine catheter in place. Discontinue catherine when he is mobilizing. (6) History of alcoholism: Current visit: No Status: Chronic Has has been abstinent from alcohol for over 2 weeks. Not likely to show symptoms of withdrawal. Discontinue CIWA protocol. (7) Tobacco dependence syndrome: Current visit: No Status: Chronic Continue nicotine replacement and encourage smoking cessation. (8) Schizoaffective disorder: Current visit: No Status: Chronic Continue home regimen. Qualifiers: Schizoaffective disorder type: bipolar Qualified Code(s): F25.0 - Schizoaffective disorder, bipolar type (9) Edema: Current visit: Yes Status: Acute To bilateral upper and lower extremities, with decreased urinary output. Edema improving. Continue to monitor. Continue gentle IV hydration. (10) DVT prophylaxis: Current visit: No Status: Acute Hold chemical DVT prophylaxis in the setting of possible bleed. Resume Lovenox when stabilized. (11) Discharge planning issues: Current visit: No Status: Resolved He is a full code. He will return to the [facility] when he is ready for discharge. This case was discussed with Dr. Vasques who is in agreement. Subjective Interval history since last seen: Mr. Rebolledo is Post-operative day #2 ORIF right femoral shaft fracture by Dr. Krueger. He reports his pain is low right now. He has been working with PT. Nursing reports that he was able to stand and pivot to the commode, he had what appeared to be a vagal episode on the commode and was assisted back to bed. He was hypotensive at the time, with a systolic blood pressure in the 90s. His urinary output remains low, he continues to have a Catherine catheter in place. He has IV fluids running. He denies any other concerns such as dizziness, shortness of breath, coughing, wheezing, chest pain/pressure or palpitations. He reports that he is eating and drinking, nursing reports that he is not eating or drinking very much. He has been seen by nutrition, he is receiving supplements between meals. He denies abdominal pain, nausea, vomiting or diarrhea. He had a small stool, he is on a bowel regimen. Exam Narrative Exam Narrative: General: Resting in bed, awake and alert, answers questions appropriately. HEENT: normocephalic, atraumatic, pupils equal and round, EOMI, mucous membranes slightly dry. Neck: supple, no JVD. Respiratory: respirations even and unlabored, lung sound diminished with fine rales at bases bilaterally. Cardiovascular: heart has regular rate and rhythm, no murmur appreciated. GI: normoactive bowel sounds throughout, abdomen soft, nondistended, nontender on palpation. Extremities: LLE with multiple dressings over surgical incisions. L groin incision well approximated, mild erythema to wound edges, ?eschar at middle, minimal drainage on dressing. Brace to LLE- offloading heel, 1+ pitting edema. Left second toe with eschar to DPJ, left heel with deep purple discoloration, boggy, beginning to drain. Unable to palpate pedal pulse on left due to brace, toes pink and warm (except 2nd toe as above). RLE with incision to right lateral hip from previous surgery- well approximated, healing well no erythema or active drainage. RLE in knee immobilizer, right pedal pulse palpable, 2-3+ pitting edema. Bilateral upper extremities with mild edema- improving. Objective Objective Clinical Data: Abnormal lab results 03/13/19 03/14/19 03/15/19 Range/Units 19:50 19:58 06:50 WBC (4.4-10.8) k/cumm RBC (4.50-6.00) m/cumm Hgb (13.5-17.5) g/dL Hct 25.9 L (40.0-50.0) % MCV (80-95) fL MCHC (32.0-36.0) g/dL RDW (11.8-14.1) % Plt Count (130-400) x1000/uL Absolute Neutrophils (1.2-6.7) k/cumm Absolute Monocytes (0.11-0.7) k/cumm Chloride 110 H (98-107) mmol/L BUN 19 H (7-18) mg/dL Calcium 7.5 L (8.5-10.1) mg/dL Magnesium 1.6 L (1.8-2.4) mg/dL Crossmatch See Detail 03/15/19 Range/Units 06:50 WBC 11.29 H (4.4-10.8) k/cumm RBC 3.02 L (4.50-6.00) m/cumm Hgb 9.2 L (13.5-17.5) g/dL Hct 29.2 L (40.0-50.0) % MCV 96.7 H (80-95) fL MCHC 31.5 L (32.0-36.0) g/dL RDW 16.4 H (11.8-14.1) % Plt Count 469 H (130-400) x1000/uL Absolute Neutrophils 8.40 H (1.2-6.7) k/cumm Absolute Monocytes 0.88 H (0.11-0.7) k/cumm Chloride (98-107) mmol/L BUN (7-18) mg/dL Calcium (8.5-10.1) mg/dL Magnesium (1.8-2.4) mg/dL Crossmatch Vital Signs Temperature 37.3 C 03/15/19 09:55 Temperature Source Tympanic 03/15/19 09:55 Pulse 119 H 03/15/19 09:55 Pulse Rhythm Regular 03/15/19 08:00 Respiratory Rate 22 03/15/19 09:55 Respiratory Effort Non-Labored 03/15/19 08:00 Respiratory Depth Normal 03/15/19 08:00 Respiratory Pattern Normal 03/15/19 08:00 Blood Pressure 101/67 03/15/19 09:55 Blood Pressure Position Supine 03/12/19 17:55 Pulse Oximetry 97 03/15/19 09:55 Respiratory End-tidal CO2 26 03/13/19 17:30 Oxygen Delivery Method Room Air 03/15/19 09:55 Oxygen Flow Rate 0 03/15/19 09:55 Pain Level 2 03/15/19 12:02 Comment 03/15/19 09:55 Intake & Output 03/14/19 03/15/19 03/15/19 23:59 11:59 23:59 Intake Total 3081.667 / 5513.334 1790 / 1790 Output Total 475 / 725 150 / 150 Balance 2606.667 / 4788.334 1640 / 1640 Intake: IV 1951.667 / 3803.334 1010 / 1010 Oral 780 / 1360 780 / 780 Blood Product 300 / 300 Rbc Leuko Reduced Unit 300 / 300 [id number] Other 50 / 50 Rbc Leuko Reduced Unit 50 / 50 [id number] Output: Urine 475 / 725 150 / 150 Other: Urine Color Dark Zakia Dark Zakia Urine Appearance Clear Clear Comment Increase in urine production following administration of lasix. aware of minimal output. pt has low urine output, RN irrigates catheter to assure flow proper flow Stool Size Small Stool Characteristics Formed Hard Brown Laboratory Results WBC 11.29 k/cumm (4.4-10.8) H 03/15/19 06:50 RBC 3.02 m/cumm (4.50-6.00) L 03/15/19 06:50 Hgb 9.2 g/dL (13.5-17.5) L 03/15/19 06:50 Hct 29.2 % (40.0-50.0) L 03/15/19 06:50 MCV 96.7 fL (80-95) H 03/15/19 06:50 MCH 30.5 pg (27.0-33.0) 03/15/19 06:50 MCHC 31.5 g/dL (32.0-36.0) L 03/15/19 06:50 RDW 16.4 % (11.8-14.1) H 03/15/19 06:50 Plt Count 469 x1000/uL (130-400) H 03/15/19 06:50 MPV 9.4 fL (8.0-11.0) 03/15/19 06:50 Immature Gran % 0.3 03/15/19 06:50 Neutrophils % 74.4 03/15/19 06:50 Lymphocytes % 15.5 03/15/19 06:50 Monocytes % 7.8 03/15/19 06:50 Eosinophils % 1.6 03/15/19 06:50 Basophils % 0.4 03/15/19 06:50 Absolute Neutrophils 8.40 k/cumm (1.2-6.7) H 03/15/19 06:50 Absolute Lymphocytes 1.75 k/cumm (1.2-3.4) 03/15/19 06:50 Absolute Monocytes 0.88 k/cumm (0.11-0.7) H 03/15/19 06:50 Absolute Eosinophils 0.18 k/cumm (0.0-0.7) 03/15/19 06:50 Absolute Basophils 0.05 k/cumm (0.0-0.2) 03/15/19 06:50 Differential Comment Rbc morph reviewed 03/14/19 06:15 RBC Morphology See below 03/14/19 06:15 Polychromasia Present 03/14/19 06:15 Hypochromasia 2+ 03/14/19 06:15 Poikilocytosis 1+ 03/14/19 06:15 Anisocytosis 2+ 03/14/19 06:15 PT 9.8 sec (9.3-11.0) 03/12/19 18:20 INR 1.0 (0.9-1.1) 03/12/19 18:20 APTT 21.3 sec (21.0-31.4) 03/12/19 18:20 Sodium 140 mmol/L (136-145) 03/15/19 06:50 Potassium 3.8 mmol/L (3.5-5.1) 03/15/19 06:50 Chloride 110 mmol/L (98-107) H 03/15/19 06:50 Carbon Dioxide 21.0 mmol/L (21.0-32.0) 03/15/19 06:50 Anion Gap 9.0 mmol/L (3-11) 03/15/19 06:50 BUN 19 mg/dL (7-18) H 03/15/19 06:50 Creatinine 1.13 mg/dL (0.70-1.30) 03/15/19 06:50 Estimated GFR/1.73 m2 >= 60.00 (mL/min/1.73m2) 03/15/19 06:50 Glucose 95 mg/dL (70-100) 03/15/19 06:50 Calcium 7.5 mg/dL (8.5-10.1) L 03/15/19 06:50 Magnesium 1.6 mg/dL (1.8-2.4) L 03/15/19 06:50 Total Bilirubin 0.4 mg/dL (0.2-1.0) 03/12/19 18:20 AST 25 U/L (15-37) 03/12/19 18:20 ALT 23 U/L (12-78) 03/12/19 18:20 Alkaline Phosphatase 198 U/L (46-116) H 03/12/19 18:20 Troponin I 0.06 ng/mL (0.00-0.06) 03/12/19 18:20 Total Protein 5.6 g/dL (6.4-8.2) L 03/12/19 18:20 Albumin 1.7 g/dL (3.4-5.0) L 03/12/19 18:20 Urine Color Yellow (Yellow) 03/12/19 20:15 Urine Clarity Clear 03/12/19 20:15 Urine pH 5.5 (5-8) 03/12/19 20:15 Ur Specific North 1.015 (1.005-1.025) 03/12/19 20:15 Urine Protein Negative mg/dL (Negative) 03/12/19 20:15 Urine Ketones Negative mg/dL (Negative) 03/12/19 20:15 Urine Blood Negative (Negative) 03/12/19 20:15 Urine Nitrite Negative (Negative) 03/12/19 20:15 Urine Bilirubin Negative (Negative) 03/12/19 20:15 Urine Urobilinogen 0.2 EU/dL (Up TO 0.2) 03/12/19 20:15 Ur Leukocyte Esterase Negative (Negative) 03/12/19 20:15 Urine Glucose Negative mg/dL (Negative) 03/12/19 20:15 Patient ABO/Rh A Positive 03/13/19 19:50 Antibody Screen Negative 03/13/19 19:50 Crossmatch See Detail 03/13/19 19:50
[2019-03-15 14:38] LABS: HCT 29.4 % (40.0-50.0); HGB 9.4 g/dL (13.5-17.5)
[2019-03-15] MEDS: Normal Saline 1,000 ML 150 ML IV (19:57)
[2019-03-15] MEDS: Senna TAB 2 TAB PO (21:25)
[2019-03-15] MEDS: Mirtazapine 15 MG TAB PO (21:25)
[2019-03-15] MEDS: Tamsulosin 0.4 MG CAPCR PO (21:25)
[2019-03-15] MEDS: Atorvastatin 20 MG TAB 40 MG PO (21:25)
[2019-03-15] MEDS: risperiDONE 1 MG TAB PO (21:25)
--- NOTE | 2019-03-16 00:35 | NUR.NOTE ---
Nursing Note: Patient received asleep and with new IV site on right forearm. IVFluids regulated at 150 cc/hr. Refused to eat, stated of no appetite. Oral fluids on medications well tolerated. Responded on verbal command. Lung sounds diminished throughout. Did not allow B[employer] to render care but able to repositioned him. Immobilizer inplaced on right leg and brace on left lower leg. Abled to slightly moved left toes when told to do so.Drsg on it is clean,dry and intact. Denied of pain but with oxycodone as scheduled. Continue to monitor.
[2019-03-16] MEDS: Normal Saline 1,000 ML 150 ML IV (02:43)
[2019-03-16] MEDS: oxyCODONE-CR 10 MG TABCR PO (05:31)
[2019-03-16 05:40] VITALS: BP 127/85; PULSE 95; RESP 18; TEMP 37.4; O2SAT 96
[2019-03-16 06:56] LABS: Abs Immature Grans 0.02 k/cumm (0.0-0.09); Absolute Basophil Count 0.04 k/cumm (0.0-0.2); Absolute Eosinophil Count 0.32 k/cumm (0.0-0.7); Absolute Lymphocyte Count 1.89 k/cumm (1.2-3.4); Absolute Monocyte Count 0.76 k/cumm (0.11-0.7); Absolute Neutrophil Count 6.56 k/cumm (1.2-6.7); Basophils % 0.4; Eosinophils % 3.3; HCT 29.5 % (40.0-50.0); HGB 9.1 g/dL (13.5-17.5); Immature Grans % 0.2; Lymphocytes % 19.7; Mean Corp. HGB Concentration 30.8 g/dL (32.0-36.0); Mean Corpuscular Volume 97.4 fL (80-95); Mean Platelet Volume 9.1 fL (8.0-11.0); Monocytes % 7.9; Neutrophils % 68.5; Platelet Count 497 x1000/uL (130-400); RBC 3.03 m/cumm (4.50-6.00); RBC Distribution Width 16.4 % (11.8-14.1); White Blood Cell Count 9.59 k/cumm (4.4-10.8)
[2019-03-16 07:06] LABS: Anion Gap 9.2 mmol/L (3-11); BUN 17 mg/dL (7-18); CO2 21.8 mmol/L (21.0-32.0); CREATININE 0.85 mg/dL (0.70-1.30); Calcium 7.7 mg/dL (8.5-10.1); Chloride 110 mmol/L (98-107); Glucose 89 mg/dL (70-100); Magnesium 1.9 mg/dL (1.8-2.4); Potassium 4.2 mmol/L (3.5-5.1); Sodium 141 mmol/L (136-145)
[2019-03-16 07:10] VITALS: BP 122/81; PULSE 95; RESP 20; TEMP 37.1; O2SAT 94
[2019-03-16] MEDS: Polyethylene Glycol 3350 17 GM PACKET PO (08:35)
[2019-03-16] MEDS: Gabapentin 100 MG CAP PO ×3 (08:36→19:52)
[2019-03-16] MEDS: Thiamine 100 MG TAB PO (08:36)
[2019-03-16] MEDS: Magnesium Gluconate 500 MG TAB PO ×2 (08:36→19:52)
[2019-03-16] MEDS: Aspirin 81 MG CHEW PO (08:36)
[2019-03-16] MEDS: Docusate Sodium 100 MG CAP PO ×3 (08:36→19:52)
[2019-03-16] MEDS: Omeprazole 20 MG CAPCR PO (08:36)
[2019-03-16] MEDS: Magnesium Oxide 400 MG TAB PO (08:36)
[2019-03-16] MEDS: oxyCODONE 5 MG TAB PO (08:36)
[2019-03-16] MEDS: Carvedilol 6.25 MG TAB 12.5 MG PO ×2 (08:37→19:52)
--- NOTE | 2019-03-16 09:04 | PDOC.CMPRO ---
Care Management Progress Note S/O-Met with Devin today. He is sitting up in the recliner, almost leaning over side with his eyes closed. He did respond to this CM. His lunch was sitting on tray in front of him which he had not touched. Stated he might do so later. Advised him he might be ready to return to the [facility] tomorrow depending upon MD decision. Spoke with Flaquita at the [facility] to advise of this possibility. She requested he arrive no later than [address] [facility] to tentatively schedule w/c van transport. They can fit transport in at 11 AM only. Told them CM will confirm in AM as soon as MD confirms d/c. A-63 yo man admitted with R femur fx. P-d/c back to the [facility] as per MD, via [facility] w/c van which is scheduled tentatively for tomorrow at 11 AM.
[2019-03-16 11:15] VITALS: BP 97/59; PULSE 53; RESP 18; TEMP 36.6; O2SAT 94
--- NOTE | 2019-03-16 11:26 | PGE_ITS ---
Date of Service Date of service: 03/16/19 Time of Service: 11:24 Assessment and Plan (1) Femur fracture, right: Current visit: Yes Status: Acute He is postoperative day #3 ORIF right femoral shaft fracture by Dr. Krueger. Hypotension appears to have resolved. His hemoglobin and hematocrit are stable this morning. He is working with PT. He had recent right hip fracture with repair 02/25/19 and recent vascular surgery with Femoral to anterior tibial bypass at [facility] [[email or web address] last week. Continue PT and pain control. Discontinue IV fluids, encourage oral fluid intake. He will return to the [facility] when ready. (2) Anemia: Current visit: No Status: Chronic Received 1 unit of packed red blood cells on 03/13 overnight. Hemoglobin stable this morning. Continue to follow hemoglobin and hematocrit. Heme test stools. (3) Critical lower limb ischemia: Current visit: No Status: Acute Status post femoral to anterior tibial bypass at [facility] [[email or web address]] last week. 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 Podiatry is following him. Dr. Grimaldo recommends holding off on interventions for the toe for the present time. Continue to offload pressure from L heel. Podiatry will continue to follow- nursing to contact him to notify him that Mr. Rebolledo' heel wound is beginning to drain. He has been evaluated by Wound nurse who plan to follow vascular recommendations for wounds on LLE. Continue aspirin and wound care. (4) Closed intertrochanteric fracture of right hip: Current visit: No Status: Acute Status post right hip fracture 02/25/2019. Continue PT and pain control. Qualifiers: Encounter type: initial encounter Fracture alignment: displaced Qualified Code(s): S72.141A - Displaced intertrochanteric fracture of right femur, initial encounter for closed fracture (5) Urinary retention: Current visit: No Status: Resolved History of urinary retention. Urinalysis was negative on admission. Catherine catheter discontinued today for voiding trial. Monitor with bladder scans. (6) History of alcoholism: Current visit: No Status: Chronic Has has been abstinent from alcohol for over 2 weeks. Not likely to show symptoms of withdrawal. CIWA protocol discontinued. (7) Tobacco dependence syndrome: Current visit: No Status: Chronic Continue nicotine replacement and encourage smoking cessation. (8) Schizoaffective disorder: Current visit: No Status: Chronic Stable. Continue home regimen. Qualifiers: Schizoaffective disorder type: bipolar Qualified Code(s): F25.0 - Schizoaffective disorder, bipolar type (9) Edema: Current visit: Yes Status: Acute To bilateral upper and lower extremities, improving. Continue to monitor. (10) DVT prophylaxis: Current visit: No Status: Acute Resume lovenox as hemoglobin and hematocrit have stablized. (11) Discharge planning issues: Current visit: No Status: Resolved He is a full code. He will return to the [facility] when he is ready for discharge. This case was discussed with Dr. Vasques who is in agreement. Subjective Interval history since last seen: Mr. Rebolledo is Post-operative day #3 ORIF right femoral shaft fracture by Dr. Krueger. He reports that his pain is well controlled. He continues to work with PT. His urinary output improved overnight. His catherine was discontinued this morning. He denies any other concerns such as dizziness, shortness of breath, coughing, wheezing, chest pain/pressure or palpitations. He reports that he is eating and drinking. Nursing is encouraging oral intake. He has been seen by nutrition, he is receiving supplements between meals. He denies abdominal pain, nausea, vomiting or diarrhea. Exam Narrative Exam Narrative: General: Sitting up in bed, awake and alert, answers questions appropriately. HEENT: normocephalic, atraumatic, pupils equal and round, EOMI, mucous membranes moist. Neck: supple, no JVD. Respiratory: respirations even and unlabored, lung sound diminished with fine rales at bases bilaterally. Cardiovascular: heart has regular rate and rhythm, no murmur appreciated. GI: normoactive bowel sounds throughout, abdomen soft, nondistended, nontender on palpation. Extremities: LLE with multiple dressings over surgical incisions. Brace to LLE- offloading heel, 1+ pitting edema. Left second toe with eschar to DPJ, left heel with deep purple discoloration, boggy, beginning to drain. Unable to palpate pedal pulse on left due to brace, toes pink and warm (except 2nd toe as above). RLE with incisions to right lateral hip and thigh from previous surgery- well approximated, healing well no erythema or active drainage. RLE with dressing over surgical site, incision well approximated, no erythema, right pedal pulse palpable, 2-3+ pitting edema to RLE. Bilateral upper extremities with mild edema- improving. Objective Objective Clinical Data: Abnormal lab results 03/15/19 03/16/19 03/16/19 Range/Units 14:27 06:15 06:15 RBC 3.03 L (4.50-6.00) m/cumm Hgb 9.4 L 9.1 L (13.5-17.5) g/dL Hct 29.4 L 29.5 L (40.0-50.0) % MCV 97.4 H (80-95) fL MCHC 30.8 L (32.0-36.0) g/dL RDW 16.4 H (11.8-14.1) % Plt Count 497 H (130-400) x1000/uL Absolute Monocytes 0.76 H (0.11-0.7) k/cumm Chloride 110 H (98-107) mmol/L Calcium 7.7 L (8.5-10.1) mg/dL Vital Signs Temperature 37.1 C 03/16/19 07:10 Temperature Source Tympanic 03/16/19 07:10 Pulse 95 H 03/16/19 07:10 Pulse Rhythm Regular 03/16/19 09:02 Respiratory Rate 20 03/16/19 07:10 Respiratory Effort 03/16/19 09:02 Respiratory Depth Normal 03/16/19 09:02 Respiratory Pattern Normal 03/16/19 09:02 Blood Pressure 122/81 03/16/19 07:10 Blood Pressure Position Supine 03/12/19 17:55 Pulse Oximetry 94 L 03/16/19 07:10 Respiratory End-tidal CO2 26 03/13/19 17:30 Oxygen Delivery Method Room Air 03/16/19 07:10 Oxygen Flow Rate 0 03/16/19 07:10 Pain Level 6 03/16/19 08:57 Comment 03/15/19 09:55 Intake & Output 03/15/19 03/15/19 03/16/19 11:59 23:59 11:59 Intake Total 1790 / 3055 1265 / 3055 2420 / 2420 Output Total 150 / 275 125 / 275 900 / 900 Balance 1640 / 2780 1140 / 2780 1520 / 1520 Intake: IV 1010 / 2075 1065 / 2075 1999 / 1999 Oral 780 / 980 200 / 980 420 / 420 Output: Urine 150 / 275 125 / 275 900 / 900 Other: Urine Color Dark Zakia Straw Light Zakia Urine Appearance Clear Clear Clear Comment pt has low urine output, RN irrigates catheter to assure flow proper flow DC'd at 8 am this morning per miscellanous order , patient advised to drink at least 240 cc an hour until he spontaneously voids Stool Size Small Stool Characteristics Formed Hard Brown Laboratory Results WBC 9.59 k/cumm (4.4-10.8) 03/16/19 06:15 RBC 3.03 m/cumm (4.50-6.00) L 03/16/19 06:15 Hgb 9.1 g/dL (13.5-17.5) L 03/16/19 06:15 Hct 29.5 % (40.0-50.0) L 03/16/19 06:15 MCV 97.4 fL (80-95) H 03/16/19 06:15 MCH 30.0 pg (27.0-33.0) 03/16/19 06:15 MCHC 30.8 g/dL (32.0-36.0) L 03/16/19 06:15 RDW 16.4 % (11.8-14.1) H 03/16/19 06:15 Plt Count 497 x1000/uL (130-400) H 03/16/19 06:15 MPV 9.1 fL (8.0-11.0) 03/16/19 06:15 Immature Gran % 0.2 03/16/19 06:15 Neutrophils % 68.5 03/16/19 06:15 Lymphocytes % 19.7 03/16/19 06:15 Monocytes % 7.9 03/16/19 06:15 Eosinophils % 3.3 03/16/19 06:15 Basophils % 0.4 03/16/19 06:15 Absolute Neutrophils 6.56 k/cumm (1.2-6.7) 03/16/19 06:15 Absolute Lymphocytes 1.89 k/cumm (1.2-3.4) 03/16/19 06:15 Absolute Monocytes 0.76 k/cumm (0.11-0.7) H 03/16/19 06:15 Absolute Eosinophils 0.32 k/cumm (0.0-0.7) 03/16/19 06:15 Absolute Basophils 0.04 k/cumm (0.0-0.2) 03/16/19 06:15 Differential Comment Rbc morph reviewed 03/14/19 06:15 RBC Morphology See below 03/14/19 06:15 Polychromasia Present 03/14/19 06:15 Hypochromasia 2+ 03/14/19 06:15 Poikilocytosis 1+ 03/14/19 06:15 Anisocytosis 2+ 03/14/19 06:15 PT 9.8 sec (9.3-11.0) 03/12/19 18:20 INR 1.0 (0.9-1.1) 03/12/19 18:20 APTT 21.3 sec (21.0-31.4) 03/12/19 18:20 Sodium 141 mmol/L (136-145) 03/16/19 06:15 Potassium 4.2 mmol/L (3.5-5.1) 03/16/19 06:15 Chloride 110 mmol/L (98-107) H 03/16/19 06:15 Carbon Dioxide 21.8 mmol/L (21.0-32.0) 03/16/19 06:15 Anion Gap 9.2 mmol/L (3-11) 03/16/19 06:15 BUN 17 mg/dL (7-18) 03/16/19 06:15 Creatinine 0.85 mg/dL (0.70-1.30) 03/16/19 06:15 Estimated GFR/1.73 m2 >= 60.00 (mL/min/1.73m2) 03/16/19 06:15 Glucose 89 mg/dL (70-100) 03/16/19 06:15 Calcium 7.7 mg/dL (8.5-10.1) L 03/16/19 06:15 Magnesium 1.9 mg/dL (1.8-2.4) 03/16/19 06:15 Total Bilirubin 0.4 mg/dL (0.2-1.0) 03/12/19 18:20 AST 25 U/L (15-37) 03/12/19 18:20 ALT 23 U/L (12-78) 03/12/19 18:20 Alkaline Phosphatase 198 U/L (46-116) H 03/12/19 18:20 Troponin I 0.06 ng/mL (0.00-0.06) 03/12/19 18:20 Total Protein 5.6 g/dL (6.4-8.2) L 03/12/19 18:20 Albumin 1.7 g/dL (3.4-5.0) L 03/12/19 18:20 Urine Color Yellow (Yellow) 03/12/19 20:15 Urine Clarity Clear 03/12/19 20:15 Urine pH 5.5 (5-8) 03/12/19 20:15 Ur Specific [place] 1.015 (1.005-1.025) 03/12/19 20:15 Urine Protein Negative mg/dL (Negative) 03/12/19 20:15 Urine Ketones Negative mg/dL (Negative) 03/12/19 20:15 Urine Blood Negative (Negative) 03/12/19 20:15 Urine Nitrite Negative (Negative) 03/12/19 20:15 Urine Bilirubin Negative (Negative) 03/12/19 20:15 Urine Urobilinogen 0.2 EU/dL (Up TO 0.2) 03/12/19 20:15 Ur Leukocyte Esterase Negative (Negative) 03/12/19 20:15 Urine Glucose Negative mg/dL (Negative) 03/12/19 20:15 Patient ABO/Rh A Positive 03/13/19 19:50 Antibody Screen Negative 03/13/19 19:50 Crossmatch See Detail 03/13/19 19:50
--- NOTE | 2019-03-16 13:49 | CMPROGNOTE_ITS ---
Care Management Progress Note S/O-Met with Devin today. He is sitting up in the recliner, almost leaning over side with his eyes closed. He did respond to this CM. His lunch was sitting on tray in front of him which he had not touched. Stated he might do so later. Advised him he might be ready to return to the [facility] tomorrow depending upon MD decision. Spoke with Flaquita at the [facility] to advise of this possibility. She requested he arrive no later than 1 PM. Contacted [facility] to tentatively schedule w/c van transport. They can fit transport in at 11 AM only. Told them CM will confirm in AM as soon as MD confirms d/c. A-63 yo man admitted with R femur fx. P-d/c back to the [facility] as per MD, via [facility] w/c van which is scheduled tentatively for tomorrow at 11 AM.
--- NOTE | 2019-03-16 15:30 | PT.INTREAT ---
Date of service: 03/16/19 Time of Service: 15:30 PT Notes Inpatient Physical Therapy Treatment Note [facility] Date: 03/16/19 PRECAUTIONS: Fall, WBAT on R SUBJECTIVE: Devin is agreeable to participating in PT. OBJECTIVE: Devin is less communicative today, he appears lethargic, and appears to be experiencing more pain versus yesterday. PAIN: Patient c/o pain in R LE with movement and weight bearing BED MOBILITY/TRANSFERS Rolling: Max A Supine-sit: Mod A Sit-supine: Max A x2 Sit-stand: Mod A x2 Stand-sit: Mod A in a.m.; Mod A x2 in p.m. GAIT Assistive Device: FWW Weight bearing: WBAT on R Assist: Mod A in a.m.; Mod A x2 in p.m. Distance: 5' in a.m.; 3' in p.m. Deviation: Max cueing for gait sequence and movement initiation, tactile cueing to advance R and L foot THEREX: Patient completed a lower extremity strengthening and stabilization program, bilaterally, as per flow sheet. Knee immobilizer was removed in order to mobilize R LE. Patient complained of minimal discomfort with heel slide and SLR exercises. In a.m., patient was unable to follow further instructions after completing ankle pumps and quad sets. TOILETING: Patient toileted with total assist. ASSESSMENT: Patient tolerated sessions with complaints of R LE pain. Patient required increased assist with transfers, bed mobility, and gait training today versus yesterday. Patient would benefit from continued gait and transfer training, as well as strengthening for improved activity tolerance and mobility. PLAN: Continue with PT's POC TREATMENT CODE/TIME: Session 1: 40 minutes; 72147 x2, [id number] Session 2: 30 minutes; [id number], [id number]
[2019-03-16 15:32] VITALS: BP 119/68; PULSE 87; RESP 18; TEMP 36.5; O2SAT 95
--- NOTE | 2019-03-16 15:35 | PTTR_ITS ---
Date of service: 03/16/19 Time of Service: 15:30 PT Notes Inpatient Physical Therapy Treatment Note [facility] Date: 03/16/19 PRECAUTIONS: Fall, WBAT on R SUBJECTIVE: Devin is agreeable to participating in PT. OBJECTIVE: Devni is less communicative today, he appears lethargic, and appears to be experiencing more pain versus yesterday. PAIN: Patient c/o pain in R LE with movement and weight bearing BED MOBILITY/TRANSFERS Rolling: Max A Supine-sit: Mod A Sit-supine: Max A x2 Sit-stand: Mod A x2 Stand-sit: Mod A in a.m.; Mod A x2 in p.m. GAIT Assistive Device: FWW Weight bearing: WBAT on R Assist: Mod A in a.m.; Mod A x2 in p.m. Distance: 5' in a.m.; 3' in p.m. Deviation: Max cueing for gait sequence and movement initiation, tactile cueing to advance R and L foot THEREX: Patient completed a lower extremity strengthening and stabilization program, bilaterally, as per flow sheet. Knee immobilizer was removed in order to mobilize R LE. Patient complained of minimal discomfort with heel slide and SLR exercises. In a.m., patient was unable to follow further instructions after completing ankle pumps and quad sets. TOILETING: Patient toileted with total assist. ASSESSMENT: Patient tolerated sessions with complaints of R LE pain. Patient required increased assist with transfers, bed mobility, and gait training today versus yesterday. Patient would benefit from continued gait and transfer traini ng, as well as strengthening for improved activity tolerance and mobility. PLAN: Continue with PT's POC TREATMENT CODE/TIME: Session 1: 40 minutes; 53601 x2, [id number] Session 2: 30 minutes; [id number], [id number]
[2019-03-16 18:58] VITALS: BP 128/87; PULSE 89; RESP 16; TEMP 36.9; O2SAT 96
[2019-03-16] MEDS: risperiDONE 1 MG TAB PO (21:40)
[2019-03-16] MEDS: Mirtazapine 15 MG TAB PO (21:41)
[2019-03-16] MEDS: Atorvastatin 20 MG TAB 40 MG PO (21:41)
[2019-03-16] MEDS: Tamsulosin 0.4 MG CAPCR PO (21:41)
[2019-03-16] MEDS: Senna TAB 2 TAB PO (21:41)
[2019-03-17 02:52] VITALS: BP 119/76; PULSE 90; RESP 18; TEMP 36.6; O2SAT 93
[2019-03-17 07:03] LABS: Abs Immature Grans 0.01 k/cumm (0.0-0.09); Absolute Basophil Count 0.03 k/cumm (0.0-0.2); Absolute Eosinophil Count 0.37 k/cumm (0.0-0.7); Absolute Lymphocyte Count 1.77 k/cumm (1.2-3.4); Absolute Monocyte Count 0.62 k/cumm (0.11-0.7); Absolute Neutrophil Count 5.31 k/cumm (1.2-6.7); Basophils % 0.4; Eosinophils % 4.6; HCT 28.9 % (40.0-50.0); Immature Grans % 0.1; Lymphocytes % 21.8; Mean Corp. HGB Concentration 31.1 g/dL (32.0-36.0); Mean Corpuscular Volume 96.3 fL (80-95); Mean Platelet Volume 9.1 fL (8.0-11.0); Monocytes % 7.6; Neutrophils % 65.5; Platelet Count 513 x1000/uL (130-400); RBC Distribution Width 16.1 % (11.8-14.1); White Blood Cell Count 8.11 k/cumm (4.4-10.8)
[2019-03-17 07:11] LABS: Anion Gap 9.8 mmol/L (3-11); BUN 15 mg/dL (7-18); CO2 21.2 mmol/L (21.0-32.0); CREATININE 0.73 mg/dL (0.70-1.30); Calcium 7.8 mg/dL (8.5-10.1); Chloride 107 mmol/L (98-107); Glucose 90 mg/dL (70-100); Magnesium 1.9 mg/dL (1.8-2.4); Potassium 3.9 mmol/L (3.5-5.1); Sodium 138 mmol/L (136-145)
[2019-03-17 07:20] VITALS: BP 129/92; PULSE 83; RESP 18; TEMP 37.4; O2SAT 96
[2019-03-17 07:30] LABS: Diff Comment RBC Morph Reviewed
[2019-03-17 07:31] LABS: Anisocytosis 2+; Polychromasia Present
[2019-03-17] MEDS: Aspirin 81 MG CHEW PO (08:11)
[2019-03-17] MEDS: Docusate Sodium 100 MG CAP PO (08:11)
[2019-03-17] MEDS: Polyethylene Glycol 3350 17 GM PACKET PO (08:11)
[2019-03-17] MEDS: Omeprazole 20 MG CAPCR PO (08:11)
[2019-03-17] MEDS: Magnesium Gluconate 500 MG TAB PO (08:11)
[2019-03-17] MEDS: Thiamine 100 MG TAB PO (08:11)
[2019-03-17] MEDS: Gabapentin 100 MG CAP PO (08:11)
[2019-03-17] MEDS: Carvedilol 6.25 MG TAB 12.5 MG PO (08:11)
[2019-03-17] MEDS: Normal Saline Flush 10 ML SYR IVP (08:12)
--- NOTE | 2019-03-17 09:24 | W.PM.PROGNOT ---
Date of Service Date of service: 03/17/19 Time of Service: 09:24 Subjective Patient reports: pain is less Interval history since last seen: Devin is seen in his room. He is sitting up in his chair comfortably. He has no new complaints concerning his left foot. Was ordered twice vitals 129/92 pulse 83 respiration 18 temp 37.4 O2 sat room air is 96% Physical exam: The left foot is warm to the touch. There is trace peripheral edema which is unchanged from previous exam. Utilization of the hand-held Doppler reveals patent bypass graft at the level of the distal leg dorsum of the foot. The posterior tibial artery is also patent. Capillary return on all toes aside from the second digit is on the 5 seconds. The left second toe remains with dry gangrene from the distal interphalangeal joint dorsally to the tip of the toe extending to about the middle phalanx plantarly. The margins appear to be demarcating and there is no sign of infection. The posterior heel ulcer appears clinically stable. A dry dark tissue now overlies the posterior margin of the left heel. There is a little bit of sponginess noted but no drainage, no erythema no cellulitis. This wound continues to evolve as expected. Impressions: Dry gangrene left second toe as above Left posterior heel decubital wound as above Plan: No immediate action is required for the left second toe unless it shows signs of becoming infected converting to a wet gangrene. We will protect the foot especially the toe up by having him ambulate in a surgical shoe so as not to traumatize the second digit. The surgical shoe should not interfere with the posterior heel wound since the plantar aspect of his heel is closed. I will recommend a Mepilex foam dressing to the back of the heel to protect it. This should be changed on a daily basis after the foot is been washed and gently dried. As the heel wound involves, we will need to change the wound care products and protocols as needed. I will continue to follow him as requested. Objective Objective Clinical Data: Abnormal lab results 03/17/19 03/17/19 Range/Units 06:23 06:23 RBC 3.00 L (4.50-6.00) m/cumm Hgb 9.0 L (13.5-17.5) g/dL Hct 28.9 L (40.0-50.0) % MCV 96.3 H (80-95) fL MCHC 31.1 L (32.0-36.0) g/dL RDW 16.1 H (11.8-14.1) % Plt Count 513 H (130-400) x1000/uL Calcium 7.8 L (8.5-10.1) mg/dL Vital Signs Temperature 37.4 C 03/17/19 07:20 Temperature Source Tympanic 03/17/19 07:20 Pulse 83 03/17/19 07:20 Pulse Rhythm Regular 03/17/19 09:03 Respiratory Rate 18 03/17/19 07:20 Respiratory Effort 03/17/19 09:03 Respiratory Depth Normal 03/17/19 09:03 Respiratory Pattern Normal 03/17/19 09:03 Blood Pressure 129/92 H 03/17/19 07:20 Blood Pressure Position Supine 03/12/19 17:55 Pulse Oximetry 96 03/17/19 07:20 Respiratory End-tidal CO2 26 03/13/19 17:30 Oxygen Delivery Method Room Air 03/17/19 07:20 Oxygen Flow Rate 0 03/17/19 07:20 Pain Level 0 03/16/19 18:58 Comment 03/15/19 09:55 Intake & Output 03/16/19 03/17/19 03/17/19 18:59 06:59 18:59 Intake Total 1660 / 1660 Output Total 400 / 750 350 / 750 375 / 375 Balance 1260 / 910 -350 / 910 -375 / -375 Intake: IV 1000 / 1000 Oral 660 / 660 Output: Urine 400 / 750 350 / 750 375 / 375 Other: Urine Color Light Zakia Yellow Light Zakia Urine Appearance Clear Clear Clear Urine Odor Normal Strong Comment gross penile and scrotal edema noted, patient has no desire to void, provider aware, awaiting orders Stool Occult Blood Negative Stool Size Moderate Stool Characteristics Formed Hard Voiding Methods Incontinent Urinal Laboratory Results WBC 8.11 k/cumm (4.4-10.8) 03/17/19 06:23 RBC 3.00 m/cumm (4.50-6.00) L 03/17/19 06:23 Hgb 9.0 g/dL (13.5-17.5) L 03/17/19 06:23 Hct 28.9 % (40.0-50.0) L 03/17/19 06:23 MCV 96.3 fL (80-95) H 03/17/19 06:23 MCH 30.0 pg (27.0-33.0) 03/17/19 06:23 MCHC 31.1 g/dL (32.0-36.0) L 03/17/19 06:23 RDW 16.1 % (11.8-14.1) H 03/17/19 06:23 Plt Count 513 x1000/uL (130-400) H 03/17/19 06:23 MPV 9.1 fL (8.0-11.0) 03/17/19 06:23 Immature Gran % 0.1 03/17/19 06:23 Neutrophils % 65.5 03/17/19 06:23 Lymphocytes % 21.8 03/17/19 06:23 Monocytes % 7.6 03/17/19 06:23 Eosinophils % 4.6 03/17/19 06:23 Basophils % 0.4 03/17/19 06:23 Absolute Neutrophils 5.31 k/cumm (1.2-6.7) 03/17/19 06:23 Absolute Lymphocytes 1.77 k/cumm (1.2-3.4) 03/17/19 06:23 Absolute Monocytes 0.62 k/cumm (0.11-0.7) 03/17/19 06:23 Absolute Eosinophils 0.37 k/cumm (0.0-0.7) 03/17/19 06:23 Absolute Basophils 0.03 k/cumm (0.0-0.2) 03/17/19 06:23 Differential Comment Rbc morph reviewed 03/17/19 06:23 RBC Morphology See below 03/17/19 06:23 Polychromasia Present 03/17/19 06:23 Hypochromasia 2+ 03/14/19 06:15 Poikilocytosis 1+ 03/14/19 06:15 Anisocytosis 2+ 03/17/19 06:23 PT 9.8 sec (9.3-11.0) 03/12/19 18:20 INR 1.0 (0.9-1.1) 03/12/19 18:20 APTT 21.3 sec (21.0-31.4) 03/12/19 18:20 Sodium 138 mmol/L (136-145) 03/17/19 06:23 Potassium 3.9 mmol/L (3.5-5.1) 03/17/19 06:23 Chloride 107 mmol/L (98-107) 03/17/19 06:23 Carbon Dioxide 21.2 mmol/L (21.0-32.0) 03/17/19 06:23 Anion Gap 9.8 mmol/L (3-11) 03/17/19 06:23 BUN 15 mg/dL (7-18) 03/17/19 06:23 Creatinine 0.73 mg/dL (0.70-1.30) 03/17/19 06:23 Estimated GFR/1.73 m2 >= 60.00 (mL/min/1.73m2) 03/17/19 06:23 Glucose 90 mg/dL (70-100) 03/17/19 06:23 Calcium 7.8 mg/dL (8.5-10.1) L 03/17/19 06:23 Magnesium 1.9 mg/dL (1.8-2.4) 03/17/19 06:23 Total Bilirubin 0.4 mg/dL (0.2-1.0) 03/12/19 18:20 AST 25 U/L (15-37) 03/12/19 18:20 ALT 23 U/L (12-78) 03/12/19 18:20 Alkaline Phosphatase 198 U/L (46-116) H 03/12/19 18:20 Troponin I 0.06 ng/mL (0.00-0.06) 03/12/19 18:20 Total Protein 5.6 g/dL (6.4-8.2) L 03/12/19 18:20 Albumin 1.7 g/dL (3.4-5.0) L 03/12/19 18:20 Urine Color Yellow (Yellow) 03/12/19 20:15 Urine Clarity Clear 03/12/19 20:15 Urine pH 5.5 (5-8) 03/12/19 20:15 Ur Specific [place] 1.015 (1.005-1.025) 03/12/19 20:15 Urine Protein Negative mg/dL (Negative) 03/12/19 20:15 Urine Ketones Negative mg/dL (Negative) 03/12/19 20:15 Urine Blood Negative (Negative) 03/12/19 20:15 Urine Nitrite Negative (Negative) 03/12/19 20:15 Urine Bilirubin Negative (Negative) 03/12/19 20:15 Urine Urobilinogen 0.2 EU/dL (Up TO 0.2) 03/12/19 20:15 Ur Leukocyte Esterase Negative (Negative) 03/12/19 20:15 Urine Glucose Negative mg/dL (Negative) 03/12/19 20:15 Patient ABO/Rh A Positive 03/13/19 19:50 Antibody Screen Negative 03/13/19 19:50 Crossmatch See Detail 03/13/19 19:50
[2019-03-17 09:45] VITALS: O2SAT 97
--- NOTE | 2019-03-17 10:24 | W.PM.DS.N ---
Date of service: 03/17/19 Time of Service: 10:24 DS: Diagnosis Discharge Diagnosis (1) Anemia: Status: Chronic (2) Critical lower limb ischemia: Status: Acute (3) Closed intertrochanteric fracture of right hip: Status: Acute (4) History of alcoholism: Status: Chronic (5) Schizoaffective disorder: Status: Chronic (6) Edema: Status: Acute Discharge Plan Disposition Patient Disposition: SNF (LEVEL 1) [facility] Condition: Improving Discharge Details Chief Complaint: Orthopedic Reason For Visit: RIGHT FEMUR FRACTURE Admit Date/Time: 03/13/19 14:37 Admit Provider: Tavo Reid Attending Provider: Tavo Reid Primary Care Provider: Josephine Velazquez ED Provider: Zenon Myers Hospital Course Hospital Course: 63 y/o male with PVD, schizoaffective disorder, alcohol abuse, recent admission mid February for R hip fracture s/p ORIF, PVD s/p fem pop bypass, who presented on 03/12 from his detention facility following a fall. He was found to have R femur fracture. He underwent ORIF of R femoral shaft on 03/13 . He tolerated the procedure well, requiring low dose opiates for pain control. Hospital course also notable for chronic normocytic anemia, hgb reached constantine of 8.6 and he was transfused 1 unit prbc during admission, hgb repained stable following, no evidence active bleeding and stool negative for occult blood . He required catherine catheter for urinary retention, ua was negative following recent treatment for prostatitis, he was able to successfully void once catherine was removed. His lasix were held on admission and he received IVF for volume depletion. He did develop some scrotal edema and bilateral pedal edema and home diuretics were resumed. Following discharge he will follow up with [facility] vascular surgery for his left lower limb ischemia, as well as orthopedics and podiatry. Home Meds and New Rx's Prescriptions: New tramadol 50 mg Tablet 50 mg PO Q12H PRN PRNQty: 2 RF: 0 Continued furosemide 40 mg Tablet 40 mg PO QAM RF: 0 gabapentin 100 mg Capsule 100 mg PO TID RF: 0 atorvastatin [Lipitor] 20 mg tablet 40 mg PO HS RF: 0 aspirin 81 mg tablet,chewable 81 mg PO QAM RF: 0 carvedilol [Coreg] 6.25 MG tablet 12.5 mg PO BID RF: 0 tamsulosin 0.4 mg capsule 0.4 mg PO HS RF: 0 acetaminophen [Acetaminophen Extra Strength] 500 mg Tablet 1,000 mg PO QID PRNRF: 0 cyanocobalamin (vitamin B-12) [Vitamin B-12] 500 MCG tablet 1,000 mcg PO DAILY Qty: 30 RF: 0 ascorbic acid (vitamin C) [Vitamin C] 500 MG tablet 500 mg PO BID Qty: 60 RF: 0 benztropine 1 MG tablet 0.5 mg PO DAILY Qty: 30 RF: 0 docusate sodium [Colace] 100 MG capsule 100 mg PO TID PRN PRNQty: 90 RF: 0 omeprazole 20 MG capsule,delayed release(DR/EC) 20 mg PO DAILY@0730 Qty: 30 RF: 0 risperidone [Risperdal] 1 MG tablet 1 mg PO HS Qty: 30 RF: 0 magnesium gluconate 500 MG tablet 500 mg PO BID Qty: 60 RF: 0 thiamine HCl (vitamin B1) [Vitamin B-1] 100 mg Tablet 100 mg PO DAILY RF: 0 mirtazapine [Remeron] 15 mg Tablet 15 mg PO HS RF: 0 [place]-3 350 mg-235 mg- 90 mg-597 mg Capsule,Delayed Release(Dr/Ec) 2,000 cap PO DAILY RF: 0 polyethylene glycol 3350 17 gram Powder In Packet 17 g PO DAILY Qty: 30 RF: 0 Discontinued hydromorphone 2 mg Tablet 2 mg PO Q4H PRNRF: 0 amlodipine 5 MG tablet 5 mg PO DAILY Qty: 30 RF: 0 Therapeutic-M 1 TAB tablet 1 tab PO BID Qty: 60 RF: 0 levofloxacin [Levaquin] 750 mg Tablet 750 mg PO DAILY@0600 Qty: 28 RF: 0 Discharge Instructions Additional Instructions: Monitor BP, if running above 140/90s amlodipine should be resumed patient will follow up with [facility] vascular surgery and orthopedics Dr Blevins following discharge Stand Alone Forms: Nursing Discharge Form Activity:: Activity as Tolerated Equipment/Supplies:: Crutches Diet:: Normal Diet Discharge Orders Discharge Orders: Discharge Order (Routine); Ordered 03/17/19 Ordered By: Debbi Benítez DS: Data Vitals/I&O Vitals and I&O: Vital Signs Temperature 37.4 C 03/17/19 07:20 Temperature Source Tympanic 03/17/19 07:20 Pulse 83 03/17/19 07:20 Pulse Rhythm Regular 03/17/19 09:03 Respiratory Rate 18 03/17/19 07:20 Respiratory Effort 03/17/19 09:03 Respiratory Depth Normal 03/17/19 09:03 Respiratory Pattern Normal 03/17/19 09:03 Blood Pressure 129/92 H 03/17/19 07:20 Blood Pressure Position Supine 03/12/19 17:55 Pulse Oximetry 96 03/17/19 07:20 Respiratory End-tidal CO2 26 03/13/19 17:30 Oxygen Delivery Method Room Air 03/17/19 07:20 Oxygen Flow Rate 0 03/17/19 07:20 Pain Level 0 03/16/19 18:58 Comment 03/15/19 09:55 Intake & Output 03/16/19 03/16/19 03/17/19 11:59 23:59 11:59 Intake Total 2420 / 2660 240 / 2660 240 / 240 Output Total 900 / 1250 350 / 1250 375 / 375 Balance 1520 / 1410 -110 / 1410 -135 / -135 Intake: IV 1999 / 1999 Oral 420 / 660 240 / 660 240 / 240 Output: Urine 900 / 1250 350 / 1250 375 / 375 Other: Urine Color Light Zakia Dark Zakia Light Zakia Urine Appearance Clear Clear Clear Urine Odor Normal Strong Comment DC'd at 8 am this morning per miscellanous order , patient advised to drink at least 240 cc an hour until he spontaneously voids gross penile and scrotal edema noted, patient has no desire to void, provider aware, awaiting orders Stool Occult Blood Negative Stool Size Moderate Stool Characteristics Formed Hard Voiding Methods Urinal Urinal Labs on day of discharge: Labs from last 24 hours 03/17/19 03/17/19 06:23 06:23 WBC 8.11 RBC 3.00 L Hgb 9.0 L Hct 28.9 L MCV 96.3 H MCH 30.0 MCHC 31.1 L RDW 16.1 H Plt Count 513 H MPV 9.1 Immature Gran % 0.1 Neutrophils % 65.5 Lymphocytes % 21.8 Monocytes % 7.6 Eosinophils % 4.6 Basophils % 0.4 Absolute Neutrophils 5.31 Absolute Lymphocytes 1.77 Absolute Monocytes 0.62 Absolute Eosinophils 0.37 Absolute Basophils 0.03 Differential Comment Rbc morph reviewed RBC Morphology See below Polychromasia Present Anisocytosis 2+ Sodium 138 Potassium 3.9 Chloride 107 Carbon Dioxide 21.2 Anion Gap 9.8 BUN 15 Creatinine 0.73 Estimated GFR/1.73 m2 >= 60.00 Glucose 90 Calcium 7.8 L Magnesium 1.9 [facility] Medical History PAD (peripheral artery disease) (Chronic) Prostatitis (Acute) Descending thoracic aortic aneurysm (Chronic) Hyponatremia (Chronic) Gastroesophageal reflux disease (Chronic) Tobacco dependence syndrome (Chronic) Constipation (Chronic) Hyponatremia (Chronic) Alcohol abuse (Chronic) Schizoaffective disorder (Chronic) Anemia (Chronic) Hypertension (Chronic) Hypomagnesemia (Chronic) B12 deficiency (Chronic) Folate deficiency (Chronic) History of alcoholism (Chronic) S/P right hip fracture (Acute) Anxiety (Chronic) Hemolytic uremic syndrome (Resolved) Alcohol abuse COPD (chronic obstructive pulmonary disease) GERD (gastroesophageal reflux disease) Pneumonitis Schizophrenia Tremor Surgical History S/P femoral-popliteal bypass surgery (Acute) History of ankle surgery (Acute) Family History Mother Asthma Father ID (myocardial infarction) Grandmother Diabetes Colon cancer Maternal Uncle Hyperlipidemia Other Lung cancer Social History Smoking/Tobacco Use Status: Current, status unknown Tobacco Type: cigarettes Alcohol Intake: current Alcohol Intake frequency: 3 or more drinks per day Alcohol type: beer Details: drinks a 6 pack of beer per day Drug use: Never Substance use type: does not use Details: Patient comes from the [facility] for rehab, unsure of drinking/ tobacco use status. Patient unable to answer questions. Do you feel safe at home: Yes Do you feel safe in your relationship?: Yes
--- NOTE | 2019-03-17 10:35 | DSE_ITS ---
Date of service: 03/17/19 Time of Service: 10:24 DS: Diagnosis Discharge Diagnosis (1) Anemia: Status: Chronic (2) Critical lower limb ischemia: Status: Acute (3) Closed intertrochanteric fracture of right hip: Status: Acute (4) History of alcoholism: Status: Chronic (5) Schizoaffective disorder: Status: Chronic (6) Edema: Status: Acute Discharge Plan Disposition Patient Disposition: SNF (LEVEL 1) [facility] Condition: Improving Discharge Details Chief Complaint: Orthopedic Reason For Visit: RIGHT FEMUR FRACTURE Admit Date/Time: 03/13/19 14:37 Admit Provider: Tavo Reid Attending Provider: Tavo Reid Primary Care Provider: Josephine Velazquez ED Provider: Zenon Myers Hospital Course Hospital Course: 63 y/o male with PVD, schizoaffective disorder, alcohol abuse, recent admission mid February for R hip fracture s/p ORIF, PVD s/p fem pop bypass, who presented on 03/12 from his shelter facility following a fall. He was found to have R femur fracture. He underwent ORIF of R femoral shaft on 03/13 . He tolerated the procedure well, requiring low dose opiates for pain control. Hospital course also notable for chronic normocytic anemia, hgb reached constantine of 8.6 and he was transfused 1 unit prbc during admission, hgb repained stable following, no evidence active bleeding and stool negative for occult blood . He required catherine catheter for urinary retention, ua was negative following recent treatment for prostatitis, he was able to successfully void once catherine was removed. His lasix were held on admission and he received IVF for volume depletion. He did develop some scrotal edema and bilateral pedal edema and home diuretics were resumed. Following discharge he will follow up with [facility] vascular surgery for his left lower limb ischemia, as well as orthopedics and podiatry. Home Meds and New Rx's Prescriptions: New tramadol 50 mg Tablet 50 mg PO Q12H PRN PRNQty: 2 RF: 0 Continued furosemide 40 mg Tablet 40 mg PO QAM RF: 0 gabapentin 100 mg Capsule 100 mg PO TID RF: 0 atorvastatin [Lipitor] 20 mg tablet 40 mg PO HS RF: 0 aspirin 81 mg tablet,chewable 81 mg PO QAM RF: 0 carvedilol [Coreg] 6.25 MG tablet 12.5 mg PO BID RF: 0 tamsulosin 0.4 mg capsule 0.4 mg PO HS RF: 0 acetaminophen [Acetaminophen Extra Strength] 500 mg Tablet 1,000 mg PO QID PRNRF: 0 cyanocobalamin (vitamin B-12) [Vitamin B-12] 500 MCG tablet 1,000 mcg PO DAILY Qty: 30 RF: 0 ascorbic acid (vitamin C) [Vitamin C] 500 MG tablet 500 mg PO BID Qty: 60 RF: 0 benztropine 1 MG tablet 0.5 mg PO DAILY Qty: 30 RF: 0 docusate sodium [Colace] 100 MG capsule 100 mg PO TID PRN PRNQty: 90 RF: 0 omeprazole 20 MG capsule,delayed release(DR/EC) 20 mg PO DAILY@0730 Qty: 30 RF: 0 risperidone [Risperdal] 1 MG tablet 1 mg PO HS Qty: 30 RF: 0 magnesium gluconate 500 MG tablet 500 mg PO BID Qty: 60 RF: 0 thiamine HCl (vitamin B1) [Vitamin B-1] 100 mg Tablet 100 mg PO DAILY RF: 0 mirtazapine [Remeron] 15 mg Tablet 15 mg PO HS RF: 0 [place]-3 350 mg-235 mg- 90 mg-597 mg Capsule,Delayed Release(Dr/Ec) 2,000 cap PO DAILY RF: 0 polyethylene glycol 3350 17 gram Powder In Packet 17 g PO DAILY Qty: 30 RF: 0 Discontinued hydromorphone 2 mg Tablet 2 mg PO Q4H PRNRF: 0 amlodipine 5 MG tablet 5 mg PO DAILY Qty: 30 RF: 0 Therapeutic-M 1 TAB tablet 1 tab PO BID Qty: 60 RF: 0 levofloxacin [Levaquin] 750 mg Tablet 750 mg PO DAILY@0600 Qty: 28 RF: 0 Discharge Instructions Additional Instructions: Monitor BP, if running above 140/90s amlodipine should be resumed patient will follow up with [facility] vascular surgery and orthopedics Dr Blevins following discharge Stand Alone Forms: Nursing Discharge Form Activity:: Activity as Tolerated Equipment/Supplies:: Crutches Diet:: Normal Diet Discharge Orders Discharge Orders: Discharge Order (Routine); Ordered 03/17/19 Ordered By: Debbi Benítez DS: Data Vitals/I&O Vitals and I&O: Vital Signs Temperature 37.4 C 03/17/19 07:20 Temperature Source Tympanic 03/17/19 07:20 Pulse 83 03/17/19 07:20 Pulse Rhythm Regular 03/17/19 09:03 Respiratory Rate 18 03/17/19 07:20 Respiratory Effort 03/17/19 09:03 Respiratory Depth Normal 03/17/19 09:03 Respiratory Pattern Normal 03/17/19 09:03 Blood Pressure 129/92 H 03/17/19 07:20 Blood Pressure Position Supine 03/12/19 17:55 Pulse Oximetry 96 03/17/19 07:20 Respiratory End-tidal CO2 26 03/13/19 17:30 Oxygen Delivery Method Room Air 03/17/19 07:20 Oxygen Flow Rate 0 03/17/19 07:20 Pain Level 0 03/16/19 18:58 Comment 03/15/19 09:55 Intake & Output 03/16/19 03/16/19 03/17/19 11:59 23:59 11:59 Intake Total 2420 / 2660 240 / 2660 240 / 240 Output Total 900 / 1250 350 / 1250 375 / 375 Balance 1520 / 1410 -110 / 1410 -135 / -135 Intake: IV 1999 / 1999 Oral 420 / 660 240 / 660 240 / 240 Output: Urine 900 / 1250 350 / 1250 375 / 375 Other: Urine Color Light Zakia Dark Zakia Light Zakia Urine Appearance Clear Clear Clear Urine Odor Normal Strong Comment DC'd at 8 am this morning per miscellanous order , patient advised to drink at least 240 cc an hour until he spontaneously voids gross penile and scrotal edema noted, patient has no desire to void, provider aware, awaiting orders Stool Occult Blood Negative Stool Size Moderate Stool Characteristics Formed Hard Voiding Methods Urinal Urinal Labs on day of discharge: Labs from last 24 hours 03/17/19 03/17/19 06:23 06:23 WBC 8.11 RBC 3.00 L Hgb 9.0 L Hct 28.9 L MCV 96.3 H MCH 30.0 MCHC 31.1 L RDW 16.1 H Plt Count 513 H MPV 9.1 Immature Gran % 0.1 Neutrophils % 65.5 Lymphocytes % 21.8 Monocytes % 7.6 Eosinophils % 4.6 Basophils % 0.4 Absolute Neutrophils 5.31 Absolute Lymphocytes 1.77 Absolute Monocytes 0.62 Absolute Eosinophils 0.37 Absolute Basophils 0.03 Differential Comment Rbc morph reviewed RBC Morphology See below Polychromasia Present Anisocytosis 2+ Sodium 138 Potassium 3.9 Chloride 107 Carbon Dioxide 21.2 Anion Gap 9.8 BUN 15 Creatinine 0.73 Estimated GFR/1.73 m2 >= 60.00 Glucose 90 Calcium 7.8 L Magnesium 1.9 [facility] Medical History PAD (peripheral artery disease) (Chronic) Prostatitis (Acute) Descending thoracic aortic aneurysm (Chronic) Hyponatremia (Chronic) Gastroesophageal reflux disease (Chronic) Tobacco dependence syndrome (Chronic) Constipation (Chronic) Hyponatremia (Chronic) Alcohol abuse (Chronic) Schizoaffective disorder (Chronic) Anemia (Chronic) Hypertension (Chronic) Hypomagnesemia (Chronic) B12 deficiency (Chronic) Folate deficiency (Chronic) History of alcoholism (Chronic) S/P right hip fracture (Acute) Anxiety (Chronic) Hemolytic uremic syndrome (Resolved) Alcohol abuse COPD (chronic obstructive pulmonary disease) GERD (gastroesophageal reflux disease) Pneumonitis Schizophrenia Tremor Surgical History S/P femoral-popliteal bypass surgery (Acute) History of ankle surgery (Acute) Family History Mother Asthma Father [place] (myocardial infarction) Grandmother Diabetes Colon cancer Maternal Uncle Hyperlipidemia Other Lung cancer Social History Smoking/Tobacco Use Status: Current, status unknown Tobacco Type: cigarettes Alcohol Intake: current Alcohol Intake frequency: 3 or more drinks per day Alcohol type: beer Details: drinks a 6 pack of beer per day Drug use: Never Substance use type: does not use Details: Patient comes from the [facility] for rehab, unsure of drinking/ tobacco use status. Patient unable to answer questions. Do you feel safe at home: Yes Do you feel safe in your relationship?: Yes
--- NOTE | 2019-03-17 10:46 | INDS_ITS ---
Date of service: 03/17/19 PT Notes Inpatient Physical Therapy Discharge Summary Dates: 03/17/2019 Dates of Service: 03/14/2019 through 03/17/2019 This is a clinical summary of skilled PT services provided on the dates listed above. No charge was made in the completion of this documentation. Referring Doctor: Zenon Krueger MD PT Orders: PT CONSULT: Mobilize after ORIF of fracture right femoral shaft. WBAT to right. Use knee immobilizer to walk. Remove knee immobilizer for ROM right knee. Precautions: Fall. Contact precautions. WBAT to right LE. Patient Profile/Admitting Diagnosis: Orders received for this 63-year-old male with schizoaffective disorder who returned to the ED from the [facility] on 03/12/2019 after sustaining a right femoral fracture due to a fall while attempting to stand up from bed with Unna boot on the left LE. Patient was diagnosed with acute oblique, displaced periprosthetic fracture of the midshaft of right femur and is status post ORIF on 03/13/2019. Patient is also status post ORIF with intramedullary levy and screw transfixing patient's intertrochanteric fracture on the right on 02/25/[address] Kapadia. He is also status post femoral?popliteal artery bypass on left LE on 02/27/2019 and was discharged to the [facility] on 03/05/2019 from [facility]. PMHX: Medical History PAD (peripheral artery disease) (Chronic) Prostatitis (Acute) Descending thoracic aortic aneurysm (Chronic) Hyponatremia (Chronic) Gastroesophageal reflux disease (Chronic) Tobacco dependence syndrome (Chronic) Constipation (Chronic) Hyponatremia (Chronic) Alcohol abuse (Chronic) Schizoaffective disorder (Chronic) Anemia (Chronic) Hypertension (Chronic) Hypomagnesemia (Chronic) B12 deficiency (Chronic) Folate deficiency (Chronic) History of alcoholism (Chronic) S/P right hip fracture (Acute) Anxiety (Chronic) Hemolytic uremic syndrome (Resolved) Alcohol abuse COPD (chronic obstructive pulmonary disease) GERD (gastroesophageal reflux disease) Pneumonitis Schizophrenia Tremor Surgical History S/P femoral-popliteal bypass surgery (Acute) History of ankle surgery (Acute) Social History/Home Situation: Patient is a poor historian and is unable to provide responses accurately. Per case management notes, Devin resides alone in a 3rd floor apartment in [facility] at baseline. He is currently residing at the [facility] for short term rehab, status post right hip fracture repair and status femoral- popliteal bypass on the left. He has a brother Dylan who lives locally and can provide some support. His case is managed by [employer] [facility]. Matthew is his correctional counselor/case manager at [facility]. Patient lives independently in an apartment with 13 steps to enter. Reports that he was independently ambulating prior to his fracture. Patient does not currently work. Current Functional Limitations: Inability to perform bed mobility, transfers, and ambulation without extensive assist/cueing and without use of assistive ambulatory devices Equipment Owned/DME: None Subjective: NT Objective: General Observation: NT Mental Status: Patient is alert and oriented as to person and place Pain: NT ROM: Right Upper Extremity: Shoulder Flexion WFL. Shoulder abduction WFL. Elbow flexion WFL. Wrist flexion WFL. Functional opening and closing of hand WFL. Left Upper Extremity: Shoulder Flexion WFL. Shoulder abduction WFL. Elbow flexion WFL. Wrist flexion WFL. Functional opening and closing of hand WFL. Right Lower Extremity: Hip flexion passively is 0 to 5 degrees. Hip abduction passively 0 to 5 degrees. Knee flexion 0 to 5 degrees passively. Ankle dorsiflexion WFL. Ankle plantarflexion WFL. Left Lower Extremity: Hip flexion 0 to 30 degrees in supine. Hip abduction 0 to 10 degrees in supine. Knee flexion 0 to 40 degrees in supine. Ankle dorsiflexion WFL. Ankle plantarflexion WFL. Strength: Right Upper Extremity: Shoulder flexors 4/5. Shoulder abductors 3-/5. Elbow flexors 3+/5. Elbow extensors 3+/5. Lettuce Cutter strong. Left Upper Extremity: Shoulder flexors 4/5. Shoulder abductors 3-/5. Elbow flexors 3+/5. Elbow extensors 3+/5. Lettuce Cutter strong. Right Lower Extremity: Hip flexors 1/5. Hip abductors 2-/5. Knee flexors 1/5. Knee extensors 1/5. Ankle dorsiflexors 4-/5. Ankle plantarflexors 4/5. Left Lower Extremity:Hip flexors 3-/5. Hip abductors 3-/5. Knee flexors 3-/5. Knee extensors 3-/5. Ankle dorsiflexors 4-/5. Ankle plantarflexors 4/5. Bed Mobility/Transfers: Rolling mod assist of 2 Supine to sit mod assist of 2 with head of bed elevated 45 degrees Sit to supine mod assist of 2 with head of bed elevated 45 degrees Sit to stand mod assist of 2 Stand to sit mod assist of 2 Bed to chair NT Chair to bed NT Gait: Patient able to tolerate in-room ambulation for 5-20 feet dependning on level of alertness and pain response using FWW with WBAT on R and mod assist of 2 with heel off-loading boot off but with slipper socks. Dr. Grimaldo ordered walking boot today for patient to protect skin breakdown while ambulating. Balance: Static Sitting: Fair Dynamic Sitting: Fair Static Standing: Poor Dynamic Standing: Poor Special Tests: Mobility Limitations Standardized Measure [facility] 6 clicks Basic Mobility Inpatient Short Form: Raw Score: 11 CMS Score: 73% deficit Assessment: Patient is a 63 year old male referred to physical therapy services with the diagnosis right femoral shaft fracture status post ORIF on 03/13/2019. He is also status post ORIF with intramedullary rods and screw fixation for right intertrochanteric fracture on 02/25/2019 and is status post femoral?popliteal artery bypass on the left side on 02/27/2019 due to left critical limb ischemia. Patient presents with clinical signs and symptoms consistent with current/admitting diagnoses and postoperative status that have resulted to mobility limitations, gait instability, generalized weakness, and impairment of motor control as demonstrated by the following impairment level findings: 1. Decreased strength to B LE major muscle groups 2. Impaired sitting/standing balance 3. Impaired activity tolerance 4. Limitation of joint range of motion in right hip and knee Impairments are contributing to the following functional limitations: 1. Dependent bed mobility skills 2. Increased dependence with transfers 3. Inability to safely ambulate without assistive device and physical assistance 4. Increase completion time for mobility ADL performance 5. Increased fall risk 6. Inability to negotiate steps alone safely Goals: Goals X1 week 1. Supine-Sit independent NOT MET 2. Sit-Supine independent NOT MET 3. Sit-Stand independent NOT MET 4. Stand-Sit independent NOT MET 5. Bed-Chair independent NOT MET 6. Chair-Bed independent NOT MET 7. Independent gait on level surface with use of least restrictive device for at least 300 feet without report of pain nor dyspnea NOT MET 8. Independent stair negotiation while holding onto bilateral rails for at least 10 steps without report of pain nor dyspnea NOT MET 9. Independent with home exercise program NOT MET 10. Good static and dynamic standing balance/tolerance NOT MET DISCHARGE RECOMMENDATIONS: Patient will continue will highly benefit from SNF placement in order to maximize functional mobility level, progress assistive ambulatory device use, and facilitate return to the community. TREATMENT CODE/TIME: N/A. Thank you for this referral. Sofía Enriquez, PT, DPT, CLT [facility]
--- NOTE | 2019-03-17 12:00 | PDOC.CMDIS ---
- If Service Date Differs Date of service: 03/17/19 Time of Service: 12:00 LACE Index Scoring Tool - Questions: Length of Stay (in days): 4 - 6 Acuity (Admit via E.D.?): Yes Comorbidities: Liver or Renal Disease E.D. Visits: 7 - Answers: Total Score: 16 Risk of Readmission: High Risk Care Management Discharge Reason for Hospitalization: Fractured femur right Discharge Plan: Devin is being discharged back to the [facility] today. He states that he is ready to return. CM contacted the [facility] and coordinated transportation to [facility]. Devin to follow-up with vascular surgery at [facility] as directed, he has the walking boot and had upon returning to the [facility]. Devin's brother met with Devin prior to his return to the [facility]. CM scanned advanced directive into his chart with his brother listed as the D POA. CM updated [employer] pillowcase folder with discharge. Patient/Family Education Needs: Discharge education, limitations, follow-up plan of care. Services Needed at Discharge: Assisted Facility - MH Services (Omit if N/A) Current MH Services: [employer]
--- NOTE | 2019-03-17 12:07 | CMDISCH_ITS ---
- If Service Date Differs Date of service: 03/17/19 Time of Service: 12:00 LACE Index Scoring Tool - Questions: Length of Stay (in days): 4 - 6 Acuity (Admit via E.D.?): Yes Comorbidities: Liver or Renal Disease E.D. Visits: 7 - Answers: Total Score: 16 Risk of Readmission: High Risk Care Management Discharge Reason for Hospitalization: Fractured femur right Discharge Plan: Devin is being discharged back to the [facility] today. He states that he is ready to return. CM contacted the [facility] and coordinated transportation to [facility]. Devin to follow-up with vascular surgery at [facility] as directed, he has the walking boot and had upon returning to the [facility]. Devin's brother met with Devin prior to his return to the [facility]. CM scanned advanced directive into his chart with his brother listed as the D POA. CM updated [employer] director of casework services with discharge. Patient/Family Education Needs: Discharge education, limitations, follow-up plan of care. Services Needed at Discharge: [facility] - MH Services (Omit if N/A) Current MH Services: [employer] [facility]
--- NOTE | 2019-03-17 12:12 | PT.INTREAT ---
Date of service: 03/17/19 Time of Service: 12:13 PT Notes Inpatient Physical Therapy Treatment Note [facility] Date: 03/17/19 PRECAUTIONS: Fall, WBAT on R SUBJECTIVE: Devin is agreeable to participating in PT. OBJECTIVE: PAIN: Patient c/o severe pain in R LE with weight bearing BED MOBILITY/TRANSFERS Supine-sit: Min A Sit-stand: Min A from elevated bed surface Stand-sit: Mod A GAIT Assistive Device: FWW Weight bearing: WBAT on R Assist: Mod A Distance: 10' Deviation: Max cueing for gait sequence and movement initiation, tactile cueing to advance R and L foot, standing rest x5; patient reports not feeling well following gait training ASSESSMENT: Patient tolerated session with complaints of severe R LE pain with gait training. Patient would benefit from continued gait and transfer training, as well as strengthening for improved activity tolerance and mobility. PLAN: As per primary PT TREATMENT CODE/TIME: Session 1: 30 minutes; [id number] x2
== END 2019-03-17 11:05 | disposition skilled nursing facility (03) | DRG 481 ==
LOC: ER 19:42 → MS 03-13 08:49
PROVIDERS: General Practice; Internal Medicine; Orthopaedic Surgery; Admitting Provider Family Medicine; Emergency Provider Emergency Medicine; PCP Nurse Practitioner; Visit Provider Internal Medicine
PROC: 0QS804Z Reposition Right Femoral Shaft with Internal Fixation Device, Open Approach (ICD-10-PCS; CPT 27507; principal; 2019-03-13 14:30)
DX: S72.331A Displaced oblique fracture of shaft of right femur, initial encounter for closed fracture (principal); T84.124A Displacement of internal fixation device of right femur, initial encounter; I96 Gangrene, not elsewhere classified; S72.141A Displaced intertrochanteric fracture of right femur, initial encounter for closed fracture; W18.39XA Other fall on same level, initial encounter; Y92.129 Unspecified place in nursing home as the place of occurrence of the external cause; Z98.890 Other specified postprocedural states; Z98.62 Peripheral vascular angioplasty status; I99.8 Other disorder of circulatory system; I73.9 Peripheral vascular disease, unspecified; F25.9 Schizoaffective disorder, unspecified; R33.9 Retention of urine, unspecified; F10.20 Alcohol dependence, uncomplicated; Z87.81 Personal history of (healed) traumatic fracture; D64.9 Anemia, unspecified; K21.9 Gastro-esophageal reflux disease without esophagitis; F17.210 Nicotine dependence, cigarettes, uncomplicated; I10 Essential (primary) hypertension; J44.9 Chronic obstructive pulmonary disease, unspecified; R60.0 Localized edema; L89.629 Pressure ulcer of left heel, unspecified stage; I95.9 Hypotension, unspecified
CPT/HCPCS: 27507; 36415; 36430; 73552; 80048; 80053; 85027; 86850; 86900; 86901; 86920; 87081; 96361; 96374; 96375; 97110; 97163; 97530; 99220; 99226; 99232; 99285; 99315; J1650; NC; 71045; 81003; 83735; 84484; 85014; 85018; 85025; 85610; 85730; 99233; 99238; 99284; G0378; J0690; J1100; J1885; J1941; J2370; J3010; J7042; L1830; P9016

== ENCOUNTER → 2019-03-13 13:00 | Outpatient (BNVA) | payer MEDICARE, MEDICAID, SELFPAY | PROVIDERS: PCP Nurse Practitioner; Referring Provider Nurse Practitioner; Visit Provider Orthopaedic Surgery | DX: R69 Illness, unspecified (principal) ==

== ENCOUNTER 2019-04-07 15:14 | Outpatient (REF) | payer MEDICARE, MEDICAID, SELFPAY | END 2019-04-07 15:34 | LOC: LBN 15:14 | PROVIDERS: PCP Nurse Practitioner; Visit Provider Emergency Medicine | DX: L02.91 Cutaneous abscess, unspecified (principal); L08.9 Local infection of the skin and subcutaneous tissue, unspecified | CPT/HCPCS: 87077; 87070; 87186; 87205 ==

== ENCOUNTER 2019-05-03 15:23 | Outpatient (REF) | payer MEDICARE, MEDICAID, SELFPAY ==
[2019-05-03 16:22] LABS: ALT 32 U/L (12-78); AST 19 U/L (15-37); Albumin 2.5 g/dL (3.4-5.0); Alkaline Phosphatase 113 U/L (46-116); BUN 22 mg/dL (7-18); Bilirubin, Total 0.3 mg/dL (0.2-1.0); CREATININE 1.26 mg/dL (0.70-1.30); Calcium 8.6 mg/dL (8.5-10.1); Calculated LDL 86; Chloride 103 mmol/L (98-107); Cholesterol 146 mg/dL (50-200); Estimated GFR 57.44 (mL/min/1.73m2); Glucose 108 mg/dL (70-100); HDL Cholesterol 35 mg/dL (40-60); Potassium 3.8 mmol/L (3.5-5.1); Sodium 139 mmol/L (136-145); Total Protein 5.6 g/dL (6.4-8.2); Triglyceride 129 mg/dL (30-150)
== END 2019-05-03 15:43 ==
LOC: LBN 15:23
PROVIDERS: PCP Nurse Practitioner; Visit Provider Family Medicine
DX: I10 Essential (primary) hypertension (principal); I73.9 Peripheral vascular disease, unspecified; D50.9 Iron deficiency anemia, unspecified
CPT/HCPCS: 80053; 80061; 83721

== ENCOUNTER 2019-05-04 15:12 | Outpatient (REF) | payer MEDICARE, MEDICAID, SELFPAY ==
[2019-05-04 15:51] LABS: Abs Immature Grans 0.01 k/cumm (0.0-0.09); Absolute Basophil Count 0.04 k/cumm (0.0-0.2); Absolute Eosinophil Count 0.33 k/cumm (0.0-0.7); Absolute Lymphocyte Count 1.69 k/cumm (1.2-3.4); Absolute Monocyte Count 0.55 k/cumm (0.11-0.7); Absolute Neutrophil Count 3.88 k/cumm (1.2-6.7); Basophils % 0.6; Eosinophils % 5.1; HCT 32.5 % (40.0-50.0); HGB 10.3 g/dL (13.5-17.5); Immature Grans % 0.2; Mean Corp. HGB Concentration 31.7 g/dL (32.0-36.0); Mean Corpuscular Hemoglobin 28.7 pg (27.0-33.0); Mean Corpuscular Volume 90.5 fL (80-95); Mean Platelet Volume 9.3 fL (8.0-11.0); Monocytes % 8.5; Neutrophils % 59.6; Platelet Count 390 x1000/uL (130-400); RBC 3.59 m/cumm (4.50-6.00); RBC Distribution Width 14.9 % (11.8-14.1)
== END 2019-05-04 15:32 ==
LOC: LBN 15:12
PROVIDERS: PCP Nurse Practitioner; Visit Provider Family Medicine
DX: D64.9 Anemia, unspecified (principal)
CPT/HCPCS: 85025

== ENCOUNTER 2019-05-18 12:16 | Emergency (ER) | payer MEDICARE, MEDICAID, SELFPAY ==
[2019-05-18] VITALS (15 sets, daily range): BP systolic 101–115; BP diastolic 70–79; PULSE 65–74; RESP 11–18; TEMP 36.6; O2SAT 92–97
--- NOTE | 2019-05-18 12:46 | DI.RAD_ITS ---
SYMPTOM/DIAGNOSIS: LOW SAT, FEVER AP AND LATERAL CHEST: Comparison is made with 12 March 2019 The heart size is normal. The aorta is again noted to be tortuous. There is a linear area of scarring in the left lung base. No superimposed acute infiltrate, effusion or pulmonary edema seen. IMPRESSION: No acute abnormality.
--- NOTE | 2019-05-18 12:49 | ED.GENADUL_ITS ---
Discharge Plan Disposition Patient Disposition: HOME Discharge Details Chief Complaint: GenMedical Clinical Impression: History of fever Primary Care Provider: Josephine Velazquez ED Provider: Jatin Burns Home Meds and New Rx's Prescriptions: Continued tramadol 50 mg tablet 50 mg PO TID Qty: 90 RF: 4 furosemide 40 mg Tablet 40 mg PO QAM RF: 0 gabapentin 100 mg Capsule 100 mg PO TID RF: 0 atorvastatin [Lipitor] 20 mg tablet 40 mg PO HS RF: 0 aspirin 81 mg tablet,chewable 81 mg PO QAM RF: 0 tamsulosin 0.4 mg capsule 0.4 mg PO HS RF: 0 acetaminophen [Acetaminophen Extra Strength] 500 mg Tablet 1,000 mg PO QID PRNRF: 0 cyanocobalamin (vitamin B-12) [Vitamin B-12] 500 MCG tablet 1,000 mcg PO DAILY Qty: 30 RF: 0 ascorbic acid (vitamin C) [Vitamin C] 500 MG tablet 500 mg PO BID Qty: 60 RF: 0 benztropine 1 MG tablet 0.5 mg PO DAILY Qty: 30 RF: 0 docusate sodium [Colace] 100 MG capsule 100 mg PO TID PRN PRNQty: 90 RF: 0 omeprazole 20 MG capsule,delayed release(DR/EC) 20 mg PO DAILY@0730 Qty: 30 RF: 0 risperidone [Risperdal] 1 MG tablet 1 mg PO HS Qty: 30 RF: 0 magnesium gluconate 500 MG tablet 500 mg PO BID Qty: 60 RF: 0 thiamine HCl (vitamin B1) [Vitamin B-1] 100 mg Tablet 100 mg PO DAILY RF: 0 mirtazapine [Remeron] 15 mg Tablet 15 mg PO HS RF: 0 Paxton-3 350 mg-235 mg- 90 mg-597 mg Capsule,Delayed Release(Dr/Ec) 100 cap PO DAILY RF: 0 polyethylene glycol 3350 17 gram Powder In Packet 17 g PO DAILY Qty: 30 RF: 0 carvedilol 12.5 mg Tablet 12.5 mg PO BID RF: 0 ergocalciferol (vitamin D2) [Vitamin D2] 50,000 unit Capsule 50,000 unit PO QMONTH RF: 0 Centrum Silver Men 300-600-300 mcg Tablet 1 tab PO DAILY RF: 0 Discharge Instructions Additional Instructions: Urinalysis could not be performed today. If you have urinary symptoms or persistent fever, urinalysis should be checked in the outpatient setting. Please contact your primary care physician to arrange follow-up. Return to the ER for any worsening or new concerning symptoms. Referrals: Josephine Velazquez [Primary Care Provider] - Discharge Data Discharge Date/Time-TO BE ENTERED AT DEPARTURE: 05/18/19 15:11 Medical Decision Making 13:05 -- 63-year-old male sent from [facility] with concern for low-grade fever x1 week. Patient is afebrile. He is hemodynamically stable. He is saturating well off oxygen. Abdomen is nontender and nondistended. Patient has no urinary symptoms. He has no respiratory symptoms. There was a question of low saturation today. I will obtain chest x-ray. 14:35 --chest x-ray interpreted by radiology: Markedly tortuous thoracic aorta, no focal consolidation, mild interstitial lung scarring, minimal left basilar atelectasis, no significant pleural effusion, no definite evidence of acute cardiopulmonary disease. Patient has remained stable here in the emerge department. He has not been able to urinate. He is requesting discharge. I called and spoke with on-call provider for the [facility] rehab and discussed ED presentation and course. Should patient continue to have low-grade fever at the [facility], further work-up should include outpatient urinalysis. HPI General Mode of arrival: ambulatory . Date/Time Provider Initiated Documentation: 05/18/19 12:32 . Limitations to Documentation: no limitations . Information obtained by: patient . HPI Narrative: 63-year-old male who is here today for evaluation requested by correction staff for low-grade fever x1 week, concern for distended abdomen, and concern for generalized weakness. Patient has no complaint other than he would like to return as soon as possible to the correction to partake in May festivities. He is most concerned with getting back before other residents have eaten all the food. Patient specifically denies dysuria. He has been urinating normally. He denies cough. He denies rash. He denies chest pain. He denies abdominal pain. He does note that he felt like he had passed gas earlier today. He has subsequently passed gas multiple times and that sensation is relieved. He denies abdominal distention. He denies cough. He denies shortness of breath. He denies chest pain. Patient has no medical complaints and request to be discharged as soon as possible. He notes that he did not want to come to the emergency department and would not of come to the emerge department had [facility] staff not demanded that he be evaluated. Related Data Home Medications Medication Instructions Recorded Confirmed ascorbic acid (vitamin C) [Vitamin 500 mg PO BID #60 tab 12/08/17 05/18/19 C] benztropine 0.5 mg PO DAILY #30 tab 12/08/17 05/18/19 cyanocobalamin (vitamin B-12) 1,000 mcg PO DAILY #30 tab 12/08/17 05/18/19 [Vitamin B-12] docusate sodium [Colace] 100 mg PO TID PRN PRN #90 cap 12/08/17 05/18/19 magnesium gluconate 500 mg PO BID #60 tab 12/08/17 05/18/19 omeprazole 20 mg PO DAILY@0730 #30 capcr 12/08/17 05/18/19 risperidone [Risperdal] 1 mg PO HS #30 tab 12/08/17 05/18/19 Paxton-3 100 cap PO DAILY 02/11/19 05/18/19 mirtazapine [Remeron] 15 mg PO HS 02/11/19 05/18/19 thiamine HCl (vitamin B1) [Vitamin 100 mg PO DAILY 02/11/19 05/18/19 B-1] polyethylene glycol 3350 17 g PO DAILY #30 each 02/16/19 05/18/19 acetaminophen [Acetaminophen Extra 1,000 mg PO QID PRN 03/12/19 05/18/19 Strength] aspirin 81 mg PO QAM 03/12/19 05/18/19 atorvastatin [Lipitor] 40 mg PO HS 03/12/19 05/18/19 furosemide 40 mg PO QAM 03/12/19 05/18/19 gabapentin 100 mg PO TID 03/12/19 05/18/19 tamsulosin 0.4 mg PO HS 03/12/19 05/18/19 tramadol 50 mg tablet 50 mg PO TID #90 tab 05/15/19 05/18/19 Centrum Silver Men 1 tab PO DAILY 05/18/19 05/18/19 carvedilol 12.5 mg PO BID 05/18/19 05/18/19 ergocalciferol (vitamin D2) 50,000 unit PO QMONTH 05/18/19 05/18/19 [Vitamin D2] Previous Rx's Medication Instructions Recorded ascorbic acid (vitamin C) [Vitamin 500 mg PO BID #60 tab 12/08/17 C] benztropine 0.5 mg PO DAILY #30 tab 12/08/17 cyanocobalamin (vitamin B-12) 1,000 mcg PO DAILY #30 tab 12/08/17 [Vitamin B-12] docusate sodium [Colace] 100 mg PO TID PRN PRN #90 cap 12/08/17 magnesium gluconate 500 mg PO BID #60 tab 12/08/17 omeprazole 20 mg PO DAILY@0730 #30 capcr 12/08/17 risperidone [Risperdal] 1 mg PO HS #30 tab 12/08/17 polyethylene glycol 3350 17 g PO DAILY #30 each 02/16/19 tramadol 50 mg tablet 50 mg PO TID #90 tab 05/15/19 Allergies Allergy/AdvReac Type Severity Reaction Status Date / Time No Known Allergies Allergy Unverified 05/18/19 12:28 General Stated Complaint: GenMedical BELLO: 3 Review of Systems Review of Systems All systems reviewed & are unremarkable except as noted in HPI and below Constitutional Denies fever(s) Cardiovascular Denies chest pain, Reports pedal edema (chronic unchanged) and Denies dyspnea Respiratory Denies cough and Denies dyspnea Gastrointestinal Reports as per HPI [facility] Medical History PAD (peripheral artery disease) (Chronic) Prostatitis (Acute) Descending thoracic aortic aneurysm (Chronic) Hyponatremia (Chronic) Gastroesophageal reflux disease (Chronic) Tobacco dependence syndrome (Chronic) Constipation (Chronic) Hyponatremia (Chronic) Alcohol abuse (Chronic) Schizoaffective disorder (Chronic) Anemia (Chronic) Hypertension (Chronic) Hypomagnesemia (Chronic) B12 deficiency (Chronic) Folate deficiency (Chronic) History of alcoholism (Chronic) S/P right hip fracture (Acute) Anxiety (Chronic) Hemolytic uremic syndrome (Resolved) Alcohol abuse COPD (chronic obstructive pulmonary disease) GERD (gastroesophageal reflux disease) Pneumonitis Schizophrenia Tremor Surgical History History of ankle surgery (Acute) S/P femoral-popliteal bypass surgery (Acute) Family History Mother Asthma Father [place] (myocardial infarction) Grandmother Diabetes Colon cancer Maternal Uncle Hyperlipidemia Other Lung cancer Social History Smoking/Tobacco Use Status: Current, status unknown Tobacco Type: cigarettes Alcohol Intake: current Alcohol Intake frequency: 3 or more drinks per day Alcohol type: beer Details: drinks a 6 pack of beer per day Drug use: Never Substance use type: does not use Details: Patient comes from the [facility] for rehab, unsure of drinking/ tobacco use status. Patient unable to answer questions. Do you feel safe at home: Yes Do you feel safe in your relationship?: Yes Exam Const General: cooperative and no acute distress HENMT Head: normocephalic and atraumatic Mouth: moist mucous membranes Eyes Conjunctivae: normal conjunctivae Sclera: normal sclerae Neck Neck: supple Resp Auscultation: clear to auscultation bilaterally, no rales, no rhonchi and no wheezes Cardio Jugular venous pressure: no JVD Rate: regular rate and not tachycardic Rhythm: regular rhythm GI Inspection: non-distended Palpation: soft, not firm, no guarding, no masses, no pulsatile masses, not rigid and nontender Auscultation: normal bowel sounds Skin General skin exam: no rashes or lesions noted Other: second left toe necrotic Neuro General: alert, awake and tone normal Extrem General: edema Laterality: bilateral (1+ rt, trace left) Psych Appearance: grossly normal Mental Status: mental status grossly normal Speech and Movement: speech and movement normal Course Vital Signs Temperature 36.6 C 05/18/19 12:23 Pulse 69 05/18/19 12:23 Respiratory Rate 16 05/18/19 12:23 Blood Pressure 101/73 05/18/19 12:23 Pulse Oximetry 96 05/18/19 12:23 Temperature 36.6 C 05/18/19 12:23 Temperature Source Oral 05/18/19 12:23 Pulse 69 05/18/19 12:23 Respiratory Rate 16 05/18/19 12:23 Respiratory Effort Non-Labored 05/18/19 12:23 Blood Pressure 101/73 05/18/19 12:23 Blood Pressure Position Supine 05/18/19 12:23 Pulse Oximetry 96 05/18/19 12:23 Oxygen Delivery Method Nasal Cannula 05/18/19 12:23 Oxygen Flow Rate 2 05/18/19 12:23 Pain Level 0 05/18/19 12:23
--- NOTE | 2019-05-18 14:33 | DI.VRAD_ITS ---
EXAM: XR Chest, 2 Views EXAM DATE/TIME: 05/18/2019 1:26 PM CLINICAL HISTORY: 63 years old, male; Fever and other: Low sat; Patient HX: Low sat, fever TECHNIQUE: Imaging protocol: XR of the chest, 2 views. COMPARISON: CR XR CHEST 2V PA LATERAL 03/12/2019 6:57 PM FINDINGS: Markedly tortuous thoracic aorta. No focal consolidation. Minimal left basilar atelectasis. Mild interstitial lung scarring. No significant pleural effusion. IMPRESSION: No definite evidence of acute cardiopulmonary disease. Dictated and Authenticated by: Sanford Morrison MD. Ordering:GABY Steiner MD
--- NOTE | 2019-05-18 14:58 | NUR.NOTE ---
Nursing Note: Report given to Lacy SOUZA at the [facility].
--- NOTE | 2019-05-18 15:09 | NUR.NOTE ---
Nursing Note: EMS staff at bedside to transport patient back to the [facility]
== END 2019-05-18 15:11 | disposition home or self-care (01) ==
PROVIDERS: Emergency Provider Student in an Organized Health Care Education/Training Program; PCP Nurse Practitioner
DX: R50.9 Fever, unspecified (principal); I71.2 Thoracic aortic aneurysm, without rupture; I10 Essential (primary) hypertension
CPT/HCPCS: 99283; 71046

== ENCOUNTER 2019-07-04 14:56 | Outpatient (REF) | payer MEDICARE, MEDICAID, SELFPAY ==
[2019-07-04 16:37] LABS: Abs Immature Grans 0.01 k/cumm (0.0-0.09); Absolute Basophil Count 0.04 k/cumm (0.0-0.2); Absolute Eosinophil Count 0.36 k/cumm (0.0-0.7); Absolute Lymphocyte Count 2.29 k/cumm (1.2-3.4); Absolute Neutrophil Count 3.78 k/cumm (1.2-6.7); Basophils % 0.6; Eosinophils % 5.2; HGB 11.2 g/dL (13.5-17.5); Immature Grans % 0.1; Lymphocytes % 32.8; Mean Corp. HGB Concentration 31.1 g/dL (32.0-36.0); Mean Corpuscular Hemoglobin 25.9 pg (27.0-33.0); Mean Corpuscular Volume 83.3 fL (80-95); Mean Platelet Volume 9.6 fL (8.0-11.0); Monocytes % 7.2; Neutrophils % 54.1; Platelet Count 359 x1000/uL (130-400); RBC 4.32 m/cumm (4.50-6.00); RBC Distribution Width 15.9 % (11.8-14.1); White Blood Cell Count 6.98 k/cumm (4.4-10.8)
[2019-07-04 16:52] LABS: ALT 17 U/L (12-78); AST 14 U/L (15-37); Albumin 2.8 g/dL (3.4-5.0); Alkaline Phosphatase 95 U/L (46-116); Anion Gap 11.5 mmol/L (3-11); BUN 22 mg/dL (7-18); Bilirubin, Total 0.4 mg/dL (0.2-1.0); CO2 26.5 mmol/L (21.0-32.0); CREATININE 1.31 mg/dL (0.70-1.30); Calcium 8.7 mg/dL (8.5-10.1); Chloride 102 mmol/L (98-107); Estimated GFR 54.91 (mL/min/1.73m2); Glucose 146 mg/dL (70-100); Potassium 3.7 mmol/L (3.5-5.1); Sodium 140 mmol/L (136-145); Total Protein 6.1 g/dL (6.4-8.2)
== END 2019-07-04 15:16 ==
LOC: LBN 14:56
PROVIDERS: PCP Nurse Practitioner; Visit Provider Family Medicine
DX: N18.9 Chronic kidney disease, unspecified (principal); R53.83 Other fatigue
CPT/HCPCS: 80053; 85025

== ENCOUNTER 2019-08-08 09:57 | Outpatient (CLI) | payer MEDICARE, MEDICAID, SELFPAY ==
--- NOTE | 2019-08-08 09:42 | DI.RAD_ITS ---
EXAM: XR KNEE RT 2V AP,LAT INDICATION: f/u. COMPARISON: XR femur RT from 02/25/2019 XR hip RT in OR from 02/26/2019 XR knee RT 2V AP,lat from 06/07/2019 TECHNIQUE: 2D digital imaging was performed. FINDINGS: Note is made of a distal femoral fracture with intramedullary levy and cerclage wires in place with no interval change.
== END 2019-08-08 10:17 ==
PROVIDERS: PCP Nurse Practitioner; Referring Provider Nurse Practitioner; Visit Provider Orthopaedic Surgery
DX: S72.491D Other fracture of lower end of right femur, subsequent encounter for closed fracture with routine healing (principal); X58.XXXD Exposure to other specified factors, subsequent encounter
CPT/HCPCS: 99213; 73560

== ENCOUNTER 2019-09-14 10:16 | Outpatient (REF) | payer MEDICARE, MEDICAID, SELFPAY ==
[2019-09-14 12:25] LABS: Magnesium 2.2 mg/dL (1.8-2.4); Vitamin B12 1306 pg/mL (193-986)
== END 2019-09-14 10:36 ==
LOC: LBN 10:16
PROVIDERS: PCP Nurse Practitioner; Visit Provider Nurse Practitioner Gerontology
DX: D51.8 Other vitamin B12 deficiency anemias (principal); I10 Essential (primary) hypertension
CPT/HCPCS: 82607; 83735

== ENCOUNTER 2019-11-27 10:24 | Outpatient (REF) | payer MEDICARE, MEDICAID, SELFPAY ==
[2019-11-27 10:55] LABS: Absolute Basophil Count 0.03 k/cumm (0.0-0.2); Absolute Eosinophil Count 0.21 k/cumm (0.0-0.7); Absolute Lymphocyte Count 2.38 k/cumm (1.2-3.4); Absolute Neutrophil Count 3.95 k/cumm (1.2-6.7); Basophils % 0.4; Eosinophils % 2.9; HCT 43.6 % (40.0-50.0); HGB 14.2 g/dL (13.5-17.5); Lymphocytes % 33.2; Mean Corp. HGB Concentration 32.6 g/dL (32.0-36.0); Mean Corpuscular Hemoglobin 26.1 pg (27.0-33.0); Monocytes % 8.4; Neutrophils % 55.1; Platelet Count 293 x1000/uL (130-400); RBC 5.45 m/cumm (4.50-6.00); RBC Distribution Width 16.4 % (11.8-14.1); White Blood Cell Count 7.17 k/cumm (4.4-10.8)
[2019-11-27 12:00] LABS: ALT 28 U/L (16-63); AST 15 U/L (15-37); Albumin 3.4 g/dL (3.4-5.0); Alkaline Phosphatase 151 U/L (46-116); Anion Gap 12.3 mmol/L (3-11); BUN 29 mg/dL (7-18); Bilirubin, Total 0.5 mg/dL (0.2-1.0); CO2 24.7 mmol/L (21.0-32.0); CREATININE 1.31 mg/dL (0.70-1.30); Chloride 106 mmol/L (98-107); Estimated GFR 54.74 (mL/min/1.73m2); Glucose 99 mg/dL (74-106); Magnesium 2.1 mg/dL (1.8-2.4); Potassium 4.3 mmol/L (3.5-5.1); Sodium 143 mmol/L (136-145); Total Protein 7.2 g/dL (6.4-8.2); Vitamin B12 742 pg/mL (193-986)
== END 2019-11-27 10:44 ==
LOC: LBN 10:24
PROVIDERS: PCP Family Medicine; Visit Provider Nurse Practitioner Gerontology
DX: R53.83 Other fatigue (principal); I10 Essential (primary) hypertension; M25.50 Pain in unspecified joint
CPT/HCPCS: 80053; 82607; 83735; 85025

== ENCOUNTER 2019-12-25 10:42 | Outpatient (REF) | payer MEDICARE, MEDICAID, SELFPAY ==
[2019-12-25 12:05] LABS: FREE T4 0.96 ng/dL (0.76-1.46)
[2019-12-25 14:54] LABS: Folate 14.4 ng/mL (8.6-20.0)
== END 2019-12-25 11:02 ==
LOC: LBN 10:42
PROVIDERS: PCP Family Medicine; Visit Provider Family Medicine
DX: E03.9 Hypothyroidism, unspecified (principal); D59.3 Hemolytic-uremic syndrome
CPT/HCPCS: 82746; 84439; 84443

== ENCOUNTER 2020-02-08 16:07 | Outpatient (REF) | payer MEDICARE, MEDICAID, SELFPAY ==
[2020-02-08 18:35] LABS: ALT 28 U/L (16-63); AST 19 U/L (15-37); Albumin 3.7 g/dL (3.4-5.0); Alkaline Phosphatase 168 U/L (46-116); Anion Gap 10.1 mmol/L (3-11); BUN 22 mg/dL (7-18); Bilirubin, Total 0.5 mg/dL (0.2-1.0); CO2 27.9 mmol/L (21.0-32.0); CREATININE 1.36 mg/dL (0.70-1.30); Calcium 9.2 mg/dL (8.5-10.1); Chloride 103 mmol/L (98-107); Estimated GFR 52.43 (mL/min/1.73m2); Glucose 114 mg/dL (74-106); Potassium 4.1 mmol/L (3.5-5.1); Sodium 141 mmol/L (136-145); Total Protein 7.3 g/dL (6.4-8.2)
== END 2020-02-08 16:27 ==
LOC: LBN 16:07
PROVIDERS: PCP Family Medicine; Visit Provider Nurse Practitioner
DX: I10 Essential (primary) hypertension (principal); Z79.899 Other long term (current) drug therapy
CPT/HCPCS: 80053

== ENCOUNTER 2020-04-30 12:32 | Outpatient (REF) | payer MEDICARE, MEDICAID, SELFPAY ==
[2020-04-30 18:32] LABS: Abs Immature Grans 0.03 k/cumm (0.0-0.09); Absolute Basophil Count 0.04 k/cumm (0.0-0.2); Absolute Eosinophil Count 0.38 k/cumm (0.0-0.7); Absolute Lymphocyte Count 2.17 k/cumm (1.2-3.4); Absolute Monocyte Count 0.69 k/cumm (0.11-0.7); Basophils % 0.3; Eosinophils % 3.2; HCT 49.3 % (40.0-50.0); Immature Grans % 0.2 %; Mean Corp. HGB Concentration 32.5 g/dL (32.0-36.0); Mean Corpuscular Hemoglobin 26.2 pg (27.0-33.0); Mean Corpuscular Volume 80.7 fL (80-95); Mean Platelet Volume 9.5 fL (8.0-11.0); Monocytes % 5.7; Neutrophils % 72.6; Platelet Count 224 x1000/uL (130-400); RBC 6.11 m/cumm (4.50-6.00); RBC Distribution Width 16.3 % (11.8-14.1); White Blood Cell Count 12.03 k/cumm (4.4-10.8)
[2020-04-30 18:43] LABS: Absolute Neutrophil Count 8.73 k/cumm (1.2-6.7)
[2020-04-30 19:14] LABS: ALT 19 U/L (16-63); AST 15 U/L (15-37); Albumin 3.5 g/dL (3.4-5.0); Alkaline Phosphatase 150 U/L (46-116); Anion Gap 8.8 mmol/L (3-11); BUN 27 mg/dL (7-18); Bilirubin, Total 0.3 mg/dL (0.2-1.0); CO2 28.2 mmol/L (21.0-32.0); CREATININE 1.59 mg/dL (0.70-1.30); Calcium 9.1 mg/dL (8.5-10.1); Chloride 103 mmol/L (98-107); Estimated GFR 43.78 (mL/min/1.73m2); Glucose 108 mg/dL (74-106); Potassium 4.8 mmol/L (3.5-5.1); Sodium 140 mmol/L (136-145); TSH (W/Ref FT4) 0.52 uIU/mL (0.36-3.74)
[2020-04-30 20:05] LABS: Diff Comment RBC Morph Reviewed; RBC Morphology Normal
== END 2020-04-30 12:52 ==
LOC: NCHCN 12:32
PROVIDERS: PCP Family Medicine; Visit Provider Nurse Practitioner
DX: R63.4 Abnormal weight loss (principal)
CPT/HCPCS: 80053; 84443; 85025

== ENCOUNTER 2020-05-15 13:14 | Emergency (ER) | payer MEDICARE, MEDICAID, SELFPAY ==
[2020-05-15] VITALS (87 sets, daily range): BP systolic 87–95; BP diastolic 62–76; PULSE 103–122; RESP 24–43; TEMP 36.3–36.8; O2SAT 94–97
[2020-05-15] MEDS: Normal Saline 1,000 ML 1000 ML IV ×3 (13:30→15:17)
--- NOTE | 2020-05-15 13:45 | DI.RAD_ITS ---
EXAM: XR PORTABLE CHEST AP CLINICAL HISTORY: sob, r/o acute disease TECHNIQUE: 2D digital imaging was performed. COMPARISON: CR XR CHEST 2V PA LATERAL from 03/12/2019 CR XR CHEST 2V PA LATERAL from 05/18/2019 FINDINGS: The heart is at the upper limits of normal. There is tortuosity of the thoracic aorta. Increased op acity seen in the left lung base laterally. The right lung is clear. No pleural effusion or pneumot horax. Degenerative changes are seen in the spine. IMPRESSION: Opacity in the left lung base laterally. This may represent atelectasis or pneumonia. DATA REPOSITORY: RADIATION DOSE DELIVERED:
[2020-05-15 14:00] LABS: Abs Immature Grans 0.05 k/cumm (0.0-0.09); Absolute Basophil Count 0.01 k/cumm (0.0-0.2); Absolute Eosinophil Count 0.01 k/cumm (0.0-0.7); Absolute Monocyte Count 1.38 k/cumm (0.11-0.7); Basophils % 0.1; Eosinophils % 0.1; HCT 46.5 % (40.0-50.0); HGB 15.5 g/dL (13.5-17.5); Immature Grans % 0.4 %; Lymphocytes % 13.4; Mean Corp. HGB Concentration 33.3 g/dL (32.0-36.0); Mean Corpuscular Hemoglobin 26.5 pg (27.0-33.0); Mean Corpuscular Volume 79.4 fL (80-95); Mean Platelet Volume 9.7 fL (8.0-11.0); Monocytes % 9.7; Neutrophils % 76.3; Platelet Count 237 x1000/uL (130-400); RBC 5.86 m/cumm (4.50-6.00); White Blood Cell Count 14.23 k/cumm (4.4-10.8)
[2020-05-15 14:01] LABS: Absolute Lymphocyte Count 1.91 k/cumm (1.2-3.4); Absolute Neutrophil Count 10.86 k/cumm (1.2-6.7)
[2020-05-15 14:12] LABS: INR 1.1 (0.9-1.1); PTT Activated 28.4 sec (21.0-31.4); Prothrombin Time 11.3 sec (9.3-11.0)
--- NOTE | 2020-05-15 14:12 | ED.GENADUL_ITS ---
Discharge Plan Disposition Patient Disposition: [facility] Condition: Fair Discharge Details Chief Complaint: SOB Clinical Impression: STEMI (ST elevation myocardial infarction), Acute kidney injury, Failure to thrive Primary Care Provider: Amaris Hanson ED Provider: Daisha Cabrales Home Meds and New Rx's Prescriptions: No Action gabapentin 100 mg Capsule 100 mg PO TID RF: 0 atorvastatin [Lipitor] 20 mg tablet 40 mg PO HS RF: 0 acetaminophen [Acetaminophen Extra Strength] 500 mg Tablet 1,000 mg PO QID PRNRF: 0 torsemide 10 mg tablet 10 mg PO DAILY RF: 0 potassium chloride 20 mEq tablet,ER particles/crystals 20 meq PO TID RF: 0 spironolactone 50 mg tablet 50 mg PO DAILY RF: 0 risperidone [Risperdal] 1 MG tablet 0.5 mg PO HS RF: 0 cyanocobalamin (vitamin B-12) [Vitamin B-12] 500 MCG tablet 1,000 mcg PO DAILY Qty: 30 RF: 0 ascorbic acid (vitamin C) [Vitamin C] 500 MG tablet 500 mg PO BID Qty: 60 RF: 0 benztropine 1 MG tablet 0.5 mg PO DAILY Qty: 30 RF: 0 omeprazole 20 MG capsule,delayed release(DR/EC) 20 mg PO DAILY@0730 Qty: 30 RF: 0 magnesium gluconate 500 MG tablet 500 mg PO BID Qty: 60 RF: 0 thiamine HCl (vitamin B1) [Vitamin B-1] 100 mg Tablet 100 mg PO DAILY RF: 0 mirtazapine [Remeron] 15 mg Tablet 15 mg PO HS RF: 0 [place]-3 350 mg-235 mg- 90 mg-597 mg capsule,delayed release(DR/EC) 100 cap PO DAILY RF: 0 carvedilol 12.5 mg Tablet 12.5 mg PO BID RF: 0 Discharge Data Discharge Date/Time-TO BE ENTERED AT DEPARTURE: 05/15/20 15:30 Medical Decision Making 1340 -- 64-year-old male with a history of previous alcohol abuse, COPD, thoracic aortic aneurysm, anxiety, schizophrenia, hypertension, peripheral arterial disease with history of femoral popliteal bypass presents for general illness, decreased appetite and generalized weakness with noted labored breathing per EMS today. EKG on arrival notes a rate of 123, sinus with greater than [address] elevation in lead III and aVF and greater than [address] elevation in lead II. There are also reciprocal changes with greater than [address] depression in V2, V3, aVL as well as [address] depression in lead I. BP 88/64, heart rate 120s, respirations 40 with normal temperature and oxygen saturation on arrival. Patient appears pale, disheveled and dehydrated. He has no complaints of chest pain, shortness of breath and states he has mainly felt weak without appetite for the past few days. He appears significantly dehydrated but nontoxic. Will hydrate, screening labs pending. 1400 -- Troponin 34.5. Creatinine 2.24. Mild elevation of liver enzymes. [facility] cardiology paged immediately with concern for STEMI. 325 aspirin, 600 Plavix, heparin bolus and drip ordered. Right-sided EKG no significant changes other than ST elevation noted in V5 and V6. 1420 --discussed with [facility] cardiology who agrees this is consistent with inferior STEMI that likely occurred within the past few days. No plan for lytics at this time. Accepts patient for transfer. Accepting physician Dr. Hazel. Medical Records Medical records reviewed: Yes I reviewed the patient's medical records. Imaging Data Radiologic Study: Radiologist's impression: XR PORTABLE CHEST AP CLINICAL HISTORY: sob, r/o acute disease TECHNIQUE: 2D digital imaging was performed. COMPARISON: CR XR CHEST 2V PA LATERAL from 03/12/2019 CR XR CHEST 2V PA LATERAL from 05/18/2019 FINDINGS: The heart is at the upper limits of normal. There is tortuosity of the thoracic aorta. Increased opacity seen in the left lung base laterally. The right lung is clear. No pleural effusion or pneumothorax. Degenerative changes are seen in the spine. IMPRESSION: Opacity in the left lung base laterally. This may represent atelectasis or pneumonia. Lab Data Lab results reviewed: Yes I reviewed the patient's lab results. Labs: Laboratory Tests Range/Units 05/15/20 05/15/20 05/15/20 13:30 13:30 13:30 WBC (4.4-10.8) k/cumm 14.23 H RBC (4.50-6.00) m/cumm 5.86 Hgb (13.5-17.5) g/dL 15.5 Hct (40.0-50.0) % 46.5 MCV (80-95) fL 79.4 L MCH (27.0-33.0) pg 26.5 L MCHC (32.0-36.0) g/dL 33.3 RDW (11.8-14.1) % 17.0 H Plt Count (130-400) x1000/uL 237 MPV (8.0-11.0) fL 9.7 Immature Gran % % 0.4 Neutrophils % 76.3 Lymphocytes % 13.4 Monocytes % 9.7 Eosinophils % 0.1 Basophils % 0.1 Absolute Neutrophils (1.2-6.7) k/cumm 10.86 H Absolute Lymphocytes (1.2-3.4) k/cumm 1.91 Absolute Monocytes (0.11-0.7) k/cumm 1.38 H Absolute Eosinophils (0.0-0.7) k/cumm 0.01 Absolute Basophils (0.0-0.2) k/cumm 0.01 PT (9.3-11.0) sec 11.3 H INR (0.9-1.1) 1.1 APTT (21.0-31.4) sec 28.4 Sodium (136-145) mmol/L 138 Potassium (3.5-5.1) mmol/L 4.0 Chloride (98-107) mmol/L 100 Carbon Dioxide (21.0-32.0) mmol/L 22.1 Anion Gap (3-11) mmol/L 15.9 H BUN (7-18) mg/dL 66 H Creatinine (0.70-1.30) mg/dL 2.24 H Estimated GFR/1.73 m2 (mL/min/1.73m2) 29.48 Glucose (74-106) mg/dL 137 H Lactate (0.6-1.4) mmol/L Calcium (8.5-10.1) mg/dL 9.1 Magnesium (1.8-2.4) mg/dL 2.4 Total Bilirubin (0.2-1.0) mg/dL 2.1 H AST (15-37) U/L 159 H ALT (16-63) U/L 152 H Alkaline Phosphatase (46-116) U/L 117 H Troponin I (<0.06) ng/mL 34.50 H* Total Protein (6.4-8.2) g/dL 8.3 H Albumin (3.4-5.0) g/dL 2.8 L Urine Color Urine Clarity Urine pH Ur Specific [place] Urine Protein Urine Ketones Urine Blood Urine Nitrite Urine Bilirubin Urine Urobilinogen Ur Leukocyte Esterase Urine Glucose Range/Units 05/15/20 05/15/20 14:09 15:15 WBC (4.4-10.8) k/cumm RBC (4.50-6.00) m/cumm Hgb (13.5-17.5) g/dL Hct (40.0-50.0) % MCV (80-95) fL MCH (27.0-33.0) pg MCHC (32.0-36.0) g/dL RDW (11.8-14.1) % Plt Count (130-400) x1000/uL MPV (8.0-11.0) fL Immature Gran % % Neutrophils % Lymphocytes % Monocytes % Eosinophils % Basophils % Absolute Neutrophils (1.2-6.7) k/cumm Absolute Lymphocytes (1.2-3.4) k/cumm Absolute Monocytes (0.11-0.7) k/cumm Absolute Eosinophils (0.0-0.7) k/cumm Absolute Basophils (0.0-0.2) k/cumm PT (9.3-11.0) sec INR (0.9-1.1) APTT (21.0-31.4) sec Sodium (136-145) mmol/L Potassium (3.5-5.1) mmol/L Chloride (98-107) mmol/L Carbon Dioxide (21.0-32.0) mmol/L Anion Gap (3-11) mmol/L BUN (7-18) mg/dL Creatinine (0.70-1.30) mg/dL Estimated GFR/1.73 m2 (mL/min/1.73m2) Glucose (74-106) mg/dL Lactate (0.6-1.4) mmol/L 2.2 H* Calcium (8.5-10.1) mg/dL Magnesium (1.8-2.4) mg/dL Total Bilirubin (0.2-1.0) mg/dL AST (15-37) U/L ALT (16-63) U/L Alkaline Phosphatase (46-116) U/L Troponin I (<0.06) ng/mL Total Protein (6.4-8.2) g/dL Albumin (3.4-5.0) g/dL Urine Color Cancelled Urine Clarity Cancelled Urine pH Cancelled Ur Specific [place] Cancelled Urine Protein Cancelled Urine Ketones Cancelled Urine Blood Cancelled Urine Nitrite Cancelled Urine Bilirubin Cancelled Urine Urobilinogen Cancelled Ur Leukocyte Esterase Cancelled Urine Glucose Cancelled ECG Data Attestation: I personally reviewed and interpreted this ECG (s) as follows: Interpretation: #1 -- Rate of 123, sinus, greater than [address] elevation in 3 and aVF, greater than [address] elevation in lead II. Greater than [address] depression in V2, V3, aVL, greater than [address] depression in lead I. IN 136. QTc 461. QRS 104. #2 -- R sided EKG - rate of 113, sinus, [address] elevation in 3 and aVF, [address] elevation in 2, V5, V6. [address] depression noted in V2, aVL. [address] depression and lead I. IN 146. QTc 505. QRS 102. HPI General Mode of arrival: EMS . Date/Time Provider Initiated Documentation: 05/15/20 13:33 . Limitations to Documentation: physical limitation . Information obtained by: patient and EMS . HPI Narrative: Patient is a 64-year-old male with a history of previous alcohol abuse, COPD, descending thoracic aortic aneurysm, hypertension peripheral arterial disease with history of femoral popliteal bypass and schizophrenia presents for generalized weakness, decreased appetite and labored breathing per EMS. Per report from EMS, home health nurse checked on patient today and he took quite a long time to answer the door and she noted him to be pale, generally weak and appeared to be short of breath. Patient states he uses a walker to ambulate and that he has not eaten for the last 2 days or taken any of his medications for the past 5 days due to feeling generally weak. He denies any recent fever, cough, headache, dizziness, chest pain, shortness of breath, abdominal pain, urinary symptoms, recent injury, nausea, vomiting, diarrhea or recent travel. Patient states he lives alone denies any recent hospitalization. Related Data Home Medications Medication Instructions Recorded Confirmed ascorbic acid (vitamin C) [Vitamin 500 mg PO BID #60 tab 12/08/17 05/15/20 C] benztropine 0.5 mg PO DAILY #30 tab 12/08/17 05/15/20 cyanocobalamin (vitamin B-12) 1,000 mcg PO DAILY #30 tab 12/08/17 05/15/20 [Vitamin B-12] magnesium gluconate 500 mg PO BID #60 tab 12/08/17 05/15/20 omeprazole 20 mg PO DAILY@0730 #30 capcr 12/08/17 05/15/20 mirtazapine [Remeron] 15 mg PO HS 02/11/19 05/15/20 thiamine HCl (vitamin B1) [Vitamin 100 mg PO DAILY 02/11/19 05/15/20 B-1] acetaminophen [Acetaminophen Extra 1,000 mg PO QID PRN 03/12/19 05/15/20 Strength] atorvastatin [Lipitor] 40 mg PO HS 03/12/19 05/15/20 gabapentin 100 mg PO TID 03/12/19 05/15/20 carvedilol 12.5 mg PO BID 05/18/19 05/15/20 omega 3 350 mg-dha 235 mg-epa 90 100 cap PO DAILY 08/08/19 05/15/20 mg-fish oil 597 mg capsule,delay rel potassium chloride 20 meq PO TID 05/15/20 05/15/20 risperidone [Risperdal] 0.5 mg PO HS 05/15/20 05/15/20 spironolactone 50 mg PO DAILY 05/15/20 05/15/20 torsemide 10 mg PO DAILY 05/15/20 05/15/20 Previous Rx's Medication Instructions Recorded ascorbic acid (vitamin C) [Vitamin 500 mg PO BID #60 tab 12/08/17 C] benztropine 0.5 mg PO DAILY #30 tab 12/08/17 cyanocobalamin (vitamin B-12) 1,000 mcg PO DAILY #30 tab 12/08/17 [Vitamin B-12] magnesium gluconate 500 mg PO BID #60 tab 12/08/17 omeprazole 20 mg PO DAILY@0730 #30 capcr 12/08/17 Allergies Allergy/AdvReac Type Severity Reaction Status Date / Time No Known Allergies Allergy Verified 05/15/20 13:40 General Stated Complaint: SOB BELLO: 2 Review of Systems All systems reviewed & are unremarkable except as noted in HPI and below Constitutional Constitutional: Reports as per HPI, Denies chills, Denies fever(s), Reports lethargy and Reports poor appetite Eyes Eyes: Denies blurry vision ENT Ears, Nose, Mouth, and Throat: Denies dizziness, Denies sore throat and Denies throat swelling Cardiovascular Cardiovascular: Denies chest pain and Denies dyspnea Respiratory Respiratory: Denies cough and Denies dyspnea Gastrointestinal Gastrointestinal: Denies abdominal pain, Denies diarrhea and Denies vomiting Genitourinary Genitourinary: Denies hematuria and Denies dysuria Musculoskeletal Musculoskeletal: Denies back pain and Denies numbness Integumentary/Breasts Skin/Breast: Denies lesions and Denies rash Neurologic Neurologic: Denies dizziness, Denies localized weakness and Denies numbness Allergic/Immunologic Allergic/Immunologic: Denies throat swelling [facility] Social History Smoking/Tobacco Use Status: Current, status unknown Tobacco Type: cigarettes Smoking packs per day: 1 Smoking cigarettes per day: 20.0 Alcohol Intake: current Alcohol Intake frequency: 3 or more drinks per day Alcohol type: beer Details: drinks a 6 pack of beer per day Drug use: Never Substance use type: does not use Current gender identity: male Do you feel safe at home: Yes Do you feel safe in your relationship?: Yes Exam Const General: cooperative, no acute distress, disheveled and ill appearing chronically Orientation: alert, awake and oriented x3 HENMT Head: normal to inspection Ears: hearing grossly normal bilaterally and external ears normal General nose exam: external nose normal Face and sinus: normal facial exam Mouth: oral mucosae normal Teeth and gingiva: dentition normal Throat: posterior oropharynx normal Eyes General: appearance normal, both eyes and all related structures Eyelids: eyelids normal Pupils: PERRL EOM: EOM intact bilaterally Neck Neck: normal visual inspection Lymphatic: no lymphadenopathy noted Chest Chest: normal inspection of the chest Resp Effort & Inspection: normal respiratory effort and able to speak in complete sentences Auscultation: clear to auscultation bilaterally Cardio Rate: regular rate Rhythm: regular rhythm GI Inspection: normal to inspection Palpation: soft, not firm, no guarding, no hepatosplenomegaly, no masses and nontender Auscultation: normal bowel sounds Back/Spine/Pelvis Back: no CVA tenderness Skin General skin exam: no rashes or lesions noted and pallor Neuro General: patient alert, patient awake and patient oriented x3 Cranial Nerves: CN's II-XI intact bilaterally Cognition: normal cognition Speech: speech normal Motor: muscle tone normal throughout and strength 5/5 throughout Sensory Exam: no sensory deficits noted Extrem General: normal to inspection, full ROM and capillary refill normal Psych Appearance: grossly normal Mental Status: mental status grossly normal Speech and Movement: speech and movement normal Affect: normal affect Thought Process: normal Course Vital Signs Vital signs: Vital Signs Temperature 98.2 F 05/15/20 13:16 Pulse 122 H 05/15/20 13:16 Respiratory Rate 43 H 05/15/20 13:16 Blood Pressure 88/64 L 05/15/20 13:16 Pulse Oximetry 96 05/15/20 13:16 Temperature 98.2 F 05/15/20 13:16 Pulse 116 H 05/15/20 13:29 Respiratory Rate 37 H 05/15/20 13:29 Respiratory Effort 05/15/20 13:30 Respiratory Depth Normal 05/15/20 13:30 Respiratory Pattern Tachypnea 05/15/20 13:30 Blood Pressure 94/76 L 05/15/20 13:29 Blood Pressure Position Supine 05/15/20 13:16 Pulse Oximetry 96 05/15/20 13:16 Oxygen Delivery Method Room Air 05/15/20 13:29 Oxygen Flow Rate 0 05/15/20 13:29 Pain Level 0 05/15/20 13:16 Lab/Test Results Lab/Test Results: Laboratory Tests Range/Units 05/15/20 13:30 WBC (4.4-10.8) k/cumm 14.23 H RBC (4.50-6.00) m/cumm 5.86 Hgb (13.5-17.5) g/dL 15.5 Hct (40.0-50.0) % 46.5 MCV (80-95) fL 79.4 L MCH (27.0-33.0) pg 26.5 L MCHC (32.0-36.0) g/dL 33.3 RDW (11.8-14.1) % 17.0 H Plt Count (130-400) x1000/uL 237 MPV (8.0-11.0) fL 9.7 Immature Gran % % 0.4 Neutrophils % 76.3 Lymphocytes % 13.4 Monocytes % 9.7 Eosinophils % 0.1 Basophils % 0.1 Absolute Neutrophils (1.2-6.7) k/cumm 10.86 H Absolute Lymphocytes (1.2-3.4) k/cumm 1.91 Absolute Monocytes (0.11-0.7) k/cumm 1.38 H Absolute Eosinophils (0.0-0.7) k/cumm 0.01 Absolute Basophils (0.0-0.2) k/cumm 0.01 Critical Care Time Critical Care Time Critical Care Time: Yes Total Critical Care Time: 45 Attestation: I spent 45 minutes of critical care time with this patient. This does not include time spent on separately reported billable procedures.
[2020-05-15 14:15] LABS: ALT 152 U/L (16-63); AST 159 U/L (15-37); Albumin 2.8 g/dL (3.4-5.0); Alkaline Phosphatase 117 U/L (46-116); Anion Gap 15.9 mmol/L (3-11); BUN 66 mg/dL (7-18); Bilirubin, Total 2.1 mg/dL (0.2-1.0); CO2 22.1 mmol/L (21.0-32.0); CREATININE 2.24 mg/dL (0.70-1.30); Calcium 9.1 mg/dL (8.5-10.1); Chloride 100 mmol/L (98-107); Estimated GFR 29.48 (mL/min/1.73m2); Glucose 137 mg/dL (74-106); Magnesium 2.4 mg/dL (1.8-2.4); Sodium 138 mmol/L (136-145); Total Protein 8.3 g/dL (6.4-8.2)
[2020-05-15] MEDS: Clopidogrel 300 MG TAB 600 MG PO (14:46)
[2020-05-15] MEDS: Aspirin 325 MG TAB PO (14:47)
[2020-05-15 15:25] LABS: Lactate 2.2 mmol/L (0.6-1.4)
== END 2020-05-15 15:30 | disposition short-term general hospital (02) ==
PROVIDERS: Emergency Provider Physician Assistant; PCP Family Medicine
DX: I21.3 ST elevation (STEMI) myocardial infarction of unspecified site (principal); N17.9 Acute kidney failure, unspecified; R62.7 Adult failure to thrive; E86.0 Dehydration; I10 Essential (primary) hypertension; J44.9 Chronic obstructive pulmonary disease, unspecified; F17.210 Nicotine dependence, cigarettes, uncomplicated
CPT/HCPCS: 36415; 80053; 93005; 96361; 96365; 96376; 99291; 71045; 81003; 83605; 83735; 84484; 85025; 85610; 85730; 93010